=== PATIENT | female | born 1960 | race Caucasian/White ===

== ENCOUNTER → 2017-02-12 | Day surgery (SDC) | payer BC ==
[~2017-02-12] VITALS: Ht 162.6 cm; Wt 61.5 kg
[~2017-02-12] MED LIST: ACETAMINOPHEN 325 MG TAB PO PRN; ALPR-411 PO; ASPI81TA28 PO; ATROPINE SULFATE 0.1 MG/ML 5ML SYR IV PRN; FAMO20TA11 PO; FENTANYL CITRATE INJ 50 MCG/1 ML 2 ML VIAL ONE; MIDAZOLAM HCL 1 MG/ML 2ML VIAL ONE; ONDANSETRON INJ 2 MG/ML 2 ML VIAL IV PRN; SODIUM CHLORIDE 0.9% 1000ML 1,000 ML IV SCH; SODIUM CHLORIDE 0.9% 1000ML 250 ML IV PRN
[2017-02-12 09:44] VITALS: BP 161/75; PULSE 73; TEMP 36.7; O2SAT 100; Ht 162.6 cm; Wt 61.5 kg
--- NOTE | 2017-02-12 11:16 | History & Physical Bridge Note ---
H&P Re-Evaluation Bridge Note: I have examined the patient, reviewed the History & Physical and in the interval since the performance of the History & Physical I have noted the following changes of clinical significance: No changes noted
--- NOTE | 2017-02-12 11:28 | Cardiac Catheterization ---
Procedure Note Procedure Date Feb 12, 2017. Pre-Procedure Diagnosis Positive Stress Test, Cardiomyopathy AUC Score 7 Post-Procedure Diagnosis Normal Coronary Arteries (Anomalous Circumflex Artery) Procedure(s) Performed Coronary Angiography, Left Heart Cath, LV Angiography Yardage Control Clerk Dr. 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, Normal LV function EF approximately 60% Hemodynamics Rest Ao: 152/80 Final Ao: 166/79 LV: 148/13 Recommendations Medical therapy and/or Counseling Specimens None Radiation Exposure (mGy) 713 Contrast (mls) 129 Fluids (cc crystalloids) 70 Procedural Complication(s) None Disposition Special Events Manager Holding/Recovery ACC Data Cardiac Status Clinical evaluation leading to the procedure CAD Presntation: Sx unlikely to be ischemic, Positive Stress Test Anginal Classification: No symptoms Heart Failure: No Cardiogenic Shock w/in 24Hrs: No Cardiac Arrest w/in 24Hrs: No Imaging studies past 6 months: Yes Stress studies past 6 months: Yes Standard Exercise Stress Test: No Stress Echocardiogram: Yes - Positive Stress Testing w/SPECT MPI: No Cardiac CTA: No Coronary Anatomy Dominant: Right Left Main (% Stenosis): Normal LAD (% Stenosis): Normal Circumflex (% Stenosis): Normal (Anomalous from the RCA) RCA (% Stenosis): Normal Ramus (% Stenosis): Normal Left Ventricular Angiography EF (%): 60 Mitral Regurgitation: None Diagnostic Status: Elective Closure Device Percutaneous Entry Location: Femoral Closure Device: Mynx Recommendations: Medical therapy and/or Counseling
--- NOTE | 2017-02-12 11:33 | Discharge Instructions ---
Discharge Instructions Procedure Procedure Date: Feb 12, 2017. Reason for Visit: *Dr Caceres To Do Abd Stress Test. Discharge Discharge Date: Feb 12, 2017. Discharge Diagnosis: Normal Coronaries Last Recorded Wt (Kilograms): 61.5 Anesthesia Post Anesthesia Instructions: If you have had General Anesthesia or IV Sedation: * Do not drive today. * Resume driving when surgeon permits. * Do not make important decisions or sign legal documents today. * Call surgeon for: 1. Temperature elevations greater than 101 degrees F. 2. Uncontrollable pain. 3. Excessive bleeding. 4. Persistent nausea and vomiting. 5. Medication intolerance (nausea, vomiting or rash). * For nausea and vomiting use only clear liquids such as: tea, soda, bouillon until nausea subsides, then gradually increase diet as tolerated. * If you have any concerns or questions, call your surgeon's office. If physician is unavailable and it is an emergency, call 911 or go to the nearest emergency room. Instructions Activity Recommendations: limitations Recommended Home Diet: resume previous diet Provider Instructions ACTIVITY RECOMMENDATIONS: It is common to feel weak and fatigue for a few days. * Do not drive or operate any motorized equipment for the next three days. * Limit stair usage (2 or 3 trips a day only) for the next three days. * Do not lift anything heavier than 10 pounds for the next three days. * Do not engage in vigorous exercise or any sports for the next five days. * You may shower the day after your procedure, but do not immerse the area for three days. Cleanse the site gently with soap and water. SPECIAL CARE INSTRUCTIONS: * You may replace the pressure dressing or band-aid the morning after the procedure. * After your procedure, it is normal to have a small bruise or small lump at the site. Examine your site daily for any change in the bruise or lump, redness, swelling, drainage or numbness. Notify your doctor if any change. BLEEDING: * If there is a small amount of bleeding at the site, lie down and apply firm pressure with a clean cloth for ten minutes. When the bleeding stops, lie quietly keeping the procedure limb straight for six hours. Notify your doctor as soon as possible. * If the bleeding does not stop after ten minutes or if there is a large amount of bleeding or spurting, call 911 immediately. Continue to lie down and hold firm pressure until help arrives. SKIN IRRITATION: * You may experience some redness and/or swelling in the area where radiation was administered. If any skin irritation occurs, please contact your family physician. FOLLOW UP VISIT: Keep any scheduled doctor appointments. Follow Up Follow-up with: Dr. Evans 2-4 weeks, office will call with an appointment Caro Amato Recommendations: Call your doctor if: * Temperature above 101 degrees * Pain not relieved by pain medicine ordered * There is increased drainage or redness from any incision * You have any unanswered questions or concerns. Your Doctors Instructions noted above were prepared by provider Bin Caceres. Patient Signature Section: Patient Instructions Signature Page Kaitlynn Castillo Patient (or Guardian) Signature/Date: I have read and understand the instructions given to me by my caregivers. Caregiver/RN/Doctor Signature/Date: The above-named patient and/or guardian has received patient instructions on this date. + Original Patient Signature Page (only) stays with chart. Please make copy for patient.
--- NOTE | 2017-02-12 11:58 | CARDIAC CATH REPORT ---
PROCEDURE: 1. Left heart catheterization. 2. Coronary angiography. 3. Left ventriculography. HISTORY OF PRESENT ILLNESS: The patient is a 56-year-old female who presented with a newly discovered left bundle branch block. She was reluctant to undergo a pharmacologic nuclear stress test and eventually was agreeable to an exercise stress echocardiogram. Unfortunately, that study was equivocal or positive. It revealed not only wall motion abnormalities which could have been from the left bundle branch block, but also suggested a cardiomyopathy with an estimated left ventricular ejection fraction of around 40-50%. She was referred for cardiac catheterization. PROCEDURE SUMMARY: The patient was seen and evaluated in the holding area of the pathology laboratory technologist. After informed consent was obtained, the patient was taken to the cardiac catheterization lab where she was prepped and draped in the usual manner. Preformed 5-[place] diagnostic catheter was utilized for the coronary angiograms. A 5-[place] pigtail catheter was utilized for the left ventriculogram. Following the procedure, the patient had the arterial site closed with a Mynx device and was returned to the holding area of the pathology laboratory technologist in stable condition. CORONARY ANGIOGRAPHY: Selective injections of the left coronary artery revealed the left main trunk to be normal and widely patent. There is a noticeable absence of the left circumflex artery. There is a large ramus branch from the left main trunk which is widely patent and within normal limits. The LAD extends to the apex of the heart with the LAD system being smooth in appearance, widely patent, and within normal limits. 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 The right coronary artery is smooth in appearance, widely patent, and within normal limits. The left circumflex artery is smooth in appearance, widely patent, and within normal limits. LEFT VENTRICULOGRAM: The left ventricle is of normal size. The estimated left ventricular ejection fraction by left ventriculography is around 60%. The mitral valve is competent. The LVEDP is 13. 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 By left ventriculogram, left ventricular systolic function is preserved. RECOMMENDATIONS: The patient will be monitored and have follow up with her primary customs appraiser, Dr. Evans.
[2017-02-12 15:00] VITALS: BP 132/68; PULSE 63; O2SAT 100
== END | disposition home or self-care (01) ==
LOC: C.CATH 09:04
PROVIDERS: ATTEND Internal Medicine Interventional Cardiology
DX: R94.39 Abnormal result of other cardiovascular function study (principal); I44.7 Left bundle-branch block, unspecified; I42.8 Other cardiomyopathies; I10 Essential (primary) hypertension; F32.9 Major depressive disorder, single episode, unspecified

== ENCOUNTER 2021-04-05 21:20 | Inpatient (IN) ==
[2021-04-05] MEDS ORDERED: LORazepam 1 MG/2 ML VIAL IV STA (22:55)
[2021-04-05] MEDS ORDERED: SODIUM CHLORIDE 0.9% 1000ML 1,000 ML IV SCH (23:00)
[2021-04-06 00:05] LABS: Hematocrit (blood only) 33.1 % (37-47); Hemoglobin 12.1 g/dL (12.0-16.0); Immature Granulocytes # (auto) 0.03 K/uL (0.00-0.02); Immature Granulocytes % (auto) 0.3 %; Lymphocytes # (auto) 1.02 K/uL (1.2-3.4); Lymphocytes % (auto) 8.8 %; Mean Corpuscular Hemoglobin 30.8 pg (25-34); Mean Corpuscular Hgb Conc 36.6 g/dL (32-36); Mean Corpuscular Volume 84.2 fL (80-100); Mean Platelet Volume 9.5 fL (7.4-10.4); Monocytes # (auto) 1.44 K/uL (0.11-0.59); Monocytes % (auto) 12.4 %; Neutrophils # (auto) 9.15 K/uL (1.4-6.5); Neutrophils % (auto) 78.5 %; Platelet Count 222 K/uL (130-400); RDW Coefficient of Variation 12.1 % (11.5-14.5); RDW Standard Deviation 37.6 fL (36.4-46.3); Red Blood Count 3.93 M/uL (4.2-5.4); White Blood Count 11.64 K/uL (4.8-10.8)
[2021-04-06] MEDS ORDERED: METOCLOPRAMIDE HCL INJ 5 MG/ML 2 ML VIAL IV STA (00:25)
[2021-04-06 00:50] LABS: Alanine Aminotransferase 16 U/L (12-78); Albumin Level 3.3 gm/dl (3.4-5.0); Alkaline Phosphatase 85 U/L (45-117); Aspartate Aminotransferase 24 U/L (15-37); BUN Creatinine Ratio 15.9 (10-20); Bilirubin,Total 1.4 mg/dl (0.2-1); Blood Urea Nitrogen 11 mg/dl (7-18); Calcium 8.4 mg/dl (8.5-10.1); Carbon Dioxide 23 mmol/L (21-32); Chloride 84 mmol/L (98-107); Est GFR (African American) 107.6; Est GFR (Non-African American) 92.9; Globulin 3.2 gm/dl (2.5-4.0); Glucose 143 mg/dl (70-99); Magnesium 1.8 mg/dl (1.8-2.4); Potassium 3.7 mmol/L (3.5-5.1); Sodium 118 mmol/L (136-145); Thyroid Stimulating Hormone 0.717 uIu/ml (0.300-4.500); Total Protein 6.5 gm/dl (6.4-8.2); Troponin I 0.074 ng/ml (0-0.045)
[2021-04-06 01:15] LABS: Partial Thromboplastin Time 26.6 Seconds (21.0-31.0)
[2021-04-06] MEDS ORDERED: cefTRIAXone SODIUM 2,000 MG/70 ML BAG IV STA (01:17)
[2021-04-06] MEDS ORDERED: AZITHROMYCIN 250 MG TAB PO ONE (01:17)
[2021-04-06 01:33] LABS: Procalcitonin 0.14 ng/ml (0-0.5)
[2021-04-06 01:39] LABS: Lyme Ab IgG w/WB Rflx Negative (Negative); Lyme Ab IgM w/WB Rflx Negative (Negative)
[2021-04-06 01:47] LABS: Influenza A virus by PCR Negative (Neg); Influenza B virus by PCR Negative (Neg); RSV by PCR Negative (Neg); SARS CoV2 RNA(COVID-19) InHosp NEGATIVE (Negative)
[2021-04-06] MEDS ORDERED: PIPERACILLIN/TAZOBACTAM 4.5 GM/120 ML BAG IV ONE (01:50)
[2021-04-06] MEDS ORDERED: PIPERACILL/TAZOBAC CONSULT ACTIVE PRN (01:50)
--- NOTE | 2021-04-06 01:50 | Emergency Department Note ---
History of Present Illness General Chief complaint: Illness Stated complaint: FEVER, TROUBLE WALKING, HICCUPS Time Seen by Provider: 04/05/21 22:40 History of Present Illness This 60-year-old presents to the ER complaining of feeling weak and hiccups with shakiness for the past 2 days who has been anxious over Covid Location: Generalized Quality: Weak Severity: Moderate Duration: Past few days Timing: Started few days ago Context: was concerned and came in Modifying factors: better with rest; worse with activity Patient states he feels weak and has been having hiccups for quite some time. She states the past few days she is been more shaky and having difficulty ambulating. She occasionally coughs. She has received the Covid vaccine. Patient denies chest pain, abdominal pain, vomiting, diarrhea. She tried taking a Xanax earlier with no relief of symptoms. Home Medications Medication Instructions Recorded Confirmed Type alprazolam 0.25 mg PO DAILY PRN 04/05/21 04/05/21 History Allergies Allergy/AdvReac Type Severity Reaction Status Date / Time hydrocodone Allergy Mild Itching Verified 04/05/21 23:12 Past Med/Surg History Medical History Anxiety Surgical History No pertinent past surgical history Social History Smoking Status: Never smoker Feels Safe at Home: Yes Review of Systems A total of 10 systems reviewed and were otherwise negative Physical Exam Vital Signs Vital Signs - 24 hr 04/05/21 21:25 04/05/21 23:54 04/06/21 00:00 Temperature 36.5 C Temperature Source Temporal Artery Scan Pulse Rate 106 H 89 101 H Pulse Rate from SpO2 Sensor Respiratory Rate 18 25 H 27 H Respiratory Effort / Characteristics Non-Labored Spontaneous Respiratory Depth Normal Respiratory Pattern Regular Blood Pressure 119/67 127/90 129/100 Blood Pressure Mean 84 102 109 Blood Pressure Position Sitting Pulse Oximetry 94 Oxygen Delivery Method Room Air Nasal Cannula Oxygen Flow Rate 2 Sepsis Recent Fever Within 48 Hours No Sepsis New/Unexplained Change in Mental Status No Sepsis Action Taken by Nursing No Action Required 04/06/21 00:31 04/06/21 01:00 04/06/21 02:15 Temperature Temperature Source Pulse Rate 101 H 97 H 110 H Pulse Rate from SpO2 Sensor 102 H 100 H 108 H Respiratory Rate 41 H 33 H 23 Respiratory Effort / Characteristics Respiratory Depth Respiratory Pattern Blood Pressure 151/92 H 142/99 H 181/125 H Blood Pressure Mean 111 113 143 Blood Pressure Position Pulse Oximetry 92 92 88 L Oxygen Delivery Method Oxygen Flow Rate Sepsis Recent Fever Within 48 Hours Sepsis New/Unexplained Change in Mental Status Sepsis Action Taken by Nursing 04/06/21 02:30 Temperature Temperature Source Pulse Rate 102 H Pulse Rate from SpO2 Sensor 102 H Respiratory Rate 35 H Respiratory Effort / Characteristics Respiratory Depth Respiratory Pattern Blood Pressure 140/89 Blood Pressure Mean 106 Blood Pressure Position Pulse Oximetry 91 Oxygen Delivery Method Oxygen Flow Rate Sepsis Recent Fever Within 48 Hours Sepsis New/Unexplained Change in Mental Status Sepsis Action Taken by Nursing VITALS: Vitals are noted on the nurse's note and reviewed by myself. Vital signs reviewed. GENERAL: Anxious appearing female, in no acute distress, nondiaphoretic, well- developed well-nourished. SKIN: The skin was without rashes, erythema, edema, or bruising. There is no tenting of the skin. Capillary reflex less than 2 seconds. HEAD: Normocephalic atraumatic. EARS: External auditory canals clear, tympanic membranes pearly johnson without erythema or effusion bilaterally. EYES: Pupils equal round and reactive to light and accommodation. Conjunctivae without injection, sclerae without icterus. Extraocular movements intact. NOSE: Patent, turbinates without inflammation or discharge. No sinus tenderness. MOUTH: Mucous membranes mildly dry. Pharynx without erythema or exudate. Uvula midline. Airway patent. Tongue does not deviate. NECK: Supple without nuchal rigidity. No lymphadenopathy. No thyromegaly. Ce rvical spine is nontender. No JVD. HEART: Mildly tachycardic rate and rhythm LUNGS: Clear to auscultation bilaterally without wheezes, rales or rhonchi. No retractions or accessory muscle use. ABDOMEN: Positive bowel sounds x 4. Normal tympanic percussion. Soft, nontender, without masses or organomegaly. Woo sign negative. No guarding or rebound tenderness. No CVA tenderness MUSCULOSKELETAL: No muscle atrophy, erythema, or edema noted. NEURO: Patient was alert and oriented to person place and time. Normal sensation to light and sharp touch. No focal neurological deficits. Course Administered Medications Discontinued Medications Sodium Chloride (Nss 1000ml) 1,000 mls @ 999 mls/hr IV .[id number] SHIRA Stop: 04/06/21 00:00 Last Infusion: 04/06/21 02:07 Dose: 0 mls/hr Documented by: [id number] Admin: 04/05/21 23:52 Dose: 999 mls/hr Documented by: [id number] Lorazepam (Ativan) 1 mg in 2 mls @ 2 mls/min IV NOW STA Stop: 04/05/21 22:56 Last Admin: 04/05/21 23:52 Dose: 2 mls/min Documented by: [id number] Piperacillin Sod/Tazobactam Sod (Zosyn) 4.5 gm in 120 mls @ 240 mls/hr IV NOW ONE Stop: 04/06/21 02:19 Last Admin: 04/06/21 02:14 Dose: 240 mls/hr Documented by: [id number] Thiamine HCl 100 mg/ Syringe 10 mls @ 2 mls/min IV NOW STA Stop: 04/06/21 02:45 Last Admin: 04/06/21 03:02 Dose: 2 mls/min Documented by: [id number] Metoclopramide HCl (Metoclopramide Hcl Inj 5 Mg/Ml 2 Ml Vial) 5 mg IV NOW STA Stop: 04/06/21 00:26 Last Admin: 04/06/21 00:30 Dose: 5 mg Documented by: [id number] Miscellaneous Information (Piperacill/Tazobac Consult Active) 1 ea N/A UD PRN PRN Reason: Consult Stop: 05/06/21 01:49 Last Admin: 04/06/21 02:18 Dose: 1 ea Documented by: [id number] Medical Decision Making Medical Records Attestation: I reviewed the patient's medical records. Home Medications Current Medication List: was personally reviewed by me Laboratory Data Attestation: I reviewed the patient's lab results. Result diagrams: 04/05/21 23:50 04/05/21 23:50 Lab Results 04/05/21 04/05/21 04/05/21 Range/Units 23:50 23:50 23:50 WBC 11.64 H (4.8-10.8) K/uL RBC 3.93 L (4.2-5.4) M/uL Hgb 12.1 (12.0-16.0) g/dL Hct 33.1 L (37-47) % MCV 84.2 (80-100) fL MCH 30.8 (25-34) pg MCHC 36.6 H (32-36) g/dL RDW Std Deviation 37.6 (36.4-46.3) fL RDW Coeff of Luz 12.1 (11.5-14.5) % Plt Count 222 (130-400) K/uL MPV 9.5 (7.4-10.4) fL Immature Gran % (Auto) 0.3 % Neut % (Auto) 78.5 % Lymph % (Auto) 8.8 % [place] % (Auto) 12.4 % Eos % (Auto) 0.0 % Baso % (Auto) 0.0 % Neut # (Auto) 9.15 H (1.4-6.5) K/uL Lymph # (Auto) 1.02 L (1.2-3.4) K/uL [place] # (Auto) 1.44 H (0.11-0.59) K/uL Eos # (Auto) 0.00 (0-0.5) K/uL Baso # (Auto) 0.00 (0-0.2) K/uL Immature Gran # (Auto) 0.03 H (0.00-0.02) K/uL APTT (21.0-31.0) Seconds PTT Ratio Sodium 118 L* (136-145) mmol/L Potassium 3.7 (3.5-5.1) mmol/L Chloride 84 L (98-107) mmol/L Carbon Dioxide 23 (21-32) mmol/L Anion Gap 11.0 (3-11) BUN 11 (7-18) mg/dl Creatinine 0.70 (0.6-1.2) mg/dl Est Cr Clr Drug Dosing Not Reportable Est GFR ( Amer) 107.6 Est GFR (Non-Af Amer) 92.9 BUN/Creatinine Ratio 15.9 (10-20) Glucose 143 H (70-99) mg/dl Osmolality 237 L* (280-300) mOsm/kg Lactate (0.4-2.0) mmol/L Calcium 8.4 L (8.5-10.1) mg/dl Magnesium 1.8 (1.8-2.4) mg/dl Total Bilirubin 1.4 H (0.2-1) mg/dl AST 24 (15-37) U/L ALT 16 (12-78) U/L Alkaline Phosphatase 85 (45-117) U/L Ammonia (11-32) umol/L Troponin I 0.074 H* (0-0.045) ng/ml Total Protein 6.5 (6.4-8.2) gm/dl Albumin 3.3 L (3.4-5.0) gm/dl Globulin 3.2 (2.5-4.0) gm/dl Albumin/Globulin Ratio 1.0 (0.9-2) Procalcitonin (0-0.5) ng/ml TSH 0.717 (0.300-4.500) uIu/ml Ethyl Alcohol mg/dL (0-3) mg/dl Lyme Disease IgG Ab (Negative) Lyme Disease IgM Ab (Negative) COVID-19 Eval Order SARS-CoV-2 (PCR) (Negative) Influenza Type A (PCR) (Neg) Influenza Type B (PCR) (Neg) RSV (RT-PCR) (Neg) 04/05/21 04/05/21 04/06/21 Range/Units 23:50 23:50 00:50 WBC (4.8-10.8) K/uL RBC (4.2-5.4) M/uL Hgb (12.0-16.0) g/dL Hct (37-47) % MCV (80-100) fL MCH (25-34) pg MCHC (32-36) g/dL RDW Std Deviation (36.4-46.3) fL RDW Coeff of Luz (11.5-14.5) % Plt Count (130-400) K/uL MPV (7.4-10.4) fL Immature Gran % (Auto) % Neut % (Auto) % Lymph % (Auto) % [place] % (Auto) % Eos % (Auto) % Baso % (Auto) % Neut # (Auto) (1.4-6.5) K/uL Lymph # (Auto) (1.2-3.4) K/uL [place] # (Auto) (0.11-0.59) K/uL Eos # (Auto) (0-0.5) K/uL Baso # (Auto) (0-0.2) K/uL Immature Gran # (Auto) (0.00-0.02) K/uL APTT 26.6 (21.0-31.0) Seconds PTT Ratio 1.0 Sodium (136-145) mmol/L Potassium (3.5-5.1) mmol/L Chloride (98-107) mmol/L Carbon Dioxide (21-32) mmol/L Anion Gap (3-11) BUN (7-18) mg/dl Creatinine (0.6-1.2) mg/dl Est Cr Clr Drug Dosing Est GFR ( Amer) Est GFR (Non-Af Amer) BUN/Creatinine Ratio (10-20) Glucose (70-99) mg/dl Osmolality (280-300) mOsm/kg Lactate (0.4-2.0) mmol/L Calcium (8.5-10.1) mg/dl Magnesium (1.8-2.4) mg/dl Total Bilirubin (0.2-1) mg/dl AST (15-37) U/L ALT (12-78) U/L Alkaline Phosphatase (45-117) U/L Ammonia (11-32) umol/L Troponin I (0-0.045) ng/ml Total Protein (6.4-8.2) gm/dl Albumin (3.4-5.0) gm/dl Globulin (2.5-4.0) gm/dl Albumin/Globulin Ratio (0.9-2) Procalcitonin 0.14 (0-0.5) ng/ml TSH (0.300-4.500) uIu/ml Ethyl Alcohol mg/dL (0-3) mg/dl Lyme Disease IgG Ab Negative (Negative) Lyme Disease IgM Ab Negative (Negative) COVID-19 Eval Order CovFluRsv at [facility] SARS-CoV-2 (PCR) (Negative) Influenza Type A (PCR) (Neg) Influenza Type B (PCR) (Neg) RSV (RT-PCR) (Neg) 04/06/21 04/06/21 04/06/21 Range/Units 00:50 01:29 01:29 WBC (4.8-10.8) K/uL RBC (4.2-5.4) M/uL Hgb (12.0-16.0) g/dL Hct (37-47) % MCV (80-100) fL MCH (25-34) pg MCHC (32-36) g/dL RDW Std Deviation (36.4-46.3) fL RDW Coeff of Luz (11.5-14.5) % Plt Count (130-400) K/uL MPV (7.4-10.4) fL Immature Gran % (Auto) % Neut % (Auto) % Lymph % (Auto) % [place] % (Auto) % Eos % (Auto) % Baso % (Auto) % Neut # (Auto) (1.4-6.5) K/uL Lymph # (Auto) (1.2-3.4) K/uL [place] # (Auto) (0.11-0.59) K/uL Eos # (Auto) (0-0.5) K/uL Baso # (Auto) (0-0.2) K/uL Immature Gran # (Auto) (0.00-0.02) K/uL APTT (21.0-31.0) Seconds PTT Ratio Sodium (136-145) mmol/L Potassium (3.5-5.1) mmol/L Chloride (98-107) mmol/L Carbon Dioxide (21-32) mmol/L Anion Gap (3-11) BUN (7-18) mg/dl Creatinine (0.6-1.2) mg/dl Est Cr Clr Drug Dosing Est GFR ( Amer) Est GFR (Non-Af Amer) BUN/Creatinine Ratio (10-20) Glucose (70-99) mg/dl Osmolality (280-300) mOsm/kg Lactate 1.2 (0.4-2.0) mmol/L Calcium (8.5-10.1) mg/dl Magnesium (1.8-2.4) mg/dl Total Bilirubin (0.2-1) mg/dl AST (15-37) U/L ALT (12-78) U/L Alkaline Phosphatase (45-117) U/L Ammonia (11-32) umol/L Troponin I (0-0.045) ng/ml Total Protein (6.4-8.2) gm/dl Albumin (3.4-5.0) gm/dl Globulin (2.5-4.0) gm/dl Albumin/Globulin Ratio (0.9-2) Procalcitonin (0-0.5) ng/ml TSH (0.300-4.500) uIu/ml Ethyl Alcohol mg/dL < 3.0 (0-3) mg/dl Lyme Disease IgG Ab (Negative) Lyme Disease IgM Ab (Negative) COVID-19 Eval Order SARS-CoV-2 (PCR) NEGATIVE (Negative) Influenza Type A (PCR) Negative (Neg) Influenza Type B (PCR) Negative (Neg) RSV (RT-PCR) Negative (Neg) 04/06/21 04/06/21 Range/Units 01:29 01:29 WBC (4.8-10.8) K/uL RBC (4.2-5.4) M/uL Hgb (12.0-16.0) g/dL Hct (37-47) % MCV (80-100) fL MCH (25-34) pg MCHC (32-36) g/dL RDW Std Deviation (36.4-46.3) fL RDW Coeff of Luz (11.5-14.5) % Plt Count (130-400) K/uL MPV (7.4-10.4) fL Immature Gran % (Auto) % Neut % (Auto) % Lymph % (Auto) % [place] % (Auto) % Eos % (Auto) % Baso % (Auto) % Neut # (Auto) (1.4-6.5) K/uL Lymph # (Auto) (1.2-3.4) K/uL [place] # (Auto) (0.11-0.59) K/uL Eos # (Auto) (0-0.5) K/uL Baso # (Auto) (0-0.2) K/uL Immature Gran # (Auto) (0.00-0.02) K/uL APTT (21.0-31.0) Seconds PTT Ratio Sodium (136-145) mmol/L Potassium (3.5-5.1) mmol/L Chloride (98-107) mmol/L Carbon Dioxide (21-32) mmol/L Anion Gap (3-11) BUN (7-18) mg/dl Creatinine (0.6-1.2) mg/dl Est Cr Clr Drug Dosing Est GFR ( Amer) Est GFR (Non-Af Amer) BUN/Creatinine Ratio (10-20) Glucose (70-99) mg/dl Osmolality (280-300) mOsm/kg Lactate (0.4-2.0) mmol/L Calcium (8.5-10.1) mg/dl Magnesium (1.8-2.4) mg/dl Total Bilirubin (0.2-1) mg/dl AST (15-37) U/L ALT (12-78) U/L Alkaline Phosphatase (45-117) U/L Ammonia < 10.0 L (11-32) umol/L Troponin I 0.098 H* (0-0.045) ng/ml Total Protein (6.4-8.2) gm/dl Albumin (3.4-5.0) gm/dl Globulin (2.5-4.0) gm/dl Albumin/Globulin Ratio (0.9-2) Procalcitonin (0-0.5) ng/ml TSH (0.300-4.500) uIu/ml Ethyl Alcohol mg/dL (0-3) mg/dl Lyme Disease IgG Ab (Negative) Lyme Disease IgM Ab (Negative) COVID-19 Eval Order SARS-CoV-2 (PCR) (Negative) Influenza Type A (PCR) (Neg) Influenza Type B (PCR) (Neg) RSV (RT-PCR) (Neg) Imaging Data Attestation: I personally reviewed and interpreted this imaging study as follows: MDM Narrative Prior records/ancillary studies reviewed and summarized above. Nursing notes reviewed. Additional history obtained from family. The patient's history was concerning for feeling weak shaky and unsteady for the past few days. Differential diagnosis: Etiologies such as metabolic, infection, hypo/hyperglycemia, electrolyte abnormalities, cardiac sources, intracerebral event, toxicologic, neurologic, as well as others were entertained. Physical examination: As above. ER treatment provided: IV Lock An order was placed for continuous cardiac monitoring. The monitor shows a rate of 60-1 20 with a sinus rhythm. IV fluids, Zosyn, Ativan, Reglan On reassessment the patient felt better. Diagnostics interpretation by me: #1 ECG: Ordered for weakness EKG: Normal sinus, left bundle branch block, occasional PVC, poor baseline, rate of 99. Impression left bundle branch block interpreted by myself I think arrhythmia is unlikely. EKG shows no interval abnormalities such as QT prolongation or WPW. There are no findings to suggest Brugada syndrome. Cardiac monitoring in the emergency department reveals no tachycardic or bradycardic dysrhythmia. Hypertrophic cardiomyopathy was considered but there are no clear historical elements pointing toward this. EKG is not suggestive. The QRS voltage is not extremely large and there are no suggestive Q waves. #2 EKG ordered for positive troponin EKG: Normal sinus, left bundle branch block, occasional PVC, poor baseline, rate of 99. Impression left bundle branch block interpreted by myself I think arrhythmia is unlikely. EKG shows no interval abnormalities such as QT prolongation or WPW. There are no findings to suggest Brugada syndrome. Cardiac monitoring in the emergency department reveals no tachycardic or bradycardic dysrhythmia. Hypertrophic cardiomyopathy was considered but there are no clear historical elements pointing toward this. EKG is not suggestive. The QRS voltage is not extremely large and there are no suggestive Q waves. The labs revealed hyponatremia, positive troponin. Osmolarity levels ordered Imaging studies: Chest x-ray concerning for right lower lobe pneumonia per my interpretation Consultation: A consultation was placed with the hospitalist. The case was discussed and diagnostics were reviewed. The patient was evaluated in the ER for further treatment. states that his has been more shaky and tremulous the past few d ays. He states her mental health has not been right. He states during this pandemic she has been quite anxious. Exam and history seem consistent with pneumonia with concerns for aspiration since patient has been drinking alcohol daily, hyponatremia and positive troponin. Upon further questioning, the patient admits to drinking alcohol daily. She states she is 3-4 alcoholic beverages daily. Medicine was consulted. She was given Zosyn. She will be evaluated for admission. Patient and are agreeable. By the evaluation outlined above emergent etiologies such as intracerebral even t, as well as others were deemed relatively unlikely. The pt informed about the findings as listed above. All questions were answered and pleased with the treatment. The chart was completed utilizing [employer] voice recognition software. Grammatical errors, random word insertions, pronoun errors, and incomplete sentences are an occassional consequence of this system due to software limitations, ambient noise, and hardware issues. Any formal questions or concerns about the content, text, or information contained within the body of this dictation should be directly addressed to the physician service center assistant for clarification. Impression & Plan Pneumonia, Acute hyponatremia, Elevated troponin, Weakness Discharge Plan Visit Data Chief Complaint: Illness Stated Complaint: FEVER, TROUBLE WALKING, HICCUPS ED Provider: Raheel [facility] ED Midlevel Provider: Patria Dyson Discharge Problem: Pneumonia, Acute hyponatremia, Elevated troponin, Weakness Patient Disposition: Admitted As Inpatient Condition: Fair Forms Stand Alone Forms: [employer] [place] Prescriptions Prescriptions: No Action alprazolam 0.25 mg tablet 0.25 mg PO DAILY PRN (Reason: Anxiety) RF: 0 Referrals Referrals: Justin Collins MD [Primary Care Provider] - Discharge Problem: Pneumonia Qualifiers: Pneumonia type: due to unspecified organism Laterality: right Lung location: lower lobe of lung Qualified Code(s): J18.9 - Pneumonia, unspecified organism
[2021-04-06] MEDS ORDERED: THIAMINE HCL 100 MG in SYRINGE 9 ML IV STA (02:41)
[2021-04-06] MEDS ORDERED: XOPENEX/ATROVENT 1.25mg/0.5MG NEB COMBO NEB STA (03:14)
[2021-04-06] MEDS ORDERED: DOXYCYCLINE HYCLATE 100 MG in DEXTROSE 5% 100 ML IV STA (03:14)
[2021-04-06] MEDS ORDERED: methylPREDNISolone 20 MG in SYRINGE 0 ML IV STA (03:15)
[2021-04-06] MEDS ORDERED: POTASSIUM CHLORIDE CRTAB 20 MEQ TABCR PO STA (03:16)
[2021-04-06] MEDS ORDERED: LEVALBUTEROL 1.25MG/0.5ML NEB INH STA (03:18)
[2021-04-06] MEDS ORDERED: IPRATROPIUM BROMIDE NEB SOLN 0.02% 2.5 ML VIAL INH STA (03:18)
[2021-04-06] MEDS ORDERED: GABAPENTIN 800 MG TAB PO STA (03:27)
--- NOTE | 2021-04-06 03:37 | History & Physical Report ---
Date of Service April 06, 2021 Assessment & Plan (1) Encephalopathy: Improved mentation after initial intervention at the ER. Multifactorial : Hyponatremia, in the setting of poor p.o. intake and alcohol abuse Acute hypoxemic respiratory failure secondary to CAP, possible sepsis rule out PE given abnormal D-dimer hypertension, elevated secondary to illness, anxiety Patient not on maintenance medications. Troponin elevation secondary to anxiety, elevated BP, tachycardia chronic left bundle branch block anxiety/mood disorder, suboptimal as per patient, patient denies suicidality Hyperglycemia rule out DM Medical telemetry Careful correction of sodium Hyponatremia work-up Nephrology consult Re: Hyponatremia NOREEN S, DT precautions Supplemental O2 Baseline ABG CS, Ceftriaxone, Doxycycline Solu-Medrol, nebs 1 dose now given hypoxemia from bronchopneumonia Follow troponin, TTE if with progression VQ scan, LE Dopplers for PE work-up (CT angio precluded by severe contrast dye allergy as per patient) IV heparin until PE ruled out Psychiatry consult Re: Suboptimal anxiety, depression Check hemoglobin A1c PT OT eval once medically stable DVT prophylaxis. IV Heparin Full code Patient requesting updates for providers. Mr. Emmett Barba, contact #[phone]. Text document was generated using [employer] voice recognition software. It may contain grammatical or spelling errors. Kindly contact undersigned for clarification of any documentation item in que stion. History of Present Illness Chief Complaint: Weakness, slow to respond, increasing anxiety as per Primary Care Provider: Justin Collins MD History obtained from patient, family, and records. Patient is a fair historian. Medical history significant for hypertension, chronic left bundle branch block, anxiety/mood disorder, alcohol abuse. Few days history of not feeling well as per patient. Poor appetite. Dry cough symptoms, a little out of breath. Denies chest pain. No aspiration. Patient hiccuping. Patient denies abdominal pain. No known recent COVID-19 contacts. Increased anxiety as per . Patient denies inordinate intake of home Xanax. Just had 1 tablet at home. Patient noted to be increasingly weak and slow to respond and shaky as per . Last alcoholic beverage intake was about 3 days ago as per . Patient and admit to alcohol beverage consumption more than they should from time to time. Patient brought to the ER for evaluation. Patient received Zosyn for pneumonia. Improved mentation after NSS administration at the ER as per . Medical History as above No prior history of alcohol withdrawal seizures as per patient. 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 Allergies Allergy/AdvReac Type Severity Reaction Status Date / Time Iodinated Contrast Media Allergy Severe Rash Verified 04/06/21 04:00 hydrocodone Allergy Mild Itching Verified 04/05/21 23:12 latex Allergy Rash Verified 04/06/21 09:35 zolpidem AdvReac Unknown Verified 04/06/21 09:35 Home Medications Medication Instructions Recorded Confirmed Type alprazolam 0.25 mg PO DAILY PRN 04/05/21 04/05/21 History Past Med/Surg History Medical History Anxiety Surgical History No pertinent past surgical history Social History Smoking Status: Never smoker Hx Alcohol Use: Yes Alcohol type: wine and hard liquor Hx Substance Use: No Beliefs That Will Affect Care: None Current Living Situation: Spouse Feels Safe at Home: Yes Review of Systems Review of Systems: As per HPI, all 10 systems reviewed, all other ROS negative Physical Exam Physical Exam: GENERAL: Slightly uncomfortable, anxious, coherent, no respiratory distress SKIN: Normal color, warm HEENT: [place] palpebral conjunctivae, no ptosis, dry buccal mucosa NECK : Supple, no tenderness CHEST : Decreased breath sounds, no tenderness HEART : Tachycardic, no obvious murmurs ABDOMEN: No distention, nontender EXTREMITIES : No LE swelling/tenderness, no other conspicuous deformities noted NEUROLOGIC : Coherent, no facial asymmetry, no other gross focality Results & Data Results & Data ([facility]) Vital Signs (Past 12 Hours) Vital Signs Temp Pulse Resp BP Pulse Ox 04/06/21 02:30 102 H 35 H 140/89 91 04/06/21 02:15 110 H 23 181/125 H 88 L 04/06/21 01:00 97 H 33 H 142/99 H 92 04/06/21 00:31 101 H 41 H 151/92 H 92 04/06/21 00:00 101 H 27 H 129/100 04/05/21 23:54 89 25 H 127/90 04/05/21 21:25 36.5 C 106 H 18 119/67 94 Laboratory Results Laboratory Results WBC 11.64 K/uL (4.8-10.8) H 04/05/21 23:50 RBC 3.93 M/uL (4.2-5.4) L 04/05/21 23:50 Hgb 12.1 g/dL (12.0-16.0) 04/05/21 23:50 Hct 33.1 % (37-47) L 04/05/21 23:50 MCV 84.2 fL (80-100) 04/05/21 23:50 MCH 30.8 pg (25-34) 04/05/21 23:50 MCHC 36.6 g/dL (32-36) H 04/05/21 23:50 RDW Std Deviation 37.6 fL (36.4-46.3) 04/05/21 23:50 RDW Coeff of Luz 12.1 % (11.5-14.5) 04/05/21 23:50 Plt Count 222 K/uL (130-400) 04/05/21 23:50 MPV 9.5 fL (7.4-10.4) 04/05/21 23:50 Immature Gran % (Auto) 0.3 % 04/05/21 23:50 Neut % (Auto) 78.5 % 04/05/21 23:50 Lymph % (Auto) 8.8 % 04/05/21 23:50 [place] % (Auto) 12.4 % 04/05/21 23:50 Eos % (Auto) 0.0 % 04/05/21 23:50 Baso % (Auto) 0.0 % 04/05/21 23:50 Neut # (Auto) 9.15 K/uL (1.4-6.5) H 04/05/21 23:50 Lymph # (Auto) 1.02 K/uL (1.2-3.4) L 04/05/21 23:50 [place] # (Auto) 1.44 K/uL (0.11-0.59) H 04/05/21 23:50 Eos # (Auto) 0.00 K/uL (0-0.5) 04/05/21 23:50 Baso # (Auto) 0.00 K/uL (0-0.2) 04/05/21 23:50 Immature Gran # (Auto) 0.03 K/uL (0.00-0.02) H 04/05/21 23:50 APTT 26.6 Seconds (21.0-31.0) 04/05/21 23:50 PTT Ratio 1.0 04/05/21 23:50 Sodium 118 mmol/L (136-145) L* 04/05/21 23:50 Potassium 3.7 mmol/L (3.5-5.1) 04/05/21 23:50 Chloride 84 mmol/L (98-107) L 04/05/21 23:50 Carbon Dioxide 23 mmol/L (21-32) 04/05/21 23:50 Anion Gap 11.0 (3-11) 04/05/21 23:50 BUN 11 mg/dl (7-18) 04/05/21 23:50 Creatinine 0.70 mg/dl (0.6-1.2) 04/05/21 23:50 Est Cr Clr Drug Dosing Not Reportable 04/05/21 23:50 Est GFR ( Amer) 107.6 04/05/21 23:50 Est GFR (Non-Af Amer) 92.9 04/05/21 23:50 BUN/Creatinine Ratio 15.9 (10-20) 04/05/21 23:50 Glucose 143 mg/dl (70-99) H 04/05/21 23:50 Osmolality 237 mOsm/kg (280-300) L* 04/05/21 23:50 Lactate 1.2 mmol/L (0.4-2.0) 04/06/21 01:29 Calcium 8.4 mg/dl (8.5-10.1) L 04/05/21 23:50 Magnesium 1.8 mg/dl (1.8-2.4) 04/05/21 23:50 Total Bilirubin 1.4 mg/dl (0.2-1) H 04/05/21 23:50 AST 24 U/L (15-37) 04/05/21 23:50 ALT 16 U/L (12-78) 04/05/21 23:50 Alkaline Phosphatase 85 U/L (45-117) 04/05/21 23:50 Ammonia < 10.0 umol/L (11-32) L 04/06/21 01:29 Troponin I 0.098 ng/ml (0-0.045) H* 04/06/21 01:29 Total Protein 6.5 gm/dl (6.4-8.2) 04/05/21 23:50 Albumin 3.3 gm/dl (3.4-5.0) L 04/05/21 23:50 Globulin 3.2 gm/dl (2.5-4.0) 04/05/21 23:50 Albumin/Globulin Ratio 1.0 (0.9-2) 04/05/21 23:50 Procalcitonin 0.14 ng/ml (0-0.5) 04/05/21 23:50 TSH 0.717 uIu/ml (0.300-4.500) 04/05/21 23:50 Ethyl Alcohol mg/dL < 3.0 mg/dl (0-3) 04/06/21 01:29 Lyme Disease IgG Ab Negative (Negative) 04/05/21 23:50 Lyme Disease IgM Ab Negative (Negative) 04/05/21 23:50 COVID-19 Eval Order CovFluRsv at [facility] 04/06/21 00:50 SARS-CoV-2 (PCR) NEGATIVE (Negative) 04/06/21 00:50 Influenza Type A (PCR) Negative (Neg) 04/06/21 00:50 Influenza Type B (PCR) Negative (Neg) 04/06/21 00:50 RSV (RT-PCR) Negative (Neg) 04/06/21 00:[address] head initial read: No ICH, mass-effect or edema. No evidence of acute cortical stroke. Chest x-ray as per my interpretation interstitial infiltrates EKG as per my interpretation : Rate 100, NSR, normal axis, LBBB, PVCs
[2021-04-06] MEDS ORDERED: OPTIRAY 350 500ml IV ONE (03:38)
[2021-04-06] MEDS ORDERED: LORazepam 2 MG/4 ML VIAL IV PRN (04:24)
[2021-04-06] MEDS ORDERED: LORazepam 1 MG/2 ML VIAL IV PRN (04:24)
[2021-04-06] MEDS ORDERED: ACETAMINOPHEN 325 MG TAB PO PRN (04:24)
[2021-04-06] MEDS ORDERED: GABAPENTIN 1200MG ALCOHOL WITHDRAWAL LOAD PO STA (04:24)
[2021-04-06] MEDS ORDERED: LORazepam 3 MG/6 ML VIAL IV PRN (04:24)
[2021-04-06] MEDS ORDERED: ATIVAN IV ALCOHOL WITHDRAWL IV PRN (04:24)
[2021-04-06 04:46] LABS: D Dimer 1490 ug/L FEU (0-500)
[2021-04-06] MEDS ORDERED: GABAPENTIN 600 MG TAB PO ONE (05:00)
[2021-04-06] MEDS ORDERED: MAGNESIUM SULFATE / D5W 1 GM/100 ML BAG IV ONE (05:45)
[2021-04-06 05:47] LABS: Appearance Urine Clear (Clear); Bilirubin Urine Negative (Negative); Blood Urine Negative (Negative); Color Urine Yellow; Glucose Urine UA Negative (Negative); Ketones Urine Negative (Negative); Leukocyte Esterase Urine 1+ (Negative); Nitrite Urine Negative (Negative); Protein Urine Negative (Negative); Specific Gravity Urine 1.007 (1.000-1.030); Urobilinogen Urine Negative (Negative); pH Urine 6.5 (4.5-7.5)
[2021-04-06] MEDS ORDERED: Heparin IV Adult Wt-Based Standard *NO* Bolus Protocol ONE (06:04)
[2021-04-06 06:18] LABS: Bacteria Urine Automated Negative (Negative); Cast Urine Automated 0 /lpf (0-5); RBC Urine Automated 0-4 /hpf (0-4)
[2021-04-06] MEDS ORDERED: HEPARIN SODIUM/DEXTROSE 25,000 UNITS/500 ML BAG IV SCH (06:19)
[2021-04-06 06:23] LABS: Base Excess ABG -2.6 mEq/L (-9-1.8); HCO3 ABG 19 mmol/L (19-24); PCO2 ABG 25 mmHg (35-46); PO2 ABG 55 mmHg (80-95)
[2021-04-06 06:28] LABS: Hematocrit (blood only) 30.1 % (37-47); Hemoglobin 10.7 g/dL (12.0-16.0); Immature Granulocytes # (auto) 0.01 K/uL (0.00-0.02); Immature Granulocytes % (auto) 0.1 %; Lymphocytes # (auto) 0.43 K/uL (1.2-3.4); Lymphocytes % (auto) 4.9 %; Mean Corpuscular Hemoglobin 30.7 pg (25-34); Mean Corpuscular Hgb Conc 35.5 g/dL (32-36); Mean Corpuscular Volume 86.5 fL (80-100); Mean Platelet Volume 9.8 fL (7.4-10.4); Monocytes # (auto) 0.92 K/uL (0.11-0.59); Monocytes % (auto) 10.4 %; Neutrophils # (auto) 7.48 K/uL (1.4-6.5); Neutrophils % (auto) 84.6 %; Platelet Count 202 K/uL (130-400); RDW Coefficient of Variation 12.2 % (11.5-14.5); RDW Standard Deviation 38.8 fL (36.4-46.3); Red Blood Count 3.48 M/uL (4.2-5.4); White Blood Count 8.84 K/uL (4.8-10.8)
[2021-04-06 06:30] LABS: Allen Test Pos (Pos)
[2021-04-06 06:31] LABS: Partial Thromboplastin Ratio 1.1; pH ABG 7.51 (7.35-7.45)
[2021-04-06] MEDS ORDERED: LORazepam 0.25 MG/0.5 ML VIAL IV STA (06:35)
[2021-04-06 07:02] LABS: BUN Creatinine Ratio 14.2 (10-20); Calcium 7.9 mg/dl (8.5-10.1); Creatinine Clr Calc Pharmacy 81.5 ml/min; Est GFR (Non-African American) 89.8; Potassium 3.9 mmol/L (3.5-5.1); Troponin I 0.11 ng/ml (0-0.045)
--- NOTE | 2021-04-06 07:22 | CT Scan Report ---
CT OF THE HEAD WITHOUT CONTRAST CLINICAL HISTORY: Altered mental status. COMPARISON STUDY: No previous studies for comparison. CT DOSE: 1074.96 mGy.cm TECHNIQUE: Helical axial images of the head were obtained without IV contrast. Automated exposure con trol was utilized for the study. A dose lowering technique was utilized adhering to the principles o f ALARA. FINDINGS: No acute intracranial hemorrhage, midline shift or mass effect is present. White matter hyp odensity suggests small vessel disease. The ventricular system is unremarkable. The basal cisterns ar e patent. No extra-axial collections are present. There are no findings to suggest acute dural sinus thrombosis or acute territorial infarct. No significant calvarial abnormalities are present. Visualiz ed portions of the sinuses and mastoid air cells are clear. IMPRESSION: No acute intracranial findings. ACT 112: Negative or not required by law. Electronically signed by: Philip Bower M.D. 04/06/2021 7:21 AM
[2021-04-06] MEDS ORDERED: cefTRIAXone SODIUM 2,000 MG in DEXTROSE 5% 50 ML IV SCH (08:00)
--- NOTE | 2021-04-06 08:17 | Hospitalist Progress Note ---
Date of Service April 06, 2021 Assessment & Plan (1) Sepsis: Concern for developing sepsis 2/2 underlying pneumonia also in setting of alcohol withdrawal. Appears improved on broad spectrum Zosyn; possible gram negative pneumonia with high risk of aspiration 2/2 alcoholism. Procalcitonin negative, leukocytosis improved. Also has acute hyponatremia with Na 118, Nephrology is consulted this morning so will allow them to make fluid choices/devise care plan. (2) Gram-negative pneumonia: Cont Zosyn, supportive care with supplemental oxygen as needed. (3) Hypoxia: This is likely related to worsening pneumonia, sepsis in setting of alcohol withdrawal and acute hyponatremia. However, elevated D-dimer gave cause for concern of acute pulmonary embolus that may be contributing. She has a severe allergy to contrast dye and no nuclear scan can be performed at this facility until after the weekend. Will cont empiric heparin drip for now. Bilateral leg us are pending. (4) Acute hyponatremia: Na 118 on admission, likely related to poor PO intake in setting of alcoholism. She is currently NPO in setting of acute delirium with high risk of aspiration. Will defer to Nephrology who is consulted for fluid management. (5) Elevated troponin: poss related to demand ischemia in setting of sepsis. TTE to rule out acute wall motion abnormality. Underlying LBBB. (6) Weakness: Generally related to underlying illness. (7) Alcohol abuse: Reports 3-4 drinks per day. (8) Alcohol withdrawal: Cont alcohol withdrawal protocol with gabapentin and PRN Ativan. (9) DVT prophylaxis: heparin drip Full Code Dispo-transfer to PCU. DO [facility] Hospitalist Admission and Anticipated Discharge Date Admission Date: April 06, 2021 Subjective 60 yo F alcoholic presented with fever difficulty walking and weakness. She was brought in by her . Cough was reported. Work-up reveals a hypotonic hyponatremia, mildly elevated troponin 0 0.074, negative alcohol level, negative SARS-CoV-2 PCR, negative flu PCR, negative ammonia, left bundle branch block on EKG which is chronic per records, chest x-ray concerning for right lower lobe pneumonia. She was placed on Zosyn and admitted to the telemetry floor. O vernight she remained mildly tachycardic in the low 100s with an elevated respiratory rate in the high 20s to 30s, she was afebrile and hypoxic requiring 3 L/min of oxygen supplementation to maintain a saturation of 96%. She received IV Ativan 0.25 mg at 0 645. Following this, she was less responsive and a blood gas revealed respiratory alkalosis likely secondary to underlying pneumonia/developing sepsis. She notably was tachypneic overnight. On bedside evaluation 1-1/2-hour later she became more alert and was oriented to self only. She is unable to answer most questions outside of this but prior records report she drinks 3-4 alcoholic beverages daily. Review of Systems Review of Systems: All systems reviewed & are unremarkable except as noted in Subjective Physical Exam Physical Exam: CONSTITUTIONAL: WNWD, vitals as above, generally well- appearing EYES: normal conjunctivae, no scleral icterus ENT: external ear and nose normal, MMM RESPIRATORY: clear to auscultation bilaterally, no crackles, rales or wheezes, no increased respiratory effort but slightly tachypneic. CARDIOVASCULAR: tachy rate and rhythm, S1 and 2 heard without murmurs, gallops or rubs, no JVD, no peripheral edema GASTROINTESTINAL: soft, nontender, nondistended, no guarding. MUSCULOSKELETAL: strength 5/5 throughout, head is normocephalic and atraumatic, unable to follow instructions 2/2 alcohol withdrawal. Moving all extremities equally. SKIN: warm and dry NEUROLOGIC: No facial palsy, no dysarthria. CN 2-12 grossly intact, normal cognition, no tremor, speaks her name without issues articulating but is having some difficulty comprehending questions/answering PSYCHIATRIC: alert and oriented to person only. Doesn't know where she is and states this. Results & Data Results & Data ([facility]) Vital Signs (Past 12 Hours) Vital Signs Temp Pulse Pulse Resp BP BP Pulse Ox 04/06/21 06:13 105 H 04/06/21 04:59 36.9 C 101 H 19 122/79 96 04/06/21 03:39 100 H 93 04/06/21 02:30 102 H 35 H 140/89 91 04/06/21 02:15 110 H 23 181/125 H 88 L 04/06/21 01:00 97 H 33 H 142/99 H 92 04/06/21 00:31 101 H 41 H 151/92 H 92 04/06/21 00:00 101 H 27 H 129/100 04/05/21 23:54 89 25 H 127/90 04/05/21 21:25 36.5 C 106 H 18 119/67 94 Laboratory Results Short CBC 04/05/21 04/06/21 Range/Units 23:50 05:56 WBC 11.64 H 8.84 (4.8-10.8) K/uL Hgb 12.1 10.7 L (12.0-16.0) g/dL Hct 33.1 L 30.1 L (37-47) % Plt Count 222 202 (130-400) K/uL BMP 04/05/21 04/06/21 23:50 06:04 Sodium 118 L* 119 L* Potassium 3.7 3.9 Chloride 84 L 89 L Carbon Dioxide 23 20 L BUN 11 10 Creatinine 0.70 0.72 Glucose 143 H 159 H Calcium 8.4 L 7.9 L Cardiac Enzymes 04/05/21 04/06/21 04/06/21 Range/Units 23:50 01:29 06:04 Troponin I 0.074 H* 0.098 H* 0.110 H* (0-0.045) ng/ml Liver Function 04/05/21 Range/Units 23:50 Total Bilirubin 1.4 H (0.2-1) mg/dl AST 24 (15-37) U/L ALT 16 (12-78) U/L Alkaline Phosphatase 85 (45-117) U/L Albumin 3.3 L (3.4-5.0) gm/dl Urine 04/06/21 Range/Units 05:32 Urine Color Yellow Urine Appearance Clear (Clear) Urine pH 6.5 (4.5-7.5) Ur Specific [place] 1.007 (1.000-1.030) Urine Protein Negative (Negative) Urine Glucose (UA) Negative (Negative) Medications Administered Current Inpatient Medications Acetaminophen (Acetaminophen 325 Mg Tab) 650 mg PO Q4H PRN PRN Reason: Pain or Fever Stop: 05/06/21 04:23 Alprazolam (Alprazolam 0.25 Mg Tablet) 0.25 mg PO DAILY PRN PRN Reason: Anxiety Stop: 05/06/21 04:23 Doxycycline Hyclate (Doxycycline Hyclate 100 Mg Cap) 100 mg PO BID@1000,2200 SHIRA Stop: 04/13/21 21:59 Folic Acid (Folic Acid 1 Mg Tab) 1 mg PO QAM SHIRA Stop: 05/06/21 08:59 Gabapentin (Gabapentin 600 Mg Tab) 600 mg PO Q6H [facility] Stop: 04/06/21 16:01 Gabapentin (Gabapentin 600 Mg Tab) 600 mg PO Q8H [facility] Stop: 04/07/21 16:01 Gabapentin (Gabapentin 600 Mg Tab) 600 mg PO Q12H [facility] Stop: 04/08/21 18:01 Gabapentin (Gabapentin 600 Mg Tab) 600 mg PO Q24H [facility] Stop: 04/09/21 18:01 Guaifenesin (Guaifenesin 600 Mg Tabcr) 600 mg PO Q12 [facility] Stop: 05/06/21 08:59 Lorazepam (Ativan) 1 mg in 2 mls @ 2 mls/min IV UD PRN; Protocol PRN Reason: EtOH Withdrawl AWSS Score 6,7 Stop: 05/06/21 04:23 Lorazepam (Ativan) 2 mg in 4 mls @ 4 mls/min IV UD PRN; Protocol PRN Reason: EtOH Withdrawl AWSS Score 8,9 Stop: 05/06/21 04:23 Lorazepam (Ativan) 3 mg in 6 mls @ 4 mls/min IV ONCE PRN; Protocol PRN Reason: EtOH Withdrawl AWSS Score >=10 Stop: 05/06/21 04:23 Ceftriaxone Sodium 2,000 mg/ (Dextrose) 70 mls @ 100 mls/hr IV Q24H [facility]; Protocol Stop: 04/13/21 07:59 Last Admin: 04/06/21 08:15 Dose: 100 mls/hr Documented by: Heparin Sodium/Dextrose (Heparin Sodium/Dextrose) 25,000 units in 500 mls @ 24 mls/hr IV .[id number] [facility]; Protocol Stop: 05/06/21 06:18 Last Admin: 04/06/21 07:28 Dose: 1,200 units/hr, 24 mls/hr Documented by: Multivitamins (Multivitamin Tab) 1 tab PO [facility] Stop: 05/06/21 08:59 Thiamine HCl (Th[facility]amine Hcl 100 Mg Tab) [facility] Stop: 05/07/21 08:59
--- NOTE | 2021-04-06 08:21 | XRay Report ---
XR chest 1V portable CLINICAL HISTORY: weak COMPARISON STUDY: No previous studies for comparison. FINDINGS: Lung volumes are normal. There is no pneumothorax. There are small bilateral pleural effusi ons. Interstitial thickening with Nubia B lines is noted. There are bibasilar opacities. There is ca rdiomegaly. IMPRESSION: 1. Moderate interstitial pulmonary edema with small bilateral pleural effusions. Cardiomegaly. 2. Bibasilar opacities which could reflect alveolar pulmonary edema, atelectasis or superimposed cons olidation. Radiographic follow-up to ensure resolution is recommended. ACT 112: Negative or not required by law. Electronically signed by: Philip Bower M.D. 04/06/2021 8:20 AM
[2021-04-06] MEDS ORDERED: ENOXAPARIN INJ 30 MG/0.3 ML SYR SQ SCH (09:00)
[2021-04-06] MEDS ORDERED: guaiFENesin 600 MG TABCR PO SCH (09:00)
[2021-04-06] MEDS ORDERED: MULTIVITAMIN TAB PO SCH (09:00)
[2021-04-06] MEDS ORDERED: ENOXAPARIN 1 MG/KG SQ SCH (09:30)
--- NOTE | 2021-04-06 09:35 | Nephrology Consultation ---
Date of Consultation April 06, 2021 Assessment & Plan (1) Acute hyponatremia: Patient with acute hyponatremia likely due to multifactorial etiology including low solute intake and possible volume overload. Chest x-ray showed interstitial edema with small bilateral effusions with cardiomegaly. Admission sodium was 118 and up to 119 today. Target rate of rise is 6 in 24 hours. Urine osmolality of 123 urine sodium of 15 and serum osmolality of 237. -We will give urea 15 g p.o. twice daily. Patient is n.p.o. currently. -She will need fluid restriction when she starts eating of 1.2 L daily. -We will give albumin 12.5 g 3 times daily for 2 days to provide solute (2) Gram-negative pneumonia: Likely due to aspiration pneumonia in setting of chronic alcoholism. Patient is getting Unasyn per primary team. Recommend putting antibiotics in normal saline instead of D5 if possible (3) Alcohol withdrawal: Patient is tachycardic with tremors. She is on withdrawal management per primary team. We will give some albumin as above. (4) Hypoxia: Likely due to pneumonia and possibly mild fluid overload. Patient is on Heparin empiric for PE. Recommend stopping heparin and giving Lovenox to reduce the hypotonic fluid load History of Present Illness Reason for Consultation: Hyponatremia Requesting Physician: Estela Pascal DO Attending Physician: Estela Pascal DO History of Present Illness This is 60-year-old female with history of alcohol abuse who was admitted on 04/06/2021 with weakness. She was found to have pneumonia on chest x-ray and hyponatremia 118. Sodium this morning is 119. Patient has been n.p.o. She reports feeling anxious over the past few days. She denied any diarrhea or vomiting. Patient reports eating regular meals but cannot explain further. Patient is awake. She is requiring oxygen 2 L by nasal cannula. She is intermittently confused. She is also being treated for alcohol withdrawal. She is also on a heparin drip for empiric treatment for suspected PE.Serum osmolality was 237, urine osmolality of 123 and urine sodium of 15She has normal creatinine of 0.7 and potassium of 3.9. Allergies Allergy/AdvReac Type Severity Reaction Status Date / Time Iodinated Contrast Media Allergy Severe Rash Verified 04/06/21 04:00 hydrocodone Allergy Mild Itching Verified 04/05/21 23:12 latex Allergy Rash Verified 04/06/21 09:35 zolpidem AdvReac Unknown Verified 04/06/21 09:35 Home Medications Medication Instructions Recorded Confirmed Type alprazolam 0.25 mg PO DAILY PRN 04/05/21 04/05/21 History Patient History Medical History Anxiety Surgical History No pertinent past surgical history Social History Smoking Status: Never smoker Hx Alcohol Use: Yes Alcohol type: wine and hard liquor Hx Substance Use: No Beliefs That Will Affect Care: None Current Living Situation: Spouse Feels Safe at Home: Yes Review of Systems Review of Systems: All systems reviewed & are unremarkable except as noted in HPI & below Physical Exam Physical Exam: General exam: Appears comfortable, no acute distress HEENT: Pupils are equal and reactive to light Neck: No JVD, neck is supple trachea is midline Respiratory system: Clear breath sounds bilaterally. Gastrointestinal: Abdomen is soft, non distended, non tender, bowel sounds are present CVS: Regular rate and rhythm. No murmurs, rubs or gallops Musculoskeletal: No joint or muscle tenderness Extremities: Non tender, no edema, peripheral pulses are present Neuro: Orientedx1, Does not know why she is, + tremors, no focal neurological deficits Skin: No rashes Results & Data ([facility]) Vital Signs (Past 12 Hours) Vital Signs Temp Pulse Pulse Resp BP BP Pulse Ox 04/06/21 07:18 36.4 C L 91 H 18 91 04/06/21 06:13 105 H 04/06/21 04:59 36.9 C 101 H 19 122/79 96 04/06/21 03:39 100 H 93 04/06/21 02:30 102 H 35 H 140/89 91 04/06/21 02:15 110 H 23 181/125 H 88 L 04/06/21 01:00 97 H 33 H 142/99 H 92 04/06/21 00:31 101 H 41 H 151/92 H 92 04/06/21 00:00 101 H 27 H 129/100 04/05/21 23:54 89 25 H 127/90 Laboratory Results 04/06/21 06:04 04/05/21 04/05/21 04/06/21 23:50 23:50 05:56 WBC 11.64 H 8.84 RBC 3.93 L 3.48 L MCV 84.2 86.5 MCH 30.8 30.7 MCHC 36.6 H 35.5 RDW Std Deviation 37.6 38.8 RDW Coeff of Luz 12.1 12.2 Plt Count 222 202 MPV 9.5 9.8 Albumin 3.3 L
[2021-04-06] MEDS ORDERED: POTASSIUM CHLORIDE 20 MEQ/15 ML UDC PO SCH (09:45)
--- NOTE | 2021-04-06 10:00 | Ultrasound Report ---
BILATERAL LOWER EXTREMITY VENOUS DOPPLER CLINICAL HISTORY: Elevated d-dimer. COMPARISON STUDY: No previous studies for comparison. TECHNIQUE: Sonography of the deep venous system of the bilateral lower extremities was performed. Co mpression and augmentation were evaluated. FINDINGS: The bilateral common femoral, superficial femoral and popliteal veins were compressible. A ugmentation was normal. Flow was shown within the deep calf vessels. IMPRESSION: No evidence of deep venous thrombus within the bilateral lower extremities. ACT 112: Negative or not required by law. Electronically signed by: Philip Bower M.D. 04/06/2021 9:58 AM
[2021-04-06] MEDS: FOLIC ACID 1 MG TAB PO SCH (10:27)
[2021-04-06] MEDS: GABAPENTIN 600 MG TAB PO SCH ×3 (10:30→23:41)
[2021-04-06] MEDS: ENOXAPARIN 80 MG/0.8 ML SYR SQ SCH ×2 (10:34→21:37)
[2021-04-06] MEDS: AMPICILLIN/SULBACTAM SOD 3,000 MG in 0.9 % SODIUM CHLORIDE 100 ML IV SCH ×3 (10:35→21:30)
[2021-04-06] MEDS ORDERED: SODIUM CHLORIDE 0.9% 1000ML 500 ML IV ONE (11:21)
[2021-04-06] MEDS ORDERED: DEXTROSE 5% 1,000 ML IV SCH (12:45)
[2021-04-06] MEDS ORDERED: ALBUMIN 25% 12.5 GM/50 ML VIAL IV SCH (14:00)
--- NOTE | 2021-04-06 15:31 | Electrocardiogram Report ---
Test Reason : Blood Pressure : / mmHG Vent. Rate : 099 BPM Atrial Rate : 099 BPM P-R Int : 144 ms QRS Dur : 166 ms QT Int : 428 ms P-R-T Axes : 000 048 223 degrees QTc Int : 549 ms Poor data quality, interpretation may be adversely affected Sinus rhythm with Premature supraventricular complexes and with occasional Premature ventricular comp lexes Left bundle branch block Abnormal ECG No previous ECGs available Confirmed by Raheel Wagner ([id number]) on 04/06/2021 3:30:29 PM Referred By: REFERRED SELF Confirmed By:Raheel Wagner
--- NOTE | 2021-04-06 15:31 | Electrocardiogram Report ---
Test Reason : Blood Pressure : / mmHG Vent. Rate : 096 BPM Atrial Rate : 096 BPM P-R Int : 166 ms QRS Dur : 166 ms QT Int : 436 ms P-R-T Axes : 083 -70 113 degrees QTc Int : 550 ms Poor data quality, interpretation may be adversely affected Sinus rhythm with occasional Premature ventricular complexes and Fusion complexes Possible Left atrial enlargement Left axis deviation Left bundle branch block Abnormal ECG When compared with ECG of 06-APR-2021 00:04, (unconfirmed) Fusion complexes are now Present Premature supraventricular complexes are no longer Present QRS axis Shifted left T wave inversion no longer evident in Inferior leads Confirmed by Raheel Wagner ([id number]) on 04/06/2021 3:30:45 PM Referred By: REFERRED SELF Confirmed By:Raheel Wagner
--- NOTE | 2021-04-06 16:27 | Cardiology Consultation ---
Date of Consultation April 06, 2021 Assessment & Plan (1) Nonischemic cardiomyopathy: 60-year-old female presents with encephalopathy symptoms, with noted severe hyponatremia, sodium 118 on presentation, and concerns of possible pneumonia. Chest x-ray reveals trace pleural effusions. These are also noted on echocardiogram. EKG tracings performed overnight revealed sinus rhythm with left bundle branch block, wide QRS duration 160 ms. Compared to 2017, left bundle branch block with QRS duration of 150 ms noted at that time. Echocardiogram performed today and reviewed independently revealed mild left chamber dilatation, abnormal septal motion consistent with left bundle branch block, severe diffuse left ventricular hypokinesis otherwise with severe left ventricular systolic dysfunction, LVEF less than 20%. Moderate severe central mitral regurgitation noted. Mild tricuspid regurgitation, mild pulmonary artery systolic pressure elevation of 44 mmHg (likely due to left heart failure) and grade 3 diastolic dysfunction with Doppler evidence of elevated left sided filling pressure. Based on her angiographically normal coronary arteries in 2017, I would speculate that she has progression of a nonischemic cardiomyopathy. She has not been on medical therapy in the last 4 years, and this may be due to progression of her prior idiopathic cardiomyopathy, although superimposed alcohol cardiomyopathy is also a consideration. Ultimately, medication therapy including beta-deja, ACEI / ARB , therapy will be recommended, however when she came in today she had been transiently hypotensive with systolic blood pressures in the 80s to 90s, this is since improved with most recent measurement of 104/67. Fluids as already recommended by the primary team and nephrology regards to treating her hyponatremia. Patient was counseled on the need to cease alcohol use. If blood pressure allows, will likely start low-dose beta-deja tomorrow. Patient does have an elevated D-dimer, she is unable to have the CT due to her history of contrast allergy, with noted severe reaction in the past. Lower extremity venous duplex was negative. Agree with empiric anticoagulation with Lovenox pending further evaluation. She does have a mild, flat elevation in the troponin I, but I think this is likely related to her cardiomyopathy and acute coronary syndrome. History of Present Illness Attending Physician: Estela Pascal, History of Present Illness Kaitlynn Castillo is a 60-year-old female seen in cardiology consultation per the request of Dr. Pascal for the evaluation of new severe left ventricular systolic function on echocardiogram. The patient has a history of left bundle branch block initially diagnosed in 2017 found as part of a work-up for complaint of chest discomfort. She went on to have an exercise stress echocardiogram which was abnormal, with baseline LVEF of 45-50%, and worsening left ventricular systolic function post exercise. Cardiac catheterization had taken place at [place] on 02/13/[address] Caceres with no significant coronary heart disease. 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 Post procedure, the patient had a follow-up visit with Dr. Evans, at which time the diagnosis of nonischemic cardiomyopathy was discussed and a follow-up echocardiogram had been recommended along with a clinical follow-up at a 6-month interval however the patient did not keep these appointments. Patient admitted to the emergency department overnight having been brought in by her for complaint of increasing lethargy. Patient was arousable for discussion. No recent chest discomfort or shortness of breath although she believes that she had a sensation of lightheadedness "in the summer ". She notes that she has had a lot of anxiety related to the COVID-19 crisis. She works in the [employer] system for the [employer] and has been working from home this year. Patient describes that she walks on a regular basis, often times distances up to 3 miles. She also drinks alcohol, nightly. She states that she drinks white wine, perhaps a few glasses a night but not a whole bottle. Past Medical History: Nonischemic cardiomyopathy, past history of mild LV systolic dysfunction LVEF 45-50%, 2017 Left bundle branch block Sciatica Hypertension Family History: No family history of premature coronary disease or sudden cardiac Social History: , lives with her , Jose Non-smoker Drinks several glasses of white wine per night Allergies Allergy/AdvReac Type Severity Reaction Status Date / Time Iodinated Contrast Media Allergy Severe Rash Verified 04/06/21 04:00 hydrocodone Allergy Mild Itching Verified 04/05/21 23:12 latex Allergy Rash Verified 04/06/21 09:35 zolpidem AdvReac Unknown Verified 04/06/21 09:35 Home Medications Medication Instructions Recorded Confirmed Type alprazolam 0.25 mg PO DAILY PRN 04/05/21 04/05/21 History Patient History Medical History Anxiety Surgical History No pertinent past surgical history Social History Smoking Status: Never smoker Hx Alcohol Use: Yes Alcohol type: wine and hard liquor Hx Substance Use: No Beliefs That Will Affect Care: None Current Living Situation: Spouse Feels Safe at Home: Yes Review of Systems Review of Systems: All systems reviewed & are unremarkable except as noted in HPI & below Physical Exam Physical Exam: Temp Pulse Resp BP Pulse Ox 37.0 C 90 19 104/67 93 04/06/21 15:22 04/06/21 15:22 04/06/21 15:22 04/06/21 15:22 04/06/21 15:22 Constitutional: Lethargic, but communicative. Respiratory: Mildly decreased breath sounds at the bases Cardiovascular: Rate/Rhythm: regular rhythm Heart Sounds: + murmur (1/6 systolic murmur) Gastrointestinal (Abdomen): normal bowel sounds, soft, nontender, no hepat osplenomegaly Neurologic: PERRL, EOMI, accommodation nl, no face palsy, no dysarthria Results & Data ([facility]) Vital Signs (Past 12 Hours) Vital Signs Temp Pulse Pulse Resp BP BP Pulse Ox 04/06/21 15:22 37.0 C 90 19 104/67 93 04/06/21 12:06 37.2 C 94 H 20 118/73 93 04/06/21 11:30 84 16 114/74 97 04/06/21 11:09 77 16 73/49 L 04/06/21 10:51 79 16 83/52 L 94 04/06/21 10:27 83 04/06/21 10:15 78 16 70/50 L 97 04/06/21 10:10 37.2 C 72 16 86/50 L 98 04/06/21 08:00 36.7 C 103 H 100 H 22 92/62 L 98 04/06/21 07:18 36.4 C L 91 H 18 91 04/06/21 06:13 105 H 04/06/21 04:59 36.9 C 101 H 19 122/79 96 Pulse Ox 04/06/21 15:22 04/06/21 12:06 04/06/21 11:30 04/06/21 11:09 04/06/21 10:51 04/06/21 10:27 93 04/06/21 10:15 04/06/21 10:10 04/06/21 08:00 04/06/21 07:18 04/06/21 06:13 04/06/21 04:59 Laboratory Results Cardiac Enzymes 04/05/21 04/06/21 04/06/21 Range/Units 23:50 01:29 06:04 AST 24 (15-37) U/L Troponin I 0.074 H* 0.098 H* 0.110 H* (0-0.045) ng/ml Coagulation 04/05/21 04/06/21 Range/Units 23:50 06:04 APTT 26.6 28.0 (21.0-31.0) Seconds CBC 04/05/21 04/06/21 Range/Units 23:50 05:56 WBC 11.64 H 8.84 (4.8-10.8) K/uL RBC 3.93 L 3.48 L (4.2-5.4) M/uL Hgb 12.1 10.7 L (12.0-16.0) g/dL Hct 33.1 L 30.1 L (37-47) % Plt Count 222 202 (130-400) K/uL Neut # (Auto) 9.15 H 7.48 H (1.4-6.5) K/uL Lymph # (Auto) 1.02 L 0.43 L (1.2-3.4) K/uL [place] # (Auto) 1.44 H 0.92 H (0.11-0.59) K/uL Eos # (Auto) 0.00 0.00 (0-0.5) K/uL Baso # (Auto) 0.00 0.00 (0-0.2) K/uL Comprehensive Metabolic Panel 04/05/21 04/06/21 04/06/21 Range/Units 23:50 06:04 11:51 Sodium 118 L* 119 L* 127 L D (136-145) mmol/L Potassium 3.7 3.9 (3.5-5.1) mmol/L Chloride 84 L 89 L (98-107) mmol/L Carbon Dioxide 23 20 L (21-32) mmol/L BUN 11 10 (7-18) mg/dl Creatinine 0.70 0.72 (0.6-1.2) mg/dl Glucose 143 H 159 H (70-99) mg/dl Calcium 8.4 L 7.9 L (8.5-10.1) mg/dl AST 24 (15-37) U/L ALT 16 (12-78) U/L Alkaline Phosphatase 85 (45-117) U/L Total Protein 6.5 (6.4-8.2) gm/dl Albumin 3.3 L (3.4-5.0) gm/dl Intake and Output 04/06/21 04/06/21 04/06/21 06:59 14:59 22:59 Intake Total 1620 / 1620 1010 / 1297.333 287.333 / 1297.333 Output Total 500 / 500 Balance 1620 / 1620 510 / 797.333 287.333 / 797.333 Intake: IV 1120 / 1120 1010 / 1297.333 287.333 / 1297.333 Albumin 25% 12.5 gm In 50 ml @ 50 / 50 50 mls/hr IV TID [facility] Rx#: [id number] Ampicillin/Sulbactam Sod 3,000 108 / 108 mg In 0.9 % Sodium Chloride 100 ml @ 200 mls/hr IV Q6H [facility] Rx# :[id number] Dextrose 5% 1,000 ml @ 80 mls/ 237.333 / 237.333 hr IV .[id number] [facility] Rx#:[id number] Doxycycline Hyclate 100 mg In 110 / 110 Dextrose 5% 100 ml @ 50 mls/hr IV NOW STA Rx#:[id number] Heparin Sodium/Dextrose 25,000 122 / 122 units In 500 ml @ 1,200 UNITS/ HR 24 mls/hr IV .[id number] [facility] Rx #:[id number] Magnesium Sulfate / D5w 1 gm In 100 / 100 100 ml @ 50 mls/hr IV ONE ONE Rx#:[id number] Piperacillin/Tazobactam 4.5 gm 120 / 120 In 120 ml @ 240 mls/hr IV NOW ONE Rx#:[id number] Sodium Chloride 0.9% 1000ML 500 1000 / 1000 500 / 500 ml @ 999 mls/hr IV .Q31M ONE Rx#:[id number] cefTRIAXone SODIUM 2,000 mg In 70 / 70 Dextrose 5% 50 ml @ 100 mls/hr IV Q24H [facility] Rx#:[id number] Oral 500 / 500 Output: Urine 500 / 500 Other: # Unmeasured Voids 250 Weight 73.8 kg Weight Measurement Method Built in Bedscale
--- NOTE | 2021-04-06 17:07 | Communication Note ---
Date of Service: April 06, 2021 I called and updated her , Jose, by phone.
[2021-04-06] MEDS: ALPRAZolam 0.25 MG TABLET PO PRN (21:39)
[2021-04-06] MEDS ORDERED: DOXYCYCLINE HYCLATE 100 MG CAP PO SCH (22:00)
[2021-04-07] MEDS: AMPICILLIN/SULBACTAM SOD 3,000 MG in 0.9 % SODIUM CHLORIDE 100 ML IV SCH ×2 (03:49→10:45)
[2021-04-07] MEDS ORDERED: DESMOPRESSIN ACETATE 2 MCG in SODIUM CHLORIDE 0.9% 50 ML IV ONE ×2 (08:44→14:30)
[2021-04-07] MEDS ORDERED: THIAMINE HCL 100 MG TAB PO SCH (09:00)
[2021-04-07 09:06] LABS: Hematocrit (blood only) 34.7 % (37-47); Hemoglobin 11.9 g/dL (12.0-16.0); Mean Corpuscular Hemoglobin 30.5 pg (25-34); Mean Corpuscular Hgb Conc 34.3 g/dL (32-36); Mean Platelet Volume 9.8 fL (7.4-10.4); Platelet Count 207 K/uL (130-400); RDW Standard Deviation 41.6 fL (36.4-46.3)
[2021-04-07] MEDS: GABAPENTIN 600 MG TAB PO SCH ×2 (09:26→16:51)
[2021-04-07] MEDS: DEXTROSE 5% 1,000 ML IV SCH ×3 (09:27→17:51)
[2021-04-07 09:28] LABS: BUN Creatinine Ratio 13.4 (10-20); Calcium 8.7 mg/dl (8.5-10.1); Est GFR (African American) 70.8; Est GFR (Non-African American) 61.1; Magnesium 2.5 mg/dl (1.8-2.4); Potassium 3.6 mmol/L (3.5-5.1)
[2021-04-07] MEDS: FOLIC ACID 1 MG TAB PO SCH (09:32)
[2021-04-07] MEDS: ALPRAZolam 0.25 MG TABLET PO PRN ×2 (09:47→23:46)
--- NOTE | 2021-04-07 09:48 | Nephrology Progress Note ---
Date of Service April 07, 2021 Assessment & Plan (1) Acute hyponatremia: Patient with acute hyponatremia likely due to multifactorial etiology including low solute intake. Chest x-ray showed interstitial edema with small bilateral effusions with cardiomegaly. Admission sodium was 118 on 04/05/2021 and up to 136 today. Target target sodium for today is 126-128. Urine osmolality of 123 urine sodium of 15 and serum osmolality of 237. -We will give DDAVP 2 mcg once -No need for fluid restriction. Patient can drink as able -We will give D5 water at 250 mL/h until sodium drops to less than 130. (2) Gram-negative pneumonia: Likely due to aspiration pneumonia in setting of chronic alcoholism. Patient is getting Unasyn per primary team. (3) Alcohol withdrawal: Patient is improving. She is on withdrawal management per primary team. Admission and Anticipated Discharge Date Admission Date: April 06, 2021 Subjective Seen in follow-up for hyponatremia. She feels better this morning. She is thirsty. She got normal saline fluid bolus yesterday for hypotension. Sodium was overcorrected to 136. No nausea or vomiting. No urinary symptoms. Review of Systems Review of Systems: All systems reviewed & are unremarkable except as noted in HPI & below Physical Exam Physical Exam: General exam: Appears comfortable, no acute distress HEENT: Pupils are equal and reactive to light Neck: No JVD, neck is supple trachea is midline Respiratory system: Clear breath sounds bilaterally. Gastrointestinal: Abdomen is soft, non distended, non tender, bowel sounds are present CVS: Regular rate and rhythm. No murmurs, rubs or gallops Musculoskeletal: No joint or muscle tenderness Extremities: Non tender, no edema, peripheral pulses are present Neuro: Oriented, no tremors, no focal neurological deficits Skin: No rashes Results & Data ([facility]) Vital Signs (Past 12 Hours) Vital Signs Temp Pulse Pulse Resp BP Pulse Ox 04/07/21 07:39 37.0 C 83 20 103/66 95 04/07/21 04:11 36.7 C 82 18 103/69 95 04/06/21 23:44 36.8 C 85 18 86/56 L 92 04/06/21 23:00 83 Laboratory Results 04/07/21 08:50 04/07/21 08:50 WBC 6.30 RBC 3.90 L MCV 89.0 MCH 30.5 MCHC 34.3 RDW Std Deviation 41.6 RDW Coeff of Luz 13.0 Plt Count 207 MPV 9.8
[2021-04-07] MEDS ORDERED: FAMOTIDINE 20 MG in SYRINGE 3 ML IV PRN (10:15)
[2021-04-07] MEDS: ENOXAPARIN 80 MG/0.8 ML SYR SQ SCH ×2 (10:45→20:54)
--- NOTE | 2021-04-07 13:40 | Hospitalist Progress Note ---
Date of Service April 07, 2021 Assessment & Plan (1) Sepsis: Concern for developing sepsis 2/2 underlying pneumonia also in setting of alcohol withdrawal. She is currently resuscitated. She remains afebrile and is oxygenating well on room air. She is currently hemodynamically stable with an improved white blood cell count of 6.3 from 11.6 on admission. Will de-escalate therapy to Augmentin. (2) Pneumonia: Plan as above (3) Acute hyponatremia: Na 118 on admission, likely related to poor PO intake in setting of alcoholism. Nephrology is consulted and following. Sodium [place] to 136 this morning, dextrose and DDAVP given. Trend sodium for goal of 130 today. (4) Nonischemic cardiomyopathy: Suspected progression of nonischemic cardiomyopathy. She has not been on medical therapy in the last 4 years so this may be due to a progression of her prior idiopathic cardiomyopathy although superimposed alcoholic cardiomyopathy is also a consideration. Transient hypotension in the last 24 hours and she is still in the PCU currently. She appears clinically improved today. We will look for the earliest opportunity to begin guideline directed therapy including a beta-deja and GEORGE/ARB therapy. Appreciate cardiology recommendations/thoughts. Alcohol cessation strongly recommended. (5) Alcohol abuse: Reports 3-4 drinks per day. Alcohol cessation strongly advised (6) Alcohol withdrawal: Cont alcohol withdrawal protocol with gabapentin and PRN Ativan. (7) Hypoxia: This is likely related to worsening pneumonia, sepsis in setting of alcohol withdrawal and acute hyponatremia. Hypoxia has resolved completely. She remains on full dose Lovenox out of concern for underlying PE in the setting of an elevated D-dimer pulled on admission. She has a contrast dye allergy and a nuclear medicine study cannot be performed until Thursday morning. A venous Doppler was performed revealing no evidence of DVT within the bilateral lower extremities. It is less likely that she has a PE, however, will continue with current empiric anticoagulation she is tolerating this well pending VQ scan in a.m. If low probability, will stop anticoagulation at that time. Elevated D- dimer was likely secondary to sepsis. (8) Acute metabolic encephalopathy: Resolved (9) DVT prophylaxis: Lovenox full dose Full Code Dispo-cont PCU monitoring. Estela Pascal DO [facility] Hospitalist Admission and Anticipated Discharge Date Admission Date: April 06, 2021 Subjective 60 yo F alcoholic presented with fever difficulty walking and weakness. Worlup revealed hyponatremia and she exhibited signs of alcohol withdrawal. She was placed on gabapentin protocol. NICM found with EF 20%, no overt heart failure present. today reports her hiatal hernia is bothering her feels some trouble swallowing she is alert and mentating clearly she appears to have alot of energy although states she hasn't gotten any sleep states the gabapentin is not causing her to be drowsy denies chest pain or SOB Na 136, DDAVP and dextrose administered. Review of Systems Review of Systems: All systems reviewed & are unremarkable except as noted in Subjective Physical Exam Physical Exam: CONSTITUTIONAL: WNWD, vitals as above, generally well- appearing EYES: normal conjunctivae, no scleral icterus ENT: external ear and nose normal, MMM RESPIRATORY: clear to auscultation bilaterally, no crackles, rales or wheezes, no increased respiratory effort but slightly tachypneic. CARDIOVASCULAR: reg rate and rhythm, S1 and 2 heard without murmurs, gallops or rubs, no JVD, no peripheral edema GASTROINTESTINAL: soft, nontender, nondistended, no guarding. MUSCULOSKELETAL: strength 5/5 throughout, head is normocephalic and atraumatic, Moving all extremities equally. No gross focal deficits. SKIN: warm and dry NEUROLOGIC: No facial palsy, no dysarthria. CN 2-12 grossly intact, normal c ognition, no tremor, speech normal, alert and conversant, no gross focal deficits. PSYCHIATRIC: alert and oriented to person only. Results & Data Results & Data ([facility]) Vital Signs (Past 12 Hours) Vital Signs Temp Pulse Pulse Resp BP Pulse Ox Pulse Ox 04/07/21 12:34 97 04/07/21 11:53 36.6 C 67 20 107/72 97 04/07/21 08:00 83 04/07/21 07:39 37.0 C 83 20 103/66 95 04/07/21 04:11 36.7 C 82 18 103/69 95 Laboratory Results Short CBC 04/07/21 Range/Units 08:50 WBC 6.30 (4.8-10.8) K/uL Hgb 11.9 L (12.0-16.0) g/dL Hct 34.7 L (37-47) % Plt Count 207 (130-400) K/uL BMP 04/06/21 04/07/21 17:59 08:50 Sodium 131 L 136 Potassium 3.6 Chloride 104 Carbon Dioxide 26 BUN 13 Creatinine 0.99 Glucose 123 H Calcium 8.7 Medications Administered Current Inpatient Medications Acetaminophen (Acetaminophen 325 Mg Tab) 650 mg PO Q4H PRN PRN Reason: Pain or Fever Stop: 05/06/21 04:23 Alprazolam (Alprazolam 0.25 Mg Tablet) 0.25 mg PO DAILY PRN PRN Reason: Anxiety Stop: 05/06/21 04:23 Last Admin: 04/07/21 09:47 Dose: 0.25 mg Documented by: Enoxaparin Sodium (Enoxaparin 80 Mg/0.8 Ml Syr) 70 mg SQ Q12H [facility] Stop: 05/06/21 09:59 Last Admin: 04/07/21 10:45 Dose: 70 mg Documented by: Folic Acid (Folic Acid 1 Mg Tab) 1 mg PO QAM [facility] Stop: 05/06/21 08:59 Last Admin: 04/07/21 09:32 Dose: Not Given Documented by: Gabapentin (Gabapentin 600 Mg Tab) 600 mg PO Q8H [facility] Stop: 04/07/21 16:01 Last Admin: 04/07/21 09:26 Dose: 600 mg Documented by: Gabapentin (Gabapentin 600 Mg Tab) 600 mg PO Q12H [facility] Stop: 04/08/21 18:01 Gabapentin (Gabapentin 600 Mg Tab) 600 mg PO Q24H [facility] Stop: 04/09/21 18:01 Guaifenesin (Guaifenesin 600 Mg Tabcr) 600 mg PO Q12 [facility] Stop: 05/06/21 08:59 Last Admin: 04/06/21 10:27 Dose: Not Given Documented by: Lorazepam (Ativan) 1 mg in 2 mls @ 2 mls/min IV UD PRN; Protocol PRN Reason: EtOH Withdrawl AWSS Score 6,7 Stop: 05/06/21 04:23 Lorazepam (Ativan) 2 mg in 4 mls @ 4 mls/min IV UD PRN; Protocol PRN Reason: EtOH Withdrawl AWSS Score 8,9 Stop: 05/06/21 04:23 Lorazepam (Ativan) 3 mg in 6 mls @ 4 mls/min IV ONCE PRN; Protocol PRN Reason: EtOH Withdrawl AWSS Score >=10 Stop: 05/06/21 04:23 Ampicillin Sodium/Sulbactam Sodium 3,000 mg/ Sodium Chloride 108 mls @ 200 mls/hr IV Q6H [facility]; Protocol Stop: 04/13/21 09:59 Last Infusion: 04/07/21 11:20 Dose: Infused Documented by: Albumin Human (Albumin 25%) 12.5 gm in 50 mls @ 50 mls/hr IV TID [facility] Last Infusion: 04/06/21 15:52 Dose: Infused Documented by: Dextrose (D5w) 1,000 mls @ 250 mls/hr IV .Q4H [facility] Stop: 05/07/21 08:44 Last Infusion: 04/07/21 13:30 Dose: Infused Documented by: Famotidine 20 mg/ Syringe 5 mls @ 2.5 mls/min IV Q12H PRN PRN Reason: heartburn or dysphagia Stop: 05/07/21 10:14 Miscellaneous (Vega~Order Awaiting Action) 1 ea N/A QS [facility] Stop: 05/06/21 09:59 Last Admin: 04/06/21 15:58 Dose: Not Given Documented by: Multivitamins (Multivitamin Tab) 1 tab PO QAM [facility] Stop: 05/06/21 08:59 Last Admin: 04/06/21 10:27 Dose: Not Given Documented by: (1) Pneumonia Laterality: right Lung location: lower lobe of lung Pneumonia type: due to unspecified organism Qualified Code(s): J18.9 - Pneumonia, unspecified organism
[2021-04-07 13:52] LABS: BUN Creatinine Ratio 16.6 (10-20); Creatinine Clr Calc Pharmacy 59.6 ml/min; Est GFR (African American) 81.6; Est GFR (Non-African American) 70.4; Potassium 3.6 mmol/L (3.5-5.1)
--- NOTE | 2021-04-07 15:56 | Psychiatric Consultation ---
Date of Consultation April 07, 2021 Impression / Recommendations Impression This is a 60-year-old female who presents to the emergency department found to have significant metabolic derangements. Patient was likely experiencing some anxiety as well as tremors due to her metabolic derangements which was further propagated by her baseline anxiety. However at this time patient is returning back to a well functioning baseline without significant distress from her symptoms. She was educated as to the potential use of medications but declined any SSRI treatment at this time. Patient is not a good candidate for further benzo treatment due to the level of her drinking. Patient was offered rehab following her hospitalization but is not interested at this time. Plan No further med changes Patient given resources in the community for both outpatient psychiatric services as well as alcohol abuse Inventory Assets Strengths: Supportive family Needs: Social interaction Risk Factors Assessment Male: No : Yes Do You Have Access To A Gun?: No Protective Factors Assessment Anglican Beliefs: Yes : Yes Stable Relationships: Yes Supportive Family: Yes Psych History Chief Complaint "Psychiatric consultation for anxiety contributing to her clinical picture.". History of Present Illness HPI as per psychiatric liaison " Patient is a 60 year old female from [place] Stats she has been feeling dizzy for the last week. States her made her come into the hospital because she did not feel safe walking due to feeling dizzy and light headed. Reports her appetite has been poor for the last 2 weeks, sleep has been good, but may not be having consistent restorative sleep. Admits to struggling with anxiety since the lock down due to Covid last January. Believes her father was an alcoholic and struggled with depression. Denies any self injurious behaviors or suicidal ideations. Patient is currently taking xanax, says she was prescribed xanax for the last 2 years to help her sleep, does not take it daily. She started taking 1/2 of a 0.25 mg tablet, which was helping her sleep. She later started taking 0.25. During the last year, she started taking 0.5 mg on occassion. She has trialed ativan in the past, but reports she is very sensitive to medications and did not like the way the medication made her feel. "I felt like I was going crazy". She had been on zoloft in the past, but states it took 2 1/2 years to taper her off of the medication and is not interested in trialing another SSRI. She had also been on Wellbutrin in the past. In the last month, she got a medical marijuana card and attempted to try a strain of medical marijuana to help with focus and clarity, "but I just felt stoned". Admits to drinking a glass of wine every night, possibly 2 glasses, but has recented strated taking a shot of whiskey, before her glasses of wine. Denies any substances or tobacco use. Patient grew up in [place], [place] and moved to [place] in 2008 with her . She has been for 34 years and has a 33 year old son who lives in [place]. She graduated college with a degree in Criminal Justice and says during her graduation, she became nauseous and dizzy and remembers feeling the way she did last week. "I now know that was anxiety". Patient has been working at [employer] in the [employer] for over 12 years and currently is working from home most days. Thought since she got her covid vaccine her anxiety would decrease, however reports it has not improved. She has seen a social worker psychiatric/therapist in the past, but not interested in reconnecting with them until she finds out about her medical issues." Upon interview today patient stated she was feeling much more calm. She was less distressed because she was no longer shaking as she had done previously. Patient believes that her stress and anxiety may have contributed to her shaking but feels her medical issues may have also as well. Patient list the Covid pandemic as well as being cooped up in her house for an extended period of time as a source of stress and anxiety for her. She denies any severe distress or depressive symptoms. Patient denies ever feeling low enough to feel suicidal. Patient also denies any abuse or violence in the home. Patient was also spoken to regarding potential medication options in the future for anxiety treatment as well as her substance use. Patient is acknowledging drinking at least 2 glasses of wine as well as 1 glass of whiskey per night. Patient was educated as to normal use for someone her age and sex. Despite being significantly above the recommended amount of alcohol, patient does not feel she has an alcohol problem at this time. She does not feel that rehab will be helpful to her following this admission. She reports looking forward to returning home. Past Psychiatric History Previous Psych History: Current Psychiatric Diagnosis: Anxiety due to medical condition Do You Have Access To A Gun?: No History of Previous Suicide Attempt: No Allergies Allergy/AdvReac Type Severity Reaction Status Date / Time Iodinated Contrast Media Allergy Severe Rash Verified 04/06/21 04:00 hydrocodone Allergy Mild Itching Verified 04/05/21 23:12 latex Allergy Rash Verified 04/06/21 09:35 zolpidem AdvReac Unknown Verified 04/06/21 09:35 Home Medications Medication Instructions Recorded Confirmed Type alprazolam 0.25 mg PO DAILY PRN 04/05/21 04/05/21 History Substance Abuse History Patient acknowledges drinking 1 glass of whiskey and 2 glasses of wine per night. Personal History Living Arrangements: Home Beliefs That Will Affect Care: None Patient History Medical History Anxiety Surgical History No pertinent past surgical history Social History Smoking Status: Never smoker Hx Alcohol Use: Yes Alcohol type: wine and hard liquor Hx Substance Use: No Beliefs That Will Affect Care: None Current Living Situation: Spouse Feels Safe at Home: Yes Assistive Devices: Walker Physical Exam Psychiatric: Orientation: oriented x 3 Apperance: appropriately dressed Eye Contact: + fair eye contact Motor Behavior: no abnormal motor movements Speech: normal rate/rhythm/volume of speech Affect: euthymic affect Mood: no anxious mood Thought Process: goal directed thought process Thought Content: reality based without delusions Suicidal Thoughts: denies suicidal thoughts Homicidal Thoughts: denies homicidal thoughts Hallucinations: no auditory hallucinations Cognition: recent memory grossly intact Estimated Intelligence: average estimated intelligence Insight: + fair insight Judgement: + fair judgement Vital Signs (Past 24 Hours): Last Vital Signs Temp 36.6 C 04/07/21 11:53 Pulse 67 04/07/21 11:53 Resp 20 04/07/21 11:53 BP 107/72 04/07/21 11:53 Pulse Ox 97 04/07/21 12:34 Results & Data ([facility]) Medications Administered Alprazolam (Alprazolam 0.25 Mg Tablet) 0.25 mg PO DAILY PRN PRN Reason: Anxiety Stop: 05/06/21 04:23 Last Admin: 04/07/21 09:47 Dose: 0.25 mg Documented by: [id number] Admin: 04/06/21 21:39 Dose: 0.25 mg Documented by: [id number] Enoxaparin Sodium (Enoxaparin 80 Mg/0.8 Ml Syr) 70 mg SQ Q12H [facility] Stop: 05/06/21 09:59 Last Admin: 04/07/21 10:45 Dose: 70 mg Documented by: [id number] Admin: 04/06/21 21:37 Dose: 70 mg Documented by: [id number] Admin: 04/06/21 10:34 Dose: 70 mg Documented by: [id number] Folic Acid (Folic Acid 1 Mg Tab) 1 mg PO QAM [facility] Stop: 05/06/21 08:59 Last Admin: 04/07/21 09:32 Dose: Not Given Documented by: [id number] Admin: 04/06/21 10:27 Dose: Not Given Documented by: [id number] Gabapentin (Gabapentin 600 Mg Tab) 600 mg PO Q8H [facility] Stop: 04/07/21 16:01 Last Admin: 04/07/21 09:26 Dose: 600 mg Documented by: [id number] Admin: 04/06/21 23:41 Dose: 600 mg Documented by: [id number] Guaifenesin (Guaifenesin 600 Mg Tabcr) 600 mg PO Q12 [facility] Stop: 05/06/21 08:59 Last Admin: 04/06/21 10:27 Dose: Not Given Documented by: [id number] Albumin Human (Albumin 25%) 12.5 gm in 50 mls @ 50 mls/hr IV TID [facility] Last Infusion: 04/06/21 15:52 Dose: 0 mls/hr Documented by: [id number] Admin: 04/06/21 14:50 Dose: 50 mls/hr Documented by: [id number] Dextrose (D5w) 1,000 mls @ 250 mls/hr IV .Q4H [facility] Stop: 05/07/21 08:44 Last Admin: 04/07/21 13:46 Dose: 250 mls/hr Documented by: [id number] Infusion: 04/07/21 13:30 Dose: 0 mls/hr Documented by: [id number] Admin: 04/07/21 09:27 Dose: 250 mls/hr Documented by: [id number] Miscellaneous (Vega~Order Awaiting Action) 1 ea N/A QS [facility] Stop: 05/06/21 09:59 Last Admin: 04/06/21 15:58 Dose: Not Given Documented by: [id number] Admin: 04/06/21 11:04 Dose: Not Given Documented by: [id number] Multivitamins (Multivitamin Tab) 1 tab PO QAM [facility] Stop: 05/06/21 08:59 Last Admin: 04/06/21 10:27 Dose: Not Given Documented by: [id number] Coding Level of Care Code 70215 U Intl Hosp Care Lvl 2
--- NOTE | 2021-04-07 16:17 | Communication Note ---
Date of Service: April 07, 2021 I attempted to see the patient in person today, but she was involved in a very long conversation with the psychiatry team. I therefore followed up with her by telephone, having reviewed her events from last night and thus far today with nursing and having reviewed her vital signs and blood work results. Her blood pressure has trended toward improvement. Telemetry reveals sinus rhythm with left bundle branch block morphology and occasional PVCs, no prolonged arrhythmias. Her mental status continues to trend toward improvement. Impression / Plan: Severe left ventricular systolic dysfunction, suspected nonischemic cardiomyopathy negative coronary angiography performed in 2017, underlying left bundle branch block -Historically, her systolic blood pressures as an outpatient dating back to 2017 and 2019 have been in the 120s to 130s. -Blood pressure today in the low 100s. -I discussed with her the plan to start guideline derived evidence-based medications, would first start metoprolol succinate, 12.5 mg daily. -Next medicine I would recommend his lisinopril, but until her sodium levels have completely stabilized, I think it is better to start with the beta-deja first. She had previously been on lisinopril in 2009 per her outpatient record. Hyponatremia Improved Nephrology input noted and appreciated Aspiration pneumonia Continue antibiotic therapy Elevated D-dimer, mild (flat) troponin elevation Unable to have CT angiogram due to past severe allergic reaction to contrast media Lower extremity venous duplex negative Pulmonary perfusion scan tentatively planned for tomorrow, in the meantime, she remains on Lovenox anticoagulation dose. I had a aiden discussion with the patient with regards to the significance of her echocardiogram findings and the need to adhere to recommended therapies.
--- NOTE | 2021-04-07 16:48 | Communication Note ---
Date of Service: April 07, 2021 I called pt's , Jose, and provided updates.
[2021-04-07] MEDS: METOPROLOL SUCC 25MG EXT REL TAB PO SCH (16:59)
[2021-04-07] MEDS: AMOXICILLIN/CLAVULANATE 875 MG TAB PO SCH (17:00)
[2021-04-07] MEDS ORDERED: POLYETHYLENE (MIRALAX) 17 GM PACK PO PRN (19:04)
[2021-04-07] MEDS ORDERED: GLYCERIN ADULT 12 SUPP/BOX SUPP PR PRN (19:04)
[2021-04-07] MEDS: DOCUSATE SODIUM 100 MG CAP PO SCH (20:53)
[2021-04-08] MEDS: GABAPENTIN 600 MG TAB PO SCH ×2 (05:51→17:31)
[2021-04-08 07:45] LABS: Hematocrit (blood only) 29.3 % (37-47); Mean Corpuscular Hemoglobin 30.7 pg (25-34); Mean Corpuscular Hgb Conc 34.1 g/dL (32-36); Mean Corpuscular Volume 89.9 fL (80-100); Mean Platelet Volume 9.6 fL (7.4-10.4); Platelet Count 200 K/uL (130-400); RDW Coefficient of Variation 12.6 % (11.5-14.5); RDW Standard Deviation 41.1 fL (36.4-46.3); Red Blood Count 3.26 M/uL (4.2-5.4); White Blood Count 4.08 K/uL (4.8-10.8)
[2021-04-08] MEDS: FOLIC ACID 1 MG TAB PO SCH (07:54)
[2021-04-08] MEDS: DOCUSATE SODIUM 100 MG CAP PO SCH ×2 (07:55→20:36)
[2021-04-08] MEDS: AMOXICILLIN/CLAVULANATE 875 MG TAB PO SCH ×2 (07:55→17:33)
[2021-04-08] MEDS: METOPROLOL SUCC 25MG EXT REL TAB PO SCH (08:01)
[2021-04-08 08:23] LABS: BUN Creatinine Ratio 21.4 (10-20); Calcium 8.3 mg/dl (8.5-10.1); Est GFR (African American) 112.6; Est GFR (Non-African American) 97.2; Potassium 3.8 mmol/L (3.5-5.1)
[2021-04-08] MEDS: ENOXAPARIN 80 MG/0.8 ML SYR SQ SCH (09:50)
--- NOTE | 2021-04-08 11:12 | Nephrology Progress Note ---
Date of Service April 08, 2021 Assessment & Plan Admission and Anticipated Discharge Date Admission Date: April 06, 2021 Subjective Assessment & Plan (1) Acute hyponatremia: Patient with acute hyponatremia likely due to multifactorial etiology including low solute intake high fluid intake. Chest x-ray showed interstitial edema with small bilateral effusions with cardiomegaly. Admission sodium was 118 on 04/05/2021 went up to 136 quick and then brought down and now 127 today. Urine osmolality of 123 urine sodium of 15 and serum osmolality of 237. -Stop DDAVP -No need for fluid restriction. Patient can drink as able but not super excessive amount like more than 3 litres -TWice daily BMP. (2) Gram-negative pneumonia: Likely due to aspiration pneumonia in setting of chronic alcoholism. Patient is getting Unasyn per primary team. (3) Alcohol withdrawal: Patient is improving. She is on withdrawal management per primary team. Admission and Anticipated Discharge Date Admission Date: April 06, 2021 Subjective Seen in follow-up for hyponatremia. She feels better this morning. She is thirsty. She got normal saline fluid bolus yesterday for hypotension. Sodium was overcorrected to 136. No nausea or vomiting. No urinary symptoms. Review of Systems Review of Systems: All systems reviewed & are unremarkable except as noted in HPI & below Physical Exam Physical Exam: General exam: Appears comfortable, no acute distress HEENT: Pupils are equal and reactive to light Neck: No JVD, neck is supple trachea is midline Respiratory system: Clear breath sounds bilaterally. Gastrointestinal: Abdomen is soft, non distended, non tender, bowel sounds are present CVS: Regular rate and rhythm. No murmurs, rubs or gallops Musculoskeletal: No joint or muscle tenderness Extremities: Non tender, no edema, peripheral pulses are present Neuro: Oriented, no tremors, no focal neurological deficits Skin: No rashes Results & Data ([facility]) Vital Signs (Past 12 Hours) Vital Signs Temp Pulse Pulse Resp BP BP Pulse Ox 04/08/21 11:09 36.7 C 75 16 122/78 99 04/08/21 08:00 74 04/08/21 07:34 36.7 C 74 17 123/82 96 04/08/21 03:54 36.8 C 70 18 109/73 98 04/07/21 23:55 81 04/07/21 23:50 36.8 C 79 18 129/82 96
--- NOTE | 2021-04-08 11:54 | Nuclear Medicine Report ---
NUCLEAR PULMONARY PERFUSION SCAN CLINICAL HISTORY: Dyspnea. COMPARISON STUDY: Chest x-ray dated 04/06/2021. TECHNIQUE: Nuclear pulmonary perfusion scan is performed following the IV administration of 5.6 mCi o f technetium 99m MAA. Images were acquired in the anterior, posterior, and oblique projections. FINDINGS: A chest x-ray performed 04/06/2021 show cardiomegaly with evidence of congestive failure and pulmonary edema. There are small pleural effusions Pulmonary perfusion is mildly heterogeneous. No perfusion defects are identified to suggest pulmonary embolus. IMPRESSION: There are no perfusion defects identified to suggest pulmonary embolus. ACT 112: Negative or not required by law. Electronically signed by: Royal Gutierrez M.D. 04/08/2021 11:53 AM
--- NOTE | 2021-04-08 17:56 | Hospitalist Progress Note ---
Date of Service April 08, 2021 Assessment & Plan (1) Sepsis: Resuscitated and clinically stable and improved overall. She remains afebrile and is oxygenating well on room air. Resolution of leukocytosis. Cont Augmentin. (2) Pneumonia: Augmentin (3) Acute hyponatremia: Na 118 on admission, likely related to poor PO intake in setting of alcoholism. Nephrology is consulted and following. Na [place] too fast and she was placed on DDAVP and dextrose. She did well clinically throughout the weekend. Current Na is 127. She is eating and drinking without issues. Follow sodium twice daily-no fluid restriction needed at this time. (4) Nonischemic cardiomyopathy: Suspected progression of nonischemic cardiomyopathy. She has not been on medical therapy in the last 4 years so this may be due to a progression of her prior idiopathic cardiomyopathy although superimposed alcoholic cardiomyopathy is also a consideration. Alcohol cessation strongly recommended. She has been started on metoprolol which is being titrated per cardiology. Lisinopril plan to be added soon. Patient will require LifeVest going home. She is considering this as an option- appreciate cardiology following patient (5) Alcohol abuse: Reports 3-4 drinks per day. Alcohol cessation strongly advised (6) Alcohol withdrawal: resolved, Cont alcohol withdrawal protocol with gabapentin and PRN Ativan. (7) Hypoxia: resolved (8) Acute metabolic encephalopathy: Resolved (9) DVT prophylaxis: De-escalate to Lovenox subcu 40 mg for DVT prophylaxis Full Code Dispo-cont PCU monitoring. DO [facility] Hospitalist Admission and Anticipated Discharge Date Admission Date: April 06, 2021 Subjective 60 yo F alcoholic presented with fever difficulty walking and weakness. Workup revealed hyponatremia and she exhibited signs of alcohol withdrawal. She was placed on gabapentin protocol. NICM found with EF 20%. She is now more oriented, and is eating. She is crying and speaking to another provider when I arrived She appears overwhelmed VQ scan this am- negative Denies chest pain or shortness of breath Review of Systems Review of Systems: All systems reviewed & are unremarkable except as noted in Subjective Physical Exam Physical Exam: CONSTITUTIONAL: WNWD, vitals as above, generally well- appearing EYES: normal conjunctivae, no scleral icterus ENT: external ear and nose normal, MMM RESPIRATORY: clear to auscultation bilaterally, no crackles, rales or wheezes, no increased respiratory effort CARDIOVASCULAR: reg rate and rhythm, S1 and 2 heard without murmurs, gallops or rubs, no JVD, no peripheral edema GASTROINTESTINAL: soft, nontender, nondistended, no guarding. MUSCULOSKELETAL: strength 5/5 throughout, head is normocephalic and atraumatic SKIN: warm and dry NEUROLOGIC: CN 2-12 grossly intact, normal cognition, no tremor, speech normal, alert and conversant, no gross focal deficits. PSYCHIATRIC: alert and oriented to person, place and time. Results & Data Results & Data ([facility]) Vital Signs (Past 12 Hours) Vital Signs Temp Pulse Pulse Resp BP BP Pulse Ox 04/08/21 15:53 37.0 C 73 17 119/72 96 04/08/21 15:05 82 04/08/21 11:09 36.7 C 75 16 122/78 99 04/08/21 08:00 74 04/08/21 07:34 36.7 C 74 17 123/82 96 Laboratory Results Short CBC 04/08/21 Range/Units 07:17 WBC 4.08 L (4.8-10.8) K/uL Hgb 10.0 L (12.0-16.0) g/dL Hct 29.3 L (37-47) % Plt Count 200 (130-400) K/uL BMP 04/07/21 04/08/21 20:16 07:17 Sodium 127 L 127 L Potassium 3.8 Chloride 96 L Carbon Dioxide 24 BUN 13 Creatinine 0.61 Glucose 92 Calcium 8.3 L Medications Administered Current Inpatient Medications Acetaminophen (Acetaminophen 325 Mg Tab) 650 mg PO Q4H PRN PRN Reason: Pain or Fever Stop: 05/06/21 04:23 Alprazolam (Alprazolam 0.25 Mg Tablet) 0.25 mg PO DAILY PRN PRN Reason: Anxiety Stop: 05/06/21 04:23 Last Admin: 04/07/21 23:46 Dose: 0.25 mg Documented by: Amoxicillin/Clavulanate Potassium (Amoxicillin/Clavulanate 875 Mg Tab) 1 tab PO BIDM [facility] Stop: 04/14/21 16:59 Last Admin: 04/08/21 17:33 Dose: 1 tab Documented by: Docusate Sodium (Docusate Sodium 100 Mg Cap) 100 mg PO BID [facility] Stop: 05/07/21 20:59 Last Admin: 04/08/21 07:55 Dose: 100 mg Documented by: Enoxaparin Sodium (Enoxaparin Inj 40 Mg/0.4 Ml Syr) 40 mg SQ QAM [facility] Stop: 05/09/21 08:59 Folic Acid (Folic Acid 1 Mg Tab) 1 mg PO QAM [facility] Stop: 05/06/21 08:59 Last Admin: 04/08/21 07:54 Dose: 1 mg Documented by: Gabapentin (Gabapentin 600 Mg Tab) 600 mg PO Q12H [facility] Stop: 04/08/21 18:01 Last Admin: 04/08/21 17:31 Dose: 600 mg Documented by: Gabapentin (Gabapentin 600 Mg Tab) 600 mg PO Q24H [facility] Stop: 04/09/21 18:01 Glycerin (Glycerin Adult 12 Supp/Box Supp) 1 supp [place] DAILY PRN PRN Reason: Constipation Stop: 05/07/21 19:03 Lorazepam (Ativan) 1 mg in 2 mls @ 2 mls/min IV UD PRN; Protocol PRN Reason: EtOH Withdrawl AWSS Score 6,7 Stop: 05/06/21 04:23 Lorazepam (Ativan) 2 mg in 4 mls @ 4 mls/min IV UD PRN; Protocol PRN Reason: EtOH Withdrawl AWSS Score 8,9 Stop: 05/06/21 04:23 Lorazepam (Ativan) 3 mg in 6 mls @ 4 mls/min IV ONCE PRN; Protocol PRN Reason: EtOH Withdrawl AWSS Score >=10 Stop: 05/06/21 04:23 Famotidine 20 mg/ Syringe 5 mls @ 2.5 mls/min IV Q12H PRN PRN Reason: heartburn or dysphagia Stop: 05/07/21 10:14 Last Admin: 04/07/21 16:43 Dose: 2.5 mls/min Documented by: Metoprolol Succinate (Metoprolol Succ 25mg Ext Rel Tab) [facility] [place] Stop: 05/07/21 16:14 Last Admin: 04/08/21 08:01 Dose: 12.5 mg Documented by: Polyethylene Glycol (Polyethylene (Miralax) 17 Gm Pack) 17 gm PO DAILY PRN PRN Reason: Constipation Stop: 05/07/21 19:03 (1) Pneumonia Laterality: right Lung location: lower lobe of lung Pneumonia type: due to unspecified organism Qualified Code(s): J18.9 - Pneumonia, unspecified organism
[2021-04-08] MEDS ORDERED: COUGH DROP (SUGAR FREE) LOZ 24 LOZ/1 BOX BUCCAL PRN (18:00)
[2021-04-08] MEDS ORDERED: CHLORASEPTIC 1.4% SOLN 180 ML BTL MT PRN (18:00)
--- NOTE | 2021-04-08 18:00 | Cardiology Progress Note ---
Date of Service April 08, 2021 Assessment & Plan (1) Nonischemic cardiomyopathy: -Patient tolerated the addition of low-dose metoprolol succinate well thus far. -Holding off on adding lisinopril, or angiotensin receptor deja pending normalization of sodium. -We discussed the need for close cardiology follow-up and need for optimization of her medications over the next 3 months. If left ventricular systolic dysfunction remains present after 3 months of optimize medication therapy, neck step would be consideration of a OFFICE SERVICES ASSISTANT capable pacemaker/defibrillator. In the meantime as the patient is in this window of observation and treatment, 1 consideration is to proceed with a [employer] Wearable Life Vest. I do have concerns however that the patient may not tolerate this well from an anxiety standpoint. -Will continue to educate. -Pulmonary perfusion study normal, reducing her next dose to DVT prophylaxis dose. (2) Acute hyponatremia: -Nephrology input noted and appreciated. Admission and Anticipated Discharge Date Admission Date: April 06, 2021 Subjective Patient denies chest discomfort or shortness of breath. Her mental status and coordination has certainly improved dramatically since presentation to the hospital. Blood pressure is improved. Review of Systems Review of Systems: All systems reviewed & are unremarkable except as noted in HPI & below Physical Exam Physical Exam: Temp Pulse Resp BP Pulse Ox 37.0 C 73 17 119/72 96 04/08/21 15:53 04/08/21 15:53 04/08/21 15:53 04/08/21 15:53 04/08/21 15:53 Constitutional: WD/WN, vitals as above Respiratory: no cough Auscultation: + diminished lung sounds (Mildly decreased breath sounds in the bases bilaterally); no crackles and no rales Gastrointestinal (Abdomen): normal bowel sounds, soft, nontender, no hepatosplenomegaly Neurologic: PERRL, EOMI, accommodation nl, no face palsy, no dysarthria Results & Data ([facility]) Vital Signs (Past 12 Hours) Vital Signs Temp Pulse Pulse Resp BP BP Pulse Ox 04/08/21 15:53 37.0 C 73 17 119/72 96 04/08/21 15:05 82 04/08/21 11:09 36.7 C 75 16 122/78 99 04/08/21 08:00 74 04/08/21 07:34 36.7 C 74 17 123/82 96 Laboratory Results CBC 04/08/21 Range/Units 07:17 WBC 4.08 L (4.8-10.8) K/uL RBC 3.26 L (4.2-5.4) M/uL Hgb 10.0 L (12.0-16.0) g/dL Hct 29.3 L (37-47) % Plt Count 200 (130-400) K/uL Comprehensive Metabolic Panel 04/07/21 04/08/21 Range/Units 20:16 07:17 Sodium 127 L 127 L (136-145) mmol/L Potassium 3.8 (3.5-5.1) mmol/L Chloride 96 L (98-107) mmol/L Carbon Dioxide 24 (21-32) mmol/L BUN 13 (7-18) mg/dl Creatinine 0.61 (0.6-1.2) mg/dl Glucose 92 (70-99) mg/dl Calcium 8.3 L (8.5-10.1) mg/dl Intake and Output 04/08/21 04/08/21 04/08/21 06:59 14:59 22:59 Intake Total 60 / 4344.0 275 / 275 Output Total 400 / 400 Balance 60 / 3743.0 -125 / -125 Intake: Oral 60 / 1135 275 / 275 Output: Urine 400 / 400 Other: # Unmeasured Voids 1 Weight 67.2 kg Weight Measurement Method Standing Scale
[2021-04-08] MEDS ORDERED: MELATONIN 3 MG TAB PO PRN (18:02)
[2021-04-08 18:49] LABS: Calcium 7.9 mg/dl (8.5-10.1); Potassium 3.6 mmol/L (3.5-5.1)
[2021-04-08 19:07] LABS: BUN Creatinine Ratio 13.3 (10-20); Creatinine Clr Calc Pharmacy 55.3 ml/min; Est GFR (African American) 74.4; Est GFR (Non-African American) 64.2
[2021-04-08] MEDS: ALPRAZolam 0.25 MG TABLET PO PRN (20:36)
[2021-04-09 06:49] LABS: BUN Creatinine Ratio 11.4 (10-20); Calcium 8.5 mg/dl (8.5-10.1); Creatinine Clr Calc Pharmacy 68.2 ml/min; Est GFR (African American) 95.9; Est GFR (Non-African American) 82.8; Potassium 4.3 mmol/L (3.5-5.1)
[2021-04-09] MEDS: FOLIC ACID 1 MG TAB PO SCH (08:48)
[2021-04-09] MEDS: DOCUSATE SODIUM 100 MG CAP PO SCH (08:49)
[2021-04-09] MEDS: AMOXICILLIN/CLAVULANATE 875 MG TAB PO SCH (08:49)
[2021-04-09] MEDS ORDERED: METOPROLOL SUCC 25MG EXT REL TAB PO SCH (09:00)
[2021-04-09] MEDS ORDERED: ENOXAPARIN INJ 40 MG/0.4 ML SYR SQ SCH (09:00)
--- NOTE | 2021-04-09 09:58 | Nephrology Progress Note ---
Date of Service April 09, 2021 Assessment & Plan Admission and Anticipated Discharge Date Admission Date: April 06, 2021 Subjective (1) Acute hyponatremia: Patient with acute hyponatremia likely due to multifactorial etiology including low solute intake high fluid intake. Chest x-ray showed interstitial edema with small bilateral effusions with cardiomegaly. Admission sodium was 118 on 04/05/2021 went up to 136 quick and then brought down and now 127 and now 140. Urine osmolality of 123 urine sodium of 15 and serum osmolality of 237. -Stop DDAVP -No need for fluid restriction. Patient can drink as able but not super excessive amount --Suggested to keep it under 2 liters. cards discussed--she can have lasix and lisinopril as felt needed by cards. (2) Gram-negative pneumonia: Likely due to aspiration pneumonia in setting of chronic alcoholism. Patient is getting Unasyn per primary team. (3) Alcohol withdrawal: Patient is improving. She is on withdrawal management per primary team. Admission and Anticipated Discharge Date Admission Date: April 06, 2021 Subjective Seen in follow-up for hyponatremia. She feels better this morning. She is thirsty. She got normal saline fluid bolus yesterday for hypotension. Sodium was overcorrected to 136. No nausea or vomiting. No urinary symptoms. Review of Systems Review of Systems: All systems reviewed & are unremarkable except as noted in HPI & below Physical Exam Physical Exam: General exam: Appears comfortable, no acute distress HEENT: Pupils are equal and reactive to light Neck: No JVD, neck is supple trachea is midline Respiratory system: Clear breath sounds bilaterally. Gastrointestinal: Abdomen is soft, non distended, non tender, bowel sounds are present CVS: Regular rate and rhythm. No murmurs, rubs or gallops Musculoskeletal: No joint or muscle tenderness Extremities: Non tender, no edema, peripheral pulses are present Neuro: Oriented, no tremors, no focal neurological deficits Skin: No rashes Results & Data ([facility]) Vital Signs (Past 12 Hours) Vital Signs Temp Pulse Pulse Resp BP Pulse Ox 04/09/21 08:00 59 L 04/09/21 07:53 36.7 C 72 17 114/71 95 04/09/21 03:25 36.9 C 61 19 107/70 95 04/08/21 23:38 37.0 C 69 17 106/67 95 04/08/21 23:20 65
[2021-04-09] MEDS ORDERED: lisinopril 5 MG TAB PO SCH (12:30)
--- NOTE | 2021-04-09 12:33 | Cardiology Progress Note ---
Date of Service April 09, 2021 Assessment & Plan (1) Nonischemic cardiomyopathy: -Tolerated the addition of Toprol 25 mg daily. -Add lisinopril 5 mg daily. -volume status stable. -no daily diuretic for now. -Sodium improved. Pt aware to avoid excessive free water intake. -She declines Life Vest for now, but says she will think more about it. -Stable for discharge. -will need outpt cardio follow up in about 2 weeks. -plan for titration of medications and repeat echo in 3 months. IF LVEF remains <or = 35% after 3 months of optimal medical therapy, will refer to EP for consideration of MULE TENDER ICD. (2) Acute hyponatremia: -Nephrology input noted and appreciated. Admission and Anticipated Discharge Date Admission Date: April 06, 2021 Subjective Patient seen in cardiology follow up. She is in good spirits and is much more optimistic. Telemetry reveals SR with LBBB in the 60s to 70s. Physical Exam Physical Exam: Temp Pulse Resp BP Pulse Ox 36.7 C 65 17 114/70 96 04/09/21 11:04 04/09/21 11:04 04/09/21 11:04 04/09/21 11:04 04/09/21 11:04 Respiratory: normal respiratory effort, lungs clear to auscultation Cardiovascular: Rate/Rhythm: regular rhythm Heart Sounds: + murmur (1/6 SM) Gastrointestinal (Abdomen): normal bowel sounds, soft, nontender, no hepatosplenomegaly Neurologic: PERRL, EOMI, accommodation nl, no face palsy, no dysarthria Results & Data ([facility]) Vital Signs (Past 12 Hours) Vital Signs Temp Pulse Pulse Resp BP BP Pulse Ox 04/09/21 11:04 36.7 C 65 17 114/70 96 04/09/21 08:00 59 L 04/09/21 07:53 36.7 C 72 17 114/71 95 04/09/21 03:25 36.9 C 61 19 107/70 95
--- NOTE | 2021-04-09 15:05 | Discharge Summary ---
Date of Service April 09, 2021 Admission HPI Per Admitting Provider History obtained from patient, family, and records. Patient is a fair historian. Medical history significant for hypertension, chronic left bundle branch block, anxiety/mood disorder, alcohol abuse. Few days history of not feeling well as per patient. Poor appetite. Dry cough symptoms, a little out of breath. Denies chest pain. No aspiration. Patient hiccuping. Patient denies abdominal pain. No known recent COVID-19 contacts. Increased anxiety as per . Patient denies inordinate intake of home Xanax. Just had 1 tablet at home. Patient noted to be increasingly weak and slow to respond and shaky as per husba nd. Last alcoholic beverage intake was about 3 days ago as per . Patient and admit to alcohol beverage consumption more than they should from time to time. Patient brought to the ER for evaluation. Patient received Zosyn for pneumonia. Improved mentation after NSS administration at the ER as per . Medical History as above No prior history of alcohol withdrawal seizures as per patient. 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, [employer] Admission Exam Per Admitting Provider Chief Complaint: Weakness, slow to respond, increasing anxiety as per Primary Care Provider: Justin Collins MD History obtained from patient, family, and records. Patient is a fair historian. Medical history significant for hypertension, chronic left bundle branch block, anxiety/mood disorder, alcohol abuse. Few days history of not feeling well as per patient. Poor appetite. Dry cough symptoms, a little out of breath. Denies chest pain. No aspiration. Patient hiccuping. Patient denies abdominal pain. No known recent COVID-19 contacts. Increased anxiety as per . Patient denies inordinate intake of home Xanax. Just had 1 tablet at home. Patient noted to be increasingly weak and slow to respond and shaky as per . Last alcoholic beverage intake was about 3 days ago as per . Patient and admit to alcohol beverage consumption more than they should from time to time. Patient brought to the ER for evaluation. Patient received Zosyn for pneumonia. Improved mentation after NSS administration at the ER as per . Principal Diagnosis Sepsis Pneumonia, likely secondary to aspiration Acute hyponatremia, multifactorial Nonischemic cardiomyopathy Alcohol abuse Alcohol withdrawal Hypoxia-resolved Acute metabolic encephalopathy-resolved Discharge Exam GENERAL: Slightly uncomfortable, anxious, coherent, no respiratory distress SKIN: Normal color, warm HEENT: [place] palpebral conjunctivae, no ptosis, dry buccal mucosa NECK : Supple, no tenderness CHEST : Decreased breath sounds, no tenderness HEART : Tachycardic, no obvious murmurs ABDOMEN: No distention, nontender EXTREMITIES : No LE swelling/tenderness, no other conspicuous deformities noted NEUROLOGIC : Coherent, no facial asymmetry, no other gross focality Discharge Data Allergies Allergy/AdvReac Type Severity Reaction Status Date / Time Iodinated Contrast Media Allergy Severe Rash Verified 04/06/21 04:00 hydrocodone Allergy Mild Itching Verified 04/05/21 23:12 latex Allergy Rash Verified 04/06/21 09:35 zolpidem AdvReac Unknown Verified 04/06/21 09:35 Consultations 04/06/21 01:03 ED Decision to Admit Stat 04/06/21 04:24 Consult Nephrology Routine Consult Psychiatry Routine 04/06/21 13:10 Consult Cardiology Routine Ordered Studies Laboratory Results WBC 4.08 K/uL (4.8-10.8) L 04/08/21 07:17 RBC 3.26 M/uL (4.2-5.4) L 04/08/21 07:17 Hgb 10.0 g/dL (12.0-16.0) L 04/08/21 07:17 Hct 29.3 % (37-47) L 04/08/21 07:17 MCV 89.9 fL (80-100) 04/08/21 07:17 MCH 30.7 pg (25-34) 04/08/21 07:17 MCHC 34.1 g/dL (32-36) 04/08/21 07:17 RDW Std Deviation 41.1 fL (36.4-46.3) 04/08/21 07:17 RDW Coeff of Luz 12.6 % (11.5-14.5) 04/08/21 07:17 Plt Count 200 K/uL (130-400) 04/08/21 07:17 MPV 9.6 fL (7.4-10.4) 04/08/21 07:17 Immature Gran % (Auto) 0.1 % 05/08/21 05:56 Neut % (Auto) 84.6 % 04/06/21 05:56 Lymph % (Auto) 4.9 % 04/06/21 05:56 [place] % (Auto) 10.4 % 04/06/21 05:56 Eos % (Auto) 0.0 % 04/06/21 05:56 Baso % (Auto) 0.0 % 04/06/21 05:56 Neut # (Auto) 7.48 K/uL (1.4-6.5) H 04/06/21 05:56 Lymph # (Auto) 0.43 K/uL (1.2-3.4) L 04/06/21 05:56 [place] # (Auto) 0.92 K/uL (0.11-0.59) H 04/06/21 05:56 Eos # (Auto) 0.00 K/uL (0-0.5) 04/06/21 05:56 Baso # (Auto) 0.00 K/uL (0-0.2) 04/06/21 05:56 Immature Gran # (Auto) 0.01 K/uL (0.00-0.02) 04/06/21 05:56 APTT 28.0 Seconds (21.0-31.0) 04/06/21 06:04 PTT Ratio 1.1 04/06/21 06:04 D-Dimer 1490 ug/L FEU (0-500) H* 04/06/21 01:29 ABG pH 7.51 (7.35-7.45) H* 04/06/21 06:04 ABG pCO2 25 mmHg (35-46) L 04/06/21 06:04 ABG pO2 55 mmHg (80-95) L 04/06/21 06:04 ABG HCO3 19 mmol/L (19-24) 04/06/21 06:04 ABG O2 Saturation 91.0 % (90-95) 04/06/21 06:04 ABG Base Excess -2.6 mEq/L (-9-1.8) 04/06/21 06:04 Ernesto Test Pos (Pos) 04/06/21 06:04 Barometric Pressure 728.1 mm/Hg 04/06/21 06:04 Oxygen Given ROOM AIR 04/06/21 06:04 Sodium 140 mmol/L (136-145) D 04/09/21 05:57 Potassium 4.3 mmol/L (3.5-5.1) D 04/09/21 05:57 Chloride 107 mmol/L (98-107) 04/09/21 05:57 Carbon Dioxide 29 mmol/L (21-32) 04/09/21 05:57 Anion Gap 4.0 (3-11) 04/09/21 05:57 BUN 9 mg/dl (7-18) 04/09/21 05:57 Creatinine 0.77 mg/dl (0.6-1.2) 04/09/21 05:57 Est Cr Clr Drug Dosing 68.2 ml/min 04/09/21 05:57 Est GFR ( Amer) 95.9 04/09/21 05:57 Est GFR (Non-Af Amer) 82.8 04/09/21 05:57 BUN/Creatinine Ratio 11.4 (10-20) 04/09/21 05:57 Glucose 97 mg/dl (70-99) 04/09/21 05:57 Osmolality 237 mOsm/kg (280-300) L* 04/05/21 23:50 Lactate 1.2 mmol/L (0.4-2.0) 04/06/21 01:29 Calcium 8.5 mg/dl (8.5-10.1) 04/09/21 05:57 Magnesium 2.5 mg/dl (1.8-2.4) H 04/07/21 08:50 Total Bilirubin 1.4 mg/dl (0.2-1) H 04/05/21 23:50 AST 24 U/L (15-37) 04/05/21 23:50 ALT 16 U/L (12-78) 04/05/21 23:50 Alkaline Phosphatase 85 U/L (45-117) 04/05/21 23:50 Ammonia < 10.0 umol/L (11-32) L 04/06/21 01:29 Troponin I 0.110 ng/ml (0-0.045) H* 04/06/21 06:04 Total Protein 6.5 gm/dl (6.4-8.2) 04/05/21 23:50 Albumin 3.3 gm/dl (3.4-5.0) L 04/05/21 23:50 Globulin 3.2 gm/dl (2.5-4.0) 04/05/21 23:50 Albumin/Globulin Ratio 1.0 (0.9-2) 04/05/21 23:50 Procalcitonin 0.14 ng/ml (0-0.5) 04/05/21 23:50 TSH 0.717 uIu/ml (0.300-4.500) 04/05/21 23:50 Urine Color Yellow 04/06/21 05:32 Urine Appearance Clear (Clear) 04/06/21 05:32 Urine pH 6.5 (4.5-7.5) 04/06/21 05:32 Ur Specific [place] 1.007 (1.000-1.030) 04/06/21 05:32 Urine Protein Negative (Negative) 04/06/21 05:32 Urine Glucose (UA) Negative (Negative) 04/06/21 05:32 Urine Ketones Negative (Negative) 04/06/21 05:32 Urine Blood Negative (Negative) 04/06/21 05:32 Urine Nitrite Negative (Negative) 04/06/21 05:32 Urine Bilirubin Negative (Negative) 04/06/21 05:32 Urine Urobilinogen Negative (Negative) 04/06/21 05:32 Ur Leukocyte Esterase 1+ (Negative) H 04/06/21 05:32 Urine WBC (Auto) 5-10 /hpf (0-5) H 04/06/21 05:32 Urine RBC (Auto) 0-4 /hpf (0-4) 04/06/21 05:32 U Hyaline Cast (Auto) 0 /lpf (0-5) 04/06/21 05:32 U Epithel Cells (Auto) 10-20 /lpf (0-5) H 04/06/21 05:32 Urine Bacteria (Auto) Negative (Negative) 04/06/21 05:32 Urine Osmolality 123 mOsm/kg (500-800) L 04/06/21 05:32 Ur Random Sodium 15 mmol/L 04/06/21 05:32 Ethyl Alcohol mg/dL < 3.0 mg/dl (0-3) 04/06/21 01:29 Lyme Disease IgG Ab Negative (Negative) 04/05/21 23:50 Lyme Disease IgM Ab Negative (Negative) 05/07/21 23:50 COVID-19 Eval Order [facility]FluRsv at [facility] 04/06/21 00:50 SARS-CoV-2 (PCR) NEGATIVE (Negative) 04/06/21 00:50 Influenza Type A (PCR) Negative (Neg) 04/06/21 00:50 Influenza Type B (PCR) Negative (Neg) 04/06/21 00:50 RSV (RT-PCR) Negative (Neg) 04/06/21 00:50 Impressions Chest X-Ray 04/06/21 00:39 XR chest 1V portable CLINICAL HISTORY: weak COMPARISON STUDY: No previous studies for comparison. FINDINGS: Lung volumes are normal. There is no pneumothorax. There are small bilateral pleural effusions. Interstitial thickening with Nubia B lines is noted. There are bibasilar opacities. There is cardiomegaly. IMPRESSION: 1. Moderate interstitial pulmonary edema with small bilateral pleural effusions. Cardiomegaly. 2. Bibasilar opacities which could reflect alveolar pulmonary edema, atelectasis or superimposed consolidation. Radiographic follow-up to ensure resolution is recommended. ACT 112: Negative or not required by law. Electronically signed by: Philip Bower M.D. 04/06/2021 8:[address] 04/06/21 03:16 CT OF THE HEAD WITHOUT CONTRAST CLINICAL HISTORY: Altered mental status. COMPARISON STUDY: No previous studies for comparison. CT DOSE: 1074.96 mGy.cm TECHNIQUE: Helical axial images of the head were obtained without IV contrast. Automated exposure control was utilized for the study. A dose lowering te chnique was utilized adhering to the principles of ALARA. FINDINGS: No acute intracranial hemorrhage, midline shift or mass effect is present. White matter hypodensity suggests small vessel disease. The ventricular system is unremarkable. The basal cisterns are patent. No extra-axial collections are present. There are no findings to suggest acute dural sinus thrombosis or acute territorial infarct. No significant calvarial abnormalities are present. Visualized portions of the sinuses and mastoid air cells are clear. IMPRESSION: No acute intracranial findings. ACT 112: Negative or not required by law. Electronically signed by: Philip Bower M.D. 04/06/2021 7:21 AM Venous Doppler Study 04/06/21 05:32 BILATERAL LOWER EXTREMITY VENOUS DOPPLER CLINICAL HISTORY: Elevated d-dimer. COMPARISON STUDY: No previous studies for comparison. TECHNIQUE: Sonography of the deep venous system of the bilateral lower extremities was performed. Compression and augmentation were evaluated. FINDINGS: The bilateral common femoral, superficial femoral and popliteal veins were compressible. Augmentation was normal. Flow was shown within the deep calf vessels. IMPRESSION: No evidence of deep venous thrombus within the bilateral lower extremities. ACT 112: Negative or not required by law. Electronically signed by: Philip Bower M.D. 04/06/2021 9:58 AM Pulmonary Perfusion Imaging 04/08/21 05:32 NUCLEAR PULMONARY PERFUSION SCAN CLINICAL HISTORY: Dyspnea. COMPARISON STUDY: Chest x-ray dated 04/06/2021. TECHNIQUE: Nuclear pulmonary perfusion scan is performed following the IV administration of 5.6 mCi of technetium 99m MAA. Images were acquired in the anterior, posterior, and oblique projections. FINDINGS: A chest x-ray performed 04/06/2021 show cardiomegaly with evidence of congestive failure and pulmonary edema. There are small pleural effusions Pulmonary perfusion is mildly heterogeneous. No perfusion defects are identified to suggest pulmonary embolus. IMPRESSION: There are no perfusion defects identified to suggest pulmonary embolus. ACT 112: Negative or not required by law. Electronically signed by: Royal Gutierrez M.D. 04/08/2021 11:53 AM Hospital Course (1) Sepsis: (2) Pneumonia: (3) Acute hyponatremia: (4) Nonischemic cardiomyopathy: (5) Alcohol abuse: (6) Alcohol withdrawal: (7) Hypoxia: (8) Acute metabolic encephalopathy: The patient is a 60-year-old female with a history of heavy alcohol use who presented in acute alcohol withdrawal with confusion. She was initially septic and work-up revealed evidence of a pneumonia, thought secondary to possible aspiration given history of heavy alcohol use. Sodium was also 118 on admission and nephrology was consulted for assistance with management. She ultimately left the hospital with a normal sodium of 140, however, she did require some dextrose and 2 doses of DDAVP during this time. She remained clinically well after the first 24 hours, mentating at her baseline and ambulating without much issue. An echocardiogram was performed revealing a poor ejection fraction and cardiology was consulted. She has a history of nonischemic cardiomyopathy with no follow-up approximately 4 years ago and has not been on guideline directed medical therapy in the meantime. She was started on metoprolol succinate and lisinopril was added once the sodium was stabilized. She tolerated these medications without issue and was discharged with close follow-up with primary care recommended for a BMP in 2 weeks. Additionally, follow-up with [facility] is recommended in 3 months. If the left ventricular systolic function remains poor after 3 months of medical optimization therapy the next step would be consideration of a [employer] capable pacemaker/defibrillator. In the meantime the recommendation was made to wear a LifeVest, however, the patient declined this as an option. She was educated and verbalized understanding that in her current situation she may develop sudden cardiac . At time of discharge she was mentating and ambulating at baseline and tolerating p.o. She was oxygenating well on room air, and physical exam was unremarkable. Close follow-up with primary care is recommended. As an aside, on admission her D-dimer was elevated and she did require full dose anticoagulation with Lovenox throughout the weekend as she was unable to receive CT imaging due to an allergy to contrast. A nuclear VQ scan was performed revealing low probability of PE on Thursday morning, and Lovenox was de-escalate it to DVT prophylaxis dosing. Total Time Total Time Spent Total Time Spent (In Minutes): 60 Total Time Includes: Examination of the Patient, Discharge Planning, Medication Reconciliation and Communication With Other Providers Discharge Plan Discharge Items Patient Disposition: Home - Self-Care Reason For Visit: RESP FAILURE, HYPONATREMIA Discharge Diagnosis: Sepsis Pneumonia, likely secondary to aspiration Acute hyponatremia, multifactorial Nonischemic cardiomyopathy Alcohol abuse Alcohol withdrawal Hypoxia-resolved Acute metabolic encephalopathy-resolved Condition on Discharge: Good Activity: Resume your previous activity Non-emergency contact: Primary Care Provider Call non-emergency contact if: you have any medication questions and your symptoms worsen Follow-up/Referrals: Justin Collins MD [Primary Care Provider] - (Date & Time 04/12/2021 3:20 PM Provider Justin Collins MD Department General Internal Medicine [facility] ) Diet: Low Sodium (2gm) Addtl Attending Provider Instructions: Please take all medications as instructed on discharge list below. A basic metabolic panel, nonfasting blood work, is recommended in 2 weeks time. This may be ordered by your primary care physician on follow-up. As you were educated, there is a higher risk of developing of sudden cardiac from an arrhythmia given your low cardiac ejection fraction. If you decide to pursue the wearable LifeVest therapy, please contact Dr. Dylon Larsen at [facility] to get this ordered. Otherwise, please follow-up with him in 3 months time to reevaluate your cardiac function. It is recommended that you follow-up with your primary care doctor within 1 week of discharge to ensure you are still doing well since going home. Complete alcohol cessation is recommended. Ideally, some type of outpatient rehabilitation will be helpful in this effort. Additional consideration for talk therapy or other strategies to control your anxiety will be helpful. It was a pleasure taking care of you! Please call if you have any questions or problems. You can reach a [facility] hospitalist on duty at [facility] 24 hours a day by calling [phone]. Take care of yourself. Estela Pascal DO [facility] Pending Studies at Discharge: No Stand-Alone Forms: My [facility] Medications and DC Order Prescriptions: New lisinopril [Zestril] 5 mg Tablet 5 mg PO QAM Qty: 30 RF: 0 amoxicillin-pot clavulanate [Augmentin] 875-125 mg Tablet 1 tab PO BIDM Qty: 10 RF: 0 metoprolol succinate 25 mg Tablet Extended Release 24 Hr 25 mg PO QAM Qty: 30 RF: 0 docusate sodium 100 mg Capsule 100 mg PO BID Qty: 60 RF: 0 Continued alprazolam 0.25 mg tablet 0.25 mg PO DAILY PRN (Reason: Anxiety) RF: 0 Discharge Orders: Discharge Order (Routine); Ordered 04/09/21 Ordered By: Estela Pascal Admission Data Admit Date/Time: 04/06/21 03:19 Attending Provider: Estela Pascal Admit Provider: Rogerio Childs Primary Care Provider: Justin Collins Other Providers: Shannon Jimenez ; Jorge Rothman ; Lizzie Stokes ; Cristina Hart ; Luz Morejon ; Abigail Ruiz ; Justin San ; Mariam Feng ; Lj Alvarado ; Connor Acuna ; Wayne Orozco ; Jody Schultz ; Avery Toth ; Annalise Vides ; Jaz Knight ; Mary Romero ; Bin Rick I. ; Cassie Rojo ; Josie Johns ; Angeles Mcfarland ; Rogerio Childs ; Cronell Larsen
[2021-04-09] MEDS ORDERED: GABAPENTIN 600 MG TAB PO SCH (18:00)
== END 2021-04-09 16:38 | disposition home or self-care (01) | DRG 871 ==
LOC: ED 21:20 → 2W 04-06 03:19 → 2S 04-06 10:19

== ENCOUNTER 2022-07-29 16:57 | Inpatient (IN) ==
[2022-07-29 17:24] LABS: Basophils # (auto) 0.02 K/uL (0-0.2); Basophils % (auto) 0.4 %; Eosinophils # (auto) 0.12 K/uL (0-0.50); Eosinophils % (auto) 2.7 %; Hematocrit (blood only) 31.5 % (34.1-44.9); Hemoglobin 10.4 g/dl (12.0-16.0); Immature Granulocytes # (auto) 0.01 K/uL (0.00-0.02); Immature Granulocytes % (auto) 0.2 %; Lymphocytes # (auto) 0.42 K/uL (1.2-3.4); Lymphocytes % (auto) 9.4 %; Mean Corpuscular Hemoglobin 29.8 pg (25.0-34.0); Mean Corpuscular Volume 90.3 fL (80.0-100.0); Mean Platelet Volume 9.3 fL (9.4-12.3); Monocytes # (auto) 0.52 K/uL (0.24-0.82); Monocytes % (auto) 11.7 %; Neutrophils # (auto) 3.37 K/uL (1.4-6.5); Neutrophils % (auto) 75.6 %; Platelet Count 210 K/uL (130-400); RDW Coefficient of Variation 21.1 % (11.5-14.5); RDW Standard Deviation 67.3 fL (36.4-46.3); Red Blood Count 3.49 M/uL (3.93-5.22); White Blood Count 4.46 K/ul (4.8-10.8)
[2022-07-29 17:45] LABS: Albumin Globulin Ratio 1.6 (0.9-2); Albumin Level 4.1 gm/dl (3.4-5.0); BUN Creatinine Ratio 14.3 (10-20); Bilirubin,Total 0.5 mg/dl (0.2-1.0); Creatinine Clr Calc Pharmacy 65.4 ml/min; Est GFR (African American) 94.6 ml/min; Est GFR (Non-African American) 81.6 ml/min; Globulin 2.5 gm/dl (2.5-4.0); Potassium 3.7 mmol/L (3.5-5.1); Total Protein 6.6 gm/dl (6.0-8.3)
[2022-07-29 17:46] LABS: Anisocytosis Present; Ovalocytes 1+
[2022-07-29] MEDS ORDERED: SODIUM CHLORIDE 0.9% 1000ML 1,000 ML IV SCH (18:30)
--- NOTE | 2022-07-29 18:43 | Emergency Department Note ---
History of Present Illness General Chief complaint: Constipation Stated complaint: RECTAL CANCER, CONSTIPATED FOR 5 DAYS Time Seen by Provider: 07/29/22 18:12 Source: patient Mode of arrival: ambulatory Limitations: no limitations History of Present Illness Provider complaint: Constipation Onset (ago): day(s) 5 Location: abdomen Maximum Pain Intensity: 10 This is a 62-year-old female presents emergency department due to concern for 5 days of constipation. Patient has history of rectal cancer and did finish oral chemo as well as radiation therapy on July 11. She does typically take MiraLAX daily. She states no recent change in diet or other new medications. She states she is prone to constipation however is never had this happen before. She has had prior . Patient states she does feel distended and has intermittent severe cramping. She states Thursday was the last day she was able to pass any gas. She states she does feel bloated and distended. She states she called her oncologist through [facility] today and was instructed to come to the emergency room due to concern for possible bowel obstruction. She denies na usea, vomiting, and states her appetite has been normal. She denies fevers or chills. Pt seen during a time of high acuity and national emergency pandemic while wearing PPE. Home Medications Medication Instructions Recorded Confirmed Type alprazolam 0.25 mg tablet 0.25 mg PO HS PRN Anxiety 04/05/21 07/29/22 History gabapentin 300 mg capsule 300 mg PO TID 05/08/22 07/29/22 History polyethylene glycol 3350 17 gram 17 g PO DAILY 07/29/22 07/29/22 History oral powder packet (Miralax) Allergies Allergy/AdvReac Type Severity Reaction Status Date / Time Iodinated Contrast Media Allergy Severe Rash Verified 07/24/22 13:40 hydrocodone Allergy Mild Itching Verified 07/24/22 13:40 latex Allergy Rash Verified 07/24/22 13:40 zolpidem AdvReac Unknown Unknown Verified 07/24/22 13:40 Past Med/Surg History Medical History Anxiety Cardiomyopathy follows with dr hermosillo - reports ICD was recommended but pt declined Constipation Depression Encounter for insertion of venous access port External hemorrhoids GERD (gastroesophageal reflux disease) Hiatal hernia History of alcohol abuse "significantly cut back" - currently drinks wine a few days a week. History of migraine History of TMJ disorder LBBB (left bundle branch block) Low left ventricular ejection fraction echo 07/20 ef 25-30% mod MR Narrowing of stools Unintentional weight loss > 20 lb in a year Surgical History History of bladder surgery as a child History of History of cardiac catheterization 2016 [place] - no stents History of esophagogastroduodenoscopy (EGD) History of tonsillectomy Hx of colonoscopy Family History Father Cancer lung cancer Brother Cancer lung cancer Mother Stroke Grandfather (Maternal) Diabetes Family/Other Colorectal cancer Other No family history of adverse response to anesthesia Social History Smoking Status: Never smoker Second Hand Exposure: No (not as an adult); Hx Alcohol Use: Yes Alcohol type: wine Hx Substance Use: No Preferred Language: Irish Communication Ability: Effective Visual Impairment: No Limitations Hearing Ability: Normal Disability Specialist Required: No Beliefs That Will Affect Care: None marital status: Current Living Situation: Spouse current occupational status: employed current occupation: @ [employer] How many Children do You have: 1 Feels Safe at Home: Yes caffeine: Yes during the past year weight has: decreased > 10 lbs Dental Care, Regularly: Yes Assistive Devices: Glasses Review of Systems A total of 10 systems reviewed and were otherwise negative All systems reviewed & are unremarkable except as noted in HPI & below Physical Exam Vital Signs Vital Signs - 24 hr 07/29/22 17:01 07/29/22 18:11 Temperature 36.9 C Temperature Source Temporal Artery Scan Pulse Rate 87 Pulse Rate [Apical] 66 Pulse Rhythm [Apical] Regular Pulse Strength [Apical] Normal Respiratory Rate 16 18 Respiratory Effort / Characteristics Non-Labored Spontaneous Non-Labored Respiratory Depth Normal Normal Respiratory Pattern Regular Regular Blood Pressure 123/74 Blood Pressure [Left Arm] 132/78 Blood Pressure Mean 90 Blood Pressure Mean [Left Arm] 96 Blood Pressure Position [Left Arm] Lying Pulse Oximetry 98 98 Oxygen Delivery Method Room Air Room Air Sepsis Recent Fever Within 48 Hours No Sepsis New/Unexplained Change in Mental Status N/A Sepsis Action Taken by Nursing No Action Required GENERAL: alert, well appearing, well nourished, no distress, non-toxic EYE EXAM: normal conjunctiva, PERRL and EOM's grossly intact OROPHARYNX: no exudate, no erythema, lips, buccal mucosa, and tongue normal and mucous membranes are moist NECK: supple, no nuchal rigidity, no adenopathy, non-tender LUNGS: Clear to auscultation. Normal chest wall mechanics, no w/r/r HEART: no murmurs, S1 normal and S2 normal ABDOMEN: abdomen soft, non-tender, normo-active bowel sounds, no masses, no rebound or guarding. BACK: Back is symmetrical on inspection and there is no deformity, no midline tenderness, no CVA tenderness. SKIN: no rashes and no bruising UPPER EXTREMITIES: upper extremities are grossly normal. FROM, nml pulses b/l. LOWER EXTREMITIES: No pitting edema. FROM, nml pulses b/l. NEURO EXAM: Normal sensorium, cranial nerves II-XII grossly intact, normal speech, no gross weakness of arms, no gross weakness of legs. Gross sensation intact. Course Course 2005: Case discussed with on-call colorectal surgery at [place], Dr. Palacio. He would like to bring the patient down [facility] in transfer however transfer staff alerted us that they were currently on divert and not taking any patients. At this time he recommended keeping the patient n.p.o. continuing IV fluids, given the patient a dose of empiric antibiotics and they were added to the wait list. He also advised potentially calling around other facilities to see if they could take the patient. While she is not perforated at this time, she is still high risk and needs to be aware there are at least general surgeons present. 2021: Discussed with patient at bedside. She does not wish to be transferred to any other facilities. She would prefer to wait here until such time as a bed at [place] is available. Administered Medications Discontinued Medications Enoxaparin Sodium (Enoxaparin Inj 30 Mg/0.3 Ml Syr) 30 mg SQ QAM SHIRA Stop: 08/29/22 08:59 Last Admin: 07/30/22 09:43 Dose: Not Given Documented By: DUKE Sodium Chloride (Nss 1000ml) 1,000 mls @ 100 mls/hr IV .Q10H SHIRA Stop: 08/28/22 18:29 Last Infusion: 07/29/22 21:18 Dose: 0 mls/hr Documented By: JUAN CARLOSR Infusion: 07/29/22 21:06 Dose: 0 mls/hr Documented By: Infusion: 07/29/22 21:06 Dose: 0 mls/hr Documented By: Admin: 07/29/22 18:32 Dose: 125 mls/hr Documented By: Piperacillin Sod/Tazobactam Sod (Zosyn) 4.5 gm in 120 mls @ 240 mls/hr IV NOW ONE Stop: 07/29/22 20:30 Last Infusion: 07/29/22 21:06 Dose: 0 mls/hr Documented By: Admin: 07/29/22 20:29 Dose: 240 mls/hr Documented By: MACKENZIE Lactated Ringer's (Lr) 1,000 mls @ 50 mls/hr IV .Q20H ONE Stop: 07/30/22 16:31 Last Infusion: 07/30/22 06:41 Dose: 50 mls/hr Documented By: Infusion: 07/30/22 05:27 Dose: 50 mls/hr Documented By: Infusion: 07/30/22 05:09 Dose: 0 mls/hr Documented By: Infusion: 07/29/22 21:32 Dose: 50 mls/hr Documented By: Admin: 07/29/22 21:07 Dose: 60 mls/hr Documented By: MACKENZIE Thiamine HCl 100 mg/ Syringe 10 mls @ 2 mls/min IV NOW STA Stop: 07/29/22 21:26 Last Admin: 07/29/22 21:51 Dose: 2 mls/min Documented By: MACKENZIE Lorazepam 0.25 mg/ Syringe 0.25 mls @ 2 mls/min IV Q4H PRN PRN Reason: anxiety Stop: 08/28/22 22:17 Last Admin: 07/30/22 10:25 Dose: 2 mls/min Documented By: DUKE Acetaminophen (Ofirmev) 1,000 mg in 100 mls @ 400 mls/hr IV Q8H PRN PRN Reason: pain/fever Stop: 08/01/22 22:17 Last Infusion: 07/30/22 05:27 Dose: 0 mls/hr Documented By: Admin: 07/30/22 05:08 Dose: 400 mls/hr Documented By: BEA Piperacillin Sod/Tazobactam (Sod 3.375 gm/ Dextrose) 115 mls @ 28.75 mls/hr IV Q8H [facility]; Protocol Stop: 08/09/22 04:59 Last Infusion: 07/30/22 09:43 Dose: 0 mls/hr Documented By: Infusion: 07/30/22 06:41 Dose: 28.8 mls/hr Documented By: Admin: 07/30/22 05:37 Dose: 28.8 mls/hr Documented By: BEA Ketorolac Tromethamine (Ketorolac Tromethamine 15 Mg/Ml Vial) 15 mg IV NOW ONE Stop: 07/29/22 22:13 Last Admin: 07/29/22 22:51 Dose: 15 mg Documented By: MACKENZIE Lorazepam (Lorazepam 2 Mg/1 Ml Vial) 0.25 mg IV NOW STA; Protocol Stop: 07/29/22 22:13 Last Admin: 07/29/22 22:51 Dose: 0.25 mg Documented By: MACKENZIE Medical Decision Making Differential Diagnosis Differential: Functional, Impaction, Obstruction, Volvulus, Ischemic Bowel, Infectious, Neurologic, Metabolic, amongst other pathologies entertained. Medical Records Attestation: I reviewed the patient's medical records. Home Medications Current Medication List: was personally reviewed by me Laboratory Data Attestation: I reviewed the patient's lab results. Result diagrams: 07/29/22 17:05 07/29/22 17:05 Lab Results 07/29/22 07/29/22 07/29/22 Range/Units 17:05 17:05 17:05 WBC 4.46 L (4.8-10.8) K/ul RBC 3.49 L (3.93-5.22) M/uL Hgb 10.4 L (12.0-16.0) g/dl Hct 31.5 L (34.1-44.9) % MCV 90.3 (80.0-100.0) fL MCH 29.8 (25.0-34.0) pg MCHC 33.0 (32.0-36.0) g/dL RDW Std Deviation 67.3 H (36.4-46.3) fL RDW Coeff of Luz 21.1 H (11.5-14.5) % Plt Count 210 (130-400) K/uL MPV 9.3 L (9.4-12.3) fL Immature Gran % (Auto) 0.2 % Neut % (Auto) 75.6 % Lymph % (Auto) 9.4 % Frontier % (Auto) 11.7 % Eos % (Auto) 2.7 % Baso % (Auto) 0.4 % Neut # (Auto) 3.37 (1.4-6.5) K/uL Lymph # (Auto) 0.42 L (1.2-3.4) K/uL Frontier # (Auto) 0.52 (0.24-0.82) K/uL Eos # (Auto) 0.12 (0-0.50) K/uL Baso # (Auto) 0.02 (0-0.2) K/uL Immature Gran # (Auto) 0.01 (0.00-0.02) K/uL Anisocytosis Present Ovalocytes 1+ Sodium 137 (136-145) mmol/L Potassium 3.7 (3.5-5.1) mmol/L Chloride 105 (98-107) mmol/L Carbon Dioxide 24 (21-32) mmol/L Anion Gap 8 (3-11) BUN 11 (6-23) mg/dl Creatinine 0.77 (0.6-1.2) mg/dl Est Cr Clr Drug Dosing 65.4 ml/min Est GFR ( Amer) 94.6 ml/min Est GFR (Non-Af Amer) 81.6 ml/min BUN/Creatinine Ratio 14.3 (10-20) Glucose 109 H (70-99(Fasting)) mg/dl Lactate (0.4-2.0) mmol/L Calcium 9.0 (8.5-10.1) mg/dl Magnesium 2.3 (1.7-2.4) mg/dl Total Bilirubin 0.5 (0.2-1.0) mg/dl AST 16 (13-39) U/L ALT 17 (7-52) U/L Alkaline Phosphatase 81 (34-104) U/L Total Protein 6.6 (6.0-8.3) gm/dl Albumin 4.1 (3.4-5.0) gm/dl Globulin 2.5 (2.5-4.0) gm/dl Albumin/Globulin Ratio 1.6 (0.9-2) Lipase 10 L (11-82) U/L Urine Color Urine Appearance (Clear) Urine pH (4.5-7.5) Ur Specific [place] (1.000-1.030) Urine Protein (Negative) Urine Glucose (UA) (Negative) Urine Ketones (Negative) Urine Blood (Negative) Urine Nitrite (Negative) Urine Bilirubin (Negative) Urine Urobilinogen (Negative) Ur Leukocyte Esterase (Negative) Urine WBC (Auto) (0-5) /hpf Urine RBC (Auto) (0-4) /hpf U Hyaline Cast (Auto) (0-5) /lpf U Epithel Cells (Auto) (0-5) /lpf Urine Bacteria (Auto) (Negative) SARS-CoV-2, RNA, NAAT (NEGATIVE) 07/29/22 07/29/22 07/29/22 Range/Units 19:10 19:23 20:32 WBC (4.8-10.8) K/ul RBC (3.93-5.22) M/uL Hgb (12.0-16.0) g/dl Hct (34.1-44.9) % MCV (80.0-100.0) fL MCH (25.0-34.0) pg MCHC (32.0-36.0) g/dL RDW Std Deviation (36.4-46.3) fL RDW Coeff of Luz (11.5-14.5) % Plt Count (130-400) K/uL MPV (9.4-12.3) fL Immature Gran % (Auto) % Neut % (Auto) % Lymph % (Auto) % Frontier % (Auto) % Eos % (Auto) % Baso % (Auto) % Neut # (Auto) (1.4-6.5) K/uL Lymph # (Auto) (1.2-3.4) K/uL Frontier # (Auto) (0.24-0.82) K/uL Eos # (Auto) (0-0.50) K/uL Baso # (Auto) (0-0.2) K/uL Immature Gran # (Auto) (0.00-0.02) K/uL Anisocytosis Ovalocytes Sodium (136-145) mmol/L Potassium (3.5-5.1) mmol/L Chloride (98-107) mmol/L Carbon Dioxide (21-32) mmol/L Anion Gap (3-11) BUN (6-23) mg/dl Creatinine (0.6-1.2) mg/dl Est Cr Clr Drug Dosing ml/min Est GFR ( Amer) ml/min Est GFR (Non-Af Amer) ml/min BUN/Creatinine Ratio (10-20) Glucose (70-99(Fasting)) mg/dl Lactate 0.7 (0.4-2.0) mmol/L Calcium (8.5-10.1) mg/dl Magnesium (1.7-2.4) mg/dl Total Bilirubin (0.2-1.0) mg/dl AST (13-39) U/L ALT (7-52) U/L Alkaline Phosphatase (34-104) U/L Total Protein (6.0-8.3) gm/dl Albumin (3.4-5.0) gm/dl Globulin (2.5-4.0) gm/dl Albumin/Globulin Ratio (0.9-2) Lipase (11-82) U/L Urine Color Yellow Urine Appearance Clear (Clear) Urine pH 5.5 (4.5-7.5) Ur Specific [place] 1.004 (1.000-1.030) Urine Protein Negative (Negative) Urine Glucose (UA) Negative (Negative) Urine Ketones Negative (Negative) Urine Blood Negative (Negative) Urine Nitrite Negative (Negative) Urine Bilirubin Negative (Negative) Urine Urobilinogen Negative (Negative) Ur Leukocyte Esterase Trace H (Negative) Urine WBC (Auto) 1-5 (0-5) /hpf Urine RBC (Auto) 0-4 (0-4) /hpf U Hyaline Cast (Auto) 0 (0-5) /lpf U Epithel Cells (Auto) 0-5 (0-5) /lpf Urine Bacteria (Auto) Negative (Negative) SARS-CoV-2, RNA, NAAT NEGATIVE (NEGATIVE) Imaging Data Radiologist's Impression: Abdomen/Pelvis CT 07/29/22 18:29 CT SCAN OF THE ABDOMEN AND PELVIS WITHOUT IV CONTRAST CLINICAL HISTORY: Constipation. Generalized abdominal pain. Reported history of rectal carcinoma. COMPARISON STUDY: Abdominal CT dated 04/23/2022. TECHNIQUE: CT scan of the abdomen and pelvis is performed from the lung bases to the proximal femora. Images are reviewed in the axial, sagittal, and coronal planes. IV contrast was not administered for this examination. A dose lowering technique was utilized adhering to the principles of ALARA. CT DOSE: 274.94 mGy.cm FINDINGS: Lung bases: The heart is mildly enlarged and without pericardial effusion. The cardiac blood pool shows diminished attenuation as compared to the myocardium suggesting anemia. The lung bases are clear. Liver: The unenhanced liver is normal in size, contour, and attenuation. There is no intrahepatic biliary ductal dilatation. A subcentimeter cyst is noted in the left lobe. Gallbladder: Unremarkable. Spleen: Normal in size and attenuation. Pancreas: Unremarkable. Adrenal glands: Unremarkable. Kidneys: The unenhanced kidneys are normal in size and without hydronephrosis. There are no renal calculi identified. There is no evidence of contour deforming renal mass lesion. Abdominal vasculature: The abdominal aorta is normal in course and caliber. Bowel: The rectum is focally narrowed an irregular as seen on axial image #317, likely corresponding to the site of the patient's rectal carcinoma. A 9 mm perirectal nodule is seen on image #27. The upstream rectum is thick walled and there is severe upstream constipation. There is mild infiltration and fluid seen around the proximal sigmoid. The appendix is well-visualized and normal. The small bowel loops are normal in caliber. Peritoneum: There is no intraperitoneal free air or abdominal ascites. Lymphadenopathy: None. Pelvic viscera: The bladder is distended but otherwise normal in appearance. The uterus and adnexa are normal as visualized. Skeletal structures: The skeletal structures are heterogeneously osteopenic. There is mild lumbosacral spondylosis. No lytic or blastic lesions are seen. IMPRESSION: 1. The rectum is focally narrowed and irregular, likely corresponding to the patient's known rectal mass. 2. The upstream sigmoid colon appears thick walled and there is severe upstream constipation. Although this could simply represent constipation, colorectal obstruction secondary to the mass lesion or stricture is not excluded. 3. Mild infiltration and fluid is seen around the proximal sigmoid, likely representing stercoral colitis. 4. The small bowel up to normal in caliber. 5. A small perirectal nodule is similar to previous. 6. Additional findings as above. ACT 112: Negative or not required by law. Electronically signed by: Royal Gutierrez M.D. 07/29/2022 7:00 PM ECG Data Attestation: I personally reviewed and interpreted this ECG as follows: Indication: + abdominal pain Rate (beats per minute): 72 Rhythm: + normal sinus ECG Intervals/blocks: + Left bundle branch block and + Prolonged QT ECG Eugene: + Left axis deviation ECG ST segments: + Nonspecific ST abnormalities MDM Narrative An order was placed for continuous cardiac monitoring. The monitor shows a rate of _60__ with _normal sinus_ rhythm. This is a 62-year-old female presents emerged department due to concern for 5 days of constipation. Patient was afebrile and hemodynamically stable. Labs drawn and sent by nursing staff prior to my evaluation as patient presented on day of high volume and acuity. After discussion with the patient at bedside, CT of the abdomen pelvis was performed. CT revealed most likely constipation however evolving obstruction cannot be completely ruled out this patient could not receive any IV or oral contrast. Case was discussed with on-call colorectal surgery at [facility] where the patient typically receives her care. They are willing to accept in transfer however do not have any available bed and are currently on divert. I did discuss all this with patient at bedside. She did not want to be transferred to any other facilities and is comfortable remaining here until such time as a bed becomes available. Case discussed with hospitalist for additional evaluation management. The physician assistant laboratory director with general surgery was notified as the hospitalist did place a consult for them as a precaution. At this time there is no evidence of perforation or evolving bacteremia/sepsis. All results were discussed with patient and her at bedside who verbalized understanding were in agreement with plan. Impression & Plan Constipation, Rectal carcinoma Discharge Plan Visit Data Chief Complaint: Constipation Stated Complaint: RECTAL CANCER, CONSTIPATED FOR 5 DAYS ED Provider: Lauren Mart Discharge Problem: Constipation, Rectal carcinoma Patient Disposition: Admitted As Inpatient Discharge Instructions Interventions: ED Discharge Assessment Last Done: 07/29/22 23:09
--- NOTE | 2022-07-29 19:01 | CT Scan Report ---
CT SCAN OF THE ABDOMEN AND PELVIS WITHOUT IV CONTRAST CLINICAL HISTORY: Constipation. Generalized abdominal pain. Reported history of rectal carcinoma. COMPARISON STUDY: Abdominal CT dated 04/23/2022. TECHNIQUE: CT scan of the abdomen and pelvis is performed from the lung bases to the proximal femora. Images are reviewed in the axial, sagittal, and coronal planes. IV contrast was not administered for this examination. A dose lowering technique was utilized adhering to the principles of ALARA. CT DOSE: 274.94 mGy.cm FINDINGS: Lung bases: The heart is mildly enlarged and without pericardial effusion. The cardiac blood pool mary jane ws diminished attenuation as compared to the myocardium suggesting anemia. The lung bases are clear. Liver: The unenhanced liver is normal in size, contour, and attenuation. There is no intrahepatic shelby iary ductal dilatation. A subcentimeter cyst is noted in the left lobe. Gallbladder: Unremarkable. Spleen: Normal in size and attenuation. Pancreas: Unremarkable. Adrenal glands: Unremarkable. Kidneys: The unenhanced kidneys are normal in size and without hydronephrosis. There are no renal leonidas culi identified. There is no evidence of contour deforming renal mass lesion. Abdominal vasculature: The abdominal aorta is normal in course and caliber. Bowel: The rectum is focally narrowed an irregular as seen on axial image #317, likely corresponding to the site of the patient's rectal carcinoma. A 9 mm perirectal nodule is seen on image #27. The ups tream rectum is thick walled and there is severe upstream constipation. There is mild infiltration an d fluid seen around the proximal sigmoid. The appendix is well-visualized and normal. The small jerry l loops are normal in caliber. Peritoneum: There is no intraperitoneal free air or abdominal ascites. Lymphadenopathy: None. Pelvic viscera: The bladder is distended but otherwise normal in appearance. The uterus and adnexa ar e normal as visualized. Skeletal structures: The skeletal structures are heterogeneously osteopenic. There is mild lumbosacra l spondylosis. No lytic or blastic lesions are seen. IMPRESSION: 1. The rectum is focally narrowed and irregular, likely corresponding to the patient's known rectal m ass. 2. The upstream sigmoid colon appears thick walled and there is severe upstream constipation. Althoug h this could simply represent constipation, colorectal obstruction secondary to the mass lesion or st ricture is not excluded. 3. Mild infiltration and fluid is seen around the proximal sigmoid, likely representing stercoral col itis. 4. The small bowel up to normal in caliber. 5. A small perirectal nodule is similar to previous. 6. Additional findings as above. ACT 112: Negative or not required by law. Electronically signed by: Royal Gutierrez M.D. 07/29/2022 7:00 PM
[2022-07-29 19:42] LABS: Appearance Urine Clear (Clear); Bacteria Urine Automated Negative (Negative); Bilirubin Urine Negative (Negative); Blood Urine Negative (Negative); Cast Urine Automated 0 /lpf (0-5); Color Urine Yellow; Epithelial Cell Urine Auto 0-5 /lpf (0-5); Glucose Urine UA Negative (Negative); Ketones Urine Negative (Negative); Leukocyte Esterase Urine Trace (Negative); Nitrite Urine Negative (Negative); Protein Urine Negative (Negative); RBC Urine Automated 0-4 /hpf (0-4); Specific Gravity Urine 1.004 (1.000-1.030); Urobilinogen Urine Negative (Negative); pH Urine 5.5 (4.5-7.5)
[2022-07-29] MEDS ORDERED: PIPERACILLIN/TAZOBACTAM 4.5 GM/120 ML BAG IV ONE (20:01)
[2022-07-29] MEDS ORDERED: LACTATED RINGER'S 1,000 ML IV ONE (20:32)
[2022-07-29] MEDS ORDERED: THIAMINE HCL 100 MG in SYRINGE 9 ML IV STA (21:22)
--- NOTE | 2022-07-29 21:25 | History & Physical Report ---
Date of Service July 29, 2022 Assessment & Plan (1) Rectal carcinoma: (2) Stercoral colitis: (3) Cardiomyopathy: (4) Anxiety: Plan: This is a 62yo F with a PMH of colon adenocarcinoma s/p completion of chemo and radiation therapy on July 11, nonischemic cardiomyopathy, HFrEF, hypertension, LBBB, adjustment disorder and other medical problems below who presents with constipation over the past 5 days and was found to have stercoral colitis in setting of known rectal carcinoma. Plan per Dr. canada. Please see addendum. History of Present Illness Chief Complaint: constipation Primary Care Provider: Justin Collins MD This is a 62yo F with a PMH of colon adenocarcinoma s/p completion of chemo and radiation therapy on July 11, nonischemic cardiomyopathy, HFrEF, hypertension, LBBB, adjustment disorder and other medical problems below who presents with constipation over the past 5 days. Has been having abdominal bloating with severe intermittent cramping and has not been able to pass gas in 2 days. Does normally take MiraLAX daily. No new medications. Called her oncologist through [facility] today and was instructed to report to local ER for evaluation for possible bowel obstruction. Denies any fever or chills. No headache, chest pain or shortness of breath. No nausea, vomiting. Does have some increased urinary frequency that she states is a effect of her radiation and is not new. Patient with known ongoing severe systolic dysfunction with EF in the range of 25-29%. Follows with Dr. Hermosillo who has recommended biventricular pacemaker AICD but patient declined at this time. Allergies Allergy/AdvReac Type Severity Reaction Status Date / Time Iodinated Contrast Media Allergy Severe Rash Verified 07/24/22 13:40 hydrocodone Allergy Mild Itching Verified 07/24/22 13:40 latex Allergy Rash Verified 07/24/22 13:40 zolpidem AdvReac Unknown Unknown Verified 07/24/22 13:40 Home Medications Medication Instructions Recorded Confirmed Type alprazolam 0.25 mg tablet 0.25 mg PO HS PRN Anxiety 04/05/21 07/29/22 History gabapentin 300 mg capsule 300 mg PO TID 05/08/22 07/29/22 History polyethylene glycol 3350 17 gram 17 g PO DAILY 07/29/22 07/29/22 History oral powder packet (Miralax) Past Med/Surg History Medical History Anxiety Cardiomyopathy follows with dr hermosillo - reports ICD was recommended but pt declined Constipation Depression Encounter for insertion of venous access port External hemorrhoids GERD (gastroesophageal reflux disease) Hiatal hernia History of alcohol abuse "significantly cut back" - currently drinks wine a few days a week. History of migraine History of TMJ disorder LBBB (left bundle branch block) Low left ventricular ejection fraction echo 07/20 ef 25-30% mod MR Narrowing of stools Unintentional weight loss > 20 lb in a year Surgical History History of bladder surgery as a child History of History of cardiac catheterization 2016 [place] - no stents History of esophagogastroduodenoscopy (EGD) History of tonsillectomy Hx of colonoscopy Family History Father Cancer lung cancer Brother Cancer lung cancer Mother Stroke Grandfather (Maternal) Diabetes Family/Other Colorectal cancer Other No family history of adverse response to anesthesia Social History Smoking Status: Never smoker Second Hand Exposure: No (not as an adult); Do You Dip or Chew Tobacco: No; Hx Alcohol Use: Yes Alcohol type: wine Hx Substance Use: No Preferred Language: Greek Communication Ability: Effective Visual Impairment: No Limitations Hearing Ability: Normal Meal Attendant Required: No Beliefs That Will Affect Care: None marital status: Current Living Situation: Spouse current occupational status: employed current occupation: @ [employer] How many Children do You have: 1 Other Information That Helps Us Care for You: No Feels Safe at Home: Yes Safety Concerns: Feels Safe At This Time caffeine: Yes during the past year weight has: decreased > 10 lbs Dental Care, Regularly: Yes Assistive Devices: Glasses Review of Systems Review of Systems: At least ten systems reviewed and negative except as noted in the HPI. Physical Exam Physical Exam: General Appearance: WD/WN, vitals as above, NAD, sitting up in bed, pleasant, appears chronically ill Head: normocephalic, atraumatic Eyes: normal inspection, PERRL, conjunctivae normal, anicteric sclerae ENT: external ear and nose normal, oropharynx normal Neck: normal visual inspection, trachea midline, no thyromegaly Respiratory: normal respiratory effort, lungs clear to auscultation, no wheeze, rales, rhonchi. No accessory muscle use Cardiovascular: regular rate, rhythm, no murmur, normal peripheral pulses, no BLE edema. Vessels: no JVD Chest: normal inspection of chest Abdomen/GI: hypoactive bowel sounds, soft but distended, mild diffuse TTP, no hepatosplenomegaly Extremities/Musculoskeletal: no cyanosis or clubbing, extremities motor strength 5/5 Neurologic: PERRL, EOMI, accommodation nl, no face palsy, no dysarthria, CN's II-XI intact bilaterally and moves all extremities Psychiatric: A+Ox3, anxious Skin: no rashes, normal color, warm/dry Results & Data Results & Data ([facility]) Vital Signs (Past 12 Hours) Vital Signs Temp Pulse Pulse Resp BP BP Pulse Ox 07/29/22 20:36 36.6 C 71 17 138/73 97 07/29/22 18:11 66 18 132/78 98 07/29/22 17:01 36.9 C 87 16 123/74 98 O2 Del Method 07/29/22 20:36 Room Air 07/29/22 18:11 Room Air 07/29/22 17:01 Room Air Laboratory Results Short CBC 07/29/22 Range/Units 17:05 WBC 4.46 L (4.8-10.8) K/ul Hgb 10.4 L (12.0-16.0) g/dl Hct 31.5 L (34.1-44.9) % Plt Count 210 (130-400) K/uL BMP 07/29/22 17:05 Sodium 137 Potassium 3.7 Chloride 105 Carbon Dioxide 24 BUN 11 Creatinine 0.77 Glucose 109 H Calcium 9.0 Liver Function 07/29/22 Range/Units 17:05 Total Bilirubin 0.5 (0.2-1.0) mg/dl AST 16 (13-39) U/L ALT 17 (7-52) U/L Alkaline Phosphatase 81 (34-104) U/L Albumin 4.1 (3.4-5.0) gm/dl Urine 07/29/22 Range/Units 19:23 Urine Color Yellow Urine Appearance Clear (Clear) Urine pH 5.5 (4.5-7.5) Ur Specific [place] 1.004 (1.000-1.030) Urine Protein Negative (Negative) Urine Glucose (UA) Negative (Negative) Diagnostic Findings Abdomen/Pelvis CT 07/29/22 18:29 CT SCAN OF THE ABDOMEN AND PELVIS WITHOUT IV CONTRAST CLINICAL HISTORY: Constipation. Generalized abdominal pain. Reported history of rectal carcinoma. COMPARISON STUDY: Abdominal CT dated 04/23/2022. TECHNIQUE: CT scan of the abdomen and pelvis is performed from the lung bases to the proximal femora. Images are reviewed in the axial, sagittal, and coronal planes. IV contrast was not administered for this examination. A dose lowering technique was utilized adhering to the principles of ALARA. CT DOSE: 274.94 mGy.cm FINDINGS: Lung bases: The heart is mildly enlarged and without pericardial effusion. The cardiac blood pool shows diminished attenuation as compared to the myocardium suggesting anemia. The lung bases are clear. Liver: The unenhanced liver is normal in size, contour, and attenuation. There is no intrahepatic biliary ductal dilatation. A subcentimeter cyst is noted in the left lobe. Gallbladder: Unremarkable. Spleen: Normal in size and attenuation. Pancreas: Unremarkable. Adrenal glands: Unremarkable. Kidneys: The unenhanced kidneys are normal in size and without hydronephrosis. There are no renal calculi identified. There is no evidence of contour deforming renal mass lesion. Abdominal vasculature: The abdominal aorta is normal in course and caliber. Bowel: The rectum is focally narrowed an irregular as seen on axial image #317, likely corresponding to the site of the patient's rectal carcinoma. A 9 mm perirectal nodule is seen on image #27. The upstream rectum is thick walled and there is severe upstream constipation. There is mild infiltration and fluid seen around the proximal sigmoid. The appendix is well-visualized and normal. The small bowel loops are normal in caliber. Peritoneum: There is no intraperitoneal free air or abdominal ascites. Lymphadenopathy: None. Pelvic viscera: The bladder is distended but otherwise normal in appearance. The uterus and adnexa are normal as visualized. Skeletal structures: The skeletal structures are heterogeneously osteopenic. There is mild lumbosacral spondylosis. No lytic or blastic lesions are seen. IMPRESSION: 1. The rectum is focally narrowed and irregular, likely corresponding to the patient's known rectal mass. 2. The upstream sigmoid colon appears thick walled and there is severe upstream constipation. Although this could simply represent constipation, colorectal obstruction secondary to the mass lesion or stricture is not excluded. 3. Mild infiltration and fluid is seen around the proximal sigmoid, likely representing stercoral colitis. 4. The small bowel up to normal in caliber. 5. A small perirectal nodule is similar to previous. 6. Additional findings as above. ACT 112: Negative or not required by law. Electronically signed by: Royal Gutierrez M.D. 07/29/2022 7:00 PM Supervising Physician Co-Signing Physician Notes IM ATTENDING : Patient seen and examined. History obtained from patient, family, and records. Preceding documentation by Ms. Dolly Hodges PA-C reviewed. FINAL ASSESSMENT AND PLAN as follows : Stercoral colitis secondary to colonic obstruction History colorectal cancer status post neoadjuvant chemoradiation Hypertension currently not on maintenance meds Chronic systolic heart failure secondary to nonischemic cardiomyopathy EF 25 to 29% (TTE 2021), patient euvolemic to dry, noncompliant with ICD and medication recommendations as per outpatient cardiology note secondary to anxiety Chronic left bundle branch block Valvular heart disease (moderate MR, mild TR) anxiety/mood disorder, at baseline Hyperglycemia rule out DM Chronic anemia, hemoglobin at baseline Past alcohol abuse F Transfer to [facility] once bed available (Patient accepted for transfer by Dr. Palacio of Colorectal Surgery department. He recommends strict n.p.o. status and IV antibiotics as per conversation with ER provider.) Zosyn Analgesia, anxiolytic as needed Check hemoglobin A1c DVT prophylaxis. Lovenox subcu Full code Patient requesting updates for providers. Mr. Emmett Barba, contact #[phone]. Text document was generated using [employer] voice recognition software. It may contain grammatical or spelling errors. Kindly contact undersigned for clarification of any documentation item in qu estion.
--- NOTE | 2022-07-29 21:41 | Surgery Consultation ---
Date of Consultation July 29, 2022 Assessment & Plan (1) Rectal carcinoma: (2) Stercoral colitis: (3) Constipation: I discussed this case with both the admitting hospitalist and the treating emergency room physician. As the patient has an established colorectal surgeon at [facility], she prefers to be transferred to that facility for further care. The treating emergency room physician has noted she has contacted [facility] but at the present time no beds are available and she is therefore being admitted on the hospital service at [facility]. We therefore recommend proceeding as follows: Continue intravenous fluids Continue antibiotics Recommend making patient n.p.o. for the present time Follow serial labs Transfer to [facility] once bed becomes available We will be available should any surgical emergencies arise while at [facility]. At the present time the patient does not have any evidence of sepsis as she is normotensive without tachycardia or fever. She also does not have any signs of peritonitis or evidence of perforation on her CT scan at this time. History of Present Illness Reason for Consultation: 1. Colorectal cancer 2. sterile coral colitis 3. Colon obstruction History of Present Illness This is a 62-year-old female who presents to [facility] secondary to constipation. This patient has a known history of colorectal cancer. The patient had a colonoscopy performed by Dr. Woods of [facility] gastroenterology on April 11, 2022. This colonoscopy was performed as patient had worsening constipation unresponsive to laxatives. During this colonoscopy the patient was noted to have a fungating mass approximately 10 cm from the anus. Pathology revealed adenocarcinoma. The patient has since been initiated on radiation therapy as well as an oral chemotherapy agent (xeloda). She notes that both of these modalities concluded on 07/11/2022. Patient also follows with Dr. Wen Lakhani, of colorectal surgery at [facility]. Patient reports that she was scheduled to have repeat imaging of her abdomen in the form of a CT scan and MRI on 09/09/2022. She notes based on the results of the scans there is to be further discussion on whether patient would have intravenous chemotherapy initiated or if surgical intervention will be performed. In anticipation of potentially needing intravenous chemotherapy she has met with Dr. Rocha locally in case and a port is needed. The patient presented to [facility] emergency department this evening secondary to worsening constipation. The patient notes for the past 5 days she has not been able to have a bowel movement and has not been able to pass flatus for 2 days. She notes a cramp-like abdominal pain that is nonradiating without modifying factors. She denies any nausea or vomiting. She denies any fevers, shakes, or chills. She does note that her abdomen is more bloated than usual. The patient did present to the emergency department where she had labs and imaging which independent reviewed. A CBC revealed white blood cell count was 4.4. Hemoglobin and hematocrit were 10.4 and 31.5 and platelet count was 210,000. Chemistry profile showed sodium, potassium, BUN, and creatinine were within the normal range. Lactic acid level was not elevated. There is no elevation of LFTs or lipase. Urinalysis was not indicative of infection and a COVID test was negative. A CT scan of the abdomen pelvis showed the patient had some focal narrowing and irregularity of the rectum which corresponds to the patient's known colorectal cancer. Upstream from this area the sigmoid colon was thick-walled with severe constipation and a heavy stool burden. There is infiltration and fluid seen around the proximal sigmoid colon concerning for sterile coral colitis. Since arrival to the emergency department the patient has received intravenous fluids and antibiotics in form of Zosyn. It is nowhere the mention that the patient does have a significant cardiomyopathy with an ejection fraction of approximately 25%. Notes from patient's oncologist were reviewed and patient does follow-up with [facility] cardiology and she has been intolerant to numerous cardiac medications. Seems in the past she was offered an AICD which she declined. 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 At the time of my interview she was resting comfortably in bed and she was in no distress. Allergies Allergy/AdvReac Type Severity Reaction Status Date / Time Iodinated Contrast Media Allergy Severe Rash Verified 07/24/22 13:40 hydrocodone Allergy Mild Itching Verified 07/24/22 13:40 latex Allergy Rash Verified 07/24/22 13:40 zolpidem AdvReac Unknown Unknown Verified 07/24/22 13:40 Home Medications Medication Instructions Recorded Confirmed Type alprazolam 0.25 mg tablet 0.25 mg PO DAILY PRN Anxiety 04/05/21 07/29/22 History gabapentin 300 mg capsule 300 mg PO TID 05/08/22 07/29/22 History psyllium husk 3.4 gram/5.4 gram 1 tbsp PO BID 07/07/22 07/29/22 History oral powder (Metamucil) vitamin B complex 1 tab PO DAILY 07/29/22 07/29/22 History Patient History Medical History Anxiety Cardiomyopathy follows with dr hermosillo - reports ICD was recommended but pt declined Constipation Depression Encounter for insertion of venous access port External hemorrhoids GERD (gastroesophageal reflux disease) Hiatal hernia History of alcohol abuse "significantly cut back" - currently drinks wine a few days a week. History of migraine History of TMJ disorder LBBB (left bundle branch block) Low left ventricular ejection fraction echo 07/20 ef 25-30% mod MR Narrowing of stools Unintentional weight loss > 20 lb in a year Surgical History History of bladder surgery as a child History of History of cardiac catheterization 2016 [place] - no stents History of esophagogastroduodenoscopy (EGD) History of tonsillectomy Hx of colonoscopy Family History Father Cancer lung cancer Brother Cancer lung cancer Mother Stroke Grandfather (Maternal) Diabetes Family/Other Colorectal cancer Other No family history of adverse response to anesthesia Social History Smoking Status: Never smoker Second Hand Exposure: Yes (father was a smoker); Hx Alcohol Use: Yes Alcohol type: wine Hx Substance Use: Yes Non-Prescribed Medications: Marijuana Preferred Language: Dutch Communication Ability: Effective Visual Impairment: No Limitations Hearing Ability: Normal Area Manager Required: No Beliefs That Will Affect Care: None marital status: Current Living Situation: Spouse current occupational status: employed current occupation: @ [employer] How many Children do You have: 1 Feels Safe at Home: Yes caffeine: Yes during the past year weight has: decreased > 10 lbs Dental Care, Regularly: Yes Assistive Devices: Glasses Review of Systems Constitutional: no fever and no chills Eyes: no eye pain Ear, Nose, Mouth, Throat: no ear pain Respiratory: no cough and no dyspnea Cardiovascular: no chest pain Gastrointestinal: as per Subjective / HPI, + abdominal pain, + bloating and + constipation; no nausea and no vomiting Genitourinary: no dysuria Musculoskeletal: no back pain Integumentary: no rash Neurologic: no localized weakness Physical Exam Constitutional: WD/WN, vitals as above Eyes: no conjunctival abnormality ENMT: Ears: no hearing impairment and no external ear abnormality Mouth: no oropharynx abnormality Neck: trachea midline Respiratory: normal respiratory effort; no respiratory distress and no labored breathing Cardiovascular: Rate/Rhythm: regular rate and regular rhythm Vessels: dorsalis pedis pulses present and radial pulses present Gastrointestinal (Abdomen): Bowel sounds are present. Abdomen is soft with minimal distention and some minor bloating. Her abdomen is nonrigid. There is generalized tenderness with palpation throughout her abdomen, however no rebound tenderness or guarding was noted. Musculoskeletal: No calf tenderness. Feet are warm and nonmottled. Skin: no rashes Neurologic: moves all extremities Psychiatric: A+Ox3, euthymic affect Results & Data ([facility]) Vital Signs (Past 12 Hours) Vital Signs Temp Pulse Pulse Resp BP BP Pulse Ox 07/29/22 20:36 36.6 C 71 17 138/73 97 07/29/22 18:11 66 18 132/78 98 07/29/22 17:01 36.9 C 87 16 123/74 98 O2 Del Method 07/29/22 20:36 Room Air 07/29/22 18:11 Room Air 07/29/22 17:01 Room Air PG Care Time/CCT Total # of Minutes Spent Total Time Spent with Patient: Total time spent is greater than 50% in coordination of care (as documented) at patient's floor/unit and/or counseling patient: Coding Level of Care Code 95282 Inpt Consult Level 5 Diagnoses Rectal carcinoma C20 Stercoral colitis K52.89 Constipation K59.00
[2022-07-29] MEDS ORDERED: LORazepam 2 MG/1 ML VIAL IV STA (22:12)
[2022-07-29] MEDS ORDERED: KETOROLAC TROMETHAMINE 15 MG/ML VIAL IV ONE (22:12)
[2022-07-29] MEDS ORDERED: ACETAMINOPHEN 1,000 MG/100 ML VIAL IV PRN (22:18)
[2022-07-29] MEDS ORDERED: PROMETHAZINE HCL 6.25 MG in SODIUM CHLORIDE 0.9% 50 ML IV PRN (22:18)
[2022-07-29] MEDS ORDERED: LORazepam 0.25 MG in SYRINGE 0.125 ML IV PRN (22:18)
[2022-07-30] MEDS ORDERED: PIPERACILLIN/TAZOBACTAM 3.375 GM in DEXTROSE 5% 100 ML IV SCH (05:00)
[2022-07-30 07:46] VITALS: BP 133/74; PULSE 51; TEMP 97.7; O2SAT 99
[2022-07-30] MEDS ORDERED: ENOXAPARIN INJ 30 MG/0.3 ML SYR SQ SCH ×2 (09:00)
--- NOTE | 2022-07-30 09:15 | Surgery Progress Note ---
Date of Service July 30, 2022 Assessment & Plan (1) Stercoral colitis: (2) Rectal carcinoma: Plan: No emergent or urgent surgical indications. Awaiting transfer to her colorectal surgeons at a tertiary center. We will continue to follow while she is here. (3) Constipation: Admission and Anticipated Discharge Date Admission Date: July 29, 2022 Subjective Patient seen. Feeling better than yesterday. No real abdominal pain but she is feeling "gurgling". No nausea Physical Exam Constitutional: WD/WN, vitals as above no acute distress and not ill appearing Eyes: PERRL, conjunctivae normal, anicteric sclerae EOM intact bilaterally ENMT: external ear and nose normal, oropharynx normal Ears: no hearing impairment Neck: trachea midline, no thyromegaly Respiratory: normal respiratory effort; no respiratory distress and does not use accessory muscles Cardiovascular: Rate/Rhythm: regular rate and regular rhythm Gastrointestinal (Abdomen): Soft. Minimal left lower quadrant tenderness. No guarding. Mild distention. Skin: no rashes, warm and dry Psychiatric: Orientation: alert, oriented x 3 and cooperative Results & Data ([facility]) Vital Signs (Past 12 Hours) Vital Signs Temp Pulse Pulse Resp BP Pulse Ox O2 Del Method 07/30/22 07:44 36.5 C 51 L 16 133/74 99 Room Air 07/29/22 23:34 36.3 C L 74 16 146/79 H 95 Room Air 07/29/22 22:00 77 16 127/75 97 Room Air PG Care Time/CCT Total # of Minutes Spent Total Time Spent with Patient: Total time spent is greater than 50% in coordination of care (as documented) at patient's floor/unit and/or counseling patient: Coding Level of Care Code 34066 Inpt Consult Level 4 Diagnoses Stercoral colitis K52.89 Rectal carcinoma C20 Constipation K59.00
--- NOTE | 2022-07-30 13:14 | Discharge Summary ---
Date of Service July 30, 2022 Admission HPI Per Admitting Provider This is a 62yo F with a PMH of colon adenocarcinoma s/p completion of chemo and radiation therapy on July 11, nonischemic cardiomyopathy, HFrEF, hypertension, LBBB, adjustment disorder and other medical problems below who presents with constipation over the past 5 days. Has been having abdominal bloating with severe intermittent cramping and has not been able to pass gas in 2 days. Does normally take MiraLAX daily. No new medications. Called her oncologist through [facility] today and was instructed to report to local ER for evaluation for possible bowel obstruction. Denies any fever or chills. No headache, chest pain or shortness of breath. No nausea, vomiting. Does have some increased urinary frequency that she states is a effect of her radiation and is not new. Patient with known ongoing severe systolic dysfunction with EF in the range of 25-29%. Follows with Dr. Larsen who has recommended biventricular pacemaker AICD but patient declined at this time. Admission Exam Per Admitting Provider General Appearance:WD/WN, vitals as above, NAD, sitting up in bed, pleasant, appears chronically ill Head: normocephalic, atraumatic Eyes:normal inspection, PERRL, conjunctivae normal, anicteric sclerae ENT: external ear and nose normal, oropharynx normal Neck: normal visual inspection, trachea midline, no thyromegaly Respiratory:normal respiratory effort, lungs clear to auscultation, no wheeze, rales, rhonchi. No accessory muscle use Cardiovascular: regular rate, rhythm, no murmur, normal peripheral pulses, no BLE edema. 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 Discharge Exam Patient transferred prior to evaluation today Discharge Data Allergies Allergy/AdvReac Type Severity Reaction Status Date / Time Iodinated Contrast Media Allergy Severe Rash Verified 07/24/22 13:40 hydrocodone Allergy Mild Itching Verified 07/24/22 13:40 latex Allergy Rash Verified 07/24/22 13:40 zolpidem AdvReac Unknown Unknown Verified 07/24/22 13:40 Consultations 07/29/22 20:30 ED Decision to Admit Stat 07/29/22 22:17 Burn CD for patient Stat 07/29/22 23:26 Consult General Surgery Routine Ordered Studies 07/29/22 18:29 CT abd pelvis wo con Stat Lung bases: The heart is mildly enlarged and without pericardial effusion. The cardiac blood pool shows diminished attenuation as compared to the myocardium suggesting anemia. The lung bases are clear. Liver: The unenhanced liver is normal in size, contour, and attenuation. There is no intrahepatic biliary ductal dilatation. A subcentimeter cyst is noted in the left lobe. Gallbladder: Unremarkable. Spleen: Normal in size and attenuation. Pancreas: Unremarkable. Adrenal glands: Unremarkable. Kidneys: The unenhanced kidneys are normal in size and without hydronephrosis. There are no renal calculi identified. There is no evidence of contour deforming renal mass lesion. Abdominal vasculature: The abdominal aorta is normal in course and caliber. Bowel: The rectum is focally narrowed an irregular as seen on axial image #317, likely corresponding to the site of the patient's rectal carcinoma. A 9 mm perirectal nodule is seen on image #27. The upstream rectum is thick walled and there is severe upstream constipation. There is mild infiltration and fluid seen around the proximal sigmoid. The appendix is well-visualized and normal. The small bowel loops are normal in caliber. Peritoneum: There is no intraperitoneal free air or abdominal ascites. Lymphadenopathy: None. Pelvic viscera: The bladder is distended but otherwise normal in appearance. The uterus and adnexa are normal as visualized. Skeletal structures: The skeletal structures are heterogeneously osteopenic. There is mild lumbosacral spondylosis. No lytic or blastic lesions are seen. IMPRESSION: 1. The rectum is focally narrowed and irregular, likely corresponding to the patient's known rectal mass. 2. The upstream sigmoid colon appears thick walled and there is severe upstream constipation. Although this could simply represent constipation, colorectal obstruction secondary to the mass lesion or stricture is not excluded. 3. Mild infiltration and fluid is seen around the proximal sigmoid, likely representing stercoral colitis. 4. The small bowel up to normal in caliber. 5. A small perirectal nodule is similar to previous. 6. Additional findings as above. Hospital Course (1) Rectal carcinoma: (2) Stercoral colitis: (3) Cardiomyopathy: (4) Anxiety: 62yo F with a PMH of colon adenocarcinoma s/p completion of chemo and radiation therapy on July 11, nonischemic cardiomyopathy, HFrEF, hypertension, LBBB, adjustment disorder and other medical problems below who presents with constipation over the past 5 days and was found to have stercoral colitis in setting of known rectal carcinoma. CT abdomen and pelvis noted severe colonic constipation, colorectal obstruction likely due to patient's known rectal mass, stercoral colitis Patient was kept NPO, started on IV and was evaluated by surgery. However, patient [place] transfer [place] [facility] [place]. Patient transferred [place] [facility] [place] continued evaluation and management Total Time Total Time Spent Total Time Spent (In Minutes): 15 Total Time Includes: Discharge Planning and Other Discharge Plan Discharge Items Patient Disposition: Transfer Acute Care Hospital Reason For Visit: BOWEL OBS Discharge Diagnosis: Strecoral colitis Rectal carcinoma Activity: Resume your previous activity Non-emergency contact: Primary Care Provider, Surgeon and Oncologist Call non-emergency contact if: you have any medication questions Follow-up/Referrals: Justin Collins MD [Primary Care Provider] - Diet: Regular Addtl Attending Provider Instructions: Mrs Castillo You presented to the hospital with complaints of constipation for some days. Evaluation noted severe constipation due to colorectal obstruction from known rectal tumor. You are being transferred [place] [facility] per your request as you established care there. Please follow your Doctors' recommendations. Pending Studies at Discharge: No Stand-Alone Forms: My [facility] Skilled Items Patient informed of condition?: Yes DNR: No Discharge Level of Care: Other Communicable Disease: No Discharge Prognosis: Stable Lines: Peripheral IV Urinary Catheter: No Medications and DC Order Prescriptions: Continued gabapentin 300 mg capsule 300 mg PO TID alprazolam 0.25 mg tablet 0.25 mg PO HS PRN (Reason: Anxiety) polyethylene glycol 3350 [Miralax] 17 gram Powder In Packet 17 g PO DAILY Discharge Orders: Discharge Order (Routine); Ordered 07/29/22 Ordered By: Rogerio Childs Admission Data Admit Date/Time: 07/29/22 22:15 Attending Provider: Tiffani Gomez I. Admit Provider: Rogerio Childs Primary Care Provider: Justin Collins Other Providers: Rogerio Childs ; Melecio Rocha ; Boyd Lopez ; Levi Gentile ; Peter Wesley Jr ; Rip Gamboa ; Avery Argueta ; Radha Zacarias ; Gabino Enamorado ; Thuan Villarreal Other Interventions: Discharge Summary Assessment (RN) Last Done: 07/30/22 10:32
[2022-07-30] MEDS ORDERED: LACTATED RINGER'S 1,000 ML IV SCH (17:00)
[2022-07-30] MEDS ORDERED: LACTATED RINGER'S 1,000 ML IV ONE (17:30)
--- NOTE | 2022-07-30 22:13 | Electrocardiogram Report ---
Test Reason : Blood Pressure : / mmHG Vent. Rate : 072 BPM Atrial Rate : 072 BPM P-R Int : 172 ms QRS Dur : 170 ms QT Int : 452 ms P-R-T Axes : 072 -59 125 degrees QTc Int : 494 ms Sinus rhythm with frequent , and consecutive Premature ventricular complexes Left axis deviation Left bundle branch block Abnormal ECG When compared with ECG of 06-APR-2021 01:31, No significant change Confirmed by Sathish Traore ([id number]) on 07/30/2022 10:13:17 PM Referred By: REFERRED SELF Confirmed By:Sathish Traore
== END 2022-07-30 10:52 | disposition short-term general hospital (02) | DRG 375 ==
LOC: ED 16:57 → 3E 22:15

== ENCOUNTER 2023-10-18 14:46 | Inpatient (IN) ==
--- OUTSIDE RECORDS SUMMARY | 2023-10-18 14:52 | External Medical Summary | Continuity of Care Document ---
Author Name Unknown Organization [address] [id number] Care Team Providers Care Wire Stockkeeper Name Role Phone Justin Collins Primary Care Physician [phone] [id number] Date([facility]): 10/06/23 - 10/06/[address] [address] [phone] Encounter Diagnosis Body mass index [BMI] 19.9 or less, adult(Discharge Diagnosis) - 10/06/23 Discharge Disposition: Home or Self Care Attending Physician: MD Lakhani Audrey Referring Physician: MD Collins Timothy F Allergies, Adverse Reactions, Alerts Substance Reaction Severity Status Ambien emotional Active Vicodin itchy scalp Active Latex 1 Unknown Active oral contrast dye 2 rash/itching Active 1Outside Source Comment: Pt sts gets rash at contact 2also IV dye Assessment and Plan Extracted from: Title:Clinical Document Author:MD Lakhani Aud rey Date:10/06/23 COLORECTAL OUTPATIENT NOTE Name: ALEJANDRINA BEACH Patient Number: [id number] : 1960 Date of Service: 10/06/2023 Chief Complaint: Postop issues HPI: 63 year old female with previous locally advanced rectal cancer who underwent total neoadjuvant therapy, which was briefly interrupted due to large bowel obstruction requiring a diverting loop colostomy, who then subsequently underwent a robotic assisted low anterior resection with diverting loop transverse colostomy in January 2023, followed by reversal of the colostomy on 09/03/23. We performed a flexible sigmoidoscopy at the time which did not show any evidence of luminal narrowing or recurrent disease at that time, and surveillance scans performed prior to reversal did not show evidence of local or distant recurrence. Immediately following surgery, she had resumption of bowel function on postop day 1, with initially a small amount of blood per rectum but this subsequently resolved. She then had ongoing bowel function for some time but then started having issues with constipation. This was treated with MiraLAX which then gave her diarrhea and episodes of incontinence. For the past 2 weeks, we have been managing her with intermittent Imodium and MiraLAX depending upon her symptoms, but she reports that the constipation is now predominant and is in fact getting worse. She also notes some new blood per rectum over the past day or two. For the past week or two, she has noted increasing pain and spasm- like feelings within her pelvic floor muscles, which is mildly alleviated by flexeril, and we had discussed over the phone last week that this may represent her pelvic floor being weakened from her prior diversion and now needing to restrengthen in the setting of having bowel movements. However, she is now having issues with urinary symptoms, which she initially had in the hospital but then improved after discharge. Her visiting nurse notes that it appears she has bladder distention today, and she notes that she has had a lot of dribbling of urine when she stands up, which is new for her. Current Home Meds: (Last Updated 10/06 12:39) ALPRAZolam (ALPRAZolam 0.25 mg oral tablet) TAKE 1-2 TABLETS BY MOUTH AT NIGHT FOR ANXIETY cyclobenzaprine (Flexeril 5 mg oral tablet) 5 mg PO tid PRN: as needed for spasm diphenhydrAMINE (diphenhydrAMINE 50 mg oral tablet) Take 1 tab PO 1 hour prior to radiology study. gabapentin (gabapentin 300 mg oral capsule) 300 mg PO tid metroNIDAZOLE (Flagyl 500 mg oral tablet) one tab at 5PM, 6PM, 11PM evening before surgery neomycin (neomycin 500 mg oral tablet) 1 tab evening before surgery at 5PM, 6PM. 11 PM oxyBUTYnin (oxyBUTYnin 5 mg oral tablet) 5 mg PO tid PRN: as needed for urinary discomfort oxyCODONE (oxyCODONE 5 mg oral tablet) 5 mg PO q4h PRN: as needed for pain Allergies and Sensitivities: Latex(Unknown) Ambien(emotional) oral contrast dye(rash/itching) Vicodin(itchy scalp) Past Medical History: Problems: Pre-op exam Rectal adenocarcinoma Chronic HFrEF (heart failure with reduced ejection fraction) BBB (bundle branch block) History of ETOH abuse Cardiomyopathy Left knee pain OBJECTIVE Vitals: Last Updated 10/06/23 12:41 Date Temp BP Location Pulse RR SpO2 Pain 10/06/23 128/70 Right Arm 96 16 10/06/23 8 09/15/23 96/54 Left Arm 76 12 Vital Signs are the last 3 documented. No Orthostatic Data Available Height and Weight: Last Updated 10/06/23 12:41 Date BMI Wt(kg) Wt(lb) Method Ht(cm) (ft-in) Method 10/06/23 19.92 54.7 120 Standing Scale 165.7 5-5 Patient stated 09/15/23 19.19 52.7 116 Standing Scale 165.7 5-5 Patient stated 09/03/23 19.05 Heights and Weights are the last 3 documented. Physical Exam General: Well-appearing, no acute distress HEENT: Anicteric sclera, MMM Resp: Nonlabored respirations CV: Nontachycardic Abdomen: Soft, stoma site healing well without erythema or drainage. Substantial bulge in her suprapubic area, concerning for bladder distention, which is not Extremities: Warm and well perfused Neuro: No gross deficits. Appropriately answers questions. Anorectal exam: Patient examined in presence of director of maternity services Angle [employer] [address]. No external masses or skin changes were noted. No evidence of fissure or fistula. Digital rectal exam was performed that noted new nodular areas within the posterior rectum just distal to the anastomosis. The anastomosis felt inflamed and edematous, and bloody stool-colored mucous was evacuated upon dilating this with the index digit. 30 Day Labs: No 30 Day Lab Data. ASSESSMENT: 63 year old female with concern for pelvic recurrence causing constipation and potential urinary outlet obstruction. We have asked to go to the Emergency Dept at [facility] immediately for imaging and bladder decompression. We will follow up on the results of this and contact her with further plans, or if they are requesting transfer based on their findings then we will arrange for transfer. I did communicate these findings to her via phone as well. They are in agreement with the plan. Medications ALPRAZolam 0.25 mg oral tablet TAKE 1-2 TABLETS BY MOUTH AT NIGHT FOR ANXIETY Start Date: 02/16/23 Status: Ordered diphenhydrAMINE 50 mg oral tablet Start: 04/06/23 14:18:00 EDT, See Instructions, Disp# 1 tab, Refills: 0, Take 1 tab PO 1 hour priorto radiology study., Pharmacy: [id number] Start Date: 04/06/23 Status: Ordered Flagyl 500 mg oral tablet Start: 08/19/23 8:41:00 EDT, See Instructions, Disp# 3 tab, one tab at 5PM, 6PM, 11PM evening before surgery, Pharmacy: [id number] Start Date: 08/19/23 Status: Ordered Flexeril 5 mg oral tablet Start: 09/29/23 10:31:00 EDT, 1 tab, PO, tid, Disp# 30 tab, PRN: as needed for spasm, Pharmacy: [id number] Start Date: 09/29/23 Status: Ordered gabapentin 300 mg oral capsule Start: 02/16/23 17:05:00 EDT, 1 cap, PO, tid Start Date: 02/16/23 Status: Ordered neomycin 500 mg oral tablet Start: 08/19/23 8:41:00 EDT, See Instructions, Disp# 3 tab, 1 tab evening before surgery at 5PM, 6PM. 11 PM, Pharmacy: [id number] Start Date: 08/19/23 Status: Ordered oxyBUTYnin 5 mg oral tablet Start: 10/02/23 14:33:00 EDT, 1 tab, PO, tid, Disp# 60 tab, PRN: as needed for urinary discomfort, Pharmacy: [facility] Start Date: 10/02/23 Status: Ordered oxyCODONE 5 mg oral tablet Start: 09/06/23 14:25:00 EDT, 1 tab, PO, q4h, Disp# 10 tab, Refills: 0, PRN: as needed for pain, Pharmacy: [id number] Start Date: 09/06/23 Status: Ordered Mental Status 10/06/23 Barriers to Learning one year None evide nt Mandatory Health Literacy Documentation Yes Health Literacy Communication Barriers N ever Primary Language Maori Problem List Condition Confirmation Course Effective Dates Status H ealth Status Informant Rectal adenocarcinoma Confirmed Active Left knee pain Confirmed Active BBB (bundle branch block) Confirmed Active Cardiomyopathy Confirmed Active Chronic HFrEF (heart failure with reduced ejection fraction) Confirmed Active History of ETOH abuse Confirmed Active Pre-op exam Confirmed Active Diagnosis Diagnosis Type Effective Dates Health Status Cl inical Service Informant Body mass index [BMI] 19.9 or less, adult Discharge Diagnosis 10/06/23 Non-Specified Procedures Procedure Date Related Diagnosis Body Site Status Colonoscopy 1 02/10/23 Completed Colostomy of sigmoid 2 07/30/22 Co mpleted section 1987 Complete d Bladder 3 1961 Completed Port Completed REMOVE TONSILS AND ADENOIDS Completed Trigger finger bilateral Completed 1The sigmoid colon, descending colon, splenic flexure, transverse colon, hepatic flexure, ascendin colon and cecum are normal. No specimens collected. Repeat in 1 year 2Done secondary to obstructing rectal CA 3unknown details Vital Signs Most recent to oldest [Reference Range]: 1 Height 165.7 cm (10/06/23 12:41 PM) Patient Weight 54.7 kg (10/06/23 12:41 PM) Body Mass Index 19.92 kg/m2 (10/06/23 12:41 PM) Heart Rate 96 bpm (10/06/23 12:41 PM) Respiratory Rate 16 br/min (10/06/23 12:41 PM) Blood Pressure 128/70mmHg (10/06/23 12:41 PM) Cuff Pulse Pressure 58 mmHg (10/06/23 12:41 PM) BP Location # 1 Right Arm (10/06/23 12:41 PM) Social History Social History Type Response Smoking Status Never smoked cigaret shoaib Sex Female Colorectal Outpt Note * MD Lesvia, Criss: PERFORM, MODIFY, MODIFY, MODIFY Event Display: Colorectal Outpt Note Authored Date: [id number] COLORECTAL OUTPATIENT NOTE Name: ALEJANDRINA BEACH Patient Number: [id number] : 1960 Date of Service: 10/06/2023 Chief Complaint: Postop issues HPI: 63 year old female with previous locally advanced rectal cancer who underwent total neoadjuvant therapy, which was briefly interrupted due to large bowel obstruction requiring a diverting loop colostomy, who then subsequently underwent a robotic assisted low anterior resection with diverting loop transverse colostomy in January 2023, followed by reversal of the colostomy on 09/03/23. We performed a flexible sigmoidoscopy at the time which did not show any evidence of luminal narrowing or recurrent disease at that time, and surveillance scans performed prior to reversal did not show evidenceof local or distant recurrence. Immediately following surgery, she had resumption of bowel functionon postop day 1, with initially a small amount of blood per rectum but this subsequently resolved. She then had ongoing bowel function for some time but then started having issues with constipation. This was treated with MiraLAX which then gave her diarrhea and episodes of incontinence. For the past 2 weeks, we have been managing her with intermittent Imodium and MiraLAX depending upon her symptoms, but she reports that the constipation is now predominant and is in fact getting worse. She also notes some new blood per rectum over the past day or two. For the past week or two, she has noted increasing pain and spasm-like feelings within her pelvic floor muscles, which is mildly alleviated byflexeril, and we had discussed over the phone last week that this may represent her pelvic floor being weakened from her prior diversion and now needing to restrengthen in the setting of having bowelmovements. However, she is now having issues with urinary symptoms, which she initially had in the hospital but then improved after discharge. Her visiting nurse notes that it appears she has bladder distention today, and she notes that she has had a lot of dribbling of urine when she stands up, which is new for her. Current Home Meds: (Last Updated 10/06 12:39) ALPRAZolam (ALPRAZolam 0.25 mg oral tablet) TAKE 1-2 TABLETS BY MOUTH AT NIGHT FOR ANXIETY cyclobenzaprine (Flexeril 5 mg oral tablet) 5 mg PO tid PRN: as needed for spasm diphenhydrAMINE (diphenhydrAMINE 50 mg oral tablet) Take 1 tab PO 1 hour prior to radiology study. gabapentin (gabapentin 300 mg oral capsule) 300 mg PO tid metroNIDAZOLE (Flagyl 500 mg oral tablet) one tab at 5PM, 6PM, 11PM evening before surgery neomycin (neomycin 500 mg oral tablet) 1 tab evening before surgery at 5PM, 6PM. 11 PM oxyBUTYnin (oxyBUTYnin 5 mg oral tablet) 5 mg PO tid PRN: as needed for urinary discomfort oxyCODONE (oxyCODONE 5 mg oral tablet) 5 mg PO q4h PRN: as needed for pain Allergies and Sensitivities: Latex(Unknown) Ambien(emotional) oral contrast dye(rash/itching) Vicodin(itchy scalp) Past Medical History: Problems: Pre-op exam Rectal adenocarcinoma Chronic HFrEF (heart failure with reduced ejection fraction) BBB (bundle branch block) History of ETOH abuse Cardiomyopathy Left knee pain OBJECTIVE Vitals: Last Updated 10/06/23 12:41 Date Temp BP Location Pulse RR SpO2 Pain 10/06/23 128/70 Right Arm 96 16 10/06/23 8 09/15/23 96/54 Left Arm 76 12 Vital Signs are the last 3 documented. No Orthostatic Data Available Height and Weight: Last Updated 10/06/23 12:41 Date BMI Wt(kg) Wt(lb) Method Ht(cm) (ft-in) Method 10/06/23 19.92 54.7 120 Standing Scale 165.7 5-5 Patient stated 09/15/23 19.19 52.7 116 Standing Scale 165.7 5-5 Patient stated 09/03/23 19.05 Heights and Weights are the last 3 documented. Physical Exam General: Well-appearing, no acute distress HEENT: Anicteric sclera, MMM Resp: Nonlabored respirations CV: Nontachycardic Abdomen: Soft, stoma site healing well without erythema or drainage. Substantial bulge in her suprapubic area, concerning for bladder distention, which is not Extremities: Warm and well perfused Neuro: No gross deficits. Appropriately answers questions. Anorectal exam: Patient examined in presence of director of maternity services Angle [employer] [address]. No external masses or skin changes were noted. No evidence of fissure or fistula. Digital rectal exam was performed that noted new nodular areas within the posterior rectum just distal to the anastomosis. The anastomosis felt inflamed and edematous, and bloody stool-colored mucouswas evacuated upon dilating this with the index digit. 30 Day Labs: No 30 Day Lab Data. ASSESSMENT: 63 year old female with concern for pelvic recurrence causing constipation and potential urinary outlet obstruction. We have asked to go to the Emergency Dept at [facility] immediately for imaging and bladder decompression. We will follow up on the results of this and contact her with fu rther plans, or if they are requesting transfer based on their findings then we will arrange for transfer. I did communicate these findings to her via phone as well. They are in agreement with the plan. Electronic Signature on File CC: Katherine Stafford MD [facility] [address] [facility] [id number] * Electronically Reviewed/Signed by: Criss Lakhani MD Author Signature Dt/Tm:10/07/2023 10:26 AM Division of Colorectal Surgery [place] Patient Care team information Care Team Personnel Name: Javid Stokes Amy E Position: Pharmacist Member Role: Pharmacy - Lifetime Address: Address: [place] [address] [place] Name: MD Dennis, Justin Dietz Position: Referring DIRECT Member Role: Primary Care Provider Address: Address: [address] [place] [id number] [place] Name: Javid Romano Christine A Position: Pharmacist Member Role: Pharmacy - Lifetime Name: Javid Ghosh Jason A Position: Pharmacist BCMA Member Role: Pharmacy - Lifetime Address: Address: [address] [address] [place] Name: Javid Noonan Paula Position: Pharmacist Member Role: Pharmacy - Lifetime Address: Address: [address] [address] [place] Care Team Related Persons Name: CATRINA GRIJALVA Address: home [address] [place] [phone]
--- OUTSIDE RECORDS SUMMARY | 2023-10-18 14:52 | External Medical Summary | Continuity of Care Document ---
Author Name Unknown Organization [facility] Address [address] [place] [id number] Care Team Providers Care Toll Testboard Worker Name Role Phone Justin Collins Primary Care Physician [phone] [facility] [id number] Date(s): 10/07/23 - 10/07/[address] [phone] Discharge Disposition: Home or Self Care Attending Physician: MD Lakhani Audrey Referring Physician: MD Lakhani Audrey Allergies, Adverse Reactions, Alerts Substance Reaction Severity Status Ambien emotional Active Vicodin itchy scalp Active Latex 1 Unknown Active oral contrast dye 2 rash/itching Active 1Outside Source Comment: Pt sts gets rash at contact 2also IV dye Medications ALPRAZolam 0.25 mg oral tablet TAKE 1-2 TABLETS BY MOUTH AT NIGHT FOR ANXIETY Start Date: 02/16/23 Status: Ordered diphenhydrAMINE 50 mg oral tablet Start: 04/06/23 14:18:00 EDT, See Instructions, Disp# 1 tab, Refills: 0, Take 1 tab PO 1 hour priorto radiology study., Pharmacy: [id number] Start Date: 04/06/23 Status: Ordered Flagyl 500 mg oral tablet Start: 08/19/23 8:41:00 EDT, See Instructions, Disp# 3 tab, one tab at 5PM, 6PM, 11PM evening before surgery, Pharmacy: [facility][id number] Start Date: 08/19/23 Status: Ordered Flexeril 5 mg oral tablet Start: 09/29/23 10:31:00 EDT, 1 tab, PO, tid, Disp# 30 tab, PRN: as needed for spasm, Pharmacy: [facility][id number] Start Date: 09/29/23 Status: Ordered gabapentin 300 mg oral capsule Start: 02/16/23 17:05:00 EDT, 1 cap, PO, tid Start Date: 02/16/23 Status: Ordered neomycin 500 mg oral tablet Start: 08/19/23 8:41:00 EDT, See Instructions, Disp# 3 tab, 1 tab evening before surgery at 5PM, 6PM. 11 PM, [facility]: [id number] Start Date: 08/19/23 Status: Ordered oxyBUTYnin 5 mg oral tablet Start: 10/02/23 14:33:00 EDT, 1 tab, PO, tid, Disp# 60 tab, PRN: as needed for urinary discomfort, [id number] Start Date: 10/02/23 Status: Ordered oxyCODONE 5 mg oral tablet Start: 09/06/23 14:25:00 EDT, 1 tab, PO, q4h, Disp# 10 tab, Refills: 0, PRN: as needed for pain, Pharmacy: [id number] Start Date: 09/06/23 Status: Ordered Xanax 0.5 mg oral tablet Start: 10/09/23 12:17:00 EST, 1 Refill(s), Take 0.5-1 tablet by mouth at night as needed for anxiety Start Date: 10/09/23 Status: Ordered Problem List Condition Confirmation Course Effective Dates Status H ealth Status Informant Rectal adenocarcinoma Confirmed Active Left knee pain Confirmed Active BBB (bundle branch block) Confirmed Active Cardiomyopathy Confirmed Active Chronic HFrEF (heart failure with reduced ejection fraction) Confirmed Active History of ETOH abuse Confirmed Active Pre-op exam Confirmed Active Procedures Procedure Date Related Diagnosis Body Site [...] secondary to obstructing rectal CA 3unknown details Results Radiology Reports * Exam Date Time Procedure Performing Provider Status 10/07/23 11:[address] Abdomen and Pelvis Consult Nick Joshi; Final Notes: (OO CT Abdomen and Pelvis Consult) Reason For Exam: rectal cancer - post op pain and constipation OO CT Abdomen and Pelvis Consult EXAMINATION: OO CT Abdomen and Pelvis Consult CLINICAL HISTORY: C20: Malignant neoplasm of rectum; G89.18: Other acute postprocedural pain; rectal cancer - post op pain and constipation COMPARISON: MRI abdomen 01/05/2023 CT abdomen 01/05/2020 TECHNIQUE: Outside consult-CT abdomen and pelvis with intravenous contrast CONTRAST: Outside study DOSE: Total Reported Dose Length Product (DLP) = 467.24 mGy-cm (per included outside study sheet) FINDINGS: Lower chest: Incompletely visualized MediPort catheter. Lower lungs clear. ABDOMEN Liver, Gallbladder \T\ bile ducts: Stable scattered hypodensities characterize. Gallbladder normal.No biliary duct dilation Pancreas: Normal Spleen: Normal Adrenals: Normal Kidneys, collecting system and ureters: Symmetric renal enhancement. Mild hydroureteronephrosis bilaterally without identifiable obstruction. No nephrolithiasis or ureterolithiasis Retroperitoneum, lymph nodes, and vessels: No retroperitoneal lymphadenopathy. Mild atherosclerosis.. Bowel \T\ Mesentery: Postsurgical changes. 5.1 x 3.9 cm hypoattenuating rectal mass with surrounding fat stranding. Seen on sagittal imaging is a small linear tract extending toward this process on image 49/100. No pneumoperitoneum. No bowel obstruction. Moderate colonic stool burden. No mesentericlymphadenopathy. PELVIS Bladder: Mildly distended. Mcwilliams balloon in place. Antedependent locule of air in bladder, likely due to recent catheterization. Reproductive organs: Unremarkable. Extraperitoneal, lymph nodes, vessels: No lymphadenopathy. Vessels patent. Osseous and body wall: Left lower quadrant soft tissue changes from prior colostomy. Multiple degenerative changes throughout the visualized thoracolumbar spine. IMPRESSION: 1. Heterogeneous predominantly low-density process with peripheral thickening just cephalad to the pelvic anastomotic site, for which diagnostic considerations include phlegmon, postoperative inflammatory process (fat necrosis) or recurrent neoplasm, noting that there is a possible fistulous communication from the bowel at the level of the anastomosis as outlined above. 2. Although there are no findings of overt bowel obstruction, the colon is diffusely filled with feces with a relative zone of transition immediately cephalad to the anastomotic site in the pelvis, worrisome for stricturing process. Diagnostic considerations include malignant stricture although chronic ischemic or inflammatory stricture may also be considered. 3. Mild bilateral hydroureteronephrosis of uncertain etiology. NOTE: Findings discussed by Dr. Machado via telephone with the ordering provider at 16:04 hours on10/09/2023. By report, the patient is being scheduled for pelvic MR. Dr. Bin Manriquez is the dictating resident. Finalized reports status indicates that the attending has reviewed the images and report, and agrees with the interpretation. Preliminary report status should be regarded as NOT interpreted by the attending radiologist. [place] Act 112: This study does not meet the requirements of [place] Act 112. Workstation ID: [id number] Final Dictated by:DO Manriquez Michael F Dictated DT/TM:10/09/2023 4:06 Resident:DO Manriquez Michael F Signed by:MD Machado James H Signed (Electronic Signature):10/09/2023 4:05 p Social History Social History Type Response Smoking Status Never smoked cigaret shoaib Sex Female Patient Care team information Care Team Personnel Name: Javid Stokes Amy E Position: Pharmacist Member Role: Pharmacy - Lifetime Address: Address: [place] [address] [place] Name: MD Collins Timothy F Position: Referring DIRECT Member Role: Primary Care Provider Address: Address: [address] [place] [address] [place] Name: Javid Romano Christine A Position: Pharmacist Member Role: Pharmacy - Lifetime Name: Javid Ghosh Jason A Position: Pharmacist BCMA Member Role: Pharmacy - Lifetime Address: Address: [address] [address] [place] Name: Javid Noonan Paula Position: Pharmacist Member Role: Pharmacy - Lifetime Address: Address: [address] [address] [place] Care Team Related Persons Name: CATRINA GRIJALVA Address: [address] [phone]
[2023-10-18 15:41] LABS: Basophils # (auto) 0.01 K/uL (0.00-0.20); Basophils % (auto) 0.1 %; Eosinophils # (auto) 0.09 K/uL (0.00-0.50); Eosinophils % (auto) 0.9 %; Hematocrit (blood only) 29.8 % (37.0-47.0); Immature Granulocytes # (auto) 0.06 K/uL (0.01-0.20); Immature Granulocytes % (auto) 0.6 %; Lymphocytes # (auto) 0.37 K/uL (1.20-3.40); Lymphocytes % (auto) 3.7 %; Mean Corpuscular Hemoglobin 30.2 pg (25.0-34.0); Mean Corpuscular Hgb Conc 33.6 g/dL (32.0-36.0); Mean Platelet Volume 8.9 fL (9.4-12.4); Monocytes # (auto) 0.96 K/uL (0.11-0.59); Monocytes % (auto) 9.5 %; Neutrophils % (auto) 85.2 %; Platelet Count 277 K/uL (130-400); RDW Standard Deviation 39.7 fL (36.4-46.3); Red Blood Count 3.31 M/uL (4.20-5.40); White Blood Count 10.09 K/ul (4.8-10.8)
--- NOTE | 2023-10-18 15:42 | XRay Report ---
XR chest 1V not portable CLINICAL HISTORY: Sepsis. COMPARISON STUDY: Chest CT May 21, 2023. FINDINGS: Left subclavian Cfvsii-s-Vzsl is in place. Lung volumes are normal. Lungs are clear. There is no pneumothorax or pleural effusion. Cardiac size is normal. Mediastinal contours are normal. Ther e is no evidence for pulmonary edema. IMPRESSION: No acute cardiopulmonary findings. ACT 112: Negative or not required by law. Electronically signed by: Philip Bower M.D. 10/18/2023 3:40 PM
[2023-10-18 15:56] LABS: Alanine Aminotransferase 13 U/L (7-52); Albumin Globulin Ratio 1.1 (0.9-2); Albumin Level 3.4 gm/dl (3.4-5.0); Alkaline Phosphatase 94 U/L (34-104); Anion Gap 10 (3-11); Aspartate Aminotransferase 11 U/L (13-39); BUN Creatinine Ratio 22.2 (10-20); Bilirubin,Total 0.5 mg/dl (0.2-1.0); Blood Urea Nitrogen 12 mg/dl (6-23); Carbon Dioxide 25 mmol/L (21-32); Chloride 97 mmol/L (98-107); Est GFR (African American) 114.8 ml/min; Glucose 126 mg/dl (70-99(Fasting)); Magnesium 1.9 mg/dl (1.7-2.4); Potassium 3.9 mmol/L (3.5-5.1); Sodium 132 mmol/L (136-145); Total Protein 6.4 gm/dl (6.0-8.3)
[2023-10-18 16:01] LABS: Troponin I High Sensitivity 9.3 pg/ml (0-14)
[2023-10-18] MEDS ORDERED: SODIUM CHLORIDE 0.9% 1,000 ML IV ONE ×2 (16:02→16:07)
[2023-10-18 16:09] LABS: Partial Thromboplastin Ratio 1.1; Partial Thromboplastin Time 31.5 Seconds (21.0-31.0); Prothrombin Time 11.4 Seconds (9.0-12.0)
[2023-10-18] MEDS ORDERED: LIDOCAINE 2% JELLY 5 ML TUBE EXT ONE (16:15)
--- NOTE | 2023-10-18 16:18 | Emergency Department Note ---
Impression & Plan Acute urinary retention, Acute postoperative abdominal pain ED Provider Note NAME: ALEJANDRINA BEACH AGE: 63 SEX: F : 1960 ARRIVES VIA: Walk-In INFORMANT: Patient, ED PROVIDER(S): Raheel Winchester DO CHIEF COMPLAINT: Abdominal pain HPI: The patient is a 63-year-old female who presented to the emergency department for an evaluation of abdominal pain. The patient has a history of colon cancer. She also has a history of an ostomy. She recently had her ostomy reversed and then a new ostomy placed at [facility]. She states that this was complicated by urinary retention. She had a Mcwilliams catheter in. She has failed voiding trials. She presents today because of suprapubic pain and decreased output from the Mcwilliams catheter. She denies having any fever or vomiting. She does complain of crampy lower abdominal tenderness. She also has a known rectal mass as well. ROS: See above HPI for pertinent positives & negatives. A total of 10 systems reviewed and were otherwise negative. PAST MEDICAL HISTORY: See Below PAST SURGICAL HISTORY: See Below FAMILY HISTORY: See Below SOCIAL HISTORY: See Below HOME MEDICATIONS: See Below ALLERGIES: See Below VITALS: See Below PHYSICAL EXAMINATION: GENERAL: Patient is awake and alert. She appears uncomfortable. EYES: The conjunctivae are clear. The pupils are round and reactive. EARS, NOSE, MOUTH AND THROAT: The nose is without any evidence of any deformity. NECK: The neck is nontender and supple. RESPIRATORY: Normal respiratory effort is noted there is no evidence of wheezing rhonchi or rales CARDIOVASCULAR: Regular rate and rhythm noted there no murmurs rubs or gallops normal S1 normal S2. GASTROINTESTINAL: The abdomen is soft and mildly distended. Ostomy is noted in the left side. There is output noted. There is suprapubic tenderness palpation. There is no guarding rigidity. MUSCULOSKELETAL/EXTREMITIES: There is no evidence of gross deformity full range of motion is noted in the hips and shoulders. SKIN: There is no obvious evidence of any rash. There are no petechiae, pallor or cyanosis noted. NEUROLOGIC: Patient is awake alert and oriented x3 MEDICAL DECISION MAKING: The patient is a 63-year-old female who has a history of colon resection. She was recently diagnosed with a rectal mass. She had surgery at [facility]. She presented to the emergency department today because her Mcwilliams catheter was not having urine output. The Mcwilliams catheter was changed but still had very reluctant urine output. I would wonder if this is secondary to the rectal mass. I discussed patient's laboratory and radiographic studies with her. She was still having significant symptoms and was reluctant to be discharged home. For this reason I discussed her condition with the on-call [facility] group. They have agreed to evaluate the patient in the emergency department for further management and disposition. The patient was treated with IV fluids. She was also treated pain medication. Triage Nursing notes reviewed. Prior medical records reviewed Vital Signs: reviewed and remarkable for initial hypotension. Differential diagnosis: Etiologies such as appendicitis, diverticulitis, obstruction, inflammatory bowel disease, renal colic, PUD, biliary pathology, pancreatitis, mesenteric ischemia, aortic pathology, infections, genitourinary, UTI, perforated viscus, as well as others were entertained. ER treatment provided: See below Diagnostics interpreted by me: ECG: EKG was obtained in the emergency department. My interpretation is sinus tachycardia 112 bpm. There is no ectopy. Left bundle branch block pattern was noted. This was compared to a tracing from September 10, 2022. No changes were noted. Cardiac Monitoring: An order was placed for continuous cardiac monitoring. The monitor shows a rate of 95 bpm with sinus rhythm. Laboratory studies: As stated above and show below. Imaging studies: See below. Radiographic imaging was reviewed by myself Consultation(s): I discussed this case with Laura who is on-call for the [facility] group Past Med/Surg History Medical History (Updated 10/18/23 @ 20:34 by Raheel Winchester DO) Rectal tumor Colostomy in place Rectal carcinoma (04/11/22) RADIATION AND CHEMO, had a sigmoidectomy 07/30/2022 with colostomy r/t bowel obstruction>FINISHED CHEMO 12/17/22 Cardiomyopathy RECENT ECHO DONE AT [facility] History of TMJ disorder Depression History of migraine LBBB (left bundle branch block) Low left ventricular ejection fraction RECENT ECHO AT [facility] (CURRENTLY FOLLOWS WITH DR. HOFF) Hiatal hernia GERD (gastroesophageal reflux disease) History of alcohol abuse "significantly cut back" - currently drinks wine a few days a week. Nonischemic cardiomyopathy Anxiety Surgical History History of cardiac cath 2017>NO STENTS Port-A-Cath in place (08/25/22) Insertion Access Port into left Cephalic vein with Fluoroscopy(Left) - Melecio Rocha MD, FACS S/P trigger finger release bilateral S/P laparoscopic-assisted sigmoidectomy (07/30/22) Diagnostic laparoscopy, laparoscopic diverting loop sigmoid colostomy 07/30/[address] [place] [address] Criss Lakhani Hx of colonoscopy History of X 1 History of tonsillectomy History of bladder surgery as a child History of esophagogastroduodenoscopy (EGD) Family History Father Cancer lung cancer Brother Cancer lung cancer Mother Stroke Grandfather (Maternal) Diabetes Family/Other Colorectal cancer Other No family history of adverse response to anesthesia Social History Smoking Status: Unknown if ever smoked Tobacco Type: Cigarettes Second Hand Exposure: Yes ( A CHILD); Do You Dip or Chew Tobacco: No; Hx Alcohol Use: Yes Alcohol type: wine Preferred Language: Macanese Communication Ability: Effective Visual Impairment: No Limitations Hearing Ability: Normal Station Air Traffic Control Specialist Required: No Beliefs That Will Affect Care: None marital status: Current Living Situation: Spouse current occupational status: employed current occupation: @ [employer] How many Children do You have: 1 Feels Safe at Home: Yes Diet: regular caffeine: Yes during the past year weight has: decreased > 10 lbs Dental Care, Regularly: Yes Assistive Devices: Glasses Allergies Allergies Allergy/AdvReac Type Severity Reaction Status Date / Time Iodinated Contrast Media Allergy Intermediate SKIN Verified 10/18/23 16:41 REACTION WITH PEALING latex Allergy Mild Rash Verified 10/18/23 16:41 zolpidem AdvReac Severe "FELT Verified 10/18/23 16:41 CRAZY" hydrocodone AdvReac Mild Itching Verified 10/18/23 16:41 HEAD Home Meds Home Medications Medication Instructions Recorded Confirmed alprazolam 0.5 mg tablet 0.25 - 0.5 mg PO HS PRN Sleep 10/06/23 10/18/23 cyclobenzaprine 5 mg tablet 5 mg PO TID PRN Muscle Spasm 10/06/23 10/18/23 acetaminophen 500 mg tablet 1,000 mg PO BID PRN Pain 10/18/23 10/18/23 apixaban 2.5 mg tablet (Eliquis) 2.5 mg PO BID 10/18/23 10/18/23 gabapentin 300 mg capsule 300 mg PO TID 10/18/23 10/18/23 Previous Rx's Medication Instructions Recorded oxycodone 5 mg tablet 5 mg PO TID PRN pain #14 tabs 10/06/23 Results & Data (ED) Vital Signs Vital Signs - 24 hr 10/18/23 14:59 10/18/23 16:00 10/18/23 16:00 Temperature 37.7 C H Temperature Source Oral Pulse Rate 114 H 96 H Pulse Rate [Right Finger] Pulse Rhythm Regular Regular Pulse Rhythm [Right Finger] Pulse Strength Normal Pulse Strength [Right Finger] Respiratory Rate 20 19 Respiratory Effort / Characteristics Non-Labored Spontaneous Respiratory Depth Normal Respiratory Pattern Regular Blood Pressure 88/56 L Blood Pressure [Right Arm] Blood Pressure Mean 66 Blood Pressure Mean [Right Arm] Blood Pressure Position Sitting Blood Pressure Position [Right Arm] Pulse Oximetry 95 98 98 Oxygen Delivery Method Room Air Room Air Room Air Sepsis Recent Fever Within 48 Hours No Sepsis New/Unexplained Change in Mental Status No Sepsis Action Taken by Nursing Physician Notified 10/18/23 17:00 10/18/23 18:48 Temperature Temperature Source Pulse Rate Pulse Rate [Right Finger] 97 H 95 H Pulse Rhythm Pulse Rhythm [Right Finger] Regular Regular Pulse Strength Pulse Strength [Right Finger] Normal Normal Respiratory Rate 18 16 Respiratory Effort / Characteristics Non-Labored Spontaneous Non-Labored Spontaneous Respiratory Depth Normal Normal Respiratory Pattern Regular Regular Blood Pressure Blood Pressure [Right Arm] 142/72 H 133/69 Blood Pressure Mean Blood Pressure Mean [Right Arm] 95 90 Blood Pressure Position Blood Pressure Position [Right Arm] Lying Lying Pulse Oximetry 98 98 Oxygen Delivery Method Room Air Room Air Sepsis Recent Fever Within 48 Hours Sepsis New/Unexplained Change in Mental Status Sepsis Action Taken by Skilled Nursing Medications Current Medication List: was personally reviewed by me Laboratory Data Attestation: I reviewed the patient's lab results. 10/18/23 15:23 10/18/23 15:23 Lab Results 10/18/23 10/18/23 Range/Units 15:23 Unknown WBC 10.09 (4.8-10.8) K/ul RBC 3.31 L (4.20-5.40) M/uL Hgb 10.0 L (12.0-16.0) g/dl Hct 29.8 L (37.0-47.0) % MCV 90.0 (80.0-100.0) fL MCH 30.2 (25.0-34.0) pg MCHC 33.6 (32.0-36.0) g/dL RDW Std Deviation 39.7 (36.4-46.3) fL RDW Coeff of Luz 12.0 (11.5-14.5) % Plt Count 277 (130-400) K/uL MPV 8.9 L (9.4-12.4) fL Immature Gran % (Auto) 0.6 % Neut % (Auto) 85.2 % Lymph % (Auto) 3.7 % [place] % (Auto) 9.5 % Eos % (Auto) 0.9 % Baso % (Auto) 0.1 % Neut # (Auto) 8.60 H (1.40-6.50) K/uL Lymph # (Auto) 0.37 L (1.20-3.40) K/uL [place] # (Auto) 0.96 H (0.11-0.59) K/uL Eos # (Auto) 0.09 (0.00-0.50) K/uL Baso # (Auto) 0.01 (0.00-0.20) K/uL Immature Gran # (Auto) 0.06 (0.01-0.20) K/uL PT 11.4 (9.0-12.0) Seconds INR 1.0 (0.9-1.1) APTT 31.5 H (21.0-31.0) Seconds PTT Ratio 1.1 Sodium 132 L (136-145) mmol/L Potassium 3.9 (3.5-5.1) mmol/L Chloride 97 L (98-107) mmol/L Carbon Dioxide 25 (21-32) mmol/L Anion Gap 10 (3-11) BUN 12 (6-23) mg/dl Creatinine 0.54 L (0.6-1.2) mg/dl Est Cr Clr Drug Dosing Not Reportable Est GFR ( Amer) 114.8 ml/min Est GFR (Non-Af Amer) 99.0 ml/min BUN/Creatinine Ratio 22.2 H (10-20) Glucose 126 H (70-99(Fasting)) mg/dl Lactate 1.0 (0.4-2.0) mmol/L Calcium 9.0 (8.6-10.3) mg/dl Magnesium 1.9 (1.7-2.4) mg/dl Total Bilirubin 0.5 (0.2-1.0) mg/dl AST 11 L (13-39) U/L ALT 13 (7-52) U/L Alkaline Phosphatase 94 (34-104) U/L Troponin I High Sens 9.3 (0-14) pg/ml Total Protein 6.4 (6.0-8.3) gm/dl Albumin 3.4 (3.4-5.0) gm/dl Globulin 3.0 (2.5-4.0) gm/dl Albumin/Globulin Ratio 1.1 (0.9-2) Procalcitonin < 0.05 (0-0.5) ng/ml Urine Color Yellow Urine Appearance Clear (Clear) Urine pH 6.5 (4.5-7.5) Ur Specific [place] 1.003 (1.000-1.030) Urine Protein Negative (Negative) Urine Glucose (UA) Negative (Negative) Urine Ketones 1+ H (Negative) Urine Blood Negative (Negative) Urine Nitrite Negative (Negative) Urine Bilirubin Negative (Negative) Urine Urobilinogen Negative (Negative) Ur Leukocyte Esterase Trace H (Negative) Urine WBC (Auto) 1-5 (0-5) /hpf Urine RBC (Auto) 0-4 (0-4) /hpf U Hyaline Cast (Auto) 0 (0-5) /lpf U Epithel Cells (Auto) 0-5 (0-5) /lpf Urine Bacteria (Auto) Negative (Negative) Administered Medications Discontinued Medications Sodium Chloride (Nss) 1,000 mls @ 999 mls/hr IV .Q1H1M ONE Stop: 10/18/23 17:02 Last Infusion: 10/18/23 18:56 Dose: Infused Documented By: MILL TENDER WARM UP Admin: 10/18/23 17:12 Dose: 999 mls/hr Documented By: MILL TENDER WARM UP Sodium Chloride (Nss) 1,000 mls @ 999 mls/hr IV .Q1H1M ONE Stop: 10/18/23 17:07 Last Admin: 11/19/23 18:05 Dose: Not Given Documented By: MILL TENDER WARM UP Lidocaine HCl (Lidocaine 2% Jelly 5 Ml Tube) 5 ml EXT NOW ONE Stop: 10/18/23 16:16 Last Admin: 10/18/23 17:10 Dose: 5 ml Documented By: MILL TENDER WARM UP Morphine Sulfate (Morphine Sulfate 4 Mg/Ml 1 Ml Carp\\Vial) 4 mg IV NOW STA Stop: 10/18/23 17:02 Last Admin: 10/18/23 17:11 Dose: 4 mg Documented By: MILL TENDER WARM UP Ondansetron HCl (Ondansetron Inj 2 Mg/Ml 2 Ml Vial) 4 mg IV NOW STA Stop: 10/18/23 17:02 Last Admin: 10/18/23 17:10 Dose: 4 mg Documented By: MILL TENDER WARM UP Imaging Data Attestation: I personally reviewed and interpreted this imaging study as follows: My Impression: 1 view chest x-ray was obtained in the emergency department. My interpretation is no free air or signs of infiltrate, final report below. Radiologist's Impression: Chest X-Ray 10/18/23 15:05 XR chest 1V not portable CLINICAL HISTORY: Sepsis. COMPARISON STUDY: Chest CT May 21, 2023. FINDINGS: Left subclavian Pihvod-w-Dlno is in place. Lung volumes are normal. Lungs are clear. There is no pneumothorax or pleural effusion. Cardiac size is normal. Mediastinal contours are normal. There is no evidence for pulmonary edema. IMPRESSION: No acute cardiopulmonary findings. ACT 112: Negative or not required by law. Electronically signed by: Philip Bower M.D. 10/18/2023 3:40 PM Discharge Plan Visit Data Chief Complaint: Illness Stated Complaint: URINARY CATHETER BLOCKAGE -REFERRED BY DR PAREDES ED Provider: Raheel Winchester Discharge Problem: Acute urinary retention, Acute postoperative abdominal pain Patient Disposition: Being Evaluated by Hospitalist Forms Stand Alone Forms: My [facility] [employer] Level User [place] Prescriptions Prescriptions: No Action Eliquis 2.5 mg tablet 2.5 mg PO BID gabapentin 300 mg capsule 300 mg PO TID acetaminophen [Tylenol Ex Str Rapid Release] 500 mg Tablet 1,000 mg PO BID PRN (Reason: Pain) alprazolam 0.5 mg tablet 0.25 - 0.5 mg PO HS PRN (Reason: Sleep) cyclobenzaprine 5 mg tablet 5 mg PO TID PRN (Reason: Muscle Spasm) oxycodone 5 mg tablet 5 mg PO TID PRN (Reason: pain) Qty: 14 0RF Referrals Referrals: Justin Collins MD [Primary Care Provider] -
[2023-10-18] MEDS ORDERED: ONDANSETRON INJ 2 MG/ML 2 ML VIAL IV STA (17:01)
[2023-10-18] MEDS ORDERED: MoRPHine SULFATE 4 MG/ML 1 ML CARP\\VIAL IV STA (17:01)
[2023-10-18 17:53] LABS: Appearance Urine Clear (Clear); Bilirubin Urine Negative (Negative); Blood Urine Negative (Negative); Color Urine Yellow; Glucose Urine UA Negative (Negative); Ketones Urine 1+ (Negative); Leukocyte Esterase Urine Trace (Negative); Nitrite Urine Negative (Negative); Protein Urine Negative (Negative); Specific Gravity Urine 1.003 (1.000-1.030); Urobilinogen Urine Negative (Negative); pH Urine 6.5 (4.5-7.5)
[2023-10-18 18:08] LABS: Bacteria Urine Automated Negative (Negative); Cast Urine Automated 0 /lpf (0-5); Epithelial Cell Urine Auto 0-5 /lpf (0-5); RBC Urine Automated 0-4 /hpf (0-4)
--- NOTE | 2023-10-18 18:53 | History & Physical Report ---
Date of Service October 18, 2023 Assessment & Plan (1) Rectal carcinoma: Plan: This is a 63-year-old female with locally advanced rectal cancer diagnosed July 2022, status post sigmoidectomy 07/30/2022, total neoadjuvant therapy (XRT and chemo, finished chemo December 17, 2022), which was briefly interrupted due to large bowel obstruction requiring a diverting loop colostomy, who then subsequently underwent a robotic assisted low anterior resection with diverting loop transverse colostomy in January 2023, followed by reversal of the colostomy on 09/03/2023, who then recently underwent a laparoscopic diverting loop transverse colostomy again on 10/12/2023 due to worsening pelvic pain and bright red blood per rectum. Pt was discharged from [facility] yesterday on 10/17. Presents with overall generalized pain, worsening in the right upper leg, urinary retention s/p arevalo catheter exchange - Hemoglobin at time of discharge from colorectal surgery service was 10.8, today is 10.0 - pt denies any BRBPR currently. No obvious blood in ostomy output per nursing, she is on eliquis for VTE prophylasix - Lower abdominal pain, pelvic pain and rectal pain have been chronic - Follow with Dr. Polk at Cancer center, and with Dr. Lakhani with colorectal surgery - Noted temp of 37.7 and borderline hypotension on admission - s/p 1 L NSS with improvement in BP, careful resuscitation with decreased EF of 25-29% from most recent echo - NSS at 80 ml/hr x 1 bag, allow sips and chips orally but otherwise NPO until CT abd results - Obtain Abd CT with contrast due to most recent colostomy surgery on 10/12, r/o infection/abscess worsening pain and causing low grade fever -- pt has contrast allergy so will start her on pre-treatment with prednisone, benadryl and famotidine - Start empirically on Zosyn IV to cover GI microbes - Pt notes she has pain improvement with oxycodone but it is transient, will allow IV medication for breakthrough pain. 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 Will continue with BID dosing - PT/OT consults (2) Acute urinary retention: Plan: - UA obtained, culture pending - Blood cultures x2 - Pt is adamant that she would like to see urology while in the hospital - has an outpatient consult for Nov 26 - Arevalo catheter was replaced here in the ER today, bladder scanned for 20 ml per nursing (3) Nonischemic cardiomyopathy: Plan: -Nonischemic cardiomyopathy with an EF of 25 to 29% from echocardiogram from 07/23/2023 reviewed on outpatient epic results -Declined BiVICD previously, at her most recent stay at [facility] approximately 1 week ago was offered second opinion by [facility] EP regarding this however patient declined at that time -Appears dry currently so will continue with gentle maintenance fluids as above (4) Systolic CHF, chronic: Plan: -Nonischemic cardiomyopathy with an EF of 25 to 29% from echocardiogram from 07/23/2023 reviewed on outpatient epic results -Declined BiVICD previously, at her most recent stay at [facility] approximately 1 week ago was offered second opinion by [facility] EP regarding this however patient declined at that time -LBBB is chronic, EKG reviewed -Noted history of symptomatic hypotension on outpatient records -BP is 88/56 on admission, pulse 114 DVT ppx: teds, scds, eliquis 2.5 mg po daily Lines: 2 PIV CODE: FULL Dispo: From home, likely to remain in the hospital x 1-2 days History of Present Illness Chief Complaint: Urinary retention Primary Care Provider: Justin Collins MD This is a 63-year-old female with PMHx of locally advanced rectal cancer diagnosed July 2022, status post total neoadjuvant therapy which was briefly interrupted due to large bowel obstruction requiring a diverting loop colostomy, who then subsequently underwent a robotic assisted low anterior re section with diverting loop transverse colostomy in January 2023, followed by reversal of the colostomy on 09/03/2023, who then recently underwent a laparoscopic diverting loop transverse colostomy again on 10/12/2023 due to worsening pelvic pain and bright red blood per rectum. Other past medical history includes nonischemic cardiomyopathy, most recent echo from 07/23/2023 shows left bundle branch block, LVEF of 25 to 29%, moderate mitral regurg, mild tricuspid regurg, depression, GERD, anxiety. Patient had follow up appointment with Dr. Lakhani at [facility] on 10/06, where for the past 2 weeks had been managed with intermittent Imodium and MiraLAX depending on her symptoms and had predominant constipation issues. There was new blood per rectum with increasing pain and spasm-like feeling within her pelvic floor muscles which was mildly alleviated by Flexeril. She also had acute urinary retention and was having severe bladder distention and suprapubic pain. She was evaluated here in the ER on 10/06 for urinary pretension however at that point time the patient refused Arevalo catheter placement, and 10/07 prepresented for similar symptoms including unable to urinate x12 hours as well as blood in bowel movements and small pellets of stool, increased rectal pain and was unable to sit in a chair. A Arevalo catheter was placed during that time and had immediate return of over 1200 mL out. Around that time she had stopped using Flexeril even though it helped with back and pelvic pain because she read that it could contribute to urinary symptoms, she also stopped taking oxybutynin that was prescribed outpatient for same reason. At that time she was agreeable to proceed with colostomy on 10/12/[address] Lakhani with colorectal surgery. The patient was discharged from [facility] yesterday 10/17. Today the patient presents to the ER with multiple complaints of pain including the abdomen, pelvic region. She also has right upper leg pain which has been present for about 3-4 days even before discharge from [facility]. Pt did not eat or drink today due to pain. feels she is retaining urine again today. Pt states today she hasn't eaten or drank anything because of pain. Her ostomy outs are thick, no blood, no pain with outs. She uses oxycodone for pain relief, which is brief and only works for about 1 hour. Allergies Allergy/AdvReac Type Severity Reaction Status Date / Time Iodinated Contrast Media Allergy Intermediate SKIN Verified 10/18/23 16:41 REACTION WITH PEALING latex Allergy Mild Rash Verified 10/18/23 16:41 zolpidem AdvReac Severe "FELT Verified 10/18/23 16:41 CRAZY" hydrocodone AdvReac Mild Itching Verified 10/18/23 16:41 HEAD Home Medications Medication Instructions Recorded Confirmed Type alprazolam 0.5 mg tablet 0.25 - 0.5 mg PO HS PRN Sleep 10/06/23 10/18/23 History cyclobenzaprine 5 mg tablet 5 mg PO TID PRN Muscle Spasm 10/06/23 10/18/23 History oxycodone 5 mg tablet 5 mg PO TID PRN pain #14 tabs 10/06/23 10/18/23 Rx acetaminophen 500 mg tablet 1,000 mg PO BID PRN Pain 10/18/23 10/18/23 History apixaban 2.5 mg tablet (Eliquis) 2.5 mg PO BID 10/18/23 10/18/23 History gabapentin 300 mg capsule 300 mg PO TID 10/18/23 10/18/23 History Past Med/Surg History Medical History Rectal tumor Colostomy in place Rectal carcinoma (04/11/22) RADIATION AND CHEMO, had a sigmoidectomy 07/30/2022 with colostomy r/t bowel obstruction>FINISHED CHEMO 12/17/22 Cardiomyopathy RECENT ECHO DONE AT [facility] History of TMJ disorder Depression History of migraine LBBB (left bundle branch block) Low left ventricular ejection fraction RECENT ECHO AT [facility] (CURRENTLY FOLLOWS WITH DR. HOFF) Hiatal hernia GERD (gastroesophageal reflux disease) History of alcohol abuse "significantly cut back" - currently drinks wine a few days a week. Nonischemic cardiomyopathy Anxiety Surgical History History of cardiac cath 2016>NO STENTS Port-A-Cath in place (08/25/22) Insertion Access Port into left Cephalic vein with Fluoroscopy(Left) - Melecio Rocha MD, FACS S/P trigger finger release bilateral S/P laparoscopic-assisted sigmoidectomy (07/30/22) Diagnostic laparoscopy, laparoscopic diverting loop sigmoid colostomy 07/30/[address] [facility] [address] Criss Lakhani Hx of colonoscopy History of X 1 History of tonsillectomy History of bladder surgery as a child History of esophagogastroduodenoscopy (EGD) Family History Father Cancer lung cancer Brother Cancer lung cancer Mother Stroke Grandfather (Maternal) Diabetes Family/Other Colorectal cancer Other No family history of adverse response to anesthesia Social History Smoking Status: Unknown if ever smoked Tobacco Type: Cigarettes Second Hand Exposure: Yes ( A CHILD); Do You Dip or Chew Tobacco: No; Hx Alcohol Use: Yes Alcohol type: wine Preferred Language: British Communication Ability: Effective Visual Impairment: No Limitations Hearing Ability: Normal Shovel Handle Assembler Required: No Beliefs That Will Affect Care: None marital status: Current Living Situation: Spouse current occupational status: employed current occupation: @ [employer] How many Children do You have: 1 Feels Safe at Home: Yes Diet: regular caffeine: Yes during the past year weight has: decreased > 10 lbs Dental Care, Regularly: Yes Assistive Devices: Glasses Review of Systems Review of Systems: Constitutional: No fever, sweats or chills Eyes: No diplopia, no worsening or blurred vision ENT: normal hearing, no trouble swallowing Respiratory: No cough, sputum, dyspnea at rest or on exertion Cardiovascular: No chest pain, tightness or palpitations Abdomen: As per HPI, chronic abdominal pain, pelvic pain, no nausea or vomiting, brown thick ostomy outs Musculoskeletal: Right upper medial leg pain, no calf pain, swelling Neurologic: No weakness, numbness/tingling, or balance problems Psychiatric: No anxiety or depression Skin: No rash or itch Physical Exam Physical Exam: General: awake, alert, no apparent distress, + anxious, thin, white female Head: Normocephalic, atraumatic ENT: PERRL, EOMI, no pharyngeal exudate, mucous membranes moist Chest: Clear to auscultation, on room air, no adventitious breath sounds Cardiac: Sinus tachycardiac with HR in 90s, no murmur, no JVD, normal peripheral pulses, good capillary refill Abdominal: NABS x 4 quadrants, soft, nondistended, +minimally tender to palpation, + ostomy in LLQ with dark brown outs, no obvious blood, no rebound or guarding Extremities: Normal inspection, no peripheral edema or erythema, calfs nontender to palpation Psych: Anxious and almost tearful at times affect Neuro: AAO x 3, strength intact bilaterally and rated 5/5, no motor deficits, speech is clear, no peripheral sensory deficits Results & Data Results & Data Vital Signs (Past 12 Hours) Vital Signs Temp Pulse Resp BP Pulse Ox O2 Del Method 10/18/23 14:59 37.7 C H 114 H 20 88/56 L 95 Room Air Laboratory Results 10/18/23 15:23 Aerobic Blood Culture - Pending Blood Anaerobic Blood Culture - Pending 10/18/23 15:52 Aerobic Blood Culture - Pending Blood Anaerobic Blood Culture - Pending 10/18/23 10/18/23 Unknown 15:23 WBC 10.09 RBC 3.31 L Hgb 10.0 L Hct 29.8 L MCV 90.0 MCH 30.2 MCHC 33.6 RDW Std Deviation 39.7 RDW Coeff of Luz 12.0 Plt Count 277 MPV 8.9 L Immature Gran % (Auto) 0.6 Neut % (Auto) 85.2 Lymph % (Auto) 3.7 Slope % (Auto) 9.5 Eos % (Auto) 0.9 Baso % (Auto) 0.1 Neut # (Auto) 8.60 H Lymph # (Auto) 0.37 L Slope # (Auto) 0.96 H Eos # (Auto) 0.09 Baso # (Auto) 0.01 Immature Gran # (Auto) 0.06 PT 11.4 INR 1.0 APTT 31.5 H PTT Ratio 1.1 Sodium 132 L Potassium 3.9 Chloride 97 L Carbon Dioxide 25 Anion Gap 10 BUN 12 Creatinine 0.54 L Est Cr Clr Drug Dosing Not Reportable Est GFR ( Amer) 114.8 Est GFR (Non-Af Amer) 99.0 BUN/Creatinine Ratio 22.2 H Glucose 126 H Lactate 1.0 Calcium 9.0 Magnesium 1.9 Total Bilirubin 0.5 AST 11 L ALT 13 Alkaline Phosphatase 94 Troponin I High Sens 9.3 Total Protein 6.4 Albumin 3.4 Globulin 3.0 Albumin/Globulin Ratio 1.1 Procalcitonin < 0.05 Urine Color Yellow Urine Appearance Clear Urine pH 6.5 Ur Specific Bradford 1.003 Urine Protein Negative Urine Glucose (UA) Negative Urine Ketones 1+ H Urine Blood Negative Urine Nitrite Negative Urine Bilirubin Negative Urine Urobilinogen Negative Ur Leukocyte Esterase Trace H Urine WBC (Auto) 1-5 Urine RBC (Auto) 0-4 U Hyaline Cast (Auto) 0 U Epithel Cells (Auto) 0-5 Urine Bacteria (Auto) Negative Diagnostic Findings Chest X-Ray 10/18/23 15:05 XR chest 1V not portable CLINICAL HISTORY: Sepsis. COMPARISON STUDY: Chest CT May 21, 2023. FINDINGS: Left subclavian [id number] is in place. Lung volumes are normal. Lungs are clear. There is no pneumothorax or pleural effusion. Cardiac size is normal. Mediastinal contours are normal. There is no evidence for pulmonary edema. IMPRESSION: No acute cardiopulmonary findings. ACT 112: Negative or not required by law. Electronically signed by: Philip Bower M.D. 10/18/2023 3:40 PM Code Status & VTE Plan Code Status DNR/DNI - discussed with the patient at bedside Supervising Physician Co-Signing Physician Notes I have seen and examined the patient and have discussed the case with the provider above. I agree with the assessment and plan as stated with the following exceptions. She reports feeling bladder pain got worse today despite indwelling arevalo catheter. She was operated on 10/12 and reports failing a TOV for post op acute urinary retention. She also reports a constant ache/pain in the upper right leg has been there since the reversal and lower back pain, which had subsided and is now back again in the last few weeks. Still feels that lower back pain now. Described as painful enough to keep her awake at night--she requires narcotic pain medications. This pain seems to coincide with the pain on the right leg. She became more concerned around [place] time [place] [facility] [place] about the bladder pain. Right now her pubic bone hurts. The arevalo exchange today in the ER helped her get "a little relief" but she is concerned that there wasn't enough urine coming out when they replaced the catheter. She understands she is dehydrated and has not eaten or drank anything today. She also feels dark brown dry BM, that occurs anytime she moves. Residual stool coming out. She is concerned that this is happening more often than it should, and admits she wasn't able to speak directly with her colorectal surgeon about this . She has a painful pressure when sitting up on her rectum. They are still testing her to see if her cancer has returned, currently awaiting pathology reports [place] [facility] [place]. If positive, there is consideration of additional chemotherapy treatment with Dr. Polk. ROS also reveals an intermittent pain in her right rib. Feels she "strained it" during a severe panic attack at the hospital. Exam reveals a thin, WN female who is anxious but in NAD. She does have pain with movement around the bed, however. Abdomen is soft and generally tender to palpation over the stoma site and the suprapubic area. Laparoscopic incision sites are healing well and are closed. Nondistended. Labs/medications/imaging reviewed. 1. Postoperative pelvic pain-CT scan abd/pel after premedication as noted above. Cont oxycodone and gabapentin per home regimen. KUB ordered with final reading pending. Consult general surgery. IT is reassuring that her abdomen is not distended and her lactate is normal. 2. Acute urinary retention with increased bladder pain-replacement arevalo placed in the ER tonight. Cont to monitor strict I/Os. Consult urology. 3. Rectal carcinoma-per Dr. Polk, her oncologist. 4. Anxiety, cont Xanax per home regimen. 5. NICM-historically she has not tolerated GDMT. She has a h/o EF 25% and has declined BiV-ICD in the past. DNR status. DO Gwyn
[2023-10-18] MEDS ORDERED: ALPRAZolam 0.5 MG TABLET PO STA (19:33)
[2023-10-18] MEDS ORDERED: PIPERACILLIN/TAZOBACTAM 4.5 GM in DEXTROSE 5% MINI-B 100 ML IV ONE (19:52)
[2023-10-18] MEDS ORDERED: PIPERACILLIN/TAZOBACTAM 4.5 GM/100 ML BAG IV STA (20:03)
[2023-10-18] MEDS ORDERED: oxyCODONE HCL IR 5 MG TAB (IMMEDIATE RELEASE) PO PRN (20:10)
[2023-10-18] MEDS ORDERED: ACETAMINOPHEN 500 MG TAB PO PRN (20:10)
[2023-10-18] MEDS ORDERED: oxyCODONE HCL IR 5 MG TAB (IMMEDIATE RELEASE) PO STA (21:03)
[2023-10-18] MEDS: SODIUM CHLORIDE 0.9% 1,000 ML IV SCH (21:28)
[2023-10-18] MEDS: HYDROmorphone INJ 0.5 MG/0.5 ML SYR IV PRN (21:40)
[2023-10-18] MEDS ORDERED: predniSONE 50 MG TAB PO ONE (22:00)
[2023-10-18] MEDS: GABAPENTIN 300 MG CAP PO SCH (22:32)
[2023-10-18] MEDS: APIXABAN 2.5 MG TAB PO SCH (22:32)
--- NOTE | 2023-10-19 00:51 | Surgery Consultation ---
Date of Consultation October 19, 2023 Assessment & Plan (1) Acute postoperative abdominal pain: Plan Assessment: Patient is a 63 years old female presented to ED with 4 to 5-week history lower pelvic area pain. Patient had the robotic assisted anterior resection 8 months ago. Patient had recently laparoscopy transverse colostomy last week at [facility]. There was a discharged home yesterday from [facility]. Plan: Based on review of patient history physical exam, the labs, no emergency surgical indication. Conservative treatment. control pain. Consult pain management. Consult urology for urinary retention. Patient will get a CT scan in the morning. We will follow. Patient agree with the plan. I Answered all questions. History of Present Illness Reason for Consultation: pelvic pain Requesting Physician: Estela Pascal DO Attending Physician: Estela Pascal DO History of Present Illness CC: pelvic pain HPI: Patient is a 63 years old female past medical history significant cardiomyopathy, CHF, rectal cancer, patient presenting with local advanced rectal cancer diagnosed July 2022. Patient had sigmoidectomy and neoadjuvant therapy, then patient had robotic assisted anterior resection with diverting loop transverse colostomy in January 2023. Patient had reversal colostomy on September 03, 2023. Patient had a laparoscopy diverting loop transverse colostomy again on October 12, 2023 at [facility]. Patient was discharged to home from [facility] on October 17, 2023. Patient presented to ED visit last 4 to 5 weeks low pelvic area pain with rectal pain. Patient denies any significant rectal bleeding. Better with a urine retention and constipation. Patient denies any fever. No nausea no vomiting. The colostomy is working well. Allergies Allergy/AdvReac Type Severity Reaction Status Date / Time Iodinated Contrast Media Allergy Intermediate SKIN Verified 10/18/23 16:41 REACTION WITH PEALING latex Allergy Mild Rash Verified 10/18/23 16:41 zolpidem AdvReac Severe "FELT Verified 10/18/23 16:41 CRAZY" hydrocodone AdvReac Mild Itching Verified 10/18/23 16:41 HEAD Home Medications Medication Instructions Recorded Confirmed Type alprazolam 0.5 mg tablet 0.25 - 0.5 mg PO HS PRN Sleep 10/06/23 10/18/23 History cyclobenzaprine 5 mg tablet 5 mg PO TID PRN Muscle Spasm 10/06/23 10/18/23 History oxycodone 5 mg tablet 5 mg PO TID PRN pain #14 tabs 10/06/23 10/18/23 Rx acetaminophen 500 mg tablet 1,000 mg PO BID PRN Pain 10/18/23 10/18/23 History apixaban 2.5 mg tablet (Eliquis) 2.5 mg PO BID 10/18/23 10/18/23 History gabapentin 300 mg capsule 300 mg PO TID 10/18/23 10/18/23 History Patient History Medical History Rectal tumor Colostomy in place Rectal carcinoma (04/11/22) RADIATION AND CHEMO, had a sigmoidectomy 07/30/2022 with colostomy r/t bowel obstruction>FINISHED CHEMO 12/17/22 Cardiomyopathy RECENT ECHO DONE AT [facility] History of TMJ disorder Depression History of migraine LBBB (left bundle branch block) Low left ventricular ejection fraction RECENT ECHO AT [facility] (CURRENTLY FOLLOWS WITH DR. HOFF) Hiatal hernia GERD (gastroesophageal reflux disease) History of alcohol abuse "significantly cut back" - currently drinks wine a few days a week. Nonischemic cardiomyopathy Anxiety Surgical History History of cardiac cath 2016>NO STENTS Port-A-Cath in place (08/25/22) Insertion Access Port into left Cephalic vein with Fluoroscopy(Left) - Melecio Rocha MD, FACS S/P trigger finger release bilateral S/P laparoscopic-assisted sigmoidectomy (07/30/22) Diagnostic laparoscopy, laparoscopic diverting loop sigmoid colostomy 07/30/22 [address] [place] [address]. Criss Lakhani Hx of colonoscopy History of X 1 History of tonsillectomy History of bladder surgery as a child History of esophagogastroduodenoscopy (EGD) Family History Father Cancer lung cancer Brother Cancer lung cancer Mother Stroke Grandfather (Maternal) Diabetes Family/Other Colorectal cancer Other No family history of adverse response to anesthesia Social History Smoking Status: Unknown if ever smoked Tobacco Type: Cigarettes Second Hand Exposure: Yes ( A CHILD); Do You Dip or Chew Tobacco: No; Hx Alcohol Use: Yes Alcohol type: wine Preferred Language: [place]serratian Communication Ability: Effective Visual Impairment: No Limitations Hearing Ability: Normal [employer]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: No Beliefs That Will Affect Care: None marital status: Current Living Situation: Spouse current occupational status: employed current occupation: @ [employer] How many Children do You have: 1 Feels Safe at Home: Yes Diet: regular caffeine: Yes during the past year weight has: decreased > 10 lbs Dental Care, Regularly: Yes Assistive Devices: Glasses Review of Systems Constitutional: as per Subjective / HPI Eyes: as per Subjective / HPI Respiratory: as per Subjective / HPI Cardiovascular: Additional Comments: Cardiomyopathy, CHF Gastrointestinal: Rectal cancer, constipation Genitourinary: Urinary retention Neurologic: as per Subjective / HPI Psychiatric: as per Subjective / HPI Endocrine: as per Subjective / HPI Hematologic / Lymphatic: as per Subjective / HPI Physical Exam Constitutional: WD/WN, vitals as above Eyes: PERRL, conjunctivae normal, anicteric sclerae Neck: trachea midline, no thyromegaly Respiratory: normal respiratory effort, lungs clear to auscultation Cardiovascular: RRR, no murmur, no edema Gastrointestinal (Abdomen): soft, colostomy working well, no significant tenderness or distend at abdomen, no rebound pain, BS +. Musculoskeletal: no cyanosis or clubbing, extremities motor strength 5/5 Neurologic: patellar DTR's 2+ bilat, sensation intact Psychiatric: A+Ox3, euthymic affect Results & Data Vital Signs (Past 12 Hours) Vital Signs Temp Pulse Pulse Resp BP BP Pulse Ox 10/18/23 23:10 86 21 98 10/18/23 23:00 86 27 H 97 10/18/23 22:50 86 11 L 99 10/18/23 22:30 89 16 10/18/23 22:20 84 23 95 10/18/23 22:10 82 13 96 10/18/23 22:00 84 22 95 10/18/23 21:51 16 10/18/23 18:48 95 H 16 133/69 98 10/18/23 17:00 97 H 18 142/72 H 98 10/18/23 16:00 96 H 19 98 10/18/23 16:00 98 10/18/23 14:59 37.7 C H 114 H 20 88/56 L 95 O2 Del Method 10/18/23 23:10 10/18/23 23:00 10/18/23 22:50 10/18/23 22:30 10/18/23 22:20 10/18/23 22:10 10/18/23 22:00 10/18/23 21:51 10/18/23 18:48 Room Air 10/18/23 17:00 Room Air 10/18/23 16:00 Room Air 10/18/23 16:00 Room Air 10/18/23 14:59 Room Air Laboratory Results Lab Results 10/18/23 10/18/23 Range/Units 15:23 Unknown WBC 10.09 (4.8-10.8) K/ul RBC 3.31 L (4.20-5.40) M/uL Hgb 10.0 L (12.0-16.0) g/dl Hct 29.8 L (37.0-47.0) % MCV 90.0 (80.0-100.0) fL MCH 30.2 (25.0-34.0) pg MCHC 33.6 (32.0-36.0) g/dL RDW Std Deviation 39.7 (36.4-46.3) fL RDW Coeff of Luz 12.0 (11.5-14.5) % Plt Count 277 (130-400) K/uL MPV 8.9 L (9.4-12.4) fL Immature Gran % (Auto) 0.6 % Neut % (Auto) 85.2 % Lymph % (Auto) 3.7 % [place] % (Auto) 9.5 % Eos % (Auto) 0.9 % Baso % (Auto) 0.1 % Neut # (Auto) 8.60 H (1.40-6.50) K/uL Lymph # (Auto) 0.37 L (1.20-3.40) K/uL [place] # (Auto) 0.96 H (0.11-0.59) K/uL Eos # (Auto) 0.09 (0.00-0.50) K/uL Baso # (Auto) 0.01 (0.00-0.20) K/uL Immature Gran # (Auto) 0.06 (0.01-0.20) K/uL PT 11.4 (9.0-12.0) Seconds INR 1.0 (0.9-1.1) APTT 31.5 H (21.0-31.0) Seconds PTT Ratio 1.1 Sodium 132 L (136-145) mmol/L Potassium 3.9 (3.5-5.1) mmol/L Chloride 97 L (98-107) mmol/L Carbon Dioxide 25 (21-32) mmol/L Anion Gap 10 (3-11) BUN 12 (6-23) mg/dl Creatinine 0.54 L (0.6-1.2) mg/dl Est Cr Clr Drug Dosing Not Reportable Est GFR ( Amer) 114.8 ml/min Est GFR (Non-Af Amer) 99.0 ml/min BUN/Creatinine Ratio 22.2 H (10-20) Glucose 126 H (70-99(Fasting)) mg/dl Lactate 1.0 (0.4-2.0) mmol/L Calcium 9.0 (8.6-10.3) mg/dl Magnesium 1.9 (1.7-2.4) mg/dl Total Bilirubin 0.5 (0.2-1.0) mg/dl AST 11 L (13-39) U/L ALT 13 (7-52) U/L Alkaline Phosphatase 94 (34-104) U/L Troponin I High Sens 9.3 (0-14) pg/ml Total Protein 6.4 (6.0-8.3) gm/dl Albumin 3.4 (3.4-5.0) gm/dl Globulin 3.0 (2.5-4.0) gm/dl Albumin/Globulin Ratio 1.1 (0.9-2) Procalcitonin < 0.05 (0-0.5) ng/ml Urine Color Yellow Urine Appearance Clear (Clear) Urine pH 6.5 (4.5-7.5) Ur Specific [place] 1.003 (1.000-1.030) Urine Protein Negative (Negative) Urine Glucose (UA) Negative (Negative) Urine Ketones 1+ H (Negative) Urine Blood Negative (Negative) Urine Nitrite Negative (Negative) Urine Bilirubin Negative (Negative) Urine Urobilinogen Negative (Negative) Ur Leukocyte Esterase Trace H (Negative) Urine WBC (Auto) 1-5 (0-5) /hpf Urine RBC (Auto) 0-4 (0-4) /hpf U Hyaline Cast (Auto) 0 (0-5) /lpf U Epithel Cells (Auto) 0-5 (0-5) /lpf Urine Bacteria (Auto) Negative (Negative)
[2023-10-19] MEDS ORDERED: predniSONE 50 MG TAB ONE (01:30)
[2023-10-19] MEDS: PIPERACILLIN/TAZOBACTAM 4.5 GM in DEXTROSE 5% MINI-B 100 ML IV SCH ×3 (01:34→19:34)
[2023-10-19] MEDS: HYDROmorphone INJ 0.5 MG/0.5 ML SYR IV PRN ×3 (01:36→20:02)
[2023-10-19] MEDS: CYCLOBENZAPRINE HCL 5 MG TAB PO PRN (01:44)
[2023-10-19] MEDS ORDERED: diphenhydrAMINE Capsule 25 MG CAP PO ONE (04:00)
[2023-10-19] MEDS ORDERED: FAMOTIDINE 20 MG TAB PO ONE (04:00)
[2023-10-19] MEDS: predniSONE 50 MG TAB PO SCH ×2 (04:02→12:57)
[2023-10-19] MEDS ORDERED: OPTIRAY 320 500ml IV ONE (08:08)
[2023-10-19 08:11] LABS: Hemoglobin 8.8 g/dl (12.0-16.0); Mean Corpuscular Hemoglobin 30.1 pg (25.0-34.0); Mean Corpuscular Hgb Conc 33.8 g/dL (32.0-36.0); Mean Platelet Volume 8.9 fL (9.4-12.4); Platelet Count 278 K/uL (130-400); RDW Coefficient of Variation 12.3 % (11.5-14.5); Red Blood Count 2.92 M/uL (4.20-5.40); White Blood Count 7.24 K/ul (4.8-10.8)
--- NOTE | 2023-10-19 08:34 | XRay Report ---
KUB CLINICAL HISTORY: Infection. Colostomy. FINDINGS: An AP, portable, supine abdominal radiograph is correlated with abdominal CT dated 3. Suture material projects over the left midabdomen and the pelvis. There are also surgical clips in the pelvis. There is gaseous distention of the small bowel loops which measure up to 2.7 cm. No evid ence of intraperitoneal free air is seen on this supine image. There are no abnormal abdominal calcif ications. Phleboliths are observed in the pelvis. The skeletal structures are osteopenic and appear i ntact. There is mild lumbosacral spondylosis. IMPRESSION: There is gaseous distention of the small bowel loops, suspicious for developing small bow el obstruction. Clinical correlation will be required. Electronically signed by: Royal Gutierrez M.D. 10/19/2023 8:33 AM
[2023-10-19 08:39] LABS: BUN Creatinine Ratio 18.4 (10-20); Bilirubin,Total 0.5 mg/dl (0.2-1.0); Calcium 8.7 mg/dl (8.6-10.3); Creatinine Clr Calc Pharmacy 90.7 ml/min; Est GFR (African American) 118.5 ml/min; Est GFR (Non-African American) 102.2 ml/min; Magnesium 2.1 mg/dl (1.7-2.4); Phosphorus 3.3 mg/dl (2.5-4.9); Potassium 4.1 mmol/L (3.5-5.1)
[2023-10-19 08:40] LABS: Albumin Globulin Ratio 1.2 (0.9-2); Globulin 2.6 gm/dl (2.5-4.0); Total Protein 5.6 gm/dl (6.0-8.3)
[2023-10-19] MEDS: APIXABAN 2.5 MG TAB PO SCH ×2 (08:44→19:34)
[2023-10-19] MEDS: GABAPENTIN 300 MG CAP PO SCH ×2 (08:44→19:35)
--- NOTE | 2023-10-19 09:07 | CT Scan Report ---
ABDOMEN AND PELVIS CT WITH IV CONTRAST CT DOSE: 301.8 mGy.cm HISTORY: Generalized abdominal pain, recent colostomy creation, r/o infection TECHNIQUE: Multiaxial CT images of the abdomen and pelvis were performed following the use of intrave nous contrast. A dose lowering technique was utilized adhering to the principles of ALARA. COMPARISON STUDY: Abdomen and pelvis CT 10/06/2023. FINDINGS: The lung bases are clear. No pneumoperitoneum. No pneumatosis. No acute fractures identifie d. No suspicious lytic or blastic osseous lesions. Mild body wall edema is noted. There are few scatt ered hypodense lesions again noted within the liver which remain unchanged. These are technically too small to characterize. Linear hypodense focus within the anterior segment right hepatic lobe is also unchanged. This is best seen on images 86 through 105. The liver, adrenal glands, pancreas, and kidn eys are unremarkable. There is mild fullness within the bilateral renal collecting systems without fr ank hydronephrosis. This has improved. The main portal vein is patent. Normal caliber abdominal aorta . The bladder is completely decompressed by a Mcwilliams catheter which appears in good position. There is gas within the bladder lumen likely due to the catheterization. Trace pelvic free fluid is noted. Th ere is suture material within the rectum. There is a large heterogeneous/necrotic mass again noted wi thin the rectum which has slightly increased in size. This measures approximately 6.7 x 6.1 cm. This abuts and displaces the uterus anteriorly. An underlying contained perforation/developing abscess wit hin this rectal mass is considered less likely but not entirely excluded. There is a left-sided doubl e barrel transverse colostomy. Normal appendix. There are few mildly dilated gas and fluid-filled loo ps of small bowel within the abdomen. Necrotic lymphadenopathy within the lower central mesentery has progressed. A dominant necrotic lymph node on image 185 measures 3 cm. Mild thickening versus underd istention within the residual sigmoid colon with adjacent fat stranding. A superimposed colitis is no t excluded. Posttreatment changes could also have a similar appearance. There are mildly dilated gas and fluid-filled loops of small bowel seen throughout the abdomen. The distal ileal loops are slightl y decompressed. A clear transition point is not identified at this time. Therefore, this could repres ent an ileus or developing partial small bowel obstruction. IMPRESSION: 1. There is a large heterogeneous/necrotic mass again noted within the rectum which has slightly incr eased in size. This measures approximately 6.7 x 6.1 cm. An underlying contained perforation/developi ng abscess within this rectal mass is considered less likely but not entirely excluded. 2. Interval progression of the necrotic metastatic lymphadenopathy within the central mesentery. 3. There are mildly dilated gas and fluid-filled loops of small bowel seen throughout the abdomen. Th e distal ileal loops are slightly decompressed. A clear transition point is not identified at this ti me. Therefore, this could represent an ileus or developing partial small bowel obstruction. 4. Mild fullness within the bilateral renal collecting system without aiden hydronephrosis. This has improved. 5. Mild thickening versus underdistention within the residual sigmoid colon with adjacent fat strandi ng. A superimposed colitis is not excluded. Posttreatment changes could also have a similar appearanc e. 6. Stable subcentimeter hypodense lesions within the liver. These are too small to characterize. Atte ntion at follow-up recommended. 7. Additional findings as described above. ACT 112: Negative or not required by law. Electronically signed by: Luis Briseno M.D. 10/19/2023 9:05 AM
[2023-10-19] MEDS: SODIUM CHLORIDE 0.9% 1,000 ML IV SCH ×2 (10:45→19:32)
--- NOTE | 2023-10-19 11:06 | Hospitalist Progress Note ---
Date of Service October 19, 2023 Assessment & Plan (1) Acute postoperative abdominal pain: Plan: 1) Rectal carcinoma: per H and P:This is a 63-year-old female with locally advanced rectal cancer diagnosed July 2022, status post sigmoidectomy 07/30/2022, total neoadjuvant therapy (XRT and chemo, finished chemo December 17, 2022), which was briefly interrupted due to large bowel obstruction requiring a diverting loop colostomy, who then subsequently underwent a robotic assisted low anterior resection with diverting loop transverse colostomy in January 2023, followed by reversal of the colostomy on 09/03/2023, who then recently underwent a lapar oscopic diverting loop transverse colostomy again on 10/12/2023 due to worsening pelvic pain and bright red blood per rectum. Pt was discharged from [facility] yesterday on 10/17. Presents with overall generalized pain, worsening in the right upper leg, urinary retention s/p arevalo catheter exchange hb 10.8 at discharge from [facility]. Hb 10.0 yesterday and 8.8 today. No obvious signs of bleeding. Will monitor. Lower abdominal pain, pelvic pain and rectal pain have been chronic Follows with Dr. Polk at Cancer center, and with Dr. Lakhani with colorectal surgery SBP soft improved with fluids. , careful resuscitation with decreased EF of 25- 29% from most recent echo Ct abd/pelvis with contrast after prep with prednisone showing increased rectal mass to 6.6cm from 5.7cm on Oct 06. An underlying contained perforation/developing abscess within this rectal mass is considered less likely but not entirely excluded. Possible developing partial SBO.Superimposed colitis not excluded. Surgery wanted to transfer to [place]. Patient was upset and not keen on transfer. Discussed with colorectal surgery Dr. Lakhani at [facility]. Patient is tolerating diet ok. As she not acting as obstruction said she may not offer much different at [place] at this time and was ok to keep patient here and treat with antibiotics especially since patient doesn't wanted transfer. If she develops any nausea/vomiting or for any other questions can call back [place]. Patients son and in room and agreeable for the plan. (2) Acute urinary retention: - UA obtained, culture pending s/p arevalo. Urology consulted. 3 Systolic CHF, chronic: Nonischemic cardiomyopathy with an EF of 25 to 29% from echocardiogram from 07/23/2023 reviewed on outpatient epic results Seems Declined BiVICD previously, at her most recent stay at [place] approximately 1 week ago was offered second opinion by Stephanie BAILEY regarding this however patient declined at that time LBBB is chronic, EKG reviewed Seems had history of symptomatic hypotension on outpatient records Close monitor. DVT ppx: teds, scds, eliquis 2.5 mg po bid. CODE: FULL Admission and Anticipated Discharge Date Admission Date: October 18, 2023 Subjective resting comfortably says last night took some time to get comfortable from pain tolerating diet ok afebrile no nausea no chest pain or sob there was a plan to transfer to [facility] but patient was upset with transfer and was not keen on transfer Review of Systems Review of Systems: All systems reviewed & are unremarkable except as noted in HPI & below Physical Exam Physical Exam: General- Not in distress. Head- atraumatic ENT- oropharynx clear Neck- supple, no JVD. Lungs- clear to auscultation no wheezing or crackles. Heart- regular rhythm; no murmur, no gallop. Abdomen- sluggish bowel sounds, soft, tenderness in lower abdomen. s/p ostomy. No distension. Extremities- no pretibial edema, no erythema seen Neuro- alert, oriented no facial palsy; no dysarthria; moves extremities. Skin- warm & dry Results & Data Results & Data Vital Signs (Past 12 Hours) Vital Signs Temp Pulse Pulse Resp BP Pulse Ox O2 Del Method 10/19/23 08:19 80 14 132/67 99 Room Air 10/19/23 07:51 59 L 10/19/23 04:10 71 10/19/23 04:03 37.0 C 78 16 125/62 97 Room Air 10/19/23 01:50 37.2 C 78 20 134/67 99 Room Air 10/18/23 23:10 86 21 98 Diagnostic Findings Laboratory Results WBC 7.24 K/ul (4.8-10.8) 10/19/23 07:19 RBC 2.92 M/uL (4.20-5.40) L 10/19/23 07:19 Hgb 8.8 g/dl (12.0-16.0) L 10/19/23 07:19 Hct 26.0 % (37.0-47.0) L 10/19/23 07: MCV 89.0 fL (80.0-100.0) 10/19/23 07: MCH 30.1 pg (25.0-34.0) 10/19/23 07: MCHC 33.8 g/dL (32.0-36.0) 10/19/23 07: RDW Std Deviation 40.0 fL (36.4-46.3) 10/19/23 07: RDW Coeff of Luz 12.3 % (11.5-14.5) 10/19/23 07: Plt Count 278 K/uL (130-400) 10/19/23 07: MPV 8.9 fL (9.4-12.4) L 10/19/23 07: Immature Gran % (Auto) 0.6 % 10/18/23 15:23 Neut % (Auto) 85.2 % 10/18/23 15:23 Lymph % (Auto) 3.7 % 10/18/23 15:23 [place] % (Auto) 9.5 % 10/18/23 15:23 Eos % (Auto) 0.9 % 10/18/23 15: Baso % (Auto) 0.1 % 10/18/23: Neut # (Auto) 8.60 K/uL (1.40-6.50) H 10/18/23 15:23 Lymph # (Auto) 0.37 K/uL (1.20-3.40) L 10/18/23 15:23 [place] # (Auto) 0.96 K/uL (0.11-0.59) H 10/18/23 15:23 Eos # (Auto) 0.09 K/uL (0.00-0.50) 10/18/23: Baso # (Auto) 0.01 K/uL (0.00-0.20) 10/18/23: Immature Gran # (Auto) 0.06 K/uL (0.01-0.20) 10/18/23 15:23 PT 11.4 Seconds (9.0-12.0) 10/18/23 15:23 INR 1.0 (0.9-1.1) 10/18/23 15: APTT 31.5 Seconds (21.0-31.0) H 10/18/23 15: PTT Ratio 1.1 10/18/23 15: Sodium 136 mmol/L (136-145) 10/19/23 07:19 Potassium 4.1 mmol/L (3.5-5.1) 10/19/23 07:19 Chloride 103 mmol/L (98-107) 10/19/23 07:19 Carbon Dioxide 28 mmol/L (21-32) 10/19/23 07:19 Anion Gap 5 (3-11) 10/19/23 07:19 BUN 9 mg/dl (6-23) 10/19/23 07:19 Creatinine 0.49 mg/dl (0.6-1.2) L 10/19/23 07:19 Est Cr Clr Drug Dosing 90.7 ml/min 10/19/23 07:19 Est GFR ( Amer) 118.5 ml/min 10/19/23 07:19 Est GFR (Non-Af Amer) 102.2 ml/min 10/19/23 07:19 BUN/Creatinine Ratio 18.4 (10-20) 10/19/23 07:19 Glucose 128 mg/dl (70-99(Fasting)) H 10/19/23 07:19 Lactate 1.0 mmol/L (0.4-2.0) 10/18/23 15: Calcium 8.7 mg/dl (8.6-10.3) 10/19/23 07:19 Phosphorus 3.3 mg/dl (2.5-4.9) 10/19/23 07:19 Magnesium 2.1 mg/dl (1.7-2.4) 10/19/23 07:19 Total Bilirubin 0.5 mg/dl (0.2-1.0) 10/19/23 07:19 AST 10 U/L (13-39) L 10/19/23 07:19 ALT 11 U/L (7-52) 10/19/23 07:19 Alkaline Phosphatase 75 U/L (34-104) 10/19/23 07:19 Troponin I High Sens 9.3 pg/ml (0-14) 10/18/23 15:23 Total Protein 5.6 gm/dl (6.0-8.3) L 10/19/23 07:19 Albumin 3.0 gm/dl (3.4-5.0) L 10/19/23 07:19 Globulin 2.6 gm/dl (2.5-4.0) 10/19/23 07:19 Albumin/Globulin Ratio 1.2 (0.9-2) 10/19/23 07:19 Procalcitonin < 0.05 ng/ml (0-0.5) 10/18/23 15:23 Urine Color Yellow 10/18/23 Unknown Urine Appearance Clear (Clear) 10/18/23 Unknown Urine pH 6.5 (4.5-7.5) 10/18/23 Unknown Ur Specific [place] 1.003 (1.000-1.030) 10/18/23 Unknown Urine Protein Negative (Negative) 10/18/23 Unknown Urine Glucose (UA) Negative (Negative) 10/18/23 Unknown Urine Ketones 1+ (Negative) H 10/18/23 Unknown Urine Blood Negative (Negative) 10/18/23 Unknown Urine Nitrite Negative (Negative) 10/18/23 Unknown Urine Bilirubin Negative (Negative) 10/18/23 Unknown Urine Urobilinogen Negative (Negative) 10/18/23 Unknown Ur Leukocyte Esterase Trace (Negative) H 10/18/23 Unknown Urine WBC (Auto) 1-5 /hpf (0-5) 10/18/23 Unknown Urine RBC (Auto) 0-4 /hpf (0-4) 10/18/23 Unknown U Hyaline Cast (Auto) 0 /lpf (0-5) 10/18/23 Unknown U Epithel Cells (Auto) 0-5 /lpf (0-5) 10/18/23 Unknown Urine Bacteria (Auto) Negative (Negative) 10/18/23 Unknown Impressions Chest X-Ray 10/18/23 15:05 XR chest 1V not portable CLINICAL HISTORY: Sepsis. COMPARISON STUDY: Chest CT May 21, 2023. FINDINGS: Left subclavian [id number] is in place. Lung volumes are normal. Lungs are clear. There is no pneumothorax or pleural effusion. Cardiac size is normal. Mediastinal contours are normal. There is no evidence for pulmonary edema. IMPRESSION: No acute cardiopulmonary findings. ACT 112: Negative or not required by law. Electronically signed by: Philip Bower M.D. 10/18/2023 3:40 PM Abdomen/Pelvis CT 10/18/23 19:[address] WITH IV CONTRAST CT DOSE: 301.8 mGy.cm HISTORY: Generalized abdominal pain, recent colostomy creation, r/o infection TECHNIQUE: Multiaxial CT images of the abdomen and pelvis were performed following the use of intravenous contrast. A dose lowering technique was utilized adhering to the principles of ALARA. COMPARISON STUDY: Abdomen and pelvis CT 10/06/2023. FINDINGS: The lung bases are clear. No pneumoperitoneum. No pneumatosis. No acute fractures identified. No suspicious lytic or blastic osseous lesions. Mild body wall edema is noted. There are few scattered hypodense lesions again noted within the liver which remain unchanged. These are technically too small to characterize. Linear hypodense focus within the anterior segment right hepatic lobe is also unchanged. This is best seen on images 86 through 105. The liver, adrenal glands, pancreas, and kidneys are unremarkable. There is mild fullness within the bilateral renal collecting systems without aiden hydronephrosis. This has improved. The main portal vein is patent. Normal caliber abdominal aorta. The bladder is completely decompressed by a Arevalo catheter which appears in good position. There is gas within the bladder lumen likely due to the catheterization. Trace pelvic free fluid is noted. There is suture material within the rectum. There is a large heterogeneous/necrotic mass again noted within the rectum which has slightly increased in size. This measures approximately 6.7 x 6.1 cm. This abuts and displaces the uterus anteriorly. An underlying contained perforation/developing abscess within this rectal mass is considered less likely but not entirely excluded. 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 Normal appendix. There are few mildly dilated gas and fluid-filled loops of small bowel within the abdomen. Necrotic lymphadenopathy within the lower central mesentery has progressed. A dominant necrotic lymph node on image 185 measures 3 cm. Mild thickening versus underdistention within the residual sigmoid colon with adjacent fat stranding. A superimposed colitis is not excluded. Posttreatment changes could also have a similar appearance. There are mildly dilated gas and fluid-filled loops of small bowel seen throughout the abdomen. The distal ileal loops are slightly decompressed. A clear transition point is not identified at this time. Therefore, this could represent an ileus or developing partial small bowel obstruction. IMPRESSION: 1. There is a large heterogeneous/necrotic mass again noted within the rectum which has slightly increased in size. This measures approximately 6.7 x 6.1 cm. An underlying contained perforation/developing abscess within this rectal mass is considered less likely but not entirely excluded. 2. Interval progression of the necrotic metastatic lymphadenopathy within the central mesentery. 3. There are mildly dilated gas and fluid-filled loops of small bowel seen throughout the abdomen. The distal ileal loops are slightly decompressed. A clear transition point is not identified at this time. Therefore, this could represent an ileus or developing partial small bowel obstruction. 4. Mild fullness within the bilateral renal collecting system without aiden hydronephrosis. This has improved. 5. Mild thickening versus underdistention within the residual sigmoid colon with adjacent fat stranding. A superimposed colitis is not excluded. Posttreatment changes could also have a similar appearance. 6. Stable subcentimeter hypodense lesions within the liver. These are too small to characterize. Attention at follow-up recommended. 7. Additional findings as described above. ACT 112: Negative or not required by law. Electronically signed by: Luis Briseno M.D. 10/19/2023 9:05 AM KUB X-Ray 10/18/23 19:52 KUB CLINICAL HISTORY: Infection. Colostomy. FINDINGS: An AP, portable, supine abdominal radiograph is correlated with abdominal CT dated 10/06/2023. Suture material projects over the left midabdomen and the pelvis. There are also surgical clips in the pelvis. There is gaseous distention of the small bowel loops which measure up to 2.7 cm. No evidence of intraperitoneal free air is seen on this supine image. There are no abnormal abdominal calcifications. Phleboliths are observed in the pelvis. The skeletal structures are osteopenic and appear intact. There is mild lumbosacral spondylosis. IMPRESSION: There is gaseous distention of the small bowel loops, suspicious for developing small bowel obstruction. Clinical correlation will be required. Electronically signed by: Royal Gutierrez M.D. 10/19/2023 8:33 AM
[2023-10-19] MEDS ORDERED: SODIUM CHLORIDE 0.9% 500 ML IV SCH (11:30)
[2023-10-19 11:55] LABS: A calco-baum cmplx NotReported Not Detected (NotDetected); Bact fragilis Not Reported Not Detected (NotDetected); Blood Culture Id Panel See PCR Comment (NotDetected); C auris Not Reported Not Detected (NotDetected); Calbicans Not Reported Not Detected (NotDetected); Candida glabrata Not Reported Not Detected (NotDetected); Candida krusei Not Reported Not Detected (NotDetected); Cneoformans/gatti Not Reported Not Detected (NotDetected); Cparapsilosis Not Reported Not Detected (NotDetected); E cloacae compx Not Reported Not Detected (NotDetected); Efaecalis Not Reported Not Detected (NotDetected); Efaecium Not Reported Not Detected (NotDetected); Enterobacterales Not Reported Not Detected (NotDetected); Escherichia coli Not Reported Not Detected (NotDetected); H influenzae Not Reported Not Detected (NotDetected); K aerogenes Not Reported Not Detected (NotDetected); Koxytoca Not Reported Not Detected (NotDetected); Kpneumoniae grp Not Reported Not Detected (NotDetected); Lmonocyt Not Reported Not Detected (NotDetected); N meningitidis Not Reported Not Detected (NotDetected); P aeruginosa Not Reported Not Detected (NotDetected); Proteus spp Not Reported Not Detected (NotDetected); Salmonella spp Not Reported Not Detected (NotDetected); Smarcescens Not Reported Not Detected (NotDetected); Staph lugdunensis Not Reported Not Detected (NotDetected); Staph spp. Not Reported DETECTED (NotDetected); Staphaureus Not Reported Not Detected (NotDetected); Staphepi Not Reported DETECTED (NotDetected); Stenmaltophilia Not Reported Not Detected (NotDetected); Strep agal(GrpB) Not Reported Not Detected (NotDetected); Strep pneum Not Reported Not Detected (NotDetected); Strep pyog (GrpA) Not Reported Not Detected (NotDetected); Strep spp Not Reported Not Detected (NotDetected); mecAC Resistant Gene Not Detected (NotDetected)
[2023-10-19 11:59] LABS: Staphylococcus epidermidis DETECTED (NotDetected); Staphylococcus spp. DETECTED (NotDetected)
[2023-10-19] MEDS: ALPRAZolam 0.5 MG TABLET PO PRN ×2 (12:57→22:22)
--- NOTE | 2023-10-19 14:20 | Urology Consultation ---
Date of Consultation October 19, 2023 Assessment & Plan (1) Acute urinary retention: 63yo F with hx of locally advanced rectal cancer admitted for abdominal pain and urinary retention. Urology consulted for indwelling Mcwilliams catheter, urinary retention Labs reviewedcreatinine 0.49, no leukocytosis UA showed 1+ ketones, trace leukocyte esterase, otherwise negative No urine culture pending, previous UC 10/07 showed three types of organisms present, all high counts probable skin della Blood cultures showing gram positive cocci clusterscontinue broad-spectrum antibiotics, follow culture CT reviewedmild fullness within the bilateral renal collecting system, improved from prior study; known rectal mass and possible ileus vs small partial SBO Mcwilliams patent and draining appropriately with clear yellow urine Patient tolerating Mcwilliams catheter Urinary retention likely multifactorial including recent surgery, constipation, rectal mass Recommend maintain Mcwilliams catheter for management of acute urinary retention Recommend bowel regimen to normalize bowels Defer management of ileus/partial SBO to general surgery Follows with colorectal surgery at [facility] Continue supportive care, antibiotics, and medical management per hospital medicine Keep outpatient follow-up with our service as scheduled on 10/27 will follow peripherally, contact our service with any additional questions or concerns History of Present Illness Reason for Consultation: Indwelling Mcwilliams catheter, retention Attending Physician: Niranjan Hauser MD History of Present Illness This is a 63-year-old female with hx of locally advanced rectal cancer status post sigmoidectomy, neoadjuvant therapy with XRT and chemo, colostomy, reversal of colostomy and subsequently underwent a laparoscopic diverting loop transverse colostomy on 10/12/2023 who presented to the emergency department on 10/18/2023 with complaint of abdominal pain and decreased urinary output. Urology consulted for indwelling Mcwilliams catheter, retention. She was recently discharged from [facility] on 10/17/2023 with Mcwilliams catheter due to failed voiding trial prior to discharge. She was initially seen at [facility] ED on 10/06/2023 for acute urinary retention. Bladder scan showed 1500 mL. Mcwilliams catheter was placed. CT 10/06 was notable for bilateral renal pelvis fullness. Patient requested Mcwilliams catheter removal prior to discharge from ED. She returned to [facility] ED on 10/07/23 with inability to void and suprapubic discomfort. She was discharged from ED with Mcwilliams catheter. Chart review: Today's labscreatinine 0.49, WBC 7.24, hemoglobin 8.8 Urinalysis showed 1+ ketones, trace leukocyte esterase, otherwise negative Blood cultures showing gram positive cocci clusters Currently on [facility] CTAP 10/18/2023 showed mild fullness within the bilateral renal collecting system, improved from prior study on 10/06 Patient seen and examined in the emergency department. Family at bedside. Mcwilliams catheter exchanged in the ED. Patient feeling better since exchange. No abdominal or suprapubic pain at present. Mcwilliams patent and draining clear yellow urine. No dysuria or hematuria. Denies nausea, vomiting, fever or chills. Reports colostomy has been producing regular output, but notes it is thick. She had some issues with colostomy leaking onto her skin when she was at [facility]. Allergies Allergy/AdvReac Type Severity Reaction Status Date / Time Iodinated Contrast Media Allergy Intermediate SKIN Verified 10/18/23 16:41 REACTION WITH PEALING latex Allergy Mild Rash Verified 10/18/23 16:41 zolpidem AdvReac Severe "FELT Verified 10/18/23 16:41 CRAZY" hydrocodone AdvReac Mild Itching Verified 10/18/23 16:41 HEAD Home Medications Medication Instructions Recorded Confirmed Type alprazolam 0.5 mg tablet 0.25 - 0.5 mg PO HS PRN Sleep 10/06/23 10/18/23 History cyclobenzaprine 5 mg tablet 5 mg PO TID PRN Muscle Spasm 10/06/23 10/18/23 History oxycodone 5 mg tablet 5 mg PO TID PRN pain #14 tabs 10/06/23 10/18/23 Rx acetaminophen 500 mg tablet 1,000 mg PO BID PRN Pain 10/18/23 10/18/23 History apixaban 2.5 mg tablet (Eliquis) 2.5 mg PO BID 10/18/23 10/18/23 History gabapentin 300 mg capsule 300 mg PO TID 10/18/23 10/18/23 History Patient History Medical History Rectal tumor Colostomy in place Rectal carcinoma (04/11/22) RADIATION AND CHEMO, had a sigmoidectomy 07/30/2022 with colostomy r/t bowel obstruction>FINISHED CHEMO 12/17/22 Cardiomyopathy RECENT ECHO DONE AT [facility] History of TMJ disorder Depression History of migraine LBBB (left bundle branch block) Low left ventricular ejection fraction RECENT ECHO AT [facility] (CURRENTLY FOLLOWS WITH DR. HOFF) Hiatal hernia GERD (gastroesophageal reflux disease) History of alcohol abuse "significantly cut back" - currently drinks wine a few days a week. Nonischemic cardiomyopathy Anxiety Surgical History History of cardiac cath 2017>NO STENTS Port-A-Cath in place (08/25/22) Insertion Access Port into left Cephalic vein with Fluoroscopy(Left) - Melecio Rocha MD, FACS S/P trigger finger release bilateral S/P laparoscopic-assisted sigmoidectomy (07/30/22) Diagnostic laparoscopy, laparoscopic diverting loop sigmoid colostomy 07/30/[address] [facility] [address] Criss Lakhani Hx of colonoscopy History of X 1 History of tonsillectomy History of bladder surgery as a child History of esophagogastroduodenoscopy (EGD) Family History Father Cancer lung cancer Brother Cancer lung cancer Mother Stroke Grandfather (Maternal) Diabetes Family/Other Colorectal cancer Other No family history of adverse response to anesthesia Social History Smoking Status: Never smoker Tobacco Type: Cigarettes Second Hand Exposure: Yes ( A CHILD); Do You Dip or Chew Tobacco: No; Hx Alcohol Use: No Hx Substance Use: No Preferred Language: [place]an Communication Ability: Effective Visual Impairment: No Limitations Hearing Ability: Normal Production Leader Required: No Beliefs That Will Affect Care: None marital status: Current Living Situation: Spouse current occupational status: employed current occupation: @ [employer] How many Children do You have: 1 Other Information That Helps Us Care for You: No Feels Safe at Home: Yes Safety Concerns: Feels Safe At This Time Diet: regular caffeine: Yes during the past year weight has: decreased > 10 lbs Dental Care, Regularly: Yes Assistive Devices: Walker Review of Systems Review of Systems: All systems reviewed & are unremarkable except as noted in HPI & below Physical Exam Constitutional: + thin; no acute distress Eyes: no scleral abnormality Neck: normal visual inspection Respiratory: normal respiratory effort; no respiratory distress and no labored breathing Gastrointestinal (Abdomen): Inspection/Auscultation: abdomen normal to inspection; abdomen not distended Percussion/Palpation: abdomen soft; abdomen nontender Musculoskeletal: Head/Neck/Chest: normocephalic Neurologic: moves all extremities and awake Psychiatric: Orientation: alert and oriented x 3 Genitourinary: Mcwilliams patent and draining clear yellow urine Results & Data Vital Signs (Past 12 Hours) Vital Signs Temp Pulse Pulse Pulse Resp BP Pulse Ox 10/19/23 13:05 79 97 H 18 103/56 L 97 10/19/23 11:13 87 16 88/54 L 95 10/19/23 08:19 80 14 132/67 99 10/19/23 07:51 59 L 10/19/23 04:10 71 10/19/23 04:03 37.0 C 78 16 125/62 97 O2 Del Method 10/19/23 13:05 Room Air 10/19/23 11:13 Room Air 10/19/23 08:19 Room Air 10/19/23 07:51 10/19/23 04:10 10/19/23 04:03 Room Air Diagnostic Findings ABDOMEN AND PELVIS CT WITH IV CONTRAST CT DOSE: 301.8 mGy.cm HISTORY: Generalized abdominal pain, recent colostomy creation, r/o infection TECHNIQUE: Multiaxial CT images of the abdomen and pelvis were performed following the use of intravenous contrast. A dose lowering technique was utilized adhering to the principles of ALARA. COMPARISON STUDY: Abdomen and pelvis CT 10/06/2023. FINDINGS: The lung bases are clear. No pneumoperitoneum. No pneumatosis. No acute fractures identified. No suspicious lytic or blastic osseous lesions. Mild body wall edema is noted. There are few scattered hypodense lesions again noted within the liver which remain unchanged. These are technically too small to hortencia acterize. Linear hypodense focus within the anterior segment right hepatic lobe is also unchanged. This is best seen on images 86 through 105. The liver, adrenal glands, pancreas, and kidneys are unremarkable. There is mild fullness within the bilateral renal collecting systems without aiden hydronephrosis. This has improved. The main portal vein is patent. Normal caliber abdominal aorta. The bladder is completely decompressed by a Mcwilliams catheter which appears in good position. There is gas within the bladder lumen likely due to the catheterization. Trace pelvic free fluid is noted. There is suture material within the rectum. There is a large heterogeneous/necrotic mass again noted within the rectum which has slightly increased in size. This measures approximately 6.7 x 6.1 cm. This abuts and displaces the uterus anteriorly. An underlying contained perforation/developing abscess within this rectal mass is considered less likely but not entirely excluded. 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 Normal appendix. There are few mildly dilated gas and fluid-filled loops of small bowel within the abdomen. Necrotic lymphadenopathy within the lower central mesentery has progressed. A dominant necrotic lymph node on image 185 measures 3 cm. Mild thickening versus underdistention within the residual sigmoid colon with adjacent fat stranding. A superimposed colitis is not excluded. Posttreatment changes could also have a similar appearance. There are mildly dilated gas and fluid-filled loops of small bowel seen throughout the abdomen. The distal ileal loops are slightly decompressed. A clear transition point is not identified at this time. Therefore, this could represent an ileus or developing partial small bowel obstruction. IMPRESSION: 1. There is a large heterogeneous/necrotic mass again noted within the rectum which has slightly increased in size. This measures approximately 6.7 x 6.1 cm. An underlying contained perforation/developing abscess within this rectal mass is considered less likely but not entirely excluded. 2. Interval progression of the necrotic metastatic lymphadenopathy within the central mesentery. 3. There are mildly dilated gas and fluid-filled loops of small bowel seen throughout the abdomen. The distal ileal loops are slightly decompressed. A clear transition point is not identified at this time. Therefore, this could represent an ileus or developing partial small bowel obstruction. 4. Mild fullness within the bilateral renal collecting system without aiden hydronephrosis. This has improved. 5. Mild thickening versus underdistention within the residual sigmoid colon with adjacent fat stranding. A superimposed colitis is not excluded. Posttreatment changes could also have a similar appearance. 6. Stable subcentimeter hypodense lesions within the liver. These are too small to characterize. Attention at follow-up recommended. 7. Additional findings as described above. PG Care Time/CCT Total # of Minutes Spent Total Time Spent with Patient: Total time spent is greater than 50% in coordination of care (as documented) at patient's floor/unit and/or counseling patient: Coding Level of Care Code 39605 IN/OBS CONSULT LVL 4,60M Diagnoses Acute urinary retention R33.8
--- NOTE | 2023-10-19 14:51 | Surgery Progress Note ---
Date of Service October 19, 2023 Assessment & Plan (1) Acute postoperative abdominal pain: Plan Assessment: Patient is a 63 years old female presented to ED with 4 to 5-week history lower pelvic area pain. Patient had the robotic assisted anterior resection 8 months ago. Patient had recently laparoscopy transverse colostomy last week at [facility]. There was a discharged home yesterday from [facility]. Plan: Based on review of patient history physical exam, the labs, no emergency surgical indication. Conservative treatment. control pain. Consult pain management. Consult urology for urinary retention. Patient will get a CT scan in the morning. We will follow. Patient agree with the plan. I Answered all questions. 10/18/2023 2:52 PM pt is doing better, less abdominal pain, tolerated diet, [place] colorectal surgeon recommend pt stay this hospital for conservative treatment. pt and her do not want any more surgery, will F/U, court collections officer surgeon will cover her tomorrow, Thanks. Admission and Anticipated Discharge Date Admission Date: October 18, 2023 Subjective pt feels better, today, now she site her bed for have lunch, pt denies nausea, no vomiting, no fever. I reviewed Hospitalist DR. Hauser note, Physical Exam Constitutional: WD/WN, vitals as above Eyes: PERRL, conjunctivae normal, anicteric sclerae Neck: trachea midline, no thyromegaly Respiratory: normal respiratory effort, lungs clear to auscultation Cardiovascular: RRR, no murmur, no edema Gastrointestinal (Abdomen): soft, no tenderness or distend at abdomen. Musculoskeletal: no cyanosis or clubbing, extremities motor strength 5/5 Neurologic: patellar DTR's 2+ bilat, sensation intact Psychiatric: A+Ox3, euthymic affect Results & Data Vital Signs (Past 12 Hours) Vital Signs Temp Pulse Pulse Pulse Resp BP Pulse Ox 10/19/23 13:05 79 97 H 18 103/56 L 97 10/19/23 11:13 87 16 88/54 L 95 10/19/23 08:19 80 14 132/67 99 10/19/23 07:51 59 L 10/19/23 04:10 71 10/19/23 04:03 37.0 C 78 16 125/62 97 O2 Del Method 10/19/23 13:05 Room Air 10/19/23 11:13 Room Air 10/19/23 08:19 Room Air 10/19/23 07:51 10/19/23 04:10 10/19/23 04:03 Room Air Laboratory Results Lab Results 10/18/23 10/18/23 10/19/23 Range/Units 15:23 Unknown 07:19 WBC 10.09 7.24 (4.8-10.8) K/ul RBC 3.31 L 2.92 L (4.20-5.40) M/uL Hgb 10.0 L 8.8 L (12.0-16.0) g/dl Hct 29.8 L 26.0 L (37.0-47.0) % MCV 90.0 89.0 (80.0-100.0) fL MCH 30.2 30.1 (25.0-34.0) pg MCHC 33.6 33.8 (32.0-36.0) g/dL RDW Std Deviation 39.7 40.0 (36.4-46.3) fL RDW Coeff of Luz 12.0 12.3 (11.5-14.5) % Plt Count 277 278 (130-400) K/uL MPV 8.9 L 8.9 L (9.4-12.4) fL Immature Gran % (Auto) 0.6 % Neut % (Auto) 85.2 % Lymph % (Auto) 3.7 % [place] % (Auto) 9.5 % Eos % (Auto) 0.9 % Baso % (Auto) 0.1 % Neut # (Auto) 8.60 H (1.40-6.50) K/uL Lymph # (Auto) 0.37 L (1.20-3.40) K/uL [place] # (Auto) 0.96 H (0.11-0.59) K/uL Eos # (Auto) 0.09 (0.00-0.50) K/uL Baso # (Auto) 0.01 (0.00-0.20) K/uL Immature Gran # (Auto) 0.06 (0.01-0.20) K/uL PT 11.4 (9.0-12.0) Seconds INR 1.0 (0.9-1.1) APTT 31.5 H (21.0-31.0) Seconds PTT Ratio 1.1 Sodium 132 L 136 (136-145) mmol/L Potassium 3.9 4.1 (3.5-5.1) mmol/L Chloride 97 L 103 (98-107) mmol/L Carbon Dioxide 25 28 (21-32) mmol/L Anion Gap 10 5 (3-11) BUN 12 9 (6-23) mg/dl Creatinine 0.54 L 0.49 L (0.6-1.2) mg/dl Est Cr Clr Drug Dosing Not Reportable 90.7 Est GFR ( Amer) 114.8 118.5 ml/min Est GFR (Non-Af Amer) 99.0 102.2 ml/min BUN/Creatinine Ratio 22.2 H 18.4 (10-20) Glucose 126 H 128 H (70-99(Fasting)) mg/dl Lactate 1.0 (0.4-2.0) mmol/L Calcium 9.0 8.7 (8.6-10.3) mg/dl Phosphorus 3.3 (2.5-4.9) mg/dl Magnesium 1.9 2.1 (1.7-2.4) mg/dl Total Bilirubin 0.5 0.5 (0.2-1.0) mg/dl AST 11 L 10 L (13-39) U/L ALT 13 11 (7-52) U/L Alkaline Phosphatase 94 75 (34-104) U/L Troponin I High Sens 9.3 (0-14) pg/ml Total Protein 6.4 5.6 L (6.0-8.3) gm/dl Albumin 3.4 3.0 L (3.4-5.0) gm/dl Globulin 3.0 2.6 (2.5-4.0) gm/dl Albumin/Globulin Ratio 1.1 1.2 (0.9-2) Procalcitonin < 0.05 (0-0.5) ng/ml Urine Color Yellow Urine Appearance Clear (Clear) Urine pH 6.5 (4.5-7.5) Ur Specific [place] 1.003 (1.000-1.030) Urine Protein Negative (Negative) Urine Glucose (UA) Negative (Negative) Urine Ketones 1+ H (Negative) Urine Blood Negative (Negative) Urine Nitrite Negative (Negative) Urine Bilirubin Negative (Negative) Urine Urobilinogen Negative (Negative) Ur Leukocyte Esterase Trace H (Negative) Urine WBC (Auto) 1-5 (0-5) /hpf Urine RBC (Auto) 0-4 (0-4) /hpf U Hyaline Cast (Auto) 0 (0-5) /lpf U Epithel Cells (Auto) 0-5 (0-5) /lpf Urine Bacteria (Auto) Negative (Negative) Staphylococcus sp PCR DETECTED A (NotDetected) mecA/C-Methicil Resis Gene Not Detected (NotDetected) Staph epidermidis (PCR) DETECTED A (NotDetected) Bld Cult ID Panel PCR See PCR Comment (NotDetected) Diagnostic Findings ABDOMEN AND PELVIS CT WITH IV CONTRAST CT DOSE: 301.8 mGy.cm HISTORY: Generalized abdominal pain, recent colostomy creation, r/o infection TECHNIQUE: Multiaxial CT images of the abdomen and pelvis were performed following the use of intravenous contrast. A dose lowering technique was utilized adhering to the principles of ALARA. COMPARISON STUDY: Abdomen and pelvis CT 10/06/2023. FINDINGS: The lung bases are clear. No pneumoperitoneum. No pneumatosis. No acute fractures identified. No suspicious lytic or blastic osseous lesions. Mild body wall edema is noted. There are few scattered hypodense lesions again noted within the liver which remain unchanged. These are technically too small to characterize. Linear hypodense focus within the anterior segment right hepatic lobe is also unchanged. This is best seen on images 86 through 105. The liver, adrenal glands, pancreas, and kidneys are unremarkable. There is mild fullness within the bilateral renal collecting systems without aiden hydronephrosis. This has improved. The main portal vein is patent. Normal caliber abdominal aorta. The bladder is completely decompressed by a Mcwilliams catheter which appears in good position. There is gas within the bladder lumen likely due to the catheterization. Trace pelvic free fluid is noted. There is suture material within the rectum. There is a large heterogeneous/necrotic mass again noted within the rectum which has slightly increased in size. This measures approximately 6.7 x 6.1 cm. This abuts and displaces the uterus anteriorly. An underlying contained perforation/developing abscess within this rectal mass is considered less likely but not entirely excluded. 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 Normal appendix. There are few mildly dilated gas and fluid-filled loops of small bowel within the abdomen. Necrotic lymphadenopathy within the lower central mesentery has progressed. A dominant necrotic lymph node on image 185 measures 3 cm. Mild thickening versus underdistention within the residual sigmoid colon with adjacent fat stranding. A superimposed colitis is not excluded. Posttreatment changes could also have a similar appearance. There are mildly dilated gas and fluid-filled loops of small bowel seen throughout the abdomen. The distal ileal loops are slightly decompressed. A clear transition point is not identified at this time. Ther efore, this could represent an ileus or developing partial small bowel obstruction. IMPRESSION: 1. There is a large heterogeneous/necrotic mass again noted within the rectum which has slightly increased in size. This measures approximately 6.7 x 6.1 cm. An underlying contained perforation/developing abscess within this rectal mass is considered less likely but not entirely excluded. 2. Interval progression of the necrotic metastatic lymphadenopathy within the central mesentery. 3. There are mildly dilated gas and fluid-filled loops of small bowel seen throughout the abdomen. The distal ileal loops are slightly decompressed. A clear transition point is not identified at this time. Therefore, this could represent an ileus or developing partial small bowel obstruction. 4. Mild fullness within the bilateral renal collecting system without aiden hydronephrosis. This has improved. 5. Mild thickening versus underdistention within the residual sigmoid colon with adjacent fat stranding. A superimposed colitis is not excluded. Posttreatment changes could also have a similar appearance. 6. Stable subcentimeter hypodense lesions within the liver. These are too small to characterize. Attention at follow-up recommended. 7. Additional findings as described above. ACT 112: Negative or not required by law.
[2023-10-20] MEDS: CYCLOBENZAPRINE HCL 5 MG TAB PO PRN ×2 (00:37→20:25)
[2023-10-20] MEDS: HYDROmorphone INJ 0.5 MG/0.5 ML SYR IV PRN ×5 (00:37→22:18)
[2023-10-20] MEDS: PIPERACILLIN/TAZOBACTAM 4.5 GM in DEXTROSE 5% MINI-B 100 ML IV SCH ×3 (02:19→17:36)
[2023-10-20] MEDS: ACETAMINOPHEN 325 MG TAB PO PRN (06:28)
[2023-10-20 06:42] LABS: Hematocrit (blood only) 24.7 % (37.0-47.0); Hemoglobin 8.2 g/dl (12.0-16.0); Immature Granulocytes # (auto) 0.04 K/uL (0.01-0.20); Immature Granulocytes % (auto) 0.5 %; Lymphocytes # (auto) 0.31 K/uL (1.20-3.40); Lymphocytes % (auto) 4.1 %; Mean Corpuscular Hgb Conc 33.2 g/dL (32.0-36.0); Mean Corpuscular Volume 90.5 fL (80.0-100.0); Mean Platelet Volume 9.2 fL (9.4-12.4); Monocytes % (auto) 10.5 %; Neutrophils # (auto) 6.49 K/uL (1.40-6.50); Neutrophils % (auto) 84.9 %; Platelet Count 291 K/uL (130-400); RDW Coefficient of Variation 12.3 % (11.5-14.5); RDW Standard Deviation 40.3 fL (36.4-46.3); Red Blood Count 2.73 M/uL (4.20-5.40); White Blood Count 7.64 K/ul (4.8-10.8)
[2023-10-20 07:30] LABS: Calcium 8.5 mg/dl (8.6-10.3); Magnesium 2.1 mg/dl (1.7-2.4); Potassium 3.5 mmol/L (3.5-5.1)
[2023-10-20 07:36] LABS: BUN Creatinine Ratio 23.7 (10-20); Creatinine Clr Calc Pharmacy 75.3 ml/min; Est GFR (African American) 111.5 ml/min; Est GFR (Non-African American) 96.2 ml/min
[2023-10-20] MEDS ORDERED: LORazepam 0.5 MG TAB PO STA (07:51)
[2023-10-20] MEDS: SODIUM CHLORIDE 0.9% 1,000 ML IV SCH (08:19)
[2023-10-20] MEDS: GABAPENTIN 300 MG CAP PO SCH ×2 (08:20→20:02)
[2023-10-20] MEDS: APIXABAN 2.5 MG TAB PO SCH ×2 (08:20→20:02)
--- NOTE | 2023-10-20 11:33 | Surgery Progress Note ---
Date of Service October 20, 2023 Assessment & Plan (1) Acute postoperative abdominal pain: (2) Acute urinary retention: (3) Rectal mass: Plan avss no leukocytosis ostomy functioning, tolerating diet Plan: Continue medical management case management and PT/OT for discharge planning consider consulting Dr. Polk for further management options given recent ct scan findings Patient questioning about palliative measures but not sure if she is ready to make those decisions yet continue Mcwilliams catheter per urology okay from surgical standpoint for discharge if pain controlled, tolerating diet, and pt/ot has seen patient Discussed with Dr. Hughes who agrees with above. Admission and Anticipated Discharge Date Admission Date: October 18, 2023 Subjective ostomy functioning tolerated regular diet this am no n,v rectal discomfort last night Physical Exam Constitutional: WD/WN, vitals as above + thin, cooperative and comfortable; no acute distress and not ill appearing Respiratory: normal respiratory effort; no respiratory distress Gastrointestinal (Abdomen): Inspection/Auscultation: abdomen normal to inspection and + hypoactive bowel sounds; abdomen not distended and + abnormal bowel sounds Percussion/Palpation: abdomen soft; abdomen nontender, no guarding and abdomen not rigid LUQ ostomy with soft brown stool, ostomy pink with no necrosis Skin: no rashes, warm and dry Psychiatric: Orientation: alert and oriented x 3 Results & Data Vital Signs (Past 12 Hours) Vital Signs Temp Pulse Pulse Resp BP Pulse Ox O2 Del Method 10/20/23 07:42 36.4 C L 71 18 136/76 98 Room Air 10/20/23 07:27 72 10/20/23 03:50 36.6 C 74 18 123/70 97 Room Air 10/20/23 00:00 88 Laboratory Results 10/20/23 10/18/23 Range/Units 05:31 15:23 WBC 7.64 (4.8-10.8) K/ul RBC 2.73 L (4.20-5.40) M/uL Hgb 8.2 L (12.0-16.0) g/dl Hct 24.7 L (37.0-47.0) % MCV 90.5 (80.0-100.0) fL MCH 30.0 (25.0-34.0) pg MCHC 33.2 (32.0-36.0) g/dL RDW Std Deviation 40.3 (36.4-46.3) fL RDW Coeff of Luz 12.3 (11.5-14.5) % Plt Count 291 (130-400) K/uL MPV 9.2 L (9.4-12.4) fL Immature Gran % (Auto) 0.5 % Neut % (Auto) 84.9 % Lymph % (Auto) 4.1 % [place] % (Auto) 10.5 % Eos % (Auto) 0.0 % Baso % (Auto) 0.0 % Neut # (Auto) 6.49 (1.40-6.50) K/uL Lymph # (Auto) 0.31 L (1.20-3.40) K/uL [place] # (Auto) 0.80 H (0.11-0.59) K/uL Eos # (Auto) 0.00 (0.00-0.50) K/uL Baso # (Auto) 0.00 (0.00-0.20) K/uL Immature Gran # (Auto) 0.04 (0.01-0.20) K/uL Sodium 140 (136-145) mmol/L Potassium 3.5 (3.5-5.1) mmol/L Chloride 109 H (98-107) mmol/L Carbon Dioxide 27 (21-32) mmol/L Anion Gap 4 (3-11) BUN 14 (6-23) mg/dl Creatinine 0.59 L (0.6-1.2) mg/dl Est Cr Clr Drug Dosing 75.3 ml/min Est GFR ( Amer) 111.5 ml/min Est GFR (Non-Af Amer) 96.2 ml/min BUN/Creatinine Ratio 23.7 H (10-20) Glucose 129 H (70-99(Fasting)) mg/dl Calcium 8.5 L (8.6-10.3) mg/dl Magnesium 2.1 (1.7-2.4) mg/dl Staphylococcus sp PCR DETECTED A (NotDetected) mecA/C-Methicil Resis Gene Not Detected (NotDetected) Staph epidermidis (PCR) DETECTED A (NotDetected) Bld Cult ID Panel PCR See PCR Comment (NotDetected)
[2023-10-20] MEDS: LORazepam 0.5 MG TAB PO PRN (16:50)
--- NOTE | 2023-10-20 19:19 | Hospitalist Progress Note ---
Date of Service October 20, 2023 Assessment & Plan (1) Acute postoperative abdominal pain: Plan: 1) Acute postoperative abdominal pain: Plan: 1) Rectal carcinoma: per H and P:This is a 63-year-old female with locally advanced rectal cancer diagnosed July 2022, status post sigmoidectomy 07/30/2022, total neoadjuvant therapy (XRT and chemo, finished chemo December 17, 2022), which was briefly interrupted due to large bowel obstruction requiring a diverting loop colostomy, who then subsequently underwent a robotic assisted low anterior resection with diverting loop transverse colostomy in January 2023, followed by reversal of the colostomy on 09/03/2023, who then recently underwent a laparoscopic diverting loop transverse colostomy again on 10/12/2023 due to worsening pelvic pain and bright red blood per rectum. Pt was discharged from [facility] yesterday on 10/17. Presents with overall generalized pain, worsening in the right upper leg, urinary retention s/p arevalo catheter exchange Lower abdominal pain, pelvic pain and rectal pain have been chronic Follows with Dr. Polk at Cancer [facility], and with Dr. Lakhani with colorectal surgery Ct abd/pelvis with contrast after prep with prednisone showing increased rectal mass to 6.6cm from 5.7cm on Oct 06. An underlying contained perforation/developing abscess within this rectal mass is considered less likely but not entirely excluded. Possible developing partial SBO.Superimposed colitis not excluded. Surgery wanted to transfer to [place]. Patient was upset and not keen on transfer. Discussed with colorectal surgery Dr. Lakhani at [facility] on 10/19. Patient is tolerating diet ok. As she not acting as obstruction said she may not offer much different at [facility] at this time and was ok to keep patient here and treat with antibiotics especially since patient doesn't wanted transfer. If she develops any nausea/vomiting or for any other questions can call back [place]. Patients son and in room and agreeable for the plan. 10/20 tolerating diet ok and moving bowels Having significant pain will consult pain management Consulted heme/onco for further recommendations.Await inputs Possible colitis/abscess? one of the blood cultures positive for coag negative stap on zosyn will follow final cx. Hypotension gave gentle fluids because of systolic chf improved with fluids. currently stopped fluids. Acute urinary retention: - UA obtained, culture pending s/p arevalo. Urology consulted and appreciate inputs to continue arevalo and to keep urology appointment on 10/27 . Chronic Systolic CHF: Nonischemic cardiomyopathy with an EF of 25 to 29% from echocardiogram from 07/23/2023 reviewed on outpatient epic results Seems Declined BiVICD previously, at her most recent stay at [facility] approximately 1 week ago was offered second opinion by [facility] EP regarding this however patient declined at that time LBBB is chronic, EKG reviewed Seems had history of symptomatic hypotension on outpatient records Close monitor. will d/c fluids DVT ppx: teds, scds, eliquis 2.5 mg po bid. Admission and Anticipated Discharge Date Admission Date: October 18, 2023 Subjective was anxious earlier on and off having severe abdominal pain eating ok moved bowels no fevers no nausea Review of Systems Review of Systems: All systems reviewed & are unremarkable except as noted in HPI & below Physical Exam Physical Exam: General- Not in distress. Head- atraumatic ENT- oropharynx clear Neck- supple, no JVD. Lungs- clear to auscultation no wheezing or crackles. Heart- regular rhythm; no murmur, no gallop. Abdomen- sluggish bowel sounds, soft, tenderness in lower abdomen. s/p ostomy. N o distension. Extremities- no pretibial edema, no erythema seen Neuro- alert, oriented no facial palsy; no dysarthria; moves extremities. Skin- warm & dry Results & Data Results & Data Vital Signs (Past 12 Hours) Vital Signs Temp Pulse Pulse Resp BP Pulse Ox O2 Del Method 10/20/23 15:43 36.6 C 71 18 146/80 H 99 Room Air 10/20/23 11:58 36.7 C 70 18 144/73 H 99 Room Air 10/20/23 07:42 36.4 C L 71 18 136/76 98 Room Air 10/20/23 07:27 72 Diagnostic Findings Laboratory Results WBC 7.64 K/ul (4.8-10.8) 10/20/23 05:31 RBC 2.73 M/uL (4.20-5.40) L 10/20/23 05:31 Hgb 8.2 g/dl (12.0-16.0) L 10/20/23 05:31 Hct 24.7 % (37.0-47.0) L 10/20/23 05:31 MCV 90.5 fL (80.0-100.0) 10/20/23 05:31 MCH 30.0 pg (25.0-34.0) 10/20/23 05:31 MCHC 33.2 g/dL (32.0-36.0) 10/20/23 05:31 RDW Std Deviation 40.3 fL (36.4-46.3) 10/20/23 05:31 RDW Coeff of Luz 12.3 % (11.5-14.5) 10/20/23 05:31 Plt Count 291 K/uL (130-400) 10/20/23 05:31 MPV 9.2 fL (9.4-12.4) L 10/20/23 05:31 Immature Gran % (Auto) 0.5 % 10/20/23 05:31 Neut % (Auto) 84.9 % 10/20/23 05:31 Lymph % (Auto) 4.1 % 10/20/23 05:31 Garden % (Auto) 10.5 % 10/20/23 05:31 Eos % (Auto) 0.0 % 10/20/23 05:31 Baso % (Auto) 0.0 % 10/20/23 05:31 Neut # (Auto) 6.49 K/uL (1.40-6.50) 10/20/23 05:31 Lymph # (Auto) 0.31 K/uL (1.20-3.40) L 10/20/23 05:31 Garden # (Auto) 0.80 K/uL (0.11-0.59) H 10/20/23 05:31 Eos # (Auto) 0.00 K/uL (0.00-0.50) 10/20/23 05:31 Baso # (Auto) 0.00 K/uL (0.00-0.20) 10/20/23 05:31 Immature Gran # (Auto) 0.04 K/uL (0.01-0.20) 10/20/23 05:31 PT 11.4 Seconds (9.0-12.0) 10/18/23 15:23 INR 1.0 (0.9-1.1) 10/18/23 15:23 APTT 31.5 Seconds (21.0-31.0) H 10/18/23 15:23 PTT Ratio 1.1 10/18/23 15:23 Sodium 140 mmol/L (136-145) 10/20/23 05:31 Potassium 3.5 mmol/L (3.5-5.1) 10/20/23 05:31 Chloride 109 mmol/L (98-107) H 10/20/23 05:31 Carbon Dioxide 27 mmol/L (21-32) 10/20/23 05:31 Anion Gap 4 (3-11) 10/20/23 05:31 BUN 14 mg/dl (6-23) 10/20/23 05:31 Creatinine 0.59 mg/dl (0.6-1.2) L 10/20/23 05:31 Est Cr Clr Drug Dosing 75.3 ml/min 10/20/23 05:31 Est GFR ( Amer) 111.5 ml/min 10/20/23 05:31 Est GFR (Non-Af Amer) 96.2 ml/min 10/20/23 05:31 BUN/Creatinine Ratio 23.7 (10-20) H 10/20/23 05:31 Glucose 129 mg/dl (70-99(Fasting)) H 10/20/23 05:31 Lactate 1.0 mmol/L (0.4-2.0) 10/18/23 15:23 Calcium 8.5 mg/dl (8.6-10.3) L 10/20/23 05:31 Phosphorus 3.3 mg/dl (2.5-4.9) 10/19/23 07:19 Magnesium 2.1 mg/dl (1.7-2.4) 10/20/23 05:31 Total Bilirubin 0.5 mg/dl (0.2-1.0) 10/19/23 07:19 AST 10 U/L (13-39) L 10/19/23 07:19 ALT 11 U/L (7-52) 10/19/23 07:19 Alkaline Phosphatase 75 U/L (34-104) 10/19/23 07:19 Troponin I High Sens 9.3 pg/ml (0-14) 10/18/23 15:23 Total Protein 5.6 gm/dl (6.0-8.3) L 10/19/23 07: Albumin 3.0 gm/dl (3.4-5.0) L 10/19/23 07:19 Globulin 2.6 gm/dl (2.5-4.0) 10/19/23 07: Albumin/Globulin Ratio 1.2 (0.9-2) 10/19/23 07: Procalcitonin < 0.05 ng/ml (0-0.5) 10/18/23 15: Urine Color Yellow 10/18/23 Unknown Urine Appearance Clear (Clear) 10/18/23 Unknown Urine pH 6.5 (4.5-7.5) 10/18/23 Unknown Ur Specific [place] 1.003 (1.000-1.030) 10/18/23 Unknown Urine Protein Negative (Negative) 10/18/23 Unknown Urine Glucose (UA) Negative (Negative) 10/18/23 Unknown Urine Ketones 1+ (Negative) H 10/18/23 Unknown Urine Blood Negative (Negative) 10/18/23 Unknown Urine Nitrite Negative (Negative) 10/18/23 Unknown Urine Bilirubin Negative (Negative) 10/18/23 Unknown Urine Urobilinogen Negative (Negative) 10/18/23 Unknown Ur Leukocyte Esterase Trace (Negative) H 10/18/23 Unknown Urine WBC (Auto) 1-5 /hpf (0-5) 10/18/23 Unknown Urine RBC (Auto) 0-4 /hpf (0-4) 10/18/23 Unknown U Hyaline Cast (Auto) 0 /lpf (0-5) 10/18/23 Unknown U Epithel Cells (Auto) 0-5 /lpf (0-5) 10/18/23 Unknown Urine Bacteria (Auto) Negative (Negative) 10/18/23 Unknown Staphylococcus sp PCR DETECTED (NotDetected) A 10/18/23: mecA/C-Methicil Resis Gene Not Detected (NotDetected) 10/18/23 15: Staph epidermidis (PCR) DETECTED (NotDetected) A 10/18/23 15: Bld Cult ID Panel PCR See PCR Comment (NotDetected) 10/18/23 15:23 Impressions Chest X-Ray 10/18/23 15:05 XR chest 1V not portable CLINICAL HISTORY: Sepsis. COMPARISON STUDY: Chest CT May 21, 2023. FINDINGS: Left subclavian [id number] is in place. Lung volumes are normal. Lungs are clear. There is no pneumothorax or pleural effusion. Cardiac size is normal. Mediastinal contours are normal. There is no evidence for pulmonary edema. IMPRESSION: No acute cardiopulmonary findings. ACT 112: Negative or not required by law. Electronically signed by: Philip Bower M.D. 10/18/2023 3:40 PM Abdomen/Pelvis CT 10/18/23 19:[address] WITH IV CONTRAST CT DOSE: 301.8 mGy.cm HISTORY: Generalized abdominal pain, recent colostomy creation, r/o infection TECHNIQUE: Multiaxial CT images of the abdomen and pelvis were performed following the use of intravenous contrast. A dose lowering technique was utilized adhering to the principles of ALARA. COMPARISON STUDY: Abdomen and pelvis CT 10/06/2023. FINDINGS: The lung bases are clear. No pneumoperitoneum. No pneumatosis. No acute fractures identified. No suspicious lytic or blastic osseous lesions. Mild body wall edema is noted. There are few scattered hypodense lesions again noted within the liver which remain unchanged. These are technically too small to characterize. Linear hypodense focus within the anterior segment right hepatic lobe is also unchanged. This is best seen on images 86 through 105. The liver, adrenal glands, pancreas, and kidneys are unremarkable. There is mild fullness within the bilateral renal collecting systems without aiden hydronephrosis. This has improved. The main portal vein is patent. Normal caliber abdominal aorta. The bladder is completely decompressed by a Arevalo catheter which appears in good position. There is gas within the bladder lumen likely due to the catheterization. Trace pelvic free fluid is noted. There is suture material within the rectum. There is a large heterogeneous/necrotic mass again noted within the rectum which has slightly increased in size. This measures approximately 6.7 x 6.1 cm. This abuts and displaces the uterus anteriorly. An underlying contained perforation/developing abscess within this rectal mass is considered less likely but not entirely excluded. 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 Normal appendix. There are few mildly dilated gas and fluid-filled loops of small bowel within the abdomen. Necrotic lymphadenopathy within the lower central mesentery has progressed. A dominant necrotic lymph node on image 185 measures 3 cm. Mild thickening versus underdistention within the residual sigmoid colon with adjacent fat stranding. A superimposed colitis is not excluded. Posttreatment changes could also have a similar appearance. There are mildly dilated gas and fluid-filled loops of small bowel seen throughout the abdomen. The distal ileal loops are slightly decompressed. A clear transition point is not identified at this time. Therefore, this could represent an ileus or developing partial small bowel obstruction. IMPRESSION: 1. There is a large heterogeneous/necrotic mass again noted within the rectum which has slightly increased in size. This measures approximately 6.7 x 6.1 cm. An underlying contained perforation/developing abscess within this rectal mass is considered less likely but not entirely excluded. 2. Interval progression of the necrotic metastatic lymphadenopathy within the central mesentery. 3. There are mildly dilated gas and fluid-filled loops of small bowel seen throughout the abdomen. The distal ileal loops are slightly decompressed. A clear transition point is not identified at this time. Therefore, this could represent an ileus or developing partial small bowel obstruction. 4. Mild fullness within the bilateral renal collecting system without aiden hydronephrosis. This has improved. 5. Mild thickening versus underdistention within the residual sigmoid colon with adjacent fat stranding. A superimposed colitis is not excluded. Posttreatment changes could also have a similar appearance. 6. Stable subcentimeter hypodense lesions within the liver. These are too small to characterize. Attention at follow-up recommended. 7. Additional findings as described above. ACT 112: Negative or not required by law. Electronically signed by: Luis Briseno M.D. 10/19/2023 9:05 AM KUB X-Ray 10/18/23 19:52 KUB CLINICAL HISTORY: Infection. Colostomy. FINDINGS: An AP, portable, supine abdominal radiograph is correlated with abdominal CT dated 10/06/2023. Suture material projects over the left midabdomen and the pelvis. There are also surgical clips in the pelvis. There is gaseous distention of the small bowel loops which measure up to 2.7 cm. No evidence of intraperitoneal free air is seen on this supine image. There are no abnormal abdominal calcifications. Phleboliths are observed in the pelvis. The skeletal structures are osteopenic and appear intact. There is mild lumbosacral spondylosis. IMPRESSION: There is gaseous distention of the small bowel loops, suspicious for developing small bowel obstruction. Clinical correlation will be required. Electronically signed by: Royal Gutierrez M.D. 10/19/2023 8:33 AM
[2023-10-20] MEDS: oxyCODONE HCL IR 5 MG TAB (IMMEDIATE RELEASE) PO PRN (20:01)
[2023-10-20] MEDS: ALPRAZolam 0.5 MG TABLET PO PRN (22:18)
--- NOTE | 2023-10-20 22:21 | Consultation ---
Date of Consultation October 20, 2023 Assessment & Plan (1) Acute urinary retention: Almost certainly represents a disruption of urological function related to the pelvic mass. Mcwilliams catheter will have to stay in indefinitely as we decide whether or not we plan to go beyond pure palliative care (2) Rectal carcinoma: The overall context unfortunately certainly raises a significant concern over rapidly relapsing rectal cancer. It is somewhat unusual to see cancers other than hematologic malignancies or small cell neuroendocrine cancers grow this quickly and differential should certainly include major infection or inflammatory mass though she lacks high fevers or significant leukocytosis and the necrotic adenopathy is certainly much more concerning for malignancy. It is not clear that there are even aggressive "heroic" options would offer much hope with regards to any major response. Given that adenopathy, if this is malignancy she would require a pelvic exenteration and extensive nathaniel resection or any attempt at definitive intervention and would still probably have a very high risk for occult disease elsewhere. It has been more than 6 months since her most recent chemotherapy and certainly there might be some potential to respond to resumption of cytotoxic's though with her history of cardiomyopathy and severe reaction, we would have to be extremely cautious with those and again could not offer a curative option without concomitant highly aggressive surgery. She was microsatellite stable at first presentation and thus is not likely dramatically benefit from immune checkpoint inhibitor therapy though we could reassess [id number] or, if there is pathologic material available, Caris like testing to be sure that there are not additional noncytotoxic options to consider. Patient spontaneously indicates that she is not sure she wants to go forward with any aggressive options and may opt for more pure palliative care approach. This expression comes from a very sober, calm, and concretely aware perspective rather than reflecting any suggestion of being excessively depressed or overwhelmed by the situation. She is very concerned to try to achieve good symptom management and does seem to be very concretely aware of the challenging prognosis she faces if this is malignancy. Even if just with an FNA, it would certainly be helpful to affirm that we are dealing with malignancy. I have reached out to the [place] team to see if there is any pending pathology that might help to further shed light and may also speak with our IR team as to whether either of the rectal mass itself or one of the necrotic lymph nodes might be reachable with an FNA. We note that she has CEAs that have been less than 1 within the last month though unfortunately her CEA was never particularly indicative of cancer activity at initial diagnosis (3) Cardiomyopathy: Cardiomyopathy further complicates her ability to tolerate any major surgical or even chemotherapeutic intervention (4) Anemia: Hemoglobin levels were above 11 prior to her August/early September decline and certainly there could be some elements of blood loss/iron deficiency anemia. Also note that historically she has had trouble keeping B12 in normal range even with aggressive supplementation. We are rechecking her nutritional studies Plan Rapid growth is somewhat atypical but unfortunately the situation especially with necrotic lymphadenopathy certainly strongly begs the question of a rapidly relapsing cancer. That set against her cardiomyopathy suggests that we might have a significantly difficult time trying to achieve any sort of response and this could come at significant risk given her poor performance status overall Retrospectively aware of the significant problems she had with chemotherapy during initial treatment, she has expressed some potential preference to go with a pure palliative care approach. Getting palliative care involved in conversations now can be useful whether or not we ultimately decide to incorporate any cautious attempts at systemic treatment. We will continue to discuss those, we will see if we can possibly at least with an FNA of confirm the presence of malignancy to ensure that we are offering her the appropriate prognostic context of her decision making. Quick anemia work-up will be worthwhile to make sure we are optimizing her fun ctional status and quality of life History of Present Illness Attending Physician: Niranjan Hauser MD History of Present Illness Rectal cancer the presented as worsening constipation starting November 2021 04/11/2022 colonoscopy showed a obstructing lesion at 10 cm to the anus, unable to advance past this lesion. Biopsies consistent with a moderately differentiated adenocarcinoma MSI stable. 04/23/2022 CT scan of the abdomen and pelvis without contrast showed segmental rectal wall thickening and pericolic fat stranding with areas of nodularity. shotty mesorectal lymph nodes. too small to characterize hypodensities in the hepatic dome. scattered bilateral pulmonary nodules max 3-4 mm 04/24/2022 MRI of the pelvis without contrast T4b N+ abnormality in the rectum with no sphincter involvement or extra mesorectal lymph nodes. 05/05/2022 MRI of the liver unremarkable Clinically diagnosed as stage IIIBdisease with determination to approach her with DOLORES (total neoadjuvant therapy) Treated 06/04/2022 - 07/11/2022 chemoradiation course with capecitabine 07/30/2022 S/P urgent diverting sigmoid loop colostomy 08/27/2022 start interim FOLFOX tolerating first cycle well but with the second cycle starting severe reaction attributed to the 5-FU pump Switched over to Capeox with ongoing reactions required further dose reduction Other than subcentimeter pulmonary nodules which appeared stable over time there was no evidence of distal disease 02/16/2023robotic assisted low anterior resection, takedown of sigmoid colostomy, primary anastomosis, diverting loop transverse colostomy, uterine fundal biopsy, flexible sigmoidoscopy (Dr. Lakhani [facility]) Operative findings included tumor located at the level of the anterior peritoneal reflection. Left pelvic sidewall involvement noted at time of surgery PATHOLOGY synoptic report: G3, poorly differentiated adenocarcinoma 1.7 cm in side which directly invaded/adhered to adjacent structures (pelvic wall) Small vessel lymphovascular invasion and perineural invasion were noted There was some modest equivocation regarding margin status with 7 potential involvement of the radial margin, see microscopic description. This was found to be potentially in conjunction with the involvement of the pelvic sidewall with "additional 2 margins were submitted separately in part 6 and 7"and these are both listed as negative as above. 11 tumor buds per "hotspot" field Tumor regression noted but more than single cells or rare small groups of cancer cells (partial response, score 2) 3 of 11 lymph nodes involved with one tumor deposit noted ypT4b ypN1b She had done well without any interim suggestion of additional disease and ultimately had takedown of her colostomy 09/03/2023 after a very thorough additional restaging. Within 2 to 3 weeks she started having vague abdominal discomfort feeling like constipation and some urinary hesitancy. These progressed more precipitously severe abdominal pain and complete urinary retention prompting 10/09/[address] [facility] where she was found to have a large pelvic mass. Transverse diverting colostomy was placed. Patient seemed to recover with the ostomy and was discharged but is now readmitted with severe pelvic pain and relapsed urinary retention requiring Mcwilliams catheter replacement While there is a high suspicion of recurrent malignancy, pathology specimens from her most recent abdominal procedure have shown no definitive evidence of malignancy. We note patient has a significant comorbidity of chronic with EF 25%. She has some significant social challenges with her having a recent stroke and trying to deal with his medical issues at the same time as her own Allergies Allergy/AdvReac Type Severity Reaction Status Date / Time Iodinated Contrast Media Allergy Intermediate SKIN Verified 10/18/23 16:41 REACTION WITH PEALING latex Allergy Mild Rash Verified 10/18/23 16:41 zolpidem AdvReac Severe "FELT Verified 10/18/23 16:41 CRAZY" hydrocodone AdvReac Mild Itching Verified 10/18/23 16:41 HEAD Home Medications Medication Instructions Recorded Confirmed Type alprazolam 0.5 mg tablet 0.25 - 0.5 mg PO HS PRN Sleep 10/06/23 10/18/23 History cyclobenzaprine 5 mg tablet 5 mg PO TID PRN Muscle Spasm 10/06/23 10/18/23 History oxycodone 5 mg tablet 5 mg PO TID PRN pain #14 tabs 10/06/23 10/18/23 Rx acetaminophen 500 mg tablet 1,000 mg PO BID PRN Pain 10/18/23 10/18/23 History apixaban 2.5 mg tablet (Eliquis) 2.5 mg PO BID 10/18/23 10/18/23 History gabapentin 300 mg capsule 300 mg PO TID 10/18/23 10/18/23 History Patient History Medical History Rectal tumor Colostomy in place Rectal carcinoma (04/11/22) RADIATION AND CHEMO, had a sigmoidectomy 07/30/2022 with colostomy r/t bowel obstruction>FINISHED CHEMO 12/17/22 Cardiomyopathy RECENT ECHO DONE AT [facility] History of TMJ disorder Depression History of migraine LBBB (left bundle branch block) Low left ventricular ejection fraction RECENT ECHO AT [facility] (CURRENTLY FOLLOWS WITH DR. HOFF) Hiatal hernia GERD (gastroesophageal reflux disease) History of alcohol abuse "significantly cut back" - currently drinks wine a few days a week. Nonischemic cardiomyopathy Anxiety Surgical History History of cardiac cath 2016>NO STENTS Port-A-Cath in place (08/25/22) Insertion Access Port into left Cephalic vein with Fluoroscopy(Left) - Melecio Rocha MD, FACS S/P trigger finger release bilateral S/P laparoscopic-assisted sigmoidectomy (07/30/22) Diagnostic laparoscopy, laparoscopic diverting loop sigmoid colostomy 07/30/[address] [place] [address] Criss Lakhani Hx of colonoscopy History of X 1 History of tonsillectomy History of bladder surgery as a child History of esophagogastroduodenoscopy (EGD) Family History Father Cancer lung cancer Brother Cancer lung cancer Mother Stroke Grandfather (Maternal) Diabetes Family/Other Colorectal cancer Other No family history of adverse response to anesthesia Social History Smoking Status: Never smoker Tobacco Type: Cigarettes Second Hand Exposure: Yes ( A CHILD); Do You Dip or Chew Tobacco: No; Hx Alcohol Use: No Hx Substance Use: No Preferred Language: Portuguese Communication Ability: Effective Visual Impairment: No Limitations Hearing Ability: Normal Heating Systems Installer Required: No Beliefs That Will Affect Care: None marital status: Current Living Situation: Spouse current occupational status: employed current occupation: @ [employer] How many Children do You have: 1 Feels Safe at Home: Yes Diet: regular caffeine: Yes during the past year weight has: decreased > 10 lbs Dental Care, Regularly: Yes Assistive Devices: Walker Physical Exam Physical Exam: Patient is alert and seems calm currently. ECOG is 2/3, pain is currently 4/10. She has no jaundice. There is no pathologic adenopathy in cervical supraclavicular or axillary regions. Lungs seem clear and cardiac rhythm seems regular Abdomen is currently soft, colostomy site seems stable, there is no easily d efinable mass or ascites although there is some mild diffuse tenderness she does not have rigidity or rebound. Lower extremities do not show significant or asymmetric edema there is no compression tenderness or cords. Neurologically she is calm, appropriate, seems fully intact cognitively with appropriate capacity for medical decision making Results & Data Vital Signs (Past 12 Hours) Vital Signs Temp Pulse Pulse Resp BP Pulse Ox O2 Del Method 10/20/23 20:00 36.7 C 78 20 139/75 97 Room Air 10/20/23 15:43 36.6 C 71 18 146/80 H 99 Room Air 10/20/23 11:58 36.7 C 70 18 144/73 H 99 Room Air Laboratory Results Laboratory Results - last 24 hr 10/20/23 05:31 WBC 7.64 RBC 2.73 L Hgb 8.2 L Hct 24.7 L MCV 90.5 MCH 30.0 MCHC 33.2 RDW Std Deviation 40.3 RDW Coeff of Luz 12.3 Plt Count 291 MPV 9.2 L Immature Gran % (Auto) 0.5 Neut % (Auto) 84.9 Lymph % (Auto) 4.1 Carroll % (Auto) 10.5 Eos % (Auto) 0.0 Baso % (Auto) 0.0 Neut # (Auto) 6.49 Lymph # (Auto) 0.31 L Carroll # (Auto) 0.80 H Eos # (Auto) 0.00 Baso # (Auto) 0.00 Immature Gran # (Auto) 0.04 Sodium 140 Potassium 3.5 Chloride 109 H Carbon Dioxide 27 Anion Gap 4 BUN 14 Creatinine 0.59 L Est Cr Clr Drug Dosing 75.3 Est GFR ( Amer) 111.5 Est GFR (Non-Af Amer) 96.2 BUN/Creatinine Ratio 23.7 H Glucose 129 H Calcium 8.5 L Magnesium 2.1 Diagnostic Findings Chest X-Ray 10/18/23 15:05 XR chest 1V not portable CLINICAL HISTORY: Sepsis. COMPARISON STUDY: Chest CT May 21, 2023. FINDINGS: Left subclavian Enenfs-d-Rpst is in place. Lung volumes are normal. Lungs are clear. There is no pneumothorax or pleural effusion. Cardiac size is normal. Mediastinal contours are normal. There is no evidence for pulmonary edema. IMPRESSION: No acute cardiopulmonary findings. ACT 112: Negative or not required by law. Electronically signed by: Philip Bower M.D. 10/18/2023 3:40 PM Abdomen/Pelvis CT 10/18/23 19:[address] WITH IV CONTRAST CT DOSE: 301.8 mGy.cm HISTORY: Generalized abdominal pain, recent colostomy creation, r/o infection TECHNIQUE: Multiaxial CT images of the abdomen and pelvis were performed following the use of intravenous contrast. A dose lowering technique was utilized adhering to the principles of ALARA. COMPARISON STUDY: Abdomen and pelvis CT 10/06/2023. FINDINGS: The lung bases are clear. No pneumoperitoneum. No pneumatosis. No acute fractures identified. No suspicious lytic or blastic osseous lesions. Mild body wall edema is noted. There are few scattered hypodense lesions again noted within the liver which remain unchanged. These are technically too small to characterize. Linear hypodense focus within the anterior segment right hepatic lobe is also unchanged. This is best seen on images 86 through 105. The liver, adrenal glands, pancreas, and kidneys are unremarkable. There is mild fullness within the bilateral renal collecting systems without aiden hydronephrosis. This has improved. The main portal vein is patent. Normal caliber abdominal aorta. The bladder is completely decompressed by a Mcwilliams catheter which appears in good position. There is gas within the bladder lumen likely due to the catheterization. Trace pelvic free fluid is noted. There is suture material within the rectum. There is a large heterogeneous/necrotic mass again noted within the rectum which has slightly increased in size. This measures approxima tely 6.7 x 6.1 cm. This abuts and displaces the uterus anteriorly. An underlying contained perforation/developing abscess within this rectal mass is considered less likely but not entirely excluded. 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 Normal appendix. There are few mildly dilated gas and fluid-filled loops of small bowel within the abdomen. Necrotic lymphadenopathy within the lower central mesentery has progressed. A dominant necrotic lymph node on image 185 measures 3 cm. Mild thickening versus underdistention within the residual sigmoid colon with adjacent fat stranding. A superimposed colitis is not excluded. Posttreatment changes could also have a similar appearance. There are mildly dilated gas and fluid-filled loops of small bowel seen throughout the abdomen. The distal ileal loops are slightly decompressed. A clear transition point is not identified at this time. Therefore, this could represent an ileus or developing partial small bowel obstruction. IMPRESSION: 1. There is a large heterogeneous/necrotic mass again noted within the rectum which has slightly increased in size. This measures approximately 6.7 x 6.1 cm. An underlying contained perforation/developing abscess within this rectal mass is considered less likely but not entirely excluded. 2. Interval progression of the necrotic metastatic lymphadenopathy within the central mesentery. 3. There are mildly dilated gas and fluid-filled loops of small bowel seen throughout the abdomen. The distal ileal loops are slightly decompressed. A clear transition point is not identified at this time. Therefore, this could represent an ileus or developing partial small bowel obstruction. 4. Mild fullness within the bilateral renal collecting system without aiden hydronephrosis. This has improved. 5. Mild thickening versus underdistention within the residual sigmoid colon with adjacent fat stranding. A superimposed colitis is not excluded. Posttreatment changes could also have a similar appearance. 6. Stable subcentimeter hypodense lesions within the liver. These are too small to characterize. Attention at follow-up recommended. 7. Additional findings as described above. ACT 112: Negative or not required by law. Electronically signed by: Luis Briseno M.D. 10/19/2023 9:05 AM KUB X-Ray 10/18/23 19:52 KUB CLINICAL HISTORY: Infection. Colostomy. FINDINGS: An AP, portable, supine abdominal radiograph is correlated with abdominal CT dated 10/06/2023. Suture material projects over the left midabdomen and the pelvis. There are also surgical clips in the pelvis. There is gaseous distention of the small bowel loops which measure up to 2.7 cm. No evidence of intraperitoneal free air is seen on this supine image. There are no abnormal ab dominal calcifications. Phleboliths are observed in the pelvis. The skeletal structures are osteopenic and appear intact. There is mild lumbosacral spondylosis. IMPRESSION: There is gaseous distention of the small bowel loops, suspicious for developing small bowel obstruction. Clinical correlation will be required. Electronically signed by: Royal Gutierrez M.D. 10/19/2023 8:33 AM PG Care Time/CCT Total # of Minutes Spent Total Time Spent with Patient: Total time spent is greater than 50% in coordination of care (as documented) at patient's floor/unit and/or counseling patient: Coding Level of Care Code 81361 IN/OBS CONSULT LVL 4,60M History Expanded Problem Focused Medical Decision Making High Complexity Diagnoses Acute urinary retention R33.8 Rectal carcinoma C20 Cardiomyopathy I42.9 Anemia D64.9
[2023-10-21] MEDS: oxyCODONE HCL IR 5 MG TAB (IMMEDIATE RELEASE) PO PRN ×4 (00:22→19:32)
[2023-10-21] MEDS: ACETAMINOPHEN 325 MG TAB PO PRN (00:27)
[2023-10-21] MEDS: HYDROmorphone INJ 0.5 MG/0.5 ML SYR IV PRN ×4 (05:52→19:32)
[2023-10-21] MEDS: LORazepam 0.5 MG TAB PO PRN ×2 (05:52→13:13)
[2023-10-21] MEDS: GABAPENTIN 300 MG CAP PO SCH ×2 (07:55→20:55)
[2023-10-21] MEDS: APIXABAN 2.5 MG TAB PO SCH ×2 (07:55→20:56)
[2023-10-21 08:08] LABS: Reticulocyte % 1.5 % (0.5-2.0); Reticulocytes # 0.04 10^6/uL (0.02-0.10)
[2023-10-21 08:26] LABS: Folate (Folic Acid),Ser orPlas 9.08 ng/ml (>5.38)
--- NOTE | 2023-10-21 09:28 | Palliative Care Consultation ---
Date of Consultation October 21, 2023 Assessment & Plan (1) Cancer related pain: (2) Acute pelvic pain: (3) Weakness generalized: (4) Anxiety about health: (5) Palliative care by specialist: Met with pt/family. Provided overview of Palliative Medicine, a subspecialty that provides specialized medical care for people living with a serious illness by offering a focus on quality of life. Palliative Medicine is often conflated with hospice: I advised patient/family that Palliative and hospice can be partn ers but we are not the same. It is important to understand the difference so that we may be informed, and not afraid. Palliative Medicine works to improve QOL through reduction of symptom burden/more control over their illness, for both the patient and family. Palliative medicine clinicians are board certified, specially-trained and another member of the patient's medical care team. We often provide an extra layer of support because our care is based on the needs of the patient, not the prognosis; as such, it's appropriate at any age/advancing stage of a serious illness and can be provided along with curative treatment. Palliative Medicine clinicians are also trained in advanced communication methodologies, to facilitate complex discussions about advanced illness planning, which are needed to help assure that the treatment choices match the patient's goals, aka delivering Goal Concordant care. Finally, we discussed that hospice is a visiting nurse service that focuses on care delive red at the very end of life for patients with terminal illness, with life expectancy less than 6 month. (6) Advanced care planning/counseling discussion: Met with Kaitlynn face to face at bedside x 70min for ACP discussion, which was lengthy and detailed. We reviewed her discussion with Dr Polk, and how further chemo etc unlikely to help/likely too toxic but she wants to see what [facility] says before any decisions, adding her is in his 80s and poor health/recent stroke etc. She says they cannot go back and forth to [place] anymore. She does not want major surgery. They have one son who lives in [place] with his . has 2 adult sons from prior marriage who are estranged. She and do not have other caregiving help. She is worried what will happen to if she dies. They have been in discussion with son about moving to [place] so he would be closer to help and support. She feels this has now been moved up on timeline but is overwhelmed about how she can make it happen with all she has on her plate. She does not want to burden son. 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 She remarks with sadness that she will now need to revisit the work situation and examine what options she has ie nursing home vs leave of absence etc. She is less sure about being ready for hospice but she is leaning towards a "do less and have more QOL" approach with improved symptom mgt and no cancer Rx. We discussed that if that is the case, I will follow in my OP clinic. She is going to speak with her son and tomorrow /tonight and let me know Thursday if they want another meeting either Thursday or Thursday. She is unsure about a family meeting at this time. (7) Rectal carcinoma: (8) HFrEF (heart failure with reduced ejection fraction): (9) Nonischemic cardiomyopathy: -Nonischemic cardiomyopathy with an EF of 25-29% on recent echo- unchanged from prior serial echos. -Intolerant to GDMT in the past. Has been intolerant to goal directed medications. -NYHA class 1-2 -Declined BIV-ICD previously 1. Offered 2nd opinion at [facility] regarding Bi V ICD however patient again declined. Plan * ACP and GOC discussion above * She is awaiting final results and reccs from [facility] * She does not want to make any decision now but would like anxiety better managed so I have added scheduled low dose Ativan 0.25mg PO BID and will re assess thursday * She does not feel ready to accept hospice. Signif psychosocial issues. * Teams updated Thank you for allowing us to participate in the ongoing care of this patient. Please don't hesitate to call or page with any additional concerns. Dr. Drea Thompson DNP Director, Palliative Care History of Present Illness Reason for Consultation: est with [facility] Attending Physician: Niranjan Hauser MD History of Present Illness Kaitlynn is a 63yo female admitted via ED on 10/18/23 for c/o overall generalized pain, worsening in the right upper leg, urinary retention s/p Mcwilliams catheter exchange She recently underwent ostomy reversal with placement of new ostomy at [facility] which was then complicated by urinary retention leading to Mcwilliams placement. +Cardiomyopathy with Ef 25% d/t chemotoxicity from her moderately differentiated adenocarcinoma rectal cancer Current Cardiac problems * Nonischemic cardiomyopathy, Severe left ventricular systolic dysfunction, LVEF less than 20% on 04/06/2021 echo. 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 Biopsies consistent with a moderately differentiated adenocarcinoma MSI stable. 04/23/2022 CT scan of the abdomen and pelvis without contrast showed segmental rectal wall thickening and pericolic fat stranding with areas of nodularity. shotty mesorectal lymph nodes. too small to characterize hypodensities in the hepatic dome. scattered bilateral pulmonary nodules max 3-4 mm 04/24/2022 MRI of the pelvis without contrast T4b N+ abnormality in the rectum with no sphincter involvement or extra mesorectal lymph nodes. 05/05/2022 MRI of the liver unremarkable Clinically diagnosed as stage IIIBdisease with determination to approach her with DOLORES (total neoadjuvant therapy) Treated 06/04/2022 - 07/11/2022 chemoradiation course with capecitabine 07/30/2022 S/P urgent diverting sigmoid loop colostomy 08/27/2022 start interim FOLFOX tolerating first cycle well but with the second cycle starting severe reaction attributed to the 5-FU pump Switched over to Capeox with ongoing reactions required further dose reduction Other than subcentimeter pulmonary nodules which appeared stable over time there was no evidence of distal disease 02/16/2023robotic assisted low anterior resection, takedown of sigmoid colostomy, primary anastomosis, diverting loop transverse colostomy, uterine fundal biopsy, flexible sigmoidoscopy (Dr. Lakhani [facility]) Operative findings included tumor located at the level of the anterior peritoneal reflection. Left pelvic sidewall involvement noted at time of surgery PATHOLOGY synoptic report: G3, poorly differentiated adenocarcinoma 1.7 cm in side which directly invaded/adhered to adjacent structures (pelvic wall) Small vessel lymphovascular invasion and perineural invasion were noted There was some modest equivocation regarding margin status with 7 potential involvement of the radial margin, see microscopic description. This was found to be potentially in conjunction with the involvement of the pelvic sidewall with "additional 2 margins were submitted separately in part 6 and 7"and these are both listed as negative as above. 11 tumor buds per "hotspot" field Tumor regression noted but more than single cells or rare small groups of cancer cells (partial response, score 2) 3 of 11 lymph nodes involved with one tumor deposit noted ypT4b ypN1b She had done well without any interim suggestion of additional disease and ultimately had takedown of her colostomy 09/03/2023 after a very thorough additional restaging. Within 2 to 3 weeks she started having vague abdominal discomfort feeling like constipation and some urinary hesitancy. These progressed more precipitously severe abdominal pain and complete urinary retention prompting 10/09/2023 readmission at [facility] where she was found to have a large pelvic mass. Transverse diverting colostomy was placed. Patient seemed to recover with the ostomy and was discharged but is now readmitted with severe pelvic pain and relapsed urinary retention requiring Mcwilliams catheter replacement While there is a high suspicion of recurrent malignancy, pathology specimens from her most recent abdominal procedure have shown no definitive evidence of malignancy. We note patient has a significant comorbidity of chronic with EF 25%. She has some significant social challenges with her having a recent stroke and trying to deal with his medical issues at the same time as her own Allergies Allergy/AdvReac Type Severity Reaction Status Date / Time Iodinated Contrast Media Allergy Intermediate SKIN Verified 10/18/23 16:41 REACTION WITH PEALING latex Allergy Mild Rash Verified 10/18/23 16:41 zolpidem AdvReac Severe "FELT Verified 10/18/23 16:41 CRAZY" hydrocodone AdvReac Mild Itching Verified 10/18/23 16:41 HEAD Home Medications Medication Instructions Recorded Confirmed Type alprazolam 0.5 mg tablet 0.25 - 0.5 mg PO HS PRN Sleep 10/06/23 10/18/23 History cyclobenzaprine 5 mg tablet 5 mg PO TID PRN Muscle Spasm 10/06/23 10/18/23 History oxycodone 5 mg tablet 5 mg PO TID PRN pain #14 tabs 10/06/23 10/18/23 Rx acetaminophen 500 mg tablet 1,000 mg PO BID PRN Pain 10/18/23 10/18/23 History apixaban 2.5 mg tablet (Eliquis) 2.5 mg PO BID 10/18/23 10/18/23 History gabapentin 300 mg capsule 300 mg PO TID 10/18/23 10/18/23 History Patient History Medical History (Updated 10/21/23 @ 09:41 by Goldie Peña, DO) Colon cancer screening Cancer related pain Nonischemic cardiomyopathy -Nonischemic cardiomyopathy with an EF of 25-29% on recent echo- unchanged from prior serial echos. -Intolerant to GDMT in the past. Has been intolerant to goal directed medications. -NYHA class 1-2 -Declined BIV-ICD previously 1. Offered 2nd opinion at [facility] regarding Bi V ICD however patient again declined. Rectal tumor Colostomy in place Rectal carcinoma (04/11/22) RADIATION AND CHEMO, had a sigmoidectomy 07/30/2022 with colostomy r/t bowel obstruction>FINISHED CHEMO 12/17/22 Cardiomyopathy RECENT ECHO DONE AT [facility] History of TMJ disorder Depression History of migraine LBBB (left bundle branch block) Low left ventricular ejection fraction RECENT ECHO AT [facility] (CURRENTLY FOLLOWS WITH DR. HOFF) Hiatal hernia GERD (gastroesophageal reflux disease) History of alcohol abuse "significantly cut back" - currently drinks wine a few days a week. Anxiety Surgical History History of cardiac cath 2016>NO STENTS Port-A-Cath in place (08/25/22) Insertion Access Port into left Cephalic vein with Fluoroscopy(Left) - Melecio Rocha MD, FACS S/P trigger finger release bilateral S/P laparoscopic-assisted sigmoidectomy (07/30/22) Diagnostic laparoscopy, laparoscopic diverting loop sigmoid colostomy 07/30/[address] [place] [address] Criss Lakhani Hx of colonoscopy History of X 1 History of tonsillectomy History of bladder surgery as a child History of esophagogastroduodenoscopy (EGD) Family History Father Cancer lung cancer Brother Cancer lung cancer Mother Stroke Grandfather (Maternal) Diabetes Family/Other Colorectal cancer Other No family history of adverse response to anesthesia Social History Smoking Status: Never smoker Tobacco Type: Cigarettes Second Hand Exposure: Yes ( A CHILD); Do You Dip or Chew Tobacco: No; Hx Alcohol Use: No Hx Substance Use: No Preferred Language: Welsh Communication Ability: Effective Visual Impairment: No Limitations Hearing Ability: Normal Orthopedic Physical Therapist Required: No Beliefs That Will Affect Care: None marital status: Current Living Situation: Spouse current occupational status: employed current occupation: @ [employer] How many Children do You have: 1 Feels Safe at Home: Yes Diet: regular caffeine: Yes during the past year weight has: decreased > 10 lbs Dental Care, Regularly: Yes Assistive Devices: Walker Review of Systems Review of Systems: All systems reviewed & are unremarkable except as noted in Subjective Physical Exam Physical Exam: tired appearing, thin, frail Constitutional: WD/WN, vitals as above Eyes: PERRL, conjunctivae normal, anicteric sclerae ENMT: external ear and nose normal, oropharynx normal Neck: trachea midline, no thyromegaly Respiratory: normal respiratory effort, lungs clear to auscultation Auscultation: lungs clear to auscultation bilaterally and + diminished lung sounds Cardiovascular: Rate/Rhythm: regular rate and regular rhythm Palpation: normal PMI Gastrointestinal (Abdomen): +ostomy, +TTP, BS diminished Musculoskeletal: gen weakness Skin: pale, cool Neurologic: PERRL, EOMI, accommodation nl, no face palsy, no dysarthria AAOx3 Psychiatric: subdued Results & Data Vital Signs (Past 12 Hours) Vital Signs Temp Pulse Pulse Pulse Resp BP BP 10/21/23 08:00 36.5 C 90 128/68 10/21/23 07:00 80 10/21/23 04:42 36.4 C L 86 20 127/73 10/21/23 00:04 36.9 C 82 20 138/77 10/21/23 00:00 89 Pulse Ox O2 Del Method 10/21/23 08:00 97 Room Air 10/21/23 07:00 10/21/23 04:42 97 Room Air 10/21/23 00:04 97 Room Air 10/21/23 00:00 Laboratory Results data reviewed/see HPI Diagnostic Findings data reviewed/see HPI Echo 01/14/2023 The examination is adequate to evaluate the referral indication. The left ventricular cavity is severely dilated (LVED volume >80 ml/m^2). The septal motion is abnormal consistent with left bundle branch block. The remaining left ventricular wall segments are severely hypokinetic. The qualitative LV ejection fraction is 25-29% (severely reduced). Moderate mitral regurgitation is present. Compared to the prior study dated 07/03/22, there has been no significant interval change. Echo 07/23/2023 The examination is adequate to evaluate the referral indication. The left ventricular cavity size is severely enlarged. The septal motion is abnormal consistent with left bundle branch block. The remaining left ventricular wall segments are severely hypokinetic. The qualitative LV ejection fraction is 25-29% (severely reduced). Moderate mitral regurgitation is present. Mild tricuspid regurgitation is present. Compared to the prior study dated 07/15/21, ongoing severe left ventricular systolic dysfuction is present. There has been an interval increase in the left ventricular end diastolic diameter. Echo 07/15/2021 The examination is adequate to evaluate the referral indication. The left ventricular cavity size is mildly enlarged. The LV wall thickness is normal. The septal motion is abnormal consistent with left bundle branch block. The remaining left ventricular wall segments are severely hypokinetic. The qualitative LV ejection fraction is 25-29% (severely reduced). The left ventricular diastolic function is mildly abnormal (grade I). Moderate mitral regurgitation 3+ is present. Mild tricuspid regurgitation is present. Echo 07/15/2021 The examination is adequate to evaluate the referral indication. The left ventricular cavity size is mildly enlarged. The LV wall thickness is normal. The septal motion is abnormal consistent with left bundle branch block. The remaining left ventricular wall segments are severely hypokinetic. The qualitative LV ejection fraction is 25-29% (severely reduced). The left ventricular diastolic function is mildly abnormal (grade I). Moderate mitral regurgitation 3+ is present. Mild tricuspid regurgitation is present. PG Care Time/CCT Total # of Minutes Spent Total Time Spent: 120 Total Time Spent with Patient: Total time spent is greater than 50% in coordination of care (as documented) at patient's floor/unit and/or counseling patient: Advanced Care Planning 17216 Advanced Care Planning 30 Min 59319 Advanced Care Planning Additional 30 [place] [address] IN/OBS CONSULT LVL 5,80M Patient Type New Medical Decision Making High Complexity Diagnoses Cancer related pain G89.3 Acute pelvic pain R10.2 Weakness generalized R53.1 Anxiety about health R45.89 Palliative care by specialist Z51.5 Advanced care planning/counseling discussion Z71.89 Rectal carcinoma C20 HFrEF (heart failure with reduced ejection fraction) I50.20 Nonischemic cardiomyopathy I42.8 Additional Codes Advanced Care Planning - 83675 Advanced Care Planning 30 Min: 33046 Advanced Care Planning 30 Min ([id number]) Advanced Care Planning - 00010 Advanced Care Planning Additional 30 Min: 53117 Advanced Care Planning Additional 30 Min ([id number])
--- NOTE | 2023-10-21 09:39 | Pain Management Consultation ---
Date of Consultation October 21, 2023 Assessment & Plan (1) Rectal carcinoma: Present on Admission?: Yes (2) Cancer related pain: Present on Admission?: Yes (3) Anxiety about health: Present on Admission?: Yes (4) Acute pelvic pain: Plan 1. Discussed the need for basal pain relief for her cancer related pain as well as intermittent breakthrough pain coverage. Recommend utilization of fentanyl 12 mcg every 72 hours with continued oxycodone 5 mg p.o. every 4 as needed and IV hydromorphone 0.5 mg IV every 3 as needed. Recommend utilization of oral meds prior to IV medications. Suspect fentanyl patch will require up titration but will start with a conservative dose. While I am happy to initialize this regimen, should palliative care wish to assume control of opiates or if the patient opts for a palliative/and or hospice, I would be happy to defer titration to palliative care. 2. Recommend initiation of Cymbalta 30 mg p.o. every morning to augment descending pain regulatory pathways. 3. With initiation of Cymbalta will discontinue Flexeril and opt for Robaxin for spasm control. 4. Recommend continuation of bowel regimen but with the addition of Relistor should conservative measures fail to provide bowel movement. 5. At this time, do not see a role for interventional pain management but, can consider superior hypogastric plexus block versus ganglion impar block in the future should this be warranted. 6. Continue gabapentin at current dosing. 7. Thank you for this consultation, please call with any questions, will follow with the patient during hospitalization. History of Present Illness Attending Physician: Niranjan Hauser MD History of Present Illness 63-year-old female with advanced rectal cancer initially diagnosed July 2022 now status post sigmoidectomy, XRT, chemo, diverting loop colostomy, robotic assisted low anterior resection with colostomy. She presented on 10/18/2023 after having been discharged from the [facility] on 10/17/2023 from her laparoscopic diverting loop transverse colostomy. She is reporting issues with constant pain ranging between 7-10 out of 10 deep cramping aching over her bilateral lower quadrants and some radiation to her right medial anterior thigh. Mcwilliams was placed for acute urinary retention with some benefit. She had a discussion yesterday with Dr. Klein her oncologist about future steps and palliative care was consulted today. She reports difficulty with sleep secondary to pain and peaks and valleys with her pain control that she finds frustrating. She notes overall generalized weakness. She denies mental sedation with her current opiate regimen of oxycodone 5 mg p.o. every 4 as needed (15 mg in the last 24 hours) and IV hydromorphone (2.5 mg in the last 24 hours). She reports her fatigue is partially due to lack of sleep and stress over her current medical condition. She reports that after talking with palliative care she has decisions to make but has not yet had enough time to speak with her or son to determine the direction of her care. Pain Assessment Full Body Front + Back: 2 1. 2. Allergies Allergy/AdvReac Type Severity Reaction Status Date / Time Iodinated Contrast Media Allergy Intermediate SKIN Verified 10/18/23 16:41 REACTION WITH PEALING latex Allergy Mild Rash Verified 10/18/23 16:41 zolpidem AdvReac Severe "FELT Verified 10/18/23 16:41 CRAZY" hydrocodone AdvReac Mild Itching Verified 10/18/23 16:41 HEAD Home Medications Medication Instructions Recorded Confirmed Type alprazolam 0.5 mg tablet 0.25 - 0.5 mg PO HS PRN Sleep 10/06/23 10/18/23 History cyclobenzaprine 5 mg tablet 5 mg PO TID PRN Muscle Spasm 10/06/23 10/18/23 History oxycodone 5 mg tablet 5 mg PO TID PRN pain #14 tabs 10/06/23 10/18/23 Rx acetaminophen 500 mg tablet 1,000 mg PO BID PRN Pain 10/18/23 10/18/23 History apixaban 2.5 mg tablet (Eliquis) 2.5 mg PO BID 10/18/23 10/18/23 History gabapentin 300 mg capsule 300 mg PO TID 10/18/23 10/18/23 History Patient History Medical History (Updated 10/21/23 @ 09:41 by Goldie Peña DO) Colon cancer screening Cancer related pain Nonischemic cardiomyopathy -Nonischemic cardiomyopathy with an EF of 25-29% on recent echo- unchanged from prior serial echos. -Intolerant to GDMT in the past. Has been intolerant to goal directed medications. -NYHA class 1-2 -Declined BIV-ICD previously 1. Offered 2nd opinion at [facility] regarding Bi V ICD however patient again declined. Rectal tumor Colostomy in place Rectal carcinoma (04/11/22) RADIATION AND CHEMO, had a sigmoidectomy 07/30/2022 with colostomy r/t bowel obstruction>FINISHED CHEMO 12/17/22 Cardiomyopathy RECENT ECHO DONE AT [facility] History of TMJ disorder Depression History of migraine LBBB (left bundle branch block) Low left ventricular ejection fraction RECENT ECHO AT [facility] (CURRENTLY FOLLOWS WITH DR. HOFF) Hiatal hernia GERD (gastroesophageal reflux disease) History of alcohol abuse "significantly cut back" - currently drinks wine a few days a week. Anxiety Surgical History History of cardiac cath 2016>NO STENTS Port-A-Cath in place (08/25/22) Insertion Access Port into left Cephalic vein with Fluoroscopy(Left) - Melecio Rocha MD, FACS S/P trigger finger release bilateral S/P laparoscopic-assisted sigmoidectomy (07/30/22) Diagnostic laparoscopy, laparoscopic diverting loop sigmoid colostomy 07/30/[address] [facility] [address] Criss Lakhani Hx of colonoscopy History of X 1 History of tonsillectomy History of bladder surgery as a child History of esophagogastroduodenoscopy (EGD) Family History Father Cancer lung cancer Brother Cancer lung cancer Mother Stroke Grandfather (Maternal) Diabetes Family/Other Colorectal cancer Other No family history of adverse response to anesthesia Social History Smoking Status: Never smoker Tobacco Type: Cigarettes Second Hand Exposure: Yes ( A CHILD); Do You Dip or Chew Tobacco: No; Hx Alcohol Use: No Hx Substance Use: No Preferred Language: Montenegrin Communication Ability: Effective Visual Impairment: No Limitations Hearing Ability: Normal Cover Seamer Required: No Beliefs That Will Affect Care: None marital status: Current Living Situation: Spouse current occupational status: employed current occupation: @ [employer] How many Children do You have: 1 Feels Safe at Home: Yes Diet: regular caffeine: Yes during the past year weight has: decreased > 10 lbs Dental Care, Regularly: Yes Assistive Devices: Walker Physical Exam 2 Constitutional: WD/WN, vitals as above Eyes: PERRL, conjunctivae normal, anicteric sclerae ENMT: external ear and nose normal, oropharynx normal Neck: normal visual inspection Respiratory: normal respiratory effort; no respiratory distress Cardiovascular: Rate/Rhythm: regular rate and regular rhythm Gastrointestinal (Abdomen): Percussion/Palpation: + abdomen tender and abdomen soft; no guarding and abdomen not rigid surgical incision sites well healing w/o erythema/drainage. +ostomy LLQ, thick stool. TTP global infraumbilical. Non tender BL genitofemoral nerves. Mcwilliams insitu. Musculoskeletal: no cyanosis or clubbing, extremities motor strength 5/5 (grossly 5/5) Skin: no rashes, warm and dry Neurologic: CN's II-XI intact bilaterally Psychiatric: A+Ox3, euthymic affect (tearful at times) Results (Pain Clinic) Diagnostic Review CT: enhanced and reports reviewed CT Findings: 10/18/[address] WITH IV CONTRAST CT DOSE: 301.8 mGy.cm HISTORY: Generalized abdominal pain, recent colostomy creation, r/o infection TECHNIQUE: Multiaxial CT images of the abdomen and pelvis were performed following the use of intravenous contrast. A dose lowering technique was utilized adhering to the principles of ALARA. COMPARISON STUDY: Abdomen and pelvis CT 10/06/2023. FINDINGS: The lung bases are clear. No pneumoperitoneum. No pneumatosis. No acute fractures identified. No suspicious lytic or blastic osseous lesions. Mild body wall edema is noted. There are few scattered hypodense lesions again noted within the liver which remain unchanged. These are technically too small to characterize. Linear hypodense focus within the anterior segment right hepatic lobe is also unchanged. This is best seen on images 86 through 105. The liver, adrenal glands, pancreas, and kidneys are unremarkable. There is mild fullness within the bilateral renal collecting systems without aiden hydronephrosis. This has improved. The main portal vein is patent. Normal caliber abdominal aorta. The bladder is completely decompressed by a Mcwilliams catheter which appears in good position. There is gas within the bladder lumen likely due to the catheterization. Trace pelvic free fluid is noted. There is suture material within the rectum. There is a large heterogeneous/necrotic mass again noted within the rectum which has slightly increased in size. This measures approximately 6.7 x 6.1 cm. This abuts and displaces the uterus anteriorly. An underlying contained perforation/developing abscess within this rectal mass is considered less likely but not entirely excluded. 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 Normal appendix. There are few mildly dilated gas and fluid-filled loops of small bowel within the abdomen. Necrotic lymphadenopathy within the lower central mesentery has progressed. A dominant necrotic lymph node on image 185 measures 3 cm. Mild thickening versus underdistention within the residual sigmoid colon with adjacent fat stranding. A superimposed colitis is not excluded. Posttreatment changes could also have a similar appearance. There are mildly dilated gas and fluid-filled loops of small bowel seen throughout the abdomen. The distal ileal loops are slightly decompressed. A clear transition point is not identified at this time. Therefore, this could represent an ileus or developing partial small bowel obstruction. IMPRESSION: 1. There is a large heterogeneous/necrotic mass again noted within the rectum which has slightly increased in size. This measures approximately 6.7 x 6.1 cm. An underlying contained perforation/developing abscess within this rectal mass is considered less likely but not entirely excluded. 2. Interval progression of the necrotic metastatic lymphadenopathy within the central mesentery. 3. There are mildly dilated gas and fluid-filled loops of small bowel seen throughout the abdomen. The distal ileal loops are slightly decompressed. A clear transition point is not identified at this time. Therefore, this could represent an ileus or developing partial small bowel obstruction. 4. Mild fullness within the bilateral renal collecting system without aiden hydronephrosis. This has improved. 5. Mild thickening versus underdistention within the residual sigmoid colon with adjacent fat stranding. A superimposed colitis is not excluded. Posttreatment changes could also have a similar appearance. 6. Stable subcentimeter hypodense lesions within the liver. These are too small to characterize. Attention at follow-up recommended. 7. Additional findings as described above. Previous Records Review Previous Records: personally reviewed by me Opioid Risk Assessment Opioid Risk Assessment: risk assessment performed
[2023-10-21] MEDS: HEPARIN 100 UNIT/ML 5ML FLUSH FLUSH PRN (11:07)
[2023-10-21] MEDS ORDERED: fentaNYL 12 MCG/HR TDSY TD SCH (12:00)
[2023-10-21] MEDS ORDERED: METHYLNALTREXONE BROMIDE 12 MG/0.6 ML VIAL SQ PRN (12:14)
[2023-10-21] MEDS: DULoxetine HCL 30 MG CAP PO SCH (12:30)
--- NOTE | 2023-10-21 13:15 | Hospitalist Progress Note ---
Date of Service October 21, 2023 Assessment & Plan (1) Rectal carcinoma: Plan: Please see my comprehensive discussion in the original consultation from October 20. I reviewed the films with our interventional radiology team and they do not feel that there is a reasonably targetable area that is going to yield us good tissue for diagnosis. I have a message into the [place] team and waiting to hear back whether they have any additional thoughts for diagnostic biopsy. I spoke at length again with Kaitlynn today and also with her significant other Jose Barba. She is significantly leaning towards a very simplistic approach omitting any chemotherapy going forward. Unfortunately it is not clear that she is likely to well respond to chemotherapy approaches such as ICI as per previous consult. I do not think that there is any effective surgical intervention for her and the pelvis is already been radiated with out tremendous benefit from repeating that. I did discuss in the previous note that there may be some alternatives to the differential, the combination of her history of rectal cancer, of pelvic mass, and aggressive looking adenopathy on certainly seem to point more towards relapse of the disease. Her cardiomyopathy specifically and more generally her poor performance status make it significantly concerning as to whether she would even tolerate any aggressive further oncologic specific interventions and with this very aggressive relapse with an less than a year of initial presentation, the likelihood of a deep or durable response seems quite low. Indeed, overly aggressive attempts to treat with further chemotherapy could backfire and shorten her life through the complications and certainly would detract from quality of life going forward. I have outlined that the best approach is probably to deal with the immediate priorities: Optimizing pain management and any ability we might have to restore more spontaneous bladder function (though I have expressed concern that that bladder goal may not be easily achieved given the distortion in the pelvis caused by the mass). I will provisionally plan to reconvene with the patient Thursday if she is still in the hospital and I told Jose to join us at that time at approximately 7 PM for more intense discussion of how we go forward with oncology issues which particular centers on whether we even attempt to get diagnostic material or if she is admits that she wants to go palliative care route simply make clinical judgments based on the likelihood that we are dealing with malignancy. 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 Nutritional studies are adequate (while there may be some element of acute phase reactant, a ferritin near 200 mg/mL levels nevertheless indicates that she probably has reasonable iron stores), imagine we are dealing primarily with a combination of inflammatory suppression/anemia of chronic disease like picture but also perhaps with an element of stem cell dysfunction after previous chemoradiation. Her hemoglobin had been in double digits 1 month ago, there was probably some element of blood loss surrounding her repeat abdominal surgery and she may just be struggling to recover from that. Bone marrow biopsy would more definitively assess iron stores specifically and more broadly hematopoietic capacity but is not likely to immediately change her management. If we are heading towards a very conservative overall approach, it may be more prudent to simply treat at a basic level. I will check erythropoietin levels and if these are quite low we could consider ESAs We will quickly screen a.m. cortisol and thyroid functions as well Plan Would focus on optimizing her pain management and anything we can do to help restore normal urine function. Kaitlynn and her significant other Jose Barba are both very aware of the challenging prognosis she has. She is significantly gravitated towards a pure palliative care approach and friend is supportive of that if that is indeed her wish. If she is still in the hospital through the weekend I will be returning to [facility] on Thursday and we will plan to meet with them Thursday evening at 7 PM in her room. If she is well enough to discharge in the interim, I will arrange for an office evening visit. Ongoing pain management and palliative care intervention will be ruvalcaba. While she may not have stigmata of a major infection, it seems reasonable to continue her antibiotics while she is still in the hospital Should not require transfusion unless hemoglobin is fall below the 7 to 7.5 g/dL range but if erythropoietin levels are low we could discuss whether KIMBERLY's might be helpful to improve her levels of energy. Quick check of thyroid and adrenal function is also pending Admission and Anticipated Discharge Date Admission Date: October 18, 2023 Subjective Very fatigued, still with moderate pain but is encouraged by her discussion with pain clinic and palliative care teams earlier today that we are making some progress. Still requires Mcwilliams catheter Physical Exam Physical Exam: Vital signs are stable. She seems to drift off to sleep from time to time during our conversation but is easily aroused AND appropriate in conversation No new pathologic peripheral adenopathy, lung and cardiac exam seems stable. Respiratory rate is listed is 20 on most recent vital signs but when I examined her it seemed to be closer to 15. The abdomen continues to be soft with only minimal tenderness without aiden rigidity or rebound Results & Data Results & Data Vital Signs (Past 12 Hours) Vital Signs Temp Pulse Pulse Pulse Resp BP BP 10/21/23 12:29 36.9 C 87 135/80 10/21/23 08:00 36.5 C 90 128/68 10/21/23 07:00 80 10/21/23 04:42 36.4 C L 86 20 127/73 Pulse Ox O2 Del Method 10/21/23 12:29 97 Room Air 10/21/23 08:00 97 Room Air 10/21/23 07:00 10/21/23 04:42 97 Room Air PG Care Time/CCT Total # of Minutes Spent Total Time Spent with Patient: Total time spent is greater than 50% in coordination of care (as documented) at patient's floor/unit and/or counseling patient: Coding Level of Care Code 03788 SUB INP/OBS CARE 25MIN Diagnoses Rectal carcinoma C20 Anemia D64.9
--- NOTE | 2023-10-21 13:37 | Surgery Progress Note ---
Date of Service October 21, 2023 Assessment & Plan (1) Acute postoperative abdominal pain: Plan: Assessment: Patient is a 63 years old female presented to ED with 4 to 5-week history lower pelvic area pain. Patient had the robotic assisted anterior resection 8 months ago. Patient had recently laparoscopy transverse colostomy last week at [facility]. There was a discharged home yesterday from [facility]. Plan: Based on review of patient history physical exam, the labs, no emergency surgical indication. Conservative treatment. control pain. Consult pain management. Consult urology for urinary retention. Patient will get a CT scan in the morning. We will follow. Patient agree with the plan. I Answered all questions. 10/18/2023 2:52 PM pt is stable, less abdominal pain, tolerated diet, pain manage consulted, conservative treatment. [place] colorectal surgeon recommend pt stay this hospital for conservative treatment. pt and her do not want any more surgery, will F/U, conche loader and unloader surgeon will cover her tomorrow, Thanks. (2) Acute urinary retention: Plan avss no leukocytosis ostomy functioning, tolerating diet Plan: Continue medical management case management and PT/OT for discharge planning consider consulting Dr. Polk for further management options given recent ct scan findings Patient questioning about palliative measures but not sure if she is ready to make those decisions yet continue Mcwilliams catheter per urology okay from surgical standpoint for discharge if pain controlled, tolerating diet, and pt/ot has seen patient Discussed with Dr. Hughes who agrees with above. Admission and Anticipated Discharge Date Admission Date: October 18, 2023 Subjective F/U pelvic pain, pt is stable. no fever, no bloody stool, tolerated diet, Physical Exam Constitutional: WD/WN, vitals as above Eyes: PERRL, conjunctivae normal, anicteric sclerae Neck: trachea midline, no thyromegaly Respiratory: normal respiratory effort, lungs clear to auscultation Cardiovascular: RRR, no murmur, no edema Gastrointestinal (Abdomen): soft, mild tenderness at low abdomen, no rebound pain, no distend, Musculoskeletal: no cyanosis or clubbing, extremities motor strength 5/5 Neurologic: patellar DTR's 2+ bilat, sensation intact Psychiatric: A+Ox3, euthymic affect Results & Data Vital Signs (Past 12 Hours) Vital Signs Temp Pulse Pulse Pulse Resp BP BP 10/21/23 12:29 36.9 C 87 135/80 10/21/23 08:00 36.5 C 90 128/68 10/21/23 07:00 80 10/21/23 04:42 36.4 C L 86 20 127/73 Pulse Ox O2 Del Method 10/21/23 12:29 97 Room Air 10/21/23 08:00 97 Room Air 10/21/23 07:00 10/21/23 04:42 97 Room Air
[2023-10-21] MEDS: PIPERACILLIN/TAZOBACTAM 4.5 GM in DEXTROSE 5% MINI-B 100 ML IV SCH ×2 (14:49→20:57)
[2023-10-21] MEDS: CHECK fentaNYL PATCH PLACEMENT SCH (15:33)
--- NOTE | 2023-10-21 16:54 | Hospitalist Progress Note ---
Date of Service October 21, 2023 Assessment & Plan (1) Acute postoperative abdominal pain: Plan: Ms. Kyara Castillo is a 63 year old woman with history of locally advanced rectal cancer diagnosed July 2022, status post sigmoidectomy 07/30/2022, total neoadjuvant therapy (XRT and chemo, finished chemo December 17, 2022), which was briefly interrupted due to large bowel obstruction requiring a diverting loop colostomy, who then subsequently underwent a robotic assisted low anterior resection with diverting loop transverse colostomy in January 2023, followed by reversal of the colostomy on 09/03/2023, who then recently underwent a laparoscopic diverting loop transverse colostomy again on 10/12/2023 due to worsening pelvic pain and bright red blood per rectum [recently discharged from [facility] yesterday on 10/17] who is admitted due to increased pain and urinary retention. Patient's course complicated by progressive pain and concern for possible infection per CT imaging findings. #Acute postoperative abdominal pain #Acute on chronic cancer pain #Large rectal mass concerning for rectal carcinoma given history Follows with Dr. Polk at [facility], and with Dr. Lakhani with colorectal surgery Ct abd/pelvis with contrast after prep with prednisone showing increased rectal mass to 6.6cm from 5.7cm on Oct 06. An underlying contained perforation/developing abscess within this rectal mass is considered less likely but not entirely excluded. Possible developing partial SBO.Superimposed colitis Discussion with Dr. Lakhani at [facility] on 10/19 per prior hospitalist: continue abx, no change in management prompting transfer Pain management on consult: -Recommended utilization of fentanyl 12 mcg every 72 hours with continued oxycodone 5 mg p.o. every 4 as needed and IV hydromorphone 0.5 mg IV every 3 as needed. Recommend utilization of oral meds prior to IV medications. Suspect fentanyl patch will require up titration but will start with a conservative dose. - Recommend initiation of Cymbalta 30 mg p.o. qam, discontinue Flexeril and opt for Robaxin for spasm control. - Schedule miralax and colace, low threshold for addition of Relistor should conservative measures fail to provide bowel movement. - Continue gabapentin at current dosing. Heme/Onc on consult: -Optimize pain management -Possible meeting next week if still admitted -Follow up on TSH/cortisol labs Palliative on consult: -Not accepting hospice/comfort measures at this time, though seemingly more pursuing QoL measures -Ativan BD #Severe protein calorie malnutrition -BMI 18, iso malignancy and poor po intake -Encourage PO as able, nutrition supplements #Possible colitis/abscess? one of the blood cultures positive for coag negative stap, low suspicion for pathogenic as patient has been on zosyn and not directed coverage for CONS bacteremia Continue zosyn Repeat Blood culture #Hypotension *resolved gave gentle fluids because of systolic chf improved with fluids. currently stopped fluids. #Acute urinary retention: - UA obtained, culture NGT s/p arevalo. Urology consulted and appreciate inputs to continue arevalo and to keep urology appointment on 10/27 . #Chronic HFrEF Nonischemic cardiomyopathy with an EF of 25 to 29% from echocardiogram from 07/23/2023 reviewed on outpatient epic results Seems Declined BiVICD previously, at her most recent stay at [facility] approximately 1 week ago was offered second opinion by [facility] EP regarding this however patient declined at that time LBBB is chronic, EKG reviewed Seems had history of symptomatic hypotension on outpatient records Close monitor. will d/c fluids DVT ppx: teds, scds, eliquis 2.5 mg po bid. Admission and Anticipated Discharge Date Admission Date: October 18, 2023 Subjective Patient seen at bedside with . Reports progressive pain, mostly right buttock and anterior right thigh into groin; pain now starting to disrupt sleep given inability to get comfortable Reports general upset over situation, unsure whether to go purely palliative at this point, but notes her main priority at this time is pain control She also notes concern about obstruction occuring, though she notes she doesn't have any pain consistent with prior obstruction and her ostomy output has been regular Review of Systems Review of Systems: All systems reviewed & are unremarkable except as noted in Subjective Physical Exam Constitutional: frail on exam, anxious Respiratory: normal respiratory effort, lungs clear to auscultation Cardiovascular: tachycardic, no murmur appreciated Skin: no rashes, warm and dry Results & Data Results & Data Vital Signs (Past 12 Hours) Vital Signs Temp Pulse Pulse Pulse Resp BP BP 10/21/23 16:13 36.4 C L 95 H 128/71 10/21/23 12:29 36.9 C 87 135/80 10/21/23 08:00 36.5 C 90 128/68 10/21/23 07:00 80 10/21/23 04:42 36.4 C L 86 20 127/73 Pulse Ox O2 Del Method 10/21/23 16:13 96 Room Air 10/21/23 12:29 97 Room Air 10/21/23 08:00 97 Room Air 10/21/23 07:00 10/21/23 04:42 97 Room Air Medications Administered Home Medications Medication Instructions Recorded Confirmed Last Taken alprazolam 0.5 mg tablet 0.25 - 0.5 mg PO HS PRN Sleep 10/06/23 10/18/23 Unknown cyclobenzaprine 5 mg tablet 5 mg PO TID PRN Muscle Spasm 10/06/23 10/18/23 Unknown oxycodone 5 mg tablet 5 mg PO TID PRN pain #14 tabs 10/06/23 10/18/23 Unknown acetaminophen 500 mg tablet 1,000 mg PO BID PRN Pain 10/18/23 10/18/23 Unknown apixaban 2.5 mg tablet (Eliquis) 2.5 mg PO BID 10/18/23 10/18/23 Unknown gabapentin 300 mg capsule 300 mg PO TID 10/18/23 10/18/23 Unknown Active Medications Generic Name Dose Route Start Last Admin Trade Name Freq PRN Reason Stop Dose Admin Acetaminophen 650 mg 10/18/23 19:57 10/21/23 00:27 Acetaminophen 325 Mg Tab PO 11/17/23 19:56 650 mg Q4H PRN Administration Moderate Pain (Scale 4, 5, 6) Alprazolam 0.5 mg 10/18/23 20:10 10/20/23 22:18 Alprazolam 0.5 Mg Tablet PO 11/17/23 20:09 0.5 mg HS PRN Administration Sleep Apixaban 2.5 mg 10/18/23 21:00 10/21/23 07:55 Apixaban 2.5 Mg Tab PO 11/17/23 20:59 2.5 mg BID SHIRA Administration Duloxetine HCl 30 mg 10/21/23 12:15 10/21/23 12:30 Duloxetine Hcl 30 Mg Cap PO 11/20/23 12:14 30 mg QAM SHIRA Administration Fentanyl 12 mcg 10/21/23 12:00 10/21/23 12:19 Fentanyl 12 Mcg/Hr Tdsy TD 11/04/23 11:59 12 mcg Q72H SHIRA Administration Gabapentin 300 mg 10/18/23 21:00 10/21/23 07:55 Gabapentin 300 Mg Cap PO 11/17/23 20:59 300 mg BID SHIRA Administration Heparin Sodium (Porcine) 5 ml 10/20/23 00:16 10/21/23 11:07 Heparin 100 Unit/Ml 5ml Flush FLUSH 11/19/23 00:15 5 ml PRN PRN Administration Flush Hydromorphone HCl 0.5 mg 10/21/23 12:01 10/21/23 14:42 Hydromorphone Inj 0.5 Mg/0.5 Ml Syr IV 11/01/23 20:15 0.5 mg Q3H PRN Administration Pain Piperacillin Sod/Tazobactam 100 mls @ 25 mls/hr 10/21/23 13:00 10/21/23 14:49 Sod 4.5 gm/ Dextrose IV 10/29/23 08:59 25 mls/hr Q8H SHIRA Administration Protocol Lorazepam 0.5 mg 10/20/23 16:37 10/21/23 13:13 Lorazepam 0.5 Mg Tab PO 11/19/23 16:36 0.5 mg BID PRN Administration Anxiety Miscellaneous 1 each 10/21/23 11:59 10/21/23 12:19 Fentanyl Patch Remove & Waste N/A 11/20/23 11:58 1 each Q72H SHIRA Administration Miscellaneous 1 each 10/21/23 16:00 10/21/23 15:33 Check Fentanyl Patch Placement N/A 11/20/23 15:59 1 each QS SHIRA Administration Oxycodone HCl 5 mg 10/20/23 07:51 10/21/23 15:32 Oxycodone Hcl Ir 5 Mg Tab (Immediate Release) PO 11/01/23 20:09 5 mg Q4H PRN Administration pain
[2023-10-21] MEDS: POLYETHYLENE (MIRALAX) 17 GM PACK PO SCH (17:25)
[2023-10-21] MEDS: ALPRAZolam 0.5 MG TABLET PO PRN (19:32)
[2023-10-21] MEDS: LORazepam 0.5 MG TAB PO SCH (20:56)
[2023-10-21] MEDS: METHOCARBAMOL 500 MG TABLET PO PRN (20:56)
[2023-10-21] MEDS: DOCUSATE SODIUM 100 MG CAP PO SCH (21:00)
--- NOTE | 2023-10-21 22:54 | Electrocardiogram Report ---
Test Reason : Blood Pressure : / mmHG Vent. Rate : 112 BPM Atrial Rate : 112 BPM P-R Int : 152 ms QRS Dur : 128 ms QT Int : 378 ms P-R-T Axes : 088 -09 070 degrees QTc Int : 515 ms Poor data quality, interpretation may be adversely affected Sinus tachycardia Possible Left atrial enlargement Left bundle branch block Abnormal ECG When compared with ECG of 10-SEP-2022 17:26, No significant change Confirmed by Sathish Traore ([id number]) on 10/21/2023 10:54:26 PM Referred By: REFERRED SELF Confirmed By:Sathish Traore
[2023-10-22] MEDS: CHECK fentaNYL PATCH PLACEMENT SCH ×3 (01:33→18:49)
[2023-10-22] MEDS: HYDROmorphone INJ 0.5 MG/0.5 ML SYR IV PRN ×5 (03:04→22:53)
[2023-10-22] MEDS: PIPERACILLIN/TAZOBACTAM 4.5 GM in DEXTROSE 5% MINI-B 100 ML IV SCH ×3 (05:16→21:16)
[2023-10-22] MEDS: oxyCODONE HCL IR 5 MG TAB (IMMEDIATE RELEASE) PO PRN ×3 (08:13→21:13)
--- NOTE | 2023-10-22 08:13 | Hospitalist Progress Note ---
Date of Service October 22, 2023 Assessment & Plan (1) Acute postoperative abdominal pain: Plan: Ms. Kyara Castillo is a 63 year old woman with history of locally advanced rectal cancer diagnosed July 2022, status post sigmoidectomy 07/30/2022, total neoadjuvant therapy (XRT and chemo, finished chemo December 17, 2022), which was briefly interrupted due to large bowel obstruction requiring a diverting loop colostomy, who then subsequently underwent a robotic assisted low anterior resection with diverting loop transverse colostomy in January 2023, followed by reversal of the colostomy on 09/03/2023, who then recently underwent a laparoscopic diverting loop transverse colostomy again on 10/12/2023 due to worsening pelvic pain and bright red blood per rectum [recently discharged from [facility] yesterday on 10/17] who is admitted due to increased pain and urinary retention. Patient's course complicated by progressive pain and concern for possible infection per CT imaging findings. #Acute postoperative abdominal pain #Acute on chronic cancer pain #Large rectal mass concerning for rectal carcinoma given history Follows with Dr. Polk at [facility], and with Dr. Lakhani with colorectal surgery Ct abd/pelvis with contrast after prep with prednisone showing increased rectal mass to 6.6cm from 5.7cm on Oct 06. An underlying contained perforation/developing abscess within this rectal mass is considered less likely but not entirely excluded. Possible developing partial SBO.Superimposed colitis Discussion with Dr. Lakhani at [facility] on 10/19 per prior hospitalist: continue abx, no change in management prompting transfer Pain management on consult: -Recommended utilization of fentanyl 12 mcg every 72 hours with continued oxycodone 5 mg p.o. every 4 as needed Recommend utilization of oral meds prior to IV medications. - Increased IV hydromorphone 0.5 mg IV every 3 as needed to 1mg - Recommend initiation of Cymbalta 30 mg p.o. qam, discontinue Flexeril and opt for Robaxin for spasm control. - Schedule miralax and colace, low threshold for addition of Relistor should conservative measures fail to provide bowel movement. - Continue gabapentin at current dosing. Heme/Onc on consult: -Optimize pain management -Possible meeting next week if still admitted -TSH and cortisol wnl Palliative on consult: -Not accepting hospice/comfort measures at this time, though seemingly more pursuing QoL measures -Ativan BD #Severe protein calorie malnutrition -BMI 18, iso malignancy and poor po intake -Encourage PO as able, nutrition supplements #Possible colitis/abscess? one of the blood cultures positive for coag negative stap, low suspicion for pathogenic as patient has been on zosyn and not directed coverage for CONS bacteremia Continue zosyn Repeat Blood culture #Hypotension *resolved gave gentle fluids because of systolic chf improved with fluids. currently stopped fluids. #Acute urinary retention: - UA obtained, culture NGT s/p arevalo. Urology consulted and appreciate inputs to continue arevalo and to keep urology appointment on 10/27 . #Chronic HFrEF Nonischemic cardiomyopathy with an EF of 25 to 29% from echocardiogram from 07/23/2023 reviewed on outpatient epic results Seems Declined BiVICD previously, at her most recent stay at [facility] approximately 1 week ago was offered second opinion by [facility] EP regarding this however patient declined at that time LBBB is chronic, Seems had history of symptomatic hypotension on outpatient records Close monitor. will d/c fluids DVT ppx: teds, scds, eliquis 2.5 mg po bid. Admission and Anticipated Discharge Date Admission Date: October 18, 2023 Subjective Reports pain not well controlled Endorses stool is more formed than she is comfortable with from ostomy output, worried about impending constipation Review of Systems Review of Systems: All systems reviewed & are unremarkable except as noted in Subjective Physical Exam Constitutional: appears a bit tearful on exam Respiratory: normal respiratory effort, lungs clear to auscultation Gastrointestinal (Abdomen): tender bilateral lower quadrants, soft however; formed stool from ostomy Skin: no rashes, warm and dry Results & Data Results & Data Vital Signs (Past 12 Hours) Vital Signs Temp Pulse Pulse Pulse Resp BP Pulse Ox 10/22/23 07:50 36.6 C 83 16 112/66 96 10/22/23 03:35 36.8 C 77 16 136/74 94 10/21/23 23:31 36.9 C 89 18 142/72 H 98 10/21/23 22:54 77 O2 Del Method 10/22/23 07:50 Room Air 10/22/23 03:35 Room Air 10/21/23 23:31 Room Air 10/21/23 22:54 Laboratory Results Short CBC 10/22/23 Range/Units 07:42 WBC 8.64 (4.8-10.8) K/ul Hgb 9.3 L (12.0-16.0) g/dl Hct 27.1 L (37.0-47.0) % Plt Count 309 (130-400) K/uL BMP 10/22/23 07:42 Sodium 134 L Potassium 3.4 L Chloride 100 Carbon Dioxide 28 BUN 10 Creatinine 0.47 L Glucose 113 H Calcium 8.5 L Medications Administered Home Medications Medication Instructions Recorded Confirmed Last Taken alprazolam 0.5 mg tablet 0.25 - 0.5 mg PO HS PRN Sleep 10/06/23 10/18/23 Unknown cyclobenzaprine 5 mg tablet 5 mg PO TID PRN Muscle Spasm 10/06/23 10/18/23 Unknown oxycodone 5 mg tablet 5 mg PO TID PRN pain #14 tabs 10/06/23 10/18/23 Unknown acetaminophen 500 mg tablet 1,000 mg PO BID PRN Pain 10/18/23 10/18/23 Unknown apixaban 2.5 mg tablet (Eliquis) 2.5 mg PO BID 10/18/23 10/18/23 Unknown gabapentin 300 mg capsule 300 mg PO TID 10/18/23 10/18/23 Unknown Active Medications Generic Name Dose Route Start Last Admin Trade Name Yumiko PRN Reason Stop Dose Admin Acetaminophen 650 mg 10/18/23 19:57 10/21/23 00:27 Acetaminophen 325 Mg Tab PO 11/17/23 19:56 650 mg Q4H PRN Administration Moderate Pain (Scale 4, 5, 6) Alprazolam 0.5 mg 10/18/23 20:10 10/21/23 19:32 Alprazolam 0.5 Mg Tablet PO 11/17/23 20:09 0.5 mg HS PRN Administration Sleep Apixaban 2.5 mg 10/18/23 21:00 10/22/23 08:14 Apixaban 2.5 Mg Tab PO 11/17/23 20:59 2.5 mg BID SHIRA Administration Docusate Sodium 100 mg 10/21/23 21:00 10/22/23 08:40 Docusate Sodium 100 Mg Cap PO 11/20/23 20:59 Not Given BID SHIRA Duloxetine HCl 30 mg 10/21/23 12:15 10/22/23 08:15 Duloxetine Hcl 30 Mg Cap PO 11/20/23 12:14 30 mg QAM SHIRA Administration Fentanyl 12 mcg 10/21/23 12:00 10/21/23 12:19 Fentanyl 12 Mcg/Hr Tdsy TD 11/04/23 11:59 12 mcg Q72H SHIRA Administration Gabapentin 300 mg 10/18/23 21:00 10/22/23 08:14 Gabapentin 300 Mg Cap PO 11/17/23 20:59 300 mg BID SHIRA Administration Heparin Sodium (Porcine) 5 ml 10/20/23 00:16 10/21/23 11:07 Heparin 100 Unit/Ml 5ml Flush FLUSH 11/19/23 00:15 5 ml PRN PRN Administration Flush Hydromorphone HCl 1 mg 10/22/23 14:15 10/22/23 14:41 Hydromorphone Inj 0.5 Mg/0.5 Ml Syr IV 11/01/23 20:15 1 mg Q3H PRN Administration Pain Piperacillin Sod/Tazobactam 100 mls @ 25 mls/hr 10/21/23 13:00 10/22/23 12:49 Sod 4.5 gm/ Dextrose IV 10/29/23 08:59 25 mls/hr Q8H SHIRA Administration Protocol Lorazepam 0.5 mg 10/20/23 16:37 10/21/23 13:13 Lorazepam 0.5 Mg Tab PO 11/19/23 16:36 0.5 mg BID PRN Administration Anxiety Lorazepam 0.25 mg 10/21/23 21:00 10/22/23 08:20 Lorazepam 0.5 Mg Tab PO 11/20/23 20:59 0.25 mg BID SHIRA Administration Methocarbamol 500 mg 10/21/23 12:01 10/21/23 20:56 Methocarbamol 500 Mg Tablet PO 11/20/23 12:00 500 mg TID PRN Administration spasm Miscellaneous 1 each 10/21/23 11:59 10/21/23 12:19 Fentanyl Patch Remove & Waste N/A 11/20/23 11:58 1 each Q72H SHIRA Administration Miscellaneous 1 each 10/21/23 16:00 10/22/23 08:15 Check Fentanyl Patch Placement N/A 11/20/23 15:59 1 each QS SHIRA Administration Oxycodone HCl 5 mg 10/20/23 07:51 10/22/23 12:49 Oxycodone Hcl Ir 5 Mg Tab (Immediate Release) PO 11/01/23 20:09 5 mg Q4H PRN Administration pain Polyethylene Glycol 17 gm 10/22/23 14:30 10/22/23 14:43 Polyethylene (Miralax) 17 Gm Pack PO 11/21/23 14:29 17 gm TID SHIRA Administration
[2023-10-22] MEDS: APIXABAN 2.5 MG TAB PO SCH ×2 (08:14→21:15)
[2023-10-22] MEDS: GABAPENTIN 300 MG CAP PO SCH ×2 (08:14→21:15)
[2023-10-22] MEDS: DULoxetine HCL 30 MG CAP PO SCH (08:15)
[2023-10-22 08:18] LABS: Hematocrit (blood only) 27.1 % (37.0-47.0); Hemoglobin 9.3 g/dl (12.0-16.0); Mean Corpuscular Hemoglobin 29.9 pg (25.0-34.0); Mean Corpuscular Hgb Conc 34.3 g/dL (32.0-36.0); Mean Corpuscular Volume 87.1 fL (80.0-100.0); Mean Platelet Volume 8.7 fL (9.4-12.4); Platelet Count 309 K/uL (130-400); RDW Standard Deviation 38.6 fL (36.4-46.3); Red Blood Count 3.11 M/uL (4.20-5.40); White Blood Count 8.64 K/ul (4.8-10.8)
[2023-10-22] MEDS: LORazepam 0.5 MG TAB PO SCH ×2 (08:20→21:15)
[2023-10-22 08:36] LABS: BUN Creatinine Ratio 21.3 (10-20); Calcium 8.5 mg/dl (8.6-10.3); Creatinine Clr Calc Pharmacy 99.8 ml/min; Est GFR (African American) 120.1 ml/min; Est GFR (Non-African American) 103.7 ml/min; Phosphorus 3.9 mg/dl (2.5-4.9); Potassium 3.4 mmol/L (3.5-5.1)
[2023-10-22] MEDS: DOCUSATE SODIUM 100 MG CAP PO SCH ×2 (08:40→21:15)
[2023-10-22] MEDS: POLYETHYLENE (MIRALAX) 17 GM PACK PO SCH ×3 (08:40→21:13)
[2023-10-22 08:52] LABS: Thyroid Stimulating Hormone 1.128 uIu/ml (0.300-4.500)
[2023-10-22 08:54] LABS: T4 Free Thyroxine 1.4 ng/dl (0.61-1.60)
[2023-10-22] MEDS ORDERED: POTASSIUM CHLORIDE PWD 20 MEQ PACK PO STA (10:16)
[2023-10-22] MEDS: SENNA 8.6 MG TAB PO SCH (15:45)
[2023-10-22] MEDS: LORazepam 0.5 MG TAB PO PRN (21:13)
[2023-10-23] MEDS: CHECK fentaNYL PATCH PLACEMENT SCH ×4 (00:52→23:10)
[2023-10-23] MEDS: HYDROmorphone INJ 0.5 MG/0.5 ML SYR IV PRN ×7 (02:13→21:56)
[2023-10-23] MEDS: PIPERACILLIN/TAZOBACTAM 4.5 GM in DEXTROSE 5% MINI-B 100 ML IV SCH ×3 (05:15→21:46)
[2023-10-23 06:04] LABS: Hematocrit (blood only) 25.4 % (37.0-47.0); Hemoglobin 8.8 g/dl (12.0-16.0); Mean Corpuscular Hemoglobin 31.1 pg (25.0-34.0); Mean Corpuscular Hgb Conc 34.6 g/dL (32.0-36.0); Mean Corpuscular Volume 89.8 fL (80.0-100.0); Mean Platelet Volume 8.6 fL (9.4-12.4); Platelet Count 311 K/uL (130-400); RDW Coefficient of Variation 11.9 % (11.5-14.5); RDW Standard Deviation 38.7 fL (36.4-46.3); Red Blood Count 2.83 M/uL (4.20-5.40)
[2023-10-23 06:18] LABS: BUN Creatinine Ratio 26.7 (10-20); Calcium 8.3 mg/dl (8.6-10.3); Creatinine Clr Calc Pharmacy 102.1 ml/min; Est GFR (African American) 121.9 ml/min; Est GFR (Non-African American) 105.1 ml/min; Phosphorus 3.7 mg/dl (2.5-4.9); Potassium 3.8 mmol/L (3.5-5.1)
[2023-10-23] MEDS: LORazepam 0.5 MG TAB PO PRN (07:20)
[2023-10-23] MEDS: oxyCODONE HCL IR 5 MG TAB (IMMEDIATE RELEASE) PO PRN (07:21)
[2023-10-23] MEDS: LORazepam 0.5 MG TAB PO SCH (08:35)
[2023-10-23] MEDS: POLYETHYLENE (MIRALAX) 17 GM PACK PO SCH ×3 (08:36→21:48)
[2023-10-23] MEDS: GABAPENTIN 300 MG CAP PO SCH ×2 (08:36→21:46)
[2023-10-23] MEDS: DULoxetine HCL 30 MG CAP PO SCH (08:36)
[2023-10-23] MEDS: DOCUSATE SODIUM 100 MG CAP PO SCH ×2 (08:36→21:46)
[2023-10-23] MEDS: APIXABAN 2.5 MG TAB PO SCH ×2 (08:36→21:45)
[2023-10-23] MEDS: SENNA 8.6 MG TAB PO SCH (08:36)
[2023-10-23] MEDS ORDERED: LORazepam 0.5 MG in SYRINGE 0.25 ML IV STA (10:03)
--- NOTE | 2023-10-23 16:10 | Surgery Progress Note ---
Date of Service October 23, 2023 Assessment & Plan (1) Acute postoperative abdominal pain: Plan: Assessment: Patient is a 63 years old female presented to ED with 4 to 5-week history lower pelvic area pain. Patient had the robotic assisted anterior resection 8 months ago. Patient had recently laparoscopy transverse colostomy last week at [facility]. There was a discharged home yesterday from [facility]. Plan: Based on review of patient history physical exam, the labs, no emergency surgical indication. Conservative treatment. control pain. Consult pain management. Consult urology for urinary retention. Patient will get a CT scan in the morning. We will follow. Patient agree with the plan. I Answered all questions. 10/18/2023 2:52 PM pt is stable, less abdominal pain, tolerated diet, pain manage consulted, conservative treatment. [place] colorectal surgeon recommend pt stay this hospital for conservative treatment. pt and her do not want any more surgery, will F/U, pressurised container filler surgeon will cover her tomorrow, Thanks. 10/23/2023 4:[address] Colón F/U pelvic pain, continue conservative treatment, manage pain. pressurised container filler surgeon will cover this weekend, Thanks. (2) Acute urinary retention: Plan avss no leukocytosis ostomy functioning, tolerating diet Plan: Continue medical management case management and PT/OT for discharge planning consider consulting Dr. Polk for further management options given recent ct scan findings Patient questioning about palliative measures but not sure if she is ready to make those decisions yet continue Mcwilliams catheter per urology okay from surgical standpoint for discharge if pain controlled, tolerating diet, and pt/ot has seen patient Discussed with Dr. Hughes who agrees with above. Admission and Anticipated Discharge Date Admission Date: October 18, 2023 Subjective pt is stable, pain manage Doctor manage her pelvic pain. no fever. Physical Exam Constitutional: WD/WN, vitals as above Eyes: PERRL, conjunctivae normal, anicteric sclerae Neck: trachea midline, no thyromegaly Respiratory: normal respiratory effort, lungs clear to auscultation Cardiovascular: RRR, no murmur, no edema Gastrointestinal (Abdomen): colostomy working, no distend, mild tenderness at low pelvic area. no rebound pain, BS +. Musculoskeletal: no cyanosis or clubbing, extremities motor strength 5/5 Neurologic: patellar DTR's 2+ bilat, sensation intact Psychiatric: A+Ox3, euthymic affect Results & Data Vital Signs (Past 12 Hours) Vital Signs Temp Pulse Pulse Resp BP Pulse Ox O2 Del Method 10/23/23 15:16 36.9 C 81 16 103/64 96 Room Air 10/23/23 11:27 36.6 C 82 16 106/66 94 Room Air 10/23/23 07:49 37.1 C 75 16 101/61 96 Room Air 10/23/23 07:40 75 Laboratory Results Abnormal lab results 10/23/23 Range/Units 05:43 RBC 2.83 L (4.20-5.40) M/uL Hgb 8.8 L (12.0-16.0) g/dl Hct 25.4 L (37.0-47.0) % MPV 8.6 L (9.4-12.4) fL Sodium 131 L (136-145) mmol/L Chloride 97 L (98-107) mmol/L Creatinine 0.45 L (0.6-1.2) mg/dl BUN/Creatinine Ratio 26.7 H (10-20) Glucose 112 H (70-99(Fasting)) mg/dl Calcium 8.3 L (8.6-10.3) mg/dl
--- NOTE | 2023-10-23 16:19 | Hospitalist Progress Note ---
Date of Service October 23, 2023 Assessment & Plan (1) Acute postoperative abdominal pain: Plan: Ms. Kyara Castillo is a 63 year old woman with history of locally advanced rectal cancer diagnosed July 2022, status post sigmoidectomy 07/30/2022, total neoadjuvant therapy (XRT and chemo, finished chemo December 17, 2022), which was briefly interrupted due to large bowel obstruction requiring a diverting loop colostomy, who then subsequently underwent a robotic assisted low anterior resection with diverting loop transverse colostomy in January 2023, followed by reversal of the colostomy on 09/03/2023, who then recently underwent a laparoscopic diverting loop transverse colostomy again on 10/12/2023 due to worsening pelvic pain and bright red blood per rectum [recently discharged from [facility] yesterday on 10/17] who is admitted due to increased pain and urinary retention. Patient's course complicated by progressive pain and concern for possible infection per CT imaging findings. It is felt that mass is suggestive of malignant process and surgical intervention/further management seems less likely feasible given functional status/frail state. Patient and seem to understand, but seem reluctant to state they prefer to opt for palliation completely. Patient's opioid requirement near 90mme with minimal improvement. It was discussed that should would need to be on oral regimen to get home, something that works for patient--however, there seemed to be additional concern about opioids and constipation--it was reassured that she will be transitioned to a medication that can help with opioid constipation. "Home" was mentioned as the goal--final discussion to help with decision making was around repeat imaging, this would help determine utility of antibiotics, degree of progression (though scan was nearly 1 week ago)--but may help and patient feel comfortable with next steps since "nothing is comfirmed with biopsy." #Acute postoperative abdominal pain #Acute on chronic cancer pain #Large rectal mass concerning for rectal carcinoma given history Follows with Dr. Polk at Cancer center, and with Dr. Lakhani with colorectal surgery Ct abd/pelvis with contrast after prep with prednisone showing increased rectal mass to 6.6cm from 5.7cm on Oct 06. An underlying contained perforation/developing abscess within this rectal mass is considered less likely but not entirely excluded. Possible developing partial SBO.Superimposed colitis Discussion with Dr. Lakhani at [facility] on 10/19 per prior hospitalist: continue abx, no change in management prompting transfer Pain management on consult: -Increased fentanyl 25mcg every 72 hours with continued oxycodone 5 mg p.o. every 4 as needed Recommend utilization of oral meds prior to IV medications. - Continue hydromorphone 1mg q3h, - Continue of Cymbalta 30 mg p.o. qam, and Robaxin for spasm control. - Schedule miralax and colace, schedule Relistor should conservative measures fail to provide bowel movement. - Continue gabapentin at current dosing. - Heme/Onc on consult: -Optimize pain management -Possible meeting next week if still admitted -TSH and cortisol wnl Palliative on consult: -Not accepting hospice/comfort measures at this time, though seemingly more pursuing QoL measures -Ativan BID #Severe protein calorie malnutrition -BMI 18, iso malignancy and poor po intake -Encourage PO as able, nutrition supplements #Possible colitis/abscess? one of the blood cultures positive for coag negative stap, low suspicion for pathogenic as patient has been on zosyn and not directed coverage for CONS bacteremia Continue zosyn Repeat Blood culture #Hypotension *resolved gave gentle fluids because of systolic chf improved with fluids. currently stopped fluids. #Acute urinary retention: - UA obtained, culture NGT s/p arevalo. Urology consulted and appreciate inputs to continue arevalo and to keep urology appointment on 10/27 . #Chronic HFrEF Nonischemic cardiomyopathy with an EF of 25 to 29% from echocardiogram from 07/23/2023 reviewed on outpatient epic results Seems Declined BiVICD previously, at her most recent stay at [place] approximately 1 week ago was offered second opinion by [place] EP regarding this however patient declined at that time LBBB is chronic, Seems had history of symptomatic hypotension on outpatient records Close monitor. will d/c fluids DVT ppx: teds, scds, eliquis 2.5 mg po bid. Admission and Anticipated Discharge Date Admission Date: October 18, 2023 Subjective Patient reports feeling worse day by day Unable to express what works/doesn't; feels frustrated and deferring conversation at bedside, questions asked Discussed role of repeat imaging--at patient request, wishing to see if things are "worsening" to aid in decision making process (palliative v further discussions with Dr. Polk) Review of Systems Review of Systems: All systems reviewed & are unremarkable except as noted in Subjective Physical Exam Constitutional: frail, anxious Respiratory: normal respiratory effort, lungs clear to auscultation Cardiovascular: RRR, no murmur, no edema Gastrointestinal (Abdomen): stool still thick in consistency , abdomen soft, but tender Results & Data Results & Data Vital Signs (Past 12 Hours) Vital Signs Temp Pulse Pulse Resp BP Pulse Ox O2 Del Method 10/23/23 15:16 36.9 C 81 16 103/64 96 Room Air 10/23/23 11:27 36.6 C 82 16 106/66 94 Room Air 10/23/23 07:49 37.1 C 75 16 101/61 96 Room Air 10/23/23 07:40 75 Laboratory Results Short CBC 10/23/23 Range/Units 05:43 WBC 9.80 (4.8-10.8) K/ul Hgb 8.8 L (12.0-16.0) g/dl Hct 25.4 L (37.0-47.0) % Plt Count 311 (130-400) K/uL BMP 10/23/23 05:43 Sodium 131 L Potassium 3.8 Chloride 97 L Carbon Dioxide 29 BUN 12 Creatinine 0.45 L Glucose 112 H Calcium 8.3 L Medications Administered Home Medications Medication Instructions Recorded Confirmed Last Taken alprazolam 0.5 mg tablet 0.25 - 0.5 mg PO HS PRN Sleep 10/06/23 10/18/23 Unknown cyclobenzaprine 5 mg tablet 5 mg PO TID PRN Muscle Spasm 10/06/23 10/18/23 Unknown oxycodone 5 mg tablet 5 mg PO TID PRN pain #14 tabs 10/06/23 10/18/23 Unknown acetaminophen 500 mg tablet 1,000 mg PO BID PRN Pain 10/18/23 10/18/23 Unknown apixaban 2.5 mg tablet (Eliquis) 2.5 mg PO BID 10/18/23 10/18/23 Unknown gabapentin 300 mg capsule 300 mg PO TID 10/18/23 10/18/23 Unknown Active Medications Generic Name Dose Route Start Last Admin Trade Name Freq PRN Reason Stop Dose Admin Acetaminophen 650 mg 10/18/23 19:57 10/21/23 00:27 Acetaminophen 325 Mg Tab PO 11/17/23 19:56 650 mg Q4H PRN Administration Moderate Pain (Scale 4, 5, 6) Alprazolam 0.5 mg 10/18/23 20:10 10/21/23 19:32 Alprazolam 0.5 Mg Tablet PO 11/17/23 20:09 0.5 mg HS PRN Administration Sleep Apixaban 2.5 mg 10/18/23 21:00 10/23/23 08:36 Apixaban 2.5 Mg Tab PO 11/17/23 20:59 2.5 mg BID SHIRA Administration Docusate Sodium 100 mg 10/21/23 21:00 10/23/23 08:36 Docusate Sodium 100 Mg Cap PO 11/20/23 20:59 100 mg BID SHIRA Administration Duloxetine HCl 30 mg 10/21/23 12:15 10/23/23 08:36 Duloxetine Hcl 30 Mg Cap PO 11/20/23 12:14 30 mg QAM SHIRA Administration Gabapentin 300 mg 10/18/23 21:00 10/23/23 08:36 Gabapentin 300 Mg Cap PO 11/17/23 20:59 300 mg BID SHIRA Administration Heparin Sodium (Porcine) 5 ml 10/20/23 00:16 10/21/23 11:07 Heparin 100 Unit/Ml 5ml Flush FLUSH 11/19/23 00:15 5 ml PRN PRN Administration Flush Hydromorphone HCl 1 mg 10/22/23 14:15 10/23/23 15:23 Hydromorphone Inj 0.5 Mg/0.5 Ml Syr IV 11/01/23 20:15 1 mg Q3H PRN Administration Pain Piperacillin Sod/Tazobactam 100 mls @ 25 mls/hr 10/21/23 13:00 10/23/23 12:37 Sod 4.5 gm/ Dextrose IV 10/29/23 08:59 25 mls/hr Q8H SHIRA Administration Protocol Methocarbamol 500 mg 10/21/23 12:01 10/21/23 20:56 Methocarbamol 500 Mg Tablet PO 11/20/23 12:00 500 mg TID PRN Administration spasm Miscellaneous 1 each 10/21/23 16:00 10/23/23 15:23 Check Fentanyl Patch Placement N/A 11/20/23 15:59 1 each QS SHIRA Administration Oxycodone HCl 5 mg 10/20/23 07:51 10/23/23 07:21 Oxycodone Hcl Ir 5 Mg Tab (Immediate Release) PO 11/01/23 20:09 5 mg Q4H PRN Administration pain Polyethylene Glycol 17 gm 10/22/23 14:30 10/23/23 12:37 Polyethylene (Miralax) 17 Gm Pack PO 11/21/23 14:29 17 gm TID SHIRA Administration Sennosides 17.2 mg 10/22/23 14:30 10/23/23 08:36 Senna 8.6 Mg Tab PO 11/21/23 14:29 17.2 mg QAM SHIRA Administration
[2023-10-23] MEDS: predniSONE 50 MG TAB PO SCH ×2 (17:29→21:45)
[2023-10-23] MEDS: fentaNYL 25 MCG/HR TDSY TD SCH (17:29)
[2023-10-23] MEDS: METHYLNALTREXONE BROMIDE 12 MG/0.6 ML VIAL SQ SCH (17:37)
[2023-10-24] MEDS: HYDROmorphone INJ 0.5 MG/0.5 ML SYR IV PRN ×2 (02:09→05:31)
[2023-10-24] MEDS ORDERED: diphenhydrAMINE Capsule 25 MG CAP PO ONE (04:06)
[2023-10-24] MEDS: PIPERACILLIN/TAZOBACTAM 4.5 GM in DEXTROSE 5% MINI-B 100 ML IV SCH ×2 (05:31→13:29)
[2023-10-24] MEDS: predniSONE 50 MG TAB PO SCH (05:31)
[2023-10-24] MEDS ORDERED: HYDROmorphone INJ 0.5 MG/0.5 ML SYR IV PRN (07:43)
[2023-10-24 08:23] LABS: Hemoglobin 9.3 g/dl (12.0-16.0); Mean Corpuscular Hemoglobin 29.5 pg (25.0-34.0); Mean Corpuscular Hgb Conc 33.2 g/dL (32.0-36.0); Mean Corpuscular Volume 88.9 fL (80.0-100.0); Mean Platelet Volume 8.8 fL (9.4-12.4); Platelet Count 406 K/uL (130-400); RDW Standard Deviation 38.5 fL (36.4-46.3); Red Blood Count 3.15 M/uL (4.20-5.40); White Blood Count 11.38 K/ul (4.8-10.8)
[2023-10-24] MEDS: POLYETHYLENE (MIRALAX) 17 GM PACK PO SCH ×3 (08:23→20:27)
[2023-10-24] MEDS: SENNA 8.6 MG TAB PO SCH (08:24)
[2023-10-24] MEDS: APIXABAN 2.5 MG TAB PO SCH ×2 (08:24→21:08)
[2023-10-24] MEDS: GABAPENTIN 300 MG CAP PO SCH ×2 (08:24→20:26)
[2023-10-24] MEDS: DOCUSATE SODIUM 100 MG CAP PO SCH ×2 (08:24→20:25)
[2023-10-24] MEDS: DULoxetine HCL 30 MG CAP PO SCH (08:25)
[2023-10-24] MEDS: CHECK fentaNYL PATCH PLACEMENT SCH ×3 (08:28→22:41)
[2023-10-24 08:42] LABS: Albumin Globulin Ratio 1.3 (0.9-2); Albumin Level 3.3 gm/dl (3.4-5.0); BUN Creatinine Ratio 30.2 (10-20); Bilirubin,Total 0.4 mg/dl (0.2-1.0); Calcium 8.9 mg/dl (8.6-10.3); Creatinine Clr Calc Pharmacy 106.5 ml/min; Est GFR (African American) 123.7 ml/min; Est GFR (Non-African American) 106.7 ml/min; Globulin 2.6 gm/dl (2.5-4.0); Magnesium 2.2 mg/dl (1.7-2.4); Potassium 3.9 mmol/L (3.5-5.1); Total Protein 5.9 gm/dl (6.0-8.3)
[2023-10-24] MEDS: LORazepam 1 MG TAB PO PRN ×2 (11:21→20:27)
[2023-10-24] MEDS ORDERED: diphenhydrAMINE 50 MG/ML VIAL IV STA (13:44)
[2023-10-24] MEDS ORDERED: OPTIRAY 320 500ml IV ONE (14:46)
--- NOTE | 2023-10-24 15:11 | CT Scan Report ---
ABDOMEN AND PELVIS CT WITH IV CONTRAST CT DOSE: 328.62 mGy.cm HISTORY: Reevaluate rectal?abscess perforation noted on 10/18 TECHNIQUE: Multiaxial CT images of the abdomen and pelvis were performed following the use of intrave nous contrast. A dose lowering technique was utilized adhering to the principles of ALARA. COMPARISON STUDY: Abdomen and pelvis CT 10/19/2023. FINDINGS: There is a trace left pleural effusion which is new compared the prior study. A catheter ti p is seen within the distal SVC. No pneumoperitoneum. No pneumatosis. No acute fractures identified. No suspicious lytic or blastic osseous lesions. Mild body wall edema is noted. There are few scattere d hypodense lesions again noted within the liver which remain unchanged. These are technically too sm all to characterize. Linear hypodense focus within the anterior segment right hepatic lobe is also un changed. The spleen, adrenal glands, pancreas, and kidneys are unremarkable. Mild bilateral hydroneph rosis has slightly progressed. The main portal vein is patent. Normal caliber abdominal aorta. The bl adder is completely decompressed by a Mcwilliams catheter which appears in good position. There is gas wit hin the bladder lumen likely due to the catheterization. Trace pelvic free fluid is noted. There is s uture material within the rectum. There is a large heterogeneous/ulcerative mass again noted within t he rectum. This measures approximately 6.7 x 6.1 cm. This abuts and displaces the uterus anteriorly. An underlying contained perforation/developing abscess within this rectal mass would be difficult to exclude. However, this is similar to the prior study. 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 Normal appendix. Necrotic lymphadenopathy within the lower central mesentery is again note d measuring up to 3 cm. Mild thickening versus underdistention within the residual sigmoid colon with adjacent fat stranding. A superimposed colitis is not excluded. Posttreatment changes could also hav e a similar appearance. There are mildly dilated gas and fluid-filled loops of small bowel seen throu ghout the abdomen. The distal ileal loops are slightly decompressed. A clear transition point is not identified at this time. However, this is concerning for a small bowel obstruction. This has slightly progressed compared to the prior study. IMPRESSION: 1. There is a large heterogeneous/ulcerative mass again noted within the rectum which measures approx imately 6.7 x 6.1 cm. An underlying contained perforation/developing abscess within this rectal mass be difficult to exclude. However, this is nonspecific change compared to the prior study. 2. Redemonstration of the necrotic metastatic lymphadenopathy within the central mesentery. 3. There are mildly dilated gas and fluid-filled loops of small bowel seen throughout the abdomen. Th e distal ileal loops are slightly decompressed. A clear transition point is not identified at this ti me. This is concerning for a small bowel obstruction. This has slightly progressed compared to the pr ior study. 4. Slight progression of the bilateral hydronephrosis, right greater than left. 5. Mild thickening versus underdistention within the residual sigmoid colon with adjacent fat strandi ng. A superimposed colitis is not excluded. Posttreatment changes could also have a similar appearanc e. 6. Stable subcentimeter hypodense lesions within the liver. These are too small to characterize. Atte ntion at follow-up recommended. 7. Additional findings as described above. ACT 112: Negative or not required by law. Electronically signed by: Luis Briseno M.D. 10/24/2023 3:09 PM
[2023-10-24] MEDS: HYDROmorphone HCL 2 MG TAB PO PRN ×2 (15:52→20:26)
--- NOTE | 2023-10-24 16:16 | Hospitalist Progress Note ---
Date of Service October 24, 2023 Assessment & Plan (1) Acute postoperative abdominal pain: Plan: Ms. Kyara Castillo is a 63 year old woman with history of locally advanced rectal cancer diagnosed July 2022, status post sigmoidectomy 07/30/2022, total neoadjuvant therapy (XRT and chemo, finished chemo December 17, 2022), which was briefly interrupted due to large bowel obstruction requiring a diverting loop colostomy, who then subsequently underwent a robotic assisted low anterior resection with diverting loop transverse colostomy in January 2023, followed by reversal of the colostomy on 09/03/2023, who then recently underwent a laparoscopic diverting loop transverse colostomy again on 10/12/2023 due to worsening pelvic pain and bright red blood per rectum [recently discharged from [facility] yesterday on 10/17] who is admitted due to increased pain and urinary retention. Patient's course complicated by progressive pain and concern for possible infection per CT imaging findings. It is felt that mass is suggestive of malignant process and surgical intervention/further management seems less likely feasible given functional status/frail state. Patient and seem to understand, but seem reluctant to state they prefer to opt for palliation completely. Patient's opioid requirement near 90mme with minimal improvement. It was discussed that should would need to be on oral regimen to get home, something that works for patient--however, there seemed to be additional concern about opioids and constipation--it was reassured that she will be transitioned to a medication that can help with opioid constipation. "Home" was mentioned as the goal--final discussion to help with decision making was around repeat imaging, this would help determine utility of antibiotics, degree of progression (though scan was nearly 1 week ago)--but may help and patient feel comfortable with next steps since "nothing is confirmed with biopsy. Repeat scan relatively unchanged. Discussed unchanged nature of scan and decided to discontinue antibiotics and assess. Discussed that the unchanged mass, the compressive like features (displaced uterus, bilateral hydronephrosis, surround collitis/fatstranding), necrotic lymph nodes, as well as past history makes this very concerning. She wishes to attempt void trial tomorrow given she is still making good amounts of urine. She feels happy at the moment with oral Dilaudid change today. #Acute postoperative abdominal pain #Acute on chronic cancer pain #Large rectal mass concerning for rectal carcinoma given history Follows with Dr. Polk at Cancer center, and with Dr. Lakhani with colorectal surgery Ct abd/pelvis with contrast after prep with prednisone showing increased rectal mass to 6.6cm from 5.7cm on Oct 06. An underlying contained perforation/developing abscess within this rectal mass is considered less likely but not entirely excluded. Possible developing partial SBO.Superimposed colitis Discussion with Dr. Lakhani at [facility] on 10/19 per prior hospitalist: continue abx, no change in management prompting transfer Pain management on consult: -Increased fentanyl 25mcg every 72 hours with continued oxycodone 5 mg p.o. every 4 as needed Recommend utilization of oral meds prior to IV medications. -Encourage po dialudid 2.5 mg q3h and IV 0.5 q 5h...increase PO dose as able to remove need for IV - Continue of Cymbalta 30 mg p.o. qam, and Robaxin for spasm control. - Schedule miralax and colace, schedule Relistor should conservative measures fail to provide bowel movement. - Continue gabapentin at current dosing. - Heme/Onc on consult: -Optimize pain management -Possible meeting next week if still admitted -TSH and cortisol wnl Palliative on consult: -Not accepting hospice/comfort measures at this time, though seemingly more pursuing QoL measures -Ativan BID #Severe protein calorie malnutrition -BMI 18, iso malignancy and poor po intake -Encourage PO as able, nutrition supplements #Possible colitis/abscess? one of the blood cultures positive for coag negative stap, low suspicion for pathogenic as patient has been on zosyn and not directed coverage for CONS bacteremia Blood cultures negative, No change in mass/fluid collection size despite nearly 1 week abx. -Discontinue abx and reassess daily #Hypotension *resolved gave gentle fluids because of systolic chf improved with fluids. currently stopped fluids. #Acute urinary retention: - UA obtained, culture NGT s/p arevalo. Urology consulted and appreciate inputs to continue arevalo and to keep urology appointment on 10/27- Requesting void trial tomorrow. #Chronic HFrEF Nonischemic cardiomyopathy with an EF of 25 to 29% from echocardiogram from 07/23/2023 reviewed on outpatient epic results Seems Declined BiVICD previously, at her most recent stay at [facility] approximately 1 week ago was offered second opinion by [facility] EP regarding this however patient declined at that time LBBB is chronic, Seems had history of symptomatic hypotension on outpatient records Close monitor. will d/c fluids DVT ppx: teds, scds, eliquis 2.5 mg po bid. Admission and Anticipated Discharge Date Admission Date: October 18, 2023 Subjective Notes that she feels mildly improved today--much more conversational and interactive, some confusion at bedside, questions asked Discussed unchanged nature of scan--agreed to trial off of abx Reports stool is much more manageable in nature Review of Systems Review of Systems: All systems reviewed & are unremarkable except as noted in Subjective Physical Exam Respiratory: normal respiratory effort, lungs clear to auscultation Cardiovascular: RRR, no murmur, no edema Skin: no rashes, warm and dry Results & Data Results & Data Vital Signs (Past 12 Hours) Vital Signs Temp Pulse Pulse Resp BP Pulse Ox O2 Del Method 10/24/23 15:36 36.7 C 88 16 134/75 96 Room Air 10/24/23 15:03 100 H 10/24/23 08:00 Room Air 10/24/23 07:43 36.4 C L 99 H 16 138/72 97 Room Air 10/24/23 07:00 78 Laboratory Results Short CBC 10/24/23 Range/Units 07:37 WBC 11.38 H (4.8-10.8) K/ul Hgb 9.3 L (12.0-16.0) g/dl Hct 28.0 L (37.0-47.0) % Plt Count 406 H (130-400) K/uL BMP 10/24/23 07:37 Sodium 131 L Potassium 3.9 Chloride 95 L Carbon Dioxide 29 BUN 13 Creatinine 0.43 L Glucose 194 H Calcium 8.9 Liver Function 10/24/23 Range/Units 07:37 Total Bilirubin 0.4 (0.2-1.0) mg/dl AST 8 L (13-39) U/L ALT 14 (7-52) U/L Alkaline Phosphatase 67 (34-104) U/L Albumin 3.3 L (3.4-5.0) gm/dl Medications Administered Home Medications Medication Instructions Recorded Confirmed Last Taken alprazolam 0.5 mg tablet 0.25 - 0.5 mg PO HS PRN Sleep 10/06/23 10/18/23 Unknown cyclobenzaprine 5 mg tablet 5 mg PO TID PRN Muscle Spasm 10/06/23 10/18/23 Unknown oxycodone 5 mg tablet 5 mg PO TID PRN pain #14 tabs 10/06/23 10/18/23 Unknown acetaminophen 500 mg tablet 1,000 mg PO BID PRN Pain 10/18/23 10/18/23 Unknown apixaban 2.5 mg tablet (Eliquis) 2.5 mg PO BID 10/18/23 10/18/23 Unknown gabapentin 300 mg capsule 300 mg PO TID 10/18/23 10/18/23 Unknown Active Medications Generic Name Dose Route Start Last Admin Trade Name Freq PRN Reason Stop Dose Admin Acetaminophen 650 mg 10/18/23 19:57 10/21/23 00:27 Acetaminophen 325 Mg Tab PO 11/17/23 19:56 650 mg Q4H PRN Administration Moderate Pain (Scale 4, 5, 6) Alprazolam 0.5 mg 10/18/23 20:10 10/21/23 19:32 Alprazolam 0.5 Mg Tablet PO 11/17/23 20:09 0.5 mg HS PRN Administration Sleep Apixaban 2.5 mg 10/18/23 21:00 10/24/23 08:24 Apixaban 2.5 Mg Tab PO 11/17/23 20:59 2.5 mg BID SHIRA Administration Docusate Sodium 100 mg 10/21/23 21:00 10/24/23 08:24 Docusate Sodium 100 Mg Cap PO 11/20/23 20:59 100 mg BID SHIRA Administration Duloxetine HCl 30 mg 10/21/23 12:15 10/24/23 08:25 Duloxetine Hcl 30 Mg Cap PO 11/20/23 12:14 30 mg QAM SHIRA Administration Fentanyl 25 mcg 10/23/23 17:00 10/23/23 17:29 Fentanyl 25 Mcg/Hr Tdsy TD 11/06/23 16:59 25 mcg Q72H SHIRA Administration Gabapentin 300 mg 10/18/23 21:00 10/24/23 08:24 Gabapentin 300 Mg Cap PO 11/17/23 20:59 300 mg BID SHIRA Administration Heparin Sodium (Porcine) 5 ml 10/20/23 00:16 10/21/23 11:07 Heparin 100 Unit/Ml 5ml Flush FLUSH 11/19/23 00:15 5 ml PRN PRN Administration Flush Hydromorphone HCl 2.5 mg 10/24/23 07:41 10/24/23 15:52 Hydromorphone Hcl 2 Mg Tab PO 11/07/23 07:40 2.5 mg Q3H PRN Administration Pain Piperacillin Sod/Tazobactam 100 mls @ 25 mls/hr 10/21/23 13:00 10/24/23 13:29 Sod 4.5 gm/ Dextrose IV 10/29/23 08:59 25 mls/hr Q8H SHIRA Administration Protocol Lorazepam 1 mg 10/23/23 16:03 10/24/23 11:21 Lorazepam 1 Mg Tab PO 11/19/23 16:36 1 mg BID PRN Administration Anxiety Methocarbamol 500 mg 10/21/23 12:01 10/21/23 20:56 Methocarbamol 500 Mg Tablet PO 11/20/23 12:00 500 mg TID PRN Administration spasm Methylnaltrexone [place] 8 mg 10/23/23 17:00 10/23/23 17:37 Methylnaltrexone [place] 12 Mg/0.6 Ml Vial SQ 11/22/23 16:59 8 mg Q2D SHIRA Administration Miscellaneous 1 each 10/21/23 16:00 10/24/23 15:54 Check Fentanyl Patch Placement N/A 11/20/23 15:59 1 each QS SHIRA Administration Miscellaneous 1 each 10/23/23 17:00 10/23/23 17:30 Fentanyl Patch Remove & Waste N/A 11/22/23 16:59 1 each Q72H SHIRA Administration Polyethylene Glycol 17 gm 10/22/23 14:30 10/24/23 13:30 Polyethylene (Miralax) 17 Gm Pack PO 11/21/23 14:29 Not Given TID SHIRA Sennosides 17.2 mg 10/22/23 14:30 10/24/23 08:24 Senna 8.6 Mg Tab PO 11/21/23 14:29 17.2 mg QAM SHIRA Administration
[2023-10-25] MEDS: HYDROmorphone HCL 2 MG TAB PO PRN ×5 (00:17→20:34)
[2023-10-25] MEDS: ONDANSETRON INJ 2 MG/ML 2 ML VIAL IV PRN (02:21)
[2023-10-25] MEDS: METHOCARBAMOL 500 MG TABLET PO PRN (02:23)
[2023-10-25 06:58] LABS: Hematocrit (blood only) 25.6 % (37.0-47.0); Hemoglobin 8.7 g/dl (12.0-16.0); Mean Corpuscular Hemoglobin 30.2 pg (25.0-34.0); Mean Corpuscular Volume 88.9 fL (80.0-100.0); Mean Platelet Volume 8.6 fL (9.4-12.4); Platelet Count 396 K/uL (130-400); RDW Coefficient of Variation 11.9 % (11.5-14.5); RDW Standard Deviation 38.1 fL (36.4-46.3); Red Blood Count 2.88 M/uL (4.20-5.40); White Blood Count 11.75 K/ul (4.8-10.8)
[2023-10-25 07:16] LABS: BUN Creatinine Ratio 31.8 (10-20); Calcium 8.9 mg/dl (8.6-10.3); Creatinine Clr Calc Pharmacy 102.6 ml/min; Est GFR (African American) 122.8 ml/min; Est GFR (Non-African American) 105.9 ml/min; Magnesium 2.1 mg/dl (1.7-2.4); Phosphorus 2.5 mg/dl (2.5-4.9); Potassium 3.4 mmol/L (3.5-5.1)
[2023-10-25] MEDS ORDERED: POTASSIUM CHLORIDE CRTAB 20 MEQ TABCR PO STA (07:39)
[2023-10-25] MEDS: SENNA 8.6 MG TAB PO SCH (07:50)
[2023-10-25] MEDS: DULoxetine HCL 30 MG CAP PO SCH (07:51)
[2023-10-25] MEDS: GABAPENTIN 300 MG CAP PO SCH ×2 (07:52→20:36)
[2023-10-25] MEDS: CHECK fentaNYL PATCH PLACEMENT SCH ×3 (07:52→23:46)
[2023-10-25] MEDS: DOCUSATE SODIUM 100 MG CAP PO SCH ×2 (07:52→20:35)
[2023-10-25] MEDS: POLYETHYLENE (MIRALAX) 17 GM PACK PO SCH ×3 (07:53→20:36)
[2023-10-25] MEDS: LORazepam 0.5 MG TAB PO PRN ×2 (08:05→20:42)
[2023-10-25] MEDS: HEPARIN 100 UNIT/ML 5ML FLUSH FLUSH PRN (08:37)
--- NOTE | 2023-10-25 08:53 | Hospitalist Progress Note ---
Date of Service October 25, 2023 Assessment & Plan (1) Rectal carcinoma: Plan: Appreciate the very thorough hospital team review and care Most likely dealing with recurrent rectal ca with areas of necrosis and cannot exclude a supervening infection/abscess. Surgery, radiation and traditional chemo options much more likely to harm than help - best path for both quality of life and ironically quantity of life probably with palliaitive care only. Patient and her intellectucally seem to well understand situation and prognosis but understandably still coming to personnel counselor with that emotionally. I will return Thursday and have indicated I will meet with them face to face that evening. In the interim hope that team can optimize pain and bowel regimen, determine functional plan for urologic issues, and perhaps with PT/OT determine her ability to function at home. I have explicitly noted thatb hospice becomes an importantr discussion in time and while that unfortunately exacerbates their emotional trauma, it may be an important vehicle for getting her back home as she wishes Plan Appreciate tremendous ongoing hospitalist efforts I will plan to meet with Kaitlynn and her Thursday evening. Admission and Anticipated Discharge Date Admission Date: October 18, 2023 Subjective I am off site until Thursday, this represents electronic review only Results & Data Results & Data Vital Signs (Past 12 Hours) Vital Signs Temp Pulse Pulse Resp BP BP Pulse Ox 10/25/23 07:46 91 H 10/25/23 07:13 36.7 C 86 20 125/64 96 10/25/23 02:45 36.7 C 103 H 16 132/82 97 10/24/23 23:14 36.7 C 84 18 145/69 H 97 10/24/23 23:06 81 O2 Del Method 10/25/23 07:46 10/25/23 07:13 Room Air 10/25/23 02:45 Room Air 10/24/23 23:14 Room Air 10/24/23 23:06 PG Care Time/CCT Total # of Minutes Spent Total Time Spent with Patient: Total time spent is greater than 50% in coordination of care (as documented) at patient's floor/unit and/or counseling patient: Coding Level of Care Code None Diagnoses Rectal carcinoma C20
--- NOTE | 2023-10-25 09:41 | Communication Note ---
Date of Service: October 25, 2023 Patient not seen on rounds that she was occupied. Pain appears to be well- controlled. Her ostomy is functioning. She did have a CT yesterday which sh owed progression of the necrotic tumor in her pelvis, possible developing SBO. She also had some blood from her rectum. Eliquis has been held. She did have a witnessed fall without loss of consciousness or significant trauma. She is considering palliative care and possibly hospice. No surgical intervention at this time. Continue current management with pain control.
--- NOTE | 2023-10-25 10:20 | XRay Report ---
XR hip LT min 2V, XR hip RT min 2V CLINICAL HISTORY: fall hip pain R>L TECHNIQUE: 2 views of the bilateral hips were obtained. Comparison: None available at the time of this dictation. FINDINGS: There is no evidence of an acute fracture. Joint spaces are well-preserved. Postsurgical changes are seen in the pelvis. Phleboliths are seen. IMPRESSION: No evidence of acute osseous injury. ACT 112: Negative or not required by law. Electronically signed by: Jose Tavera M.D. 10/25/2023 10:19 AM
[2023-10-25] MEDS: ACETAMINOPHEN 500 MG TAB PO SCH ×3 (10:26→21:14)
[2023-10-25] MEDS: DICLOFENAC SOD 1% GEL 100 GM TUBE EXT SCH ×5 (12:25→23:46)
--- NOTE | 2023-10-25 12:33 | Hospitalist Progress Note ---
Date of Service October 25, 2023 Assessment & Plan (1) Acute postoperative abdominal pain: Plan: Ms. Kyara Castillo is a 63 year old woman with history of locally advanced rectal cancer diagnosed July 2022, status post sigmoidectomy 07/30/2022, total neoadjuvant therapy (XRT and chemo, finished chemo December 17, 2022), which was briefly interrupted due to large bowel obstruction requiring a diverting loop colostomy, who then subsequently underwent a robotic assisted low anterior resection with diverting loop transverse colostomy in January 2023, followed by reversal of the colostomy on 09/03/2023, who then recently underwent a laparoscopic diverting loop transverse colostomy again on 10/12/2023 due to worsening pelvic pain and bright red blood per rectum [recently discharged from [facility] yesterday on 10/17] who is admitted due to increased pain and urinary retention. Patient's course complicated by progressive pain and concern for possible infection per CT imaging findings. It is felt that mass is suggestive of malignant process and surgical intervention/further management seems less likely feasible given functional status/frail state. Patient and seem to understand, but seem reluctant to state they prefer to opt for palliation completely. Patient's opioid requirement near 90mme with minimal improvement. It was discussed that should would need to be on oral regimen to get home, something that works for patient--however, there seemed to be additional concern about opioids and constipation--it was reassured that she will be transitioned to a medication that can help with opioid constipation. "Home" was mentioned as the goal--final discussion to help with decision making was around repeat imaging, this would help determine utility of antibiotics, degree of progression (though scan was nearly 1 week ago)--but may help and patient feel comfortable with next steps since "nothing is confirmed with biopsy. No fevers since cessation of antibiotics on 10/24. Fall overnight of 10/24 distressing for patient, luckily no LOC or trauma to head. Bilateral hip xray did not reveal fracture. Patient reportedly slipped/tripped on arevalo, thus prompting eagerness to remove arevalo as soon as possible. Discussed plan for void trial--will remove and follow PVR and bladder scans to determine if we need to replace arevalo. Encouraged patient to perform Kegels, giving her a way to focus on something while in her room seems to have calming effect--she attempted "practice" round, with hopes this may offer success. Day by day discussions with talk of "home." Will see how the day without a arevalo progresses and readdress discussion in the am with a hopefully uneventful evening. Pain regimen seems to be stable at this time--reduced doses subtle to prevent exacerbation of delirium #Acute urinary retention: - UA obtained, culture NGT s/p arevalo. Urology consulted and appreciate inputs to continue arevalo and to keep urology appointment on 10/27- Requesting void trial today -If void trial fails, will have Urology place arevalo per patient request--plan for urology follow up in 1-2 weeks to reassess #Delirium -Episodic confusion requiring reorientation -Encourage delirium precautions as able -Subtle reduction in benzo/opioids, has not seemed to cause noticeable effect in uncontrolled symptoms at this point -Fall precautions #Rectal bleeding -likely 2/2 progression ass/inflammation, has been chronic issue but notably worse last evening 10/24 per patient -Hold eliquis -Trend CBC (stable this am) #Acute postoperative abdominal pain #Acute on chronic cancer pain #Large rectal mass concerning for rectal carcinoma given history Follows with Dr. Polk at Cancer center, and with Dr. Lakhani with colorectal surgery Ct abd/pelvis with contrast after prep with prednisone showing increased rectal mass to 6.6cm from 5.7cm on Oct 06. An underlying contained perforation/developing abscess within this rectal mass is considered less likely but not entirely excluded. Possible developing partial SBO.Superimposed colitis Discussion with Dr. Lakhani at [facility] on 10/19 per prior hospitalist: continue abx, no change in management prompting transfer Pain management on consult: -Continue fentanyl 25mcg every 72 hours; discontinued oxycodone 5 mg p.o. -Reduced po dialudid 2 mg q3h and discontinued IV 0.5 q 5h--will adjusted as needed - Continue of Cymbalta 30 mg p.o. qam, and Robaxin for spasm control. - Schedule miralax and colace, schedule Relistor q2d - Continue gabapentin at current dosing. - Heme/Onc on consult: -Optimize pain management -Possible meeting next week if still admitted (atively Thursday with Dr Polk) -TSH and cortisol wnl Palliative on consult: -Not accepting hospice/comfort measures at this time, though seemingly more pursuing QoL measures -Ativan BID (reduced to 0.75mg bid prn) #Severe protein calorie malnutrition -BMI 18, iso malignancy and poor po intake -Encourage PO as able, nutrition supplements #Possible colitis/abscess? one of the blood cultures positive for coag negative stap, low suspicion for pathogenic as patient has been on zosyn and not directed coverage for CONS bacteremia Blood cultures negative, No change in mass/fluid collection size despite nearly 1 week abx. -Discontinue abx and reassess daily #Hypotension *resolved gave gentle fluids because of systolic chf improved with fluids. currently stopped fluids. #Chronic HFrEF Nonischemic cardiomyopathy with an EF of 25 to 29% from echocardiogram from 07/23/2023 reviewed on outpatient epic results Seems Declined BiVICD previously, at her most recent stay at [facility] approximately 1 week ago was offered second opinion by [facility] EP regarding this however patient declined at that time LBBB is chronic, Seems had history of symptomatic hypotension on outpatient records Close monitor. will d/c fluids DVT ppx: teds, scds, eliquis 2.5 mg po bid. Admission and Anticipated Discharge Date Admission Date: October 18, 2023 Subjective Patient understandably upset over fall--discussed events surrounding fall--patient slipped/tripped over arevalo while attempting to wipe self from increased rectal bleeding noted overnight. The increased bleeding and fall have been emotionally distressing. Discussed holding Eliquis with patient given increased bleeding Discussed how comfortable patient is with trial of void--she requests to have it done today and discussed contingency planning (prefers Uro place arevalo) Discussed that xray did not reveal any signs of fracture, which seemed to help patient calm somewhat Patient redirected to concerns of work and "home" after discharge--continued to reassure and discuss options/steps that need to be had prior to home. Patient brings up intermittently "palliative" but still not quite there to say that is her next step, seems to understand the direction with the newly increased bleeding. Patient easy to redirect and calm with clear focused goals/directives set for the day and redirection from perseverating "future" outcomes/prognosis discu ssions Review of Systems Review of Systems: All systems reviewed & are unremarkable except as noted in Subjective Physical Exam Constitutional: tearful initially, calms with discussion Respiratory: normal respiratory effort, lungs clear to auscultation Gastrointestinal (Abdomen): stool in ostomy more soft/liquid Results & Data Results & Data Vital Signs (Past 12 Hours) Vital Signs Temp Pulse Pulse Resp BP BP Pulse Ox 10/25/23 12:23 36.6 C 94 H 20 115/72 96 10/25/23 07:46 91 H 10/25/23 07:13 36.7 C 86 20 125/64 96 10/25/23 02:45 36.7 C 103 H 16 132/82 97 O2 Del Method 10/25/23 12:23 Room Air 10/25/23 07:46 10/25/23 07:13 Room Air 10/25/23 02:45 Room Air Laboratory Results Short CBC 10/25/23 Range/Units 06:30 WBC 11.75 H (4.8-10.8) K/ul Hgb 8.7 L (12.0-16.0) g/dl Hct 25.6 L (37.0-47.0) % Plt Count 396 (130-400) K/uL BMP 10/25/23 06:30 Sodium 134 L Potassium 3.4 L Chloride 99 Carbon Dioxide 32 BUN 14 Creatinine 0.44 L Glucose 112 H Calcium 8.9 Medications Administered Home Medications Medication Instructions Recorded Confirmed Last Taken alprazolam 0.5 mg tablet 0.25 - 0.5 mg PO HS PRN Sleep 10/06/23 10/18/23 Unknown cyclobenzaprine 5 mg tablet 5 mg PO TID PRN Muscle Spasm 10/06/23 10/18/23 Unknown oxycodone 5 mg tablet 5 mg PO TID PRN pain #14 tabs 10/06/23 10/18/23 Unknown acetaminophen 500 mg tablet 1,000 mg PO BID PRN Pain 10/18/23 10/18/23 Unknown apixaban 2.5 mg tablet (Eliquis) 2.5 mg PO BID 10/18/23 10/18/23 Unknown gabapentin 300 mg capsule 300 mg PO TID 10/18/23 10/18/23 Unknown Active Medications Generic Name Dose Route Start Last Admin Trade Name Freq PRN Reason Stop Dose Admin Acetaminophen 1,000 mg 10/25/23 09:30 10/25/23 10:26 Acetaminophen 500 Mg Tab PO 11/24/23 09:29 1,000 mg Q8 SHIRA Administration Alprazolam 0.5 mg 10/18/23 20:10 10/21/23 19:32 Alprazolam 0.5 Mg Tablet PO 11/17/23 20:09 0.5 mg HS PRN Administration Sleep Apixaban 2.5 mg 10/18/23 21:00 10/24/23 21:08 Apixaban 2.5 Mg Tab PO 11/17/23 20:59 2.5 mg BID SHIRA Administration Diclofenac Sodium 2 gm 10/25/23 09:30 10/25/23 12:25 Diclofenac Sod 1% Gel 100 Gm Tube EXT 11/24/23 09:29 2 gm Q4 SHIRA Administration Protocol Docusate Sodium 100 mg 10/21/23 21:00 10/25/23 07:52 Docusate Sodium 100 Mg Cap PO 11/20/23 20:59 100 mg BID SHIRA Administration Duloxetine HCl 30 mg 10/21/23 12:15 10/25/23 07:51 Duloxetine Hcl 30 Mg Cap PO 11/20/23 12:14 30 mg QAM SHIRA Administration Fentanyl 25 mcg 10/23/23 17:00 10/23/23 17:29 Fentanyl 25 Mcg/Hr Tdsy TD 11/06/23 16:59 25 mcg Q72H SHIRA Administration Gabapentin 300 mg 10/18/23 21:00 10/25/23 07:52 Gabapentin 300 Mg Cap PO 11/17/23 20:59 300 mg BID SHIRA Administration Heparin Sodium (Porcine) 5 ml 10/20/23 00:16 10/25/23 08:37 Heparin 100 Unit/Ml 5ml Flush FLUSH 11/19/23 00:15 5 ml PRN PRN Administration Flush Hydromorphone HCl 2 mg 10/25/23 07:46 10/25/23 09:16 Hydromorphone Hcl 2 Mg Tab PO 11/07/23 07:40 2 mg Q3H PRN Administration Pain Lorazepam 0.75 mg 10/25/23 07:48 10/25/23 08:05 Lorazepam 0.5 Mg Tab PO 11/24/23 07:47 0.75 mg BID PRN Administration Anxiety Methocarbamol 500 mg 10/21/23 12:01 10/25/23 02:23 Methocarbamol 500 Mg Tablet PO 11/20/23 12:00 500 mg TID PRN Administration spasm Methylnaltrexone Holt 8 mg 10/23/23 17:00 10/23/23 17:37 Methylnaltrexone Holt 12 Mg/0.6 Ml Vial SQ 11/22/23 16:59 8 mg Q2D SHIRA Administration Miscellaneous 1 each 10/21/23 16:00 10/25/23 07:52 Check Fentanyl Patch Placement N/A 11/20/23 15:59 1 each QS SHIRA Administration Miscellaneous 1 each 10/23/23 17:00 10/23/23 17:30 Fentanyl Patch Remove & Waste N/A 11/22/23 16:59 1 each Q72H SHIRA Administration Ondansetron HCl 4 mg 10/18/23 19:57 10/25/23 02:21 Ondansetron Inj 2 Mg/Ml 2 Ml Vial IV 11/17/23 19:56 4 mg Q4H PRN Administration Nausea And Vomiting Polyethylene Glycol 17 gm 10/22/23 14:30 10/25/23 07:53 Polyethylene (Miralax) 17 Gm Pack PO 11/21/23 14:29 17 gm TID SHIRA Administration Sennosides 17.2 mg 10/22/23 14:30 10/25/23 07:50 Senna 8.6 Mg Tab PO 11/21/23 14:29 17.2 mg QAM SHIRA Administration
[2023-10-25] MEDS: METHYLNALTREXONE BROMIDE 12 MG/0.6 ML VIAL SQ SCH (17:46)
[2023-10-25] MEDS ORDERED: HYDROCORTISONE HC 2.5% CRM 30GM TUBE EXT ONE (18:55)
[2023-10-25] MEDS ORDERED: HYDROCORTISONE HC 2.5% CRM 30GM TUBE EXT PRN (18:55)
[2023-10-25] MEDS ORDERED: LIDOCAINE 3.5% OPH GEL PER APPLICATION CHARGE OP ONE (19:40)
[2023-10-25] MEDS ORDERED: LIDOCAINE 2% JELLY 5 ML TUBE EXT STA (19:45)
[2023-10-25] MEDS: ANUSOL SUPP 1 EA PR SCH (20:35)
[2023-10-25] MEDS ORDERED: ALUMINUM/MAGNESIUM/SIMETH (MAALOX MAX) 30 ML UDC PO STA (21:31)
[2023-10-26] MEDS: HYDROmorphone HCL 2 MG TAB PO PRN ×2 (01:41→21:46)
[2023-10-26] MEDS: DICLOFENAC SOD 1% GEL 100 GM TUBE EXT SCH ×5 (04:33→21:37)
[2023-10-26] MEDS: ALPRAZolam 0.5 MG TABLET PO PRN (04:33)
[2023-10-26] MEDS: ACETAMINOPHEN 500 MG TAB PO SCH ×3 (05:34→21:52)
[2023-10-26] MEDS ORDERED: ALUMINUM/MAGNESIUM/SIMETH (MAALOX MAX) 30 ML UDC PO STA (05:34)
[2023-10-26 06:24] LABS: Hematocrit (blood only) 28.4 % (37.0-47.0); Hemoglobin 10.1 g/dl (12.0-16.0); Mean Corpuscular Hemoglobin 30.4 pg (25.0-34.0); Mean Corpuscular Hgb Conc 35.6 g/dL (32.0-36.0); Mean Corpuscular Volume 85.5 fL (80.0-100.0); Mean Platelet Volume 8.7 fL (9.4-12.4); Platelet Count 459 K/uL (130-400); RDW Coefficient of Variation 11.9 % (11.5-14.5); RDW Standard Deviation 36.6 fL (36.4-46.3); Red Blood Count 3.32 M/uL (4.20-5.40)
[2023-10-26 06:32] LABS: BUN Creatinine Ratio 22.6 (10-20); Calcium 9.1 mg/dl (8.6-10.3); Creatinine Clr Calc Pharmacy 85.2 ml/min; Est GFR (African American) 115.5 ml/min; Est GFR (Non-African American) 99.6 ml/min; Potassium 3.5 mmol/L (3.5-5.1)
[2023-10-26] MEDS: ONDANSETRON INJ 2 MG/ML 2 ML VIAL IV PRN (07:13)
--- NOTE | 2023-10-26 08:08 | Hospitalist Progress Note ---
Date of Service October 26, 2023 Assessment & Plan (1) Acute postoperative abdominal pain: Plan: Ms. Kyara Castillo is a 63 year old woman with history of locally advanced rectal cancer diagnosed July 2022, status post sigmoidectomy 07/30/2022, total neoadjuvant therapy (XRT and chemo, finished chemo December 17, 2022), which was briefly interrupted due to large bowel obstruction requiring a diverting loop colostomy, who then subsequently underwent a robotic assisted low anterior resection with diverting loop transverse colostomy in January 2023, followed by reversal of the colostomy on 09/03/2023, who then recently underwent a laparoscopic diverting loop transverse colostomy again on 10/12/2023 due to worsening pelvic pain and bright red blood per rectum [recently discharged from [facility] yesterday on 10/17] who is admitted due to increased pain and urinary retention. Patient's course complicated by progressive pain and concern for possible infection per CT imaging findings. It is felt that mass is suggestive of malignant process and surgical intervention/further management seems less likely feasible given functional status/frail state. Patient and seem to understand, but seem reluctant to state they prefer to opt for palliation completely. Patient's opioid requirement near 90mme with minimal improvement. It was discussed that should would need to be on oral regimen to get home, something that works for patient--however, there seemed to be additional concern about opioids and constipation--it was reassured that she will be transitioned to a medication that can help with opioid constipation. "Home" was mentioned as the goal--final discussion to help with decision making was around repeat imaging, this would help determine utility of antibiotics, degree of progression (though scan was nearly 1 week ago)--but may help and patient feel comfortable with next steps since "nothing is confirmed with biopsy. No fevers since cessation of antibiotics on 10/24. Fall overnight of 10/24 distressing for patient, luckily no LOC or trauma to head. Bilateral hip xray did not reveal fracture. Patient reportedly slipped/tripped on arevalo, thus prompting eagerness to remove arevalo as soon as possible. Discussed plan for void trial--will remove and follow PVR and bladder scans to determine if we need to replace arevalo. Encouraged patient to perform Kegels, giving her a way to focus on something while in her room seems to have calming effect--she attempted "practice" round, with hopes this may offer success. Day by day discussions with talk of "home"--trial of void unsuccessful 10/25 and discussed the likelihood of the arevalo staying at this time, at least another 1-2 weeks to discuss with urology. Concerned this will likely be an indefinite fixture given the CT findings and proximity of the mass in relation to structures to allow for successful unobstructed voiding. Regardless patient still eager to try and fixated on next steps. Pain regimen seems to be stable at this time--reduced doses subtly to prevent exacerbation of delirium Spoke with son the evening 10/25 who mentions growing concerns of patient returning home, given 's own declining health and inability to care for patient previously to extensive degree required. It seems reasonable to consider placement, but conversation should be reserved for Thursday when all parties (, son, patient, home care liaison) are able to bring up the options and the outcomes in a group manner. Patient and both seem to understand the situation to a very clear degree, but emotion hesitation prevents any definitive decision at this time for next steps in care plan. Discussion today, 10/26, was centered around safety at home--since that seemed to be the ideal choice and goal at this time. After analyzing the situation and that the patient's needs are increasing, pointed out the concern regarding 's safety (multiple comorbidities, could he handle medications, repositioning, delirium?) Both seemed to understand that though he historically handled post-operative care--this is going to be a progressive decline and demands will notably increase. Further discussions likely tomorrow with Palliative/ Dr Polk as family hold very high regard for his input and will be critical for next best steps in the patient's care. #Acute urinary retention: - UA obtained, culture NGT s/p arevalo. Urology consulted and appreciate inputs to continue arevalo and to keep urology appointment on 10/27- Requesting void trial today (10/25) -Replaced arevalo 10/25, will keep likely 1-2 weeks before further discussion of v oid trial and if it is reasonable at that time (Urology aware) #Delirium #Generalized weakness -Episodic confusion requiring reorientation -Encourage delirium precautions as able -Subtle reduction in benzo/opioids, has not seemed to cause noticeable effect in uncontrolled symptoms at this point -Fall precautions #Rectal bleeding, -likely 2/2 progression ass/inflammation, has been chronic issue but notably worse last evening 10/24 per patient -External exam revealed small hemorrhoid and skin tag and slight red streaks on ALEAH -Hemoglobin stable--appears like bright red staining on depends -Hold eliquis -Trend CBC (stable this am) -HC suppository and cream -Start PPI BID more for ppx #Acute postoperative abdominal pain #Acute on chronic cancer pain #Large rectal mass concerning for rectal carcinoma given history Follows with Dr. Polk at [facility], and with Dr. Lakhani with colorectal surgery Ct abd/pelvis with contrast after prep with prednisone showing increased rectal mass to 6.6cm from 5.7cm on Oct 06. An underlying contained perforation/developing abscess within this rectal mass is considered less likely but not entirely excluded. Possible developing partial SBO.Superimposed colitis Discussion with Dr. Lakhani at [facility] on 10/19 per prior hospitalist: continue abx, no change in management prompting transfer Pain management on consult: -Continue fentanyl 25mcg every 72 hours; discontinued oxycodone 5 mg p.o. -Reduced po dialudid 1 mg q3h and discontinued IV 0.5 q 5h--will adjusted as needed - Continue of Cymbalta 30 mg p.o. qam, and Robaxin for spasm control. - Continue miralax and colace, schedule Relistor q2d - Continue gabapentin at current dosing Heme/Onc on consult: -Optimize pain management -Possible meeting next week if still admitted (tenatively Thursday with Dr Polk) -TSH and cortisol wnl Palliative on consult: -Not accepting hospice/comfort measures at this time, though seemingly more pursuing QoL measures -Ativan BID (reduced to 0.75mg bid prn) #Severe protein calorie malnutrition -BMI 18, iso malignancy and poor po intake -Encourage PO as able, nutrition supplements #Possible colitis/abscess? one of the blood cultures positive for coag negative stap, low suspicion for pathogenic as patient has been on zosyn and not directed coverage for CONS bacteremia Blood cultures negative, No change in mass/fluid collection size despite nearly 1 week abx. -Discontinue abx and reassess daily #Hypotension *resolved gave gentle fluids because of systolic chf improved with fluids. currently stopped fluids. #Chronic HFrEF Nonischemic cardiomyopathy with an EF of 25 to 29% from echocardiogram from 07/23/2023 reviewed on outpatient epic results Seems Declined BiVICD previously, at her most recent stay at [facility] approximately 1 week ago was offered second opinion by Stephanie EP regarding this however patient declined at that time LBBB is chronic, Seems had history of symptomatic hypotension on outpatient records Close monitor. will d/c fluids DVT ppx: teds, scds Admission and Anticipated Discharge Date Admission Date: October 18, 2023 Subjective Yesterday evening, discussed the void trial and chance of potential failure given ongoing compression--she wished to trial regardless and eager to see if she can Patient unable to successfully void and prompted replacement overnight Discussed safety at home--not only of patient's but 's safety as well. Both acknowledged this as a concern and seemed to rodo over the idea of possible placement Concerns mostly revolved around delirium at this time, questioned if patient felt there was room to subtly reduce doses further of opioids/benzos, to which she stated she was agreeable to try Review of Systems Review of Systems: All systems reviewed & are unremarkable except as noted in Subjective Physical Exam Constitutional: tearful, shaky Respiratory: normal respiratory effort, lungs clear to auscultation Cardiovascular: tachycardic, regular Results & Data Results & Data Vital Signs (Past 12 Hours) Vital Signs Temp Pulse Pulse Resp BP Pulse Ox O2 Del Method 10/26/23 05:49 89 10/25/23 23:31 73 10/25/23 23:05 Room Air 10/25/23 22:00 36.6 C 76 18 144/87 H 95 Room Air Laboratory Results Short CBC 10/26/23 Range/Units 05:45 WBC 10.70 (4.8-10.8) K/ul Hgb 10.1 L (12.0-16.0) g/dl Hct 28.4 L (37.0-47.0) % Plt Count 459 H (130-400) K/uL BMP 10/26/23 05:45 Sodium 133 L Potassium 3.5 Chloride 94 L Carbon Dioxide 32 BUN 12 Creatinine 0.53 L Glucose 118 H Calcium 9.1 Medications Administered Home Medications Medication Instructions Recorded Confirmed Last Taken alprazolam 0.5 mg tablet 0.25 - 0.5 mg PO HS PRN Sleep 10/06/23 10/18/23 Unknown cyclobenzaprine 5 mg tablet 5 mg PO TID PRN Muscle Spasm 10/06/23 10/18/23 Unknown oxycodone 5 mg tablet 5 mg PO TID PRN pain #14 tabs 10/06/23 10/18/23 Unknown acetaminophen 500 mg tablet 1,000 mg PO BID PRN Pain 10/18/23 10/18/23 Unknown apixaban 2.5 mg tablet (Eliquis) 2.5 mg PO BID 10/18/23 10/18/23 Unknown gabapentin 300 mg capsule 300 mg PO TID 10/18/23 10/18/23 Unknown Active Medications Generic Name Dose Route Start Last Admin Trade Name Freq PRN Reason Stop Dose Admin Acetaminophen 1,000 mg 10/25/23 09:30 10/26/23 05:34 Acetaminophen 500 Mg Tab PO 11/24/23 09:29 1,000 mg Q8 SHIRA Administration Alprazolam 0.5 mg 10/18/23 20:10 10/26/23 04:33 Alprazolam 0.5 Mg Tablet PO 11/17/23 20:09 0.5 mg HS PRN Administration Sleep Apixaban 2.5 mg 10/18/23 21:00 10/24/23 21:08 Apixaban 2.5 Mg Tab PO 11/17/23 20:59 2.5 mg BID SHIRA Administration Diclofenac Sodium 2 gm 10/25/23 09:30 10/26/23 04:33 Diclofenac Sod 1% Gel 100 Gm Tube EXT 11/24/23 09:29 2 gm Q4 SHIRA Administration Protocol Docusate Sodium 100 mg 10/21/23 21:00 10/25/23 20:35 Docusate Sodium 100 Mg Cap PO 11/20/23 20:59 100 mg BID SHIRA Administration Duloxetine HCl 30 mg 10/21/23 12:15 10/25/23 07:51 Duloxetine Hcl 30 Mg Cap PO 11/20/23 12:14 30 mg QAM SHIRA Administration Fentanyl 25 mcg 10/23/23 17:00 10/23/23 17:29 Fentanyl 25 Mcg/Hr Tdsy TD 11/06/23 16:59 25 mcg Q72H SHIRA Administration Gabapentin 300 mg 10/18/23 21:00 10/25/23 20:36 Gabapentin 300 Mg Cap PO 11/17/23 20:59 300 mg BID SHIRA Administration Heparin Sodium (Porcine) 5 ml 10/20/23 00:16 10/25/23 08:37 Heparin 100 Unit/Ml 5ml Flush FLUSH 11/19/23 00:15 5 ml PRN PRN Administration Flush Hydromorphone HCl 2 mg 10/25/23 07:46 10/26/23 01:41 Hydromorphone Hcl 2 Mg Tab PO 11/07/23 07:40 2 mg Q3H PRN Administration Pain Lorazepam 0.75 mg 10/25/23 07:48 10/25/23 20:42 Lorazepam 0.5 Mg Tab PO 11/24/23 07:47 0.75 mg BID PRN Administration Anxiety Methocarbamol 500 mg 10/21/23 12:01 10/25/23 02:23 Methocarbamol 500 Mg Tablet PO 11/20/23 12:00 500 mg TID PRN Administration spasm Methylnaltrexone [place] 8 mg 10/23/23 17:00 10/25/23 17:46 Methylnaltrexone [place] 12 Mg/0.6 Ml Vial SQ 11/22/23 16:59 8 mg Q2D SHIRA Administration Miscellaneous 1 each 10/21/23 16:00 10/25/23 23:46 Check Fentanyl Patch Placement N/A 11/20/23 15:59 1 each QS SHIRA Administration Miscellaneous 1 each 10/23/23 17:00 10/23/23 17:30 Fentanyl Patch Remove & Waste N/A 11/22/23 16:59 1 each Q72H SHIRA Administration Ondansetron HCl 4 mg 10/18/23 19:57 10/26/23 07:13 Ondansetron Inj 2 Mg/Ml 2 Ml Vial IV 11/17/23 19:56 4 mg Q4H PRN Administration Nausea And Vomiting Phenylephrine HCl 1 supp 10/25/23 21:00 10/25/23 20:35 Anusol Supp 1 Ea [place] 11/24/23 20:59 Not Given BID SHIRA Polyethylene Glycol 17 gm 10/22/23 14:30 10/25/23 20:36 Polyethylene (Miralax) 17 Gm Pack PO 11/21/23 14:29 17 gm TID SHIRA Administration Sennosides 17.2 mg 10/22/23 14:30 10/25/23 07:50 Senna 8.6 Mg Tab PO 11/21/23 14:29 17.2 mg QAM SHIRA Administration
[2023-10-26] MEDS: DOCUSATE SODIUM 100 MG CAP PO SCH (08:14)
[2023-10-26] MEDS: LORazepam 0.5 MG TAB PO PRN ×2 (08:14→21:52)
[2023-10-26] MEDS: DULoxetine HCL 30 MG CAP PO SCH (08:15)
[2023-10-26] MEDS: METHOCARBAMOL 500 MG TABLET PO PRN (08:15)
[2023-10-26] MEDS: SENNA 8.6 MG TAB PO SCH (08:15)
[2023-10-26] MEDS: GABAPENTIN 300 MG CAP PO SCH ×2 (08:16→21:53)
[2023-10-26] MEDS: POLYETHYLENE (MIRALAX) 17 GM PACK PO SCH ×2 (08:17→13:57)
[2023-10-26] MEDS: CHECK fentaNYL PATCH PLACEMENT SCH ×2 (08:17→16:19)
[2023-10-26] MEDS: ANUSOL SUPP 1 EA PR SCH ×2 (08:30→21:53)
--- NOTE | 2023-10-26 08:45 | Pain Management Progress Note ---
Date of Service October 26, 2023 Assessment & Plan (1) Rectal carcinoma: (2) Cancer related pain: (3) Anxiety about health: (4) Acute pelvic pain: Plan 1. Recommend continuation of current fentanyl and PO dilaudid without change. 2. Recommend continuation of Cymbalta, Robaxin, and Gabapentin without change. Titrate bowel regimen to balance diarrhea/constipation. 3. At this time, do not see a role for interventional pain management but, can consider superior hypogastric plexus block versus ganglion impar block in the future should this be warranted. 4. Will await outcome of family meeting tomorrow with oncology for guidance on next steps, but would be happy to assist patient in my office as an outpatient if desired by patient. Admission and Anticipated Discharge Date Admission Date: October 18, 2023 Subjective 63-year-old female with advanced rectal cancer initially diagnosed July 2022 now status post sigmoidectomy, XRT, chemo, diverting loop colostomy, robotic assisted low anterior resection with colostomy. She presented on 10/18/2023 after having been discharged from the [facility] on 10/17/2023 from her laparoscopic diverting loop transverse colostomy. She reports improvement in her typical pain with utilization of fentanyl 25mcg q72 patch and dilaudid 2mg PO q3 (4 doses last 24hrs). Pain currently ranging between 7-8 out of 10 deep cramping aching over her bilateral lower quadrants and some radiation to her right medial anterior thigh. She had a planned discussion with Dr. Klein her oncologist about future steps and palliative care again tomorrow. She reports improved sleep but continued overall generalized weakness. She admits to some tolerable mental sedation with her current opiate regimen. She acknowledges that ativan has been helpful for her anxiety. Physical Exam Constitutional: WD/WN, vitals as above Eyes: PERRL, conjunctivae normal, anicteric sclerae + dilated pupils ENMT: external ear and nose normal, oropharynx normal Neck: normal visual inspection Respiratory: normal respiratory effort; no respiratory distress Cardiovascular: Rate/Rhythm: regular rate and regular rhythm Gastrointestinal (Abdomen): Percussion/Palpation: + abdomen tender and abdomen soft; no guarding and abdomen not rigid Musculoskeletal: no cyanosis or clubbing, extremities motor strength 5/5 (grossly 5/5) Skin: no rashes, warm and dry Neurologic: CN's II-XI intact bilaterally Psychiatric: A+Ox3, euthymic affect (tearful at times)
[2023-10-26] MEDS: PANTOprazole 40 MG TAB PO SCH ×2 (08:50→21:54)
--- NOTE | 2023-10-26 11:36 | Urology Progress Note ---
Date of Service October 26, 2023 Assessment & Plan (1) Acute urinary retention: Plan: Urology reconsulted for urinary retention. Patient had a voiding trial yesterday which she unfortunately failed. Mcwilliams catheter was replaced by staff and is currently draining clear yellow urine. Plan to maintain Mcwilliams catheter for at least 7-10 days. Will arrange outpatient follow-up with our service for continued care and possible voiding trial. Urology will sign-off. Please contact us with any further questions/concerns. Admission and Anticipated Discharge Date Admission Date: October 18, 2023 Subjective Pt examined at bedside this AM. Asleep on arrival, awakened to name. No acute distress. Mcwilliams intact, draining clear yellow urine Review of Systems Constitutional: as per Subjective / HPI Genitourinary: as per Subjective / HPI Physical Exam Constitutional: no acute distress Respiratory: no respiratory distress and no labored breathing Neurologic: awake Psychiatric: Orientation: alert and cooperative Genitourinary: Mcwilliams catheter intact Results & Data Vital Signs (Past 12 Hours) Vital Signs Temp Pulse Pulse Resp BP Pulse Ox O2 Del Method 10/26/23 09:37 Room Air 10/26/23 08:13 36.5 C 86 18 145/86 H 97 Room Air 10/26/23 05:49 89 PG Care Time/CCT Total # of Minutes Spent Total Time Spent with Patient: Total time spent is greater than 50% in coordination of care (as documented) at patient's floor/unit and/or counseling patient: Coding Level of Care Code 24539 SUB INP/OBS CARE 1/25MIN Diagnoses Acute urinary retention R33.8
--- NOTE | 2023-10-26 13:15 | Surgery Progress Note ---
Date of Service October 26, 2023 Assessment & Plan (1) Acute postoperative abdominal pain: Plan: Assessment: Patient is a 63 years old female presented to ED with 4 to 5-week history lower pelvic area pain. Patient had the robotic assisted anterior resection 8 months ago. Patient had recently laparoscopy transverse colostomy last week at [facility]. There was a discharged home yesterday from [facility]. Plan: Based on review of patient history physical exam, the labs, no emergency surgical indication. Conservative treatment. control pain. Consult pain management. Consult urology for urinary retention. Patient will get a CT scan in the morning. We will follow. Patient agree with the plan. I Answered all questions. 10/18/2023 2:52 PM pt is stable, less abdominal pain, tolerated diet, pain manage consulted, conservative treatment. [place] colorectal surgeon recommend pt stay this hospital for conservative treatment. pt and her do not want any more surgery, will F/U, wildlife conservation officer surgeon will cover her tomorrow, Thanks. 10/23/2023 4:[address] Colón F/Alon pelvic pain, continue conservative treatment, manage pain. wildlife conservation officer surgeon will cover this weekend, Thanks. 10/26/2023 1;[address] Eldon Dietz/Alon pelvic pain, continue conservative treatment, manage pain. no surgical indication now, sign off, please call with questions , thanks. (2) Acute urinary retention: Plan avss no leukocytosis ostomy functioning, tolerating diet Plan: Continue medical management case management and PT/OT for discharge planning consider consulting Dr. Polk for further management options given recent ct scan findings Patient questioning about palliative measures but not sure if she is ready to make those decisions yet continue Mcwilliams catheter per urology okay from surgical standpoint for discharge if pain controlled, tolerating diet, and pt/ot has seen patient Discussed with Dr. Hughes who agrees with above. Admission and Anticipated Discharge Date Admission Date: October 18, 2023 Subjective pt is stable, some nausea, no fever. colostomy working well. normal WBC. Physical Exam Constitutional: WD/WN, vitals as above Eyes: PERRL, conjunctivae normal, anicteric sclerae Neck: trachea midline, no thyromegaly Respiratory: normal respiratory effort, lungs clear to auscultation Cardiovascular: RRR, no murmur, no edema Gastrointestinal (Abdomen): soft, mild tenderness at low abdomen, no rebound pain, no distend, colostomy working well, Musculoskeletal: no cyanosis or clubbing, extremities motor strength 5/5 Neurologic: patellar DTR's 2+ bilat, sensation intact Psychiatric: A+Ox3, euthymic affect Results & Data Vital Signs (Past 12 Hours) Vital Signs Temp Pulse Pulse Resp BP Pulse Ox O2 Del Method 10/26/23 12:12 36.5 C 83 16 161/92 H 97 Room Air 10/26/23 09:37 Room Air 10/26/23 08:13 36.5 C 86 18 145/86 H 97 Room Air 10/26/23 05:49 89 Laboratory Results Lab Results 10/18/23 10/18/23 10/19/23 Range/Units 15:23 Unknown 07:19 WBC 10.09 7.24 (4.8-10.8) K/ul RBC 3.31 L 2.92 L (4.20-5.40) M/uL Hgb 10.0 L 8.8 L (12.0-16.0) g/dl Hct 29.8 L 26.0 L (37.0-47.0) % MCV 90.0 89.0 (80.0-100.0) fL MCH 30.2 30.1 (25.0-34.0) pg MCHC 33.6 33.8 (32.0-36.0) g/dL RDW Std Deviation 39.7 40.0 (36.4-46.3) fL RDW Coeff of Luz 12.0 12.3 (11.5-14.5) % Plt Count 277 278 (130-400) K/uL MPV 8.9 L 8.9 L (9.4-12.4) fL Immature Gran % (Auto) 0.6 % Neut % (Auto) 85.2 % Lymph % (Auto) 3.7 % [place] % (Auto) 9.5 % Eos % (Auto) 0.9 % Baso % (Auto) 0.1 % Reticulocyte % (Auto) (0.5-2.0) % Neut # (Auto) 8.60 H (1.40-6.50) K/uL Lymph # (Auto) 0.37 L (1.20-3.40) K/uL [place] # (Auto) 0.96 H (0.11-0.59) K/uL Eos # (Auto) 0.09 (0.00-0.50) K/uL Baso # (Auto) 0.01 (0.00-0.20) K/uL Reticulocyte # (0.02-0.10) 10^6/uL Immature Gran # (Auto) 0.06 (0.01-0.20) K/uL Peripher Smr Path Cons PT 11.4 (9.0-12.0) Seconds INR 1.0 (0.9-1.1) APTT 31.5 H (21.0-31.0) Seconds PTT Ratio 1.1 Sodium 132 L 136 (136-145) mmol/L Potassium 3.9 4.1 (3.5-5.1) mmol/L Chloride 97 L 103 (98-107) mmol/L Carbon Dioxide 25 28 (21-32) mmol/L Anion Gap 10 5 (3-11) BUN 12 9 (6-23) mg/dl Creatinine 0.54 L 0.49 L (0.6-1.2) mg/dl Est Cr Clr Drug Dosing Not Reportable 90.7 Est GFR ( Amer) 114.8 118.5 ml/min Est GFR (Non-Af Amer) 99.0 102.2 ml/min BUN/Creatinine Ratio 22.2 H 18.4 (10-20) Glucose 126 H 128 H (70-99(Fasting)) mg/dl Lactate 1.0 (0.4-2.0) mmol/L Calcium 9.0 8.7 (8.6-10.3) mg/dl Phosphorus 3.3 (2.5-4.9) mg/dl Magnesium 1.9 2.1 (1.7-2.4) mg/dl Erythropoietin (2.6-18.5) mIU/mL Ferritin (8-388) ng/ml Total Bilirubin 0.5 0.5 (0.2-1.0) mg/dl AST 11 L 10 L (13-39) U/L ALT 13 11 (7-52) U/L Alkaline Phosphatase 94 75 (34-104) U/L Troponin I High Sens 9.3 (0-14) pg/ml Total Protein 6.4 5.6 L (6.0-8.3) gm/dl Albumin 3.4 3.0 L (3.4-5.0) gm/dl Globulin 3.0 2.6 (2.5-4.0) gm/dl Albumin/Globulin Ratio 1.1 1.2 (0.9-2) Vitamin B12 (180-914) pg/ml Folate (>5.38) ng/ml Procalcitonin < 0.05 (0-0.5) ng/ml TSH (0.300-4.500) uIu/ml Free T4 (0.61-1.60) ng/dl Cortisol AM Sample (6.2-22.6) mcg/dl Urine Color Yellow Urine Appearance Clear (Clear) Urine pH 6.5 (4.5-7.5) Ur Specific [place] 1.003 (1.000-1.030) Urine Protein Negative (Negative) Urine Glucose (UA) Negative (Negative) Urine Ketones 1+ H (Negative) Urine Blood Negative (Negative) Urine Nitrite Negative (Negative) Urine Bilirubin Negative (Negative) Urine Urobilinogen Negative (Negative) Ur Leukocyte Esterase Trace H (Negative) Urine WBC (Auto) 1-5 (0-5) /hpf Urine RBC (Auto) 0-4 (0-4) /hpf U Hyaline Cast (Auto) 0 (0-5) /lpf U Epithel Cells (Auto) 0-5 (0-5) /lpf Urine Bacteria (Auto) Negative (Negative) Staphylococcus sp PCR DETECTED A (NotDetected) mecA/C-Methicil Resis Gene Not Detected (NotDetected) Staph epidermidis (PCR) DETECTED A (NotDetected) Bld Cult ID Panel PCR See PCR Comment (NotDetected) 10/20/23 10/21/23 10/22/23 Range/Units 05:31 07:21 07:42 WBC 7.64 8.64 (4.8-10.8) K/ul RBC 2.73 L 3.11 L (4.20-5.40) M/uL Hgb 8.2 L 9.3 L (12.0-16.0) g/dl Hct 24.7 L 27.1 L (37.0-47.0) % MCV 90.5 87.1 (80.0-100.0) fL MCH 30.0 29.9 (25.0-34.0) pg MCHC 33.2 34.3 (32.0-36.0) g/dL RDW Std Deviation 40.3 38.6 (36.4-46.3) fL RDW Coeff of Luz 12.3 12.0 (11.5-14.5) % Plt Count 291 309 (130-400) K/uL MPV 9.2 L 8.7 L (9.4-12.4) fL Immature Gran % (Auto) 0.5 % Neut % (Auto) 84.9 % Lymph % (Auto) 4.1 % [place] % (Auto) 10.5 % Eos % (Auto) 0.0 % Baso % (Auto) 0.0 % Reticulocyte % (Auto) 1.5 (0.5-2.0) % Neut # (Auto) 6.49 (1.40-6.50) K/uL Lymph # (Auto) 0.31 L (1.20-3.40) K/uL [place] # (Auto) 0.80 H (0.11-0.59) K/uL Eos # (Auto) 0.00 (0.00-0.50) K/uL Baso # (Auto) 0.00 (0.00-0.20) K/uL Reticulocyte # 0.04 (0.02-0.10) 10^6/uL Immature Gran # (Auto) 0.04 (0.01-0.20) K/uL Peripher Smr Path Cons PT (9.0-12.0) Seconds INR (0.9-1.1) APTT (21.0-31.0) Seconds PTT Ratio Sodium 140 134 L (136-145) mmol/L Potassium 3.5 3.4 L (3.5-5.1) mmol/L Chloride 109 H 100 (98-107) mmol/L Carbon Dioxide 27 28 (21-32) mmol/L Anion Gap 4 6 (3-11) BUN 14 10 (6-23) mg/dl Creatinine 0.59 L 0.47 L (0.6-1.2) mg/dl Est Cr Clr Drug Dosing 75.3 99.8 Est GFR ( Amer) 111.5 120.1 ml/min Est GFR (Non-Af Amer) 96.2 103.7 ml/min BUN/Creatinine Ratio 23.7 H 21.3 H (10-20) Glucose 129 H 113 H (70-99(Fasting)) mg/dl Lactate (0.4-2.0) mmol/L Calcium 8.5 L 8.5 L (8.6-10.3) mg/dl Phosphorus 3.9 (2.5-4.9) mg/dl Magnesium 2.1 2.0 (1.7-2.4) mg/dl Erythropoietin 37.1 H (2.6-18.5) mIU/mL Ferritin 186.7 (8-388) ng/ml Total Bilirubin (0.2-1.0) mg/dl AST (13-39) U/L ALT (7-52) U/L Alkaline Phosphatase (34-104) U/L Troponin I High Sens (0-14) pg/ml Total Protein (6.0-8.3) gm/dl Albumin (3.4-5.0) gm/dl Globulin (2.5-4.0) gm/dl Albumin/Globulin Ratio (0.9-2) Vitamin B12 552 (180-914) pg/ml Folate 9.08 (>5.38) ng/ml Procalcitonin (0-0.5) ng/ml TSH 1.128 (0.300-4.500) uIu/ml Free T4 1.40 (0.61-1.60) ng/dl Cortisol AM Sample 19.62 (6.2-22.6) mcg/dl Urine Color Urine Appearance (Clear) Urine pH (4.5-7.5) Ur Specific [place] (1.000-1.030) Urine Protein (Negative) Urine Glucose (UA) (Negative) Urine Ketones (Negative) Urine Blood (Negative) Urine Nitrite (Negative) Urine Bilirubin (Negative) Urine Urobilinogen (Negative) Ur Leukocyte Esterase (Negative) Urine WBC (Auto) (0-5) /hpf Urine RBC (Auto) (0-4) /hpf U Hyaline Cast (Auto) (0-5) /lpf U Epithel Cells (Auto) (0-5) /lpf Urine Bacteria (Auto) (Negative) Staphylococcus sp PCR (NotDetected) mecA/C-Methicil Resis Gene (NotDetected) Staph epidermidis (PCR) (NotDetected) Bld Cult ID Panel PCR (NotDetected) 10/23/23 10/24/23 10/25/23 Range/Units 05:43 07:37 06:30 WBC 9.80 11.38 H 11.75 H (4.8-10.8) K/ul RBC 2.83 L 3.15 L 2.88 L (4.20-5.40) M/uL Hgb 8.8 L 9.3 L 8.7 L (12.0-16.0) g/dl Hct 25.4 L 28.0 L 25.6 L (37.0-47.0) % MCV 89.8 88.9 88.9 (80.0-100.0) fL MCH 31.1 29.5 30.2 (25.0-34.0) pg MCHC 34.6 33.2 34.0 (32.0-36.0) g/dL RDW Std Deviation 38.7 38.5 38.1 (36.4-46.3) fL RDW Coeff of Luz 11.9 12.0 11.9 (11.5-14.5) % Plt Count 311 406 H 396 (130-400) K/uL MPV 8.6 L 8.8 L 8.6 L (9.4-12.4) fL Immature Gran % (Auto) % Neut % (Auto) % Lymph % (Auto) % [place] % (Auto) % Eos % (Auto) % Baso % (Auto) % Reticulocyte % (Auto) (0.5-2.0) % Neut # (Auto) (1.40-6.50) K/uL Lymph # (Auto) (1.20-3.40) K/uL [place] # (Auto) (0.11-0.59) K/uL Eos # (Auto) (0.00-0.50) K/uL Baso # (Auto) (0.00-0.20) K/uL Reticulocyte # (0.02-0.10) 10^6/uL Immature Gran # (Auto) (0.01-0.20) K/uL Peripher Smr Path Cons PT (9.0-12.0) Seconds INR (0.9-1.1) APTT (21.0-31.0) Seconds PTT Ratio Sodium 131 L 131 L 134 L (136-145) mmol/L Potassium 3.8 3.9 3.4 L (3.5-5.1) mmol/L Chloride 97 L 95 L 99 (98-107) mmol/L Carbon Dioxide 29 29 32 (21-32) mmol/L Anion Gap 5 7 3 (3-11) BUN 12 13 14 (6-23) mg/dl Creatinine 0.45 L 0.43 L 0.44 L (0.6-1.2) mg/dl Est Cr Clr Drug Dosing 102.1 106.5 102.6 Est GFR ( Amer) 121.9 123.7 122.8 ml/min Est GFR (Non-Af Amer) 105.1 106.7 105.9 ml/min BUN/Creatinine Ratio 26.7 H 30.2 H 31.8 H (10-20) Glucose 112 H 194 H 112 H (70-99(Fasting)) mg/dl Lactate (0.4-2.0) mmol/L Calcium 8.3 L 8.9 8.9 (8.6-10.3) mg/dl Phosphorus 3.7 3.0 2.5 (2.5-4.9) mg/dl Magnesium 2.0 2.2 2.1 (1.7-2.4) mg/dl Erythropoietin 9.8 (2.6-18.5) mIU/mL Ferritin (8-388) ng/ml Total Bilirubin 0.4 (0.2-1.0) mg/dl AST 8 L (13-39) U/L ALT 14 (7-52) U/L Alkaline Phosphatase 67 (34-104) U/L Troponin I High Sens (0-14) pg/ml Total Protein 5.9 L (6.0-8.3) gm/dl Albumin 3.3 L (3.4-5.0) gm/dl Globulin 2.6 (2.5-4.0) gm/dl Albumin/Globulin Ratio 1.3 (0.9-2) Vitamin B12 (180-914) pg/ml Folate (>5.38) ng/ml Procalcitonin (0-0.5) ng/ml TSH (0.300-4.500) uIu/ml Free T4 (0.61-1.60) ng/dl Cortisol AM Sample (6.2-22.6) mcg/dl Urine Color Urine Appearance (Clear) Urine pH (4.5-7.5) Ur Specific [place] (1.000-1.030) Urine Protein (Negative) Urine Glucose (UA) (Negative) Urine Ketones (Negative) Urine Blood (Negative) Urine Nitrite (Negative) Urine Bilirubin (Negative) Urine Urobilinogen (Negative) Ur Leukocyte Esterase (Negative) Urine WBC (Auto) (0-5) /hpf Urine RBC (Auto) (0-4) /hpf U Hyaline Cast (Auto) (0-5) /lpf U Epithel Cells (Auto) (0-5) /lpf Urine Bacteria (Auto) (Negative) Staphylococcus sp PCR (NotDetected) mecA/C-Methicil Resis Gene (NotDetected) Staph epidermidis (PCR) (NotDetected) Bld Cult ID Panel PCR (NotDetected) 10/26/23 Range/Units 05:45 WBC 10.70 (4.8-10.8) K/ul RBC 3.32 L (4.20-5.40) M/uL Hgb 10.1 L (12.0-16.0) g/dl Hct 28.4 L (37.0-47.0) % MCV 85.5 (80.0-100.0) fL MCH 30.4 (25.0-34.0) pg MCHC 35.6 (32.0-36.0) g/dL RDW Std Deviation 36.6 (36.4-46.3) fL RDW Coeff of Luz 11.9 (11.5-14.5) % Plt Count 459 H (130-400) K/uL MPV 8.7 L (9.4-12.4) fL Immature Gran % (Auto) % Neut % (Auto) % Lymph % (Auto) % [place] % (Auto) % Eos % (Auto) % Baso % (Auto) % Reticulocyte % (Auto) (0.5-2.0) % Neut # (Auto) (1.40-6.50) K/uL Lymph # (Auto) (1.20-3.40) K/uL [place] # (Auto) (0.11-0.59) K/uL Eos # (Auto) (0.00-0.50) K/uL Baso # (Auto) (0.00-0.20) K/uL Reticulocyte # (0.02-0.10) 10^6/uL Immature Gran # (Auto) (0.01-0.20) K/uL Peripher Smr Path Cons PT (9.0-12.0) Seconds INR (0.9-1.1) APTT (21.0-31.0) Seconds PTT Ratio Sodium 133 L (136-145) mmol/L Potassium 3.5 (3.5-5.1) mmol/L Chloride 94 L (98-107) mmol/L Carbon Dioxide 32 (21-32) mmol/L Anion Gap 7 (3-11) BUN 12 (6-23) mg/dl Creatinine 0.53 L (0.6-1.2) mg/dl Est Cr Clr Drug Dosing 85.2 Est GFR ( Amer) 115.5 ml/min Est GFR (Non-Af Amer) 99.6 ml/min BUN/Creatinine Ratio 22.6 H (10-20) Glucose 118 H (70-99(Fasting)) mg/dl Lactate (0.4-2.0) mmol/L Calcium 9.1 (8.6-10.3) mg/dl Phosphorus (2.5-4.9) mg/dl Magnesium (1.7-2.4) mg/dl Erythropoietin (2.6-18.5) mIU/mL Ferritin (8-388) ng/ml Total Bilirubin (0.2-1.0) mg/dl AST (13-39) U/L ALT (7-52) U/L Alkaline Phosphatase (34-104) U/L Troponin I High Sens (0-14) pg/ml Total Protein (6.0-8.3) gm/dl Albumin (3.4-5.0) gm/dl Globulin (2.5-4.0) gm/dl Albumin/Globulin Ratio (0.9-2) Vitamin B12 (180-914) pg/ml Folate (>5.38) ng/ml Procalcitonin (0-0.5) ng/ml TSH (0.300-4.500) uIu/ml Free T4 (0.61-1.60) ng/dl Cortisol AM Sample (6.2-22.6) mcg/dl Urine Color Urine Appearance (Clear) Urine pH (4.5-7.5) Ur Specific [place] (1.000-1.030) Urine Protein (Negative) Urine Glucose (UA) (Negative) Urine Ketones (Negative) Urine Blood (Negative) Urine Nitrite (Negative) Urine Bilirubin (Negative) Urine Urobilinogen (Negative) Ur Leukocyte Esterase (Negative) Urine WBC (Auto) (0-5) /hpf Urine RBC (Auto) (0-4) /hpf U Hyaline Cast (Auto) (0-5) /lpf U Epithel Cells (Auto) (0-5) /lpf Urine Bacteria (Auto) (Negative) Staphylococcus sp PCR (NotDetected) mecA/C-Methicil Resis Gene (NotDetected) Staph epidermidis (PCR) (NotDetected) Bld Cult ID Panel PCR (NotDetected)
[2023-10-26] MEDS ORDERED: CALCIUM CARBONATE 500 MG CHEWABLE TAB PO STA (13:28)
[2023-10-26] MEDS ORDERED: PROCHLORPERAZINE 5 MG in SYRINGE 4 ML IV ONE (13:28)
[2023-10-26] MEDS: fentaNYL 25 MCG/HR TDSY TD SCH (16:19)
--- NOTE | 2023-10-26 17:41 | Electrocardiogram Report ---
Test Reason : Blood Pressure : / mmHG Vent. Rate : 087 BPM Atrial Rate : 087 BPM P-R Int : 182 ms QRS Dur : 154 ms QT Int : 398 ms P-R-T Axes : 000 -46 184 degrees QTc Int : 478 ms Poor data quality, interpretation may be adversely affected Probably Normal sinus rhythm with sinus arrhythmia Left bundle branch block Abnormal ECG Confirmed by Stepan Pompa ([id number] on 10/26/2023 5:40:53 PM Referred By: REFERRED SELF Confirmed By:Christian Pompa
[2023-10-26] MEDS: PROCHLORPERAZINE 5 MG in SYRINGE 4 ML IV PRN (22:10)
[2023-10-27] MEDS: CHECK fentaNYL PATCH PLACEMENT SCH ×3 (00:42→16:32)
[2023-10-27] MEDS: DICLOFENAC SOD 1% GEL 100 GM TUBE EXT SCH ×7 (00:42→23:20)
[2023-10-27] MEDS: ACETAMINOPHEN 500 MG TAB PO SCH ×3 (05:37→20:07)
[2023-10-27 07:32] LABS: Hematocrit (blood only) 27.5 % (37.0-47.0); Hemoglobin 9.5 g/dl (12.0-16.0); Mean Corpuscular Hemoglobin 30.1 pg (25.0-34.0); Mean Corpuscular Hgb Conc 34.5 g/dL (32.0-36.0); Mean Platelet Volume 8.6 fL (9.4-12.4); Platelet Count 436 K/uL (130-400); RDW Coefficient of Variation 11.8 % (11.5-14.5); RDW Standard Deviation 37.4 fL (36.4-46.3); Red Blood Count 3.16 M/uL (4.20-5.40); White Blood Count 10.45 K/ul (4.8-10.8)
[2023-10-27 07:56] LABS: BUN Creatinine Ratio 20.4 (10-20); Calcium 8.3 mg/dl (8.6-10.3); Creatinine Clr Calc Pharmacy 84.3 ml/min; Est GFR (African American) 114.8 ml/min; Potassium 3.4 mmol/L (3.5-5.1)
[2023-10-27] MEDS: DOCUSATE SODIUM 100 MG CAP PO SCH (09:20)
[2023-10-27] MEDS: LORazepam 0.5 MG TAB PO PRN (09:20)
[2023-10-27] MEDS: POLYETHYLENE (MIRALAX) 17 GM PACK PO SCH (09:23)
[2023-10-27] MEDS: DULoxetine HCL 30 MG CAP PO SCH (09:25)
[2023-10-27] MEDS: SENNA 8.6 MG TAB PO SCH (09:26)
[2023-10-27] MEDS: PANTOprazole 40 MG TAB PO SCH ×2 (09:27→20:07)
[2023-10-27] MEDS: ANUSOL SUPP 1 EA PR SCH ×2 (09:27→10:49)
[2023-10-27] MEDS: GABAPENTIN 300 MG CAP PO SCH ×2 (09:27→20:08)
[2023-10-27] MEDS ORDERED: LORazepam 0.25 MG in SYRINGE 0.125 ML IV STA ×2 (09:53→19:17)
--- NOTE | 2023-10-27 12:05 | Hospitalist Progress Note ---
Date of Service October 27, 2023 Assessment & Plan (1) Acute postoperative abdominal pain: Plan: Ms. Kyara Castillo is a 63 year old woman with history of locally advanced rectal cancer diagnosed July 2022, status post sigmoidectomy 07/30/2022, total neoadjuvant therapy (XRT and chemo, finished chemo December 17, 2022), which was briefly interrupted due to large bowel obstruction requiring a diverting loop colostomy, who then subsequently underwent a robotic assisted low anterior resection with diverting loop transverse colostomy in January 2023, followed by reversal of the colostomy on 09/03/2023, who then recently underwent a laparoscopic diverting loop transverse colostomy again on 10/12/2023 due to worsening pelvic pain and bright red blood per rectum [recently discharged from [facility] yesterday on 10/17] who is admitted due to increased pain and urinary retention. Patient's course complicated by progressive pain and concern for possible infection per CT imaging findings. It is felt that mass is suggestive of malignant process and surgical intervention/further management seems less likely feasible given functional status/frail state. Patient and seem to understand, but seem reluctant to state they prefer to opt for palliation completely. Patient's opioid requirement near 90mme with minimal improvement. It was discussed that should would need to be on oral regimen to get home, something that works for patient--however, there seemed to be additional concern about opioids and constipation--it was reassured that she will be transitioned to a medication that can help with opioid constipation. "Home" was mentioned as the goal--final discussion to help with decision making was around repeat imaging, this would help determine utility of antibiotics, degree of progression (though scan was nearly 1 week ago)--but may help and patient feel comfortable with next steps since "nothing is confirmed with biopsy. No fevers since cessation of antibiotics on 10/24. Fall overnight of 10/24 distressing for patient, luckily no LOC or trauma to head. Bilateral hip xray did not reveal fracture. Patient reportedly slipped/tripped on arevalo, thus prompting eagerness to remove arevalo as soon as possible. Discussed plan for void trial--will remove and follow PVR and bladder scans to determine if we need to replace arevalo. Encouraged patient to perform Kegels, giving her a way to focus on something while in her room seems to have calming effect--she attempted "practice" round, with hopes this may offer success. Day by day discussions with talk of "home"--trial of void unsuccessful 10/25 and discussed the likelihood of the arevalo staying at this time, at least another 1-2 weeks to discuss with urology. Concerned this will likely be an indefinite fixture given the CT findings and proximity of the mass in relation to structures to allow for successful unobstructed voiding. Regardless patient still eager to try and fixated on next steps. Pain regimen seems to be stable at this time--reduced doses subtly to prevent exacerbation of delirium Spoke with son the evening 10/25 who mentions growing concerns of patient returning home, given 's own declining health and inability to care for patient previously to extensive degree required. It seems reasonable to consider placement, but conversation should be reserved for Thursday when all parties (, son, patient, customer care voice consultant) are able to bring up the options and the outcomes in a group manner. Patient and both seem to understand the situation to a very clear degree, but emotion hesitation prevents any definitive decision at this time for next steps in care plan. Discussion 10/26, was centered around safety at home--since that seemed to be the ideal choice and goal at this time. After analyzing the situation and that the patient's needs are increasing, pointed out the concern regarding 's safety (multiple comorbidities, could he handle medications, repositioning, delirium?) Both seemed to understand that though he historically handled post- operative care--this is going to be a progressive decline and demands will notably increase. Today patient reporting understanding of "severity" of situation. Redirection of conversation focused on goals of symptom control in the moment--this included TUMS to aid reflux, topical lidocaine for anus discomfort. She feels comfortable with the pain regimen and noted that the adjustment in medication has resulted in less delirium overnight. Further discussions this evening with Palliative/ Dr Polk as family hold very high regard for his input and will be critical for next best steps in the patient's care. #Acute urinary retention: - UA obtained, culture NGT s/p arevalo. Urology consulted and appreciate inputs to continue arevalo and to keep urology appointment on 10/27- Requesting void trial today (10/25) -Replaced arevalo 10/25, will keep likely 1-2 weeks before further discussion of void trial and if it is reasonable at that time (Urology aware) #Delirium *improved #Generalized weakness -Episodic confusion requiring reorientation -Encourage delirium precautions as able -Fall precautions -Careful titration of pain regimen #Rectal bleeding #rectal/anus pain -likely 2/2 progression ass/inflammation, has been chronic issue but notably worse last evening 10/24 per patient -External exam revealed small hemorrhoid and skin tag and slight red streaks on ALEAH -Hemoglobin stable--appears like bright red staining on depends -Hold eliquis -Trend CBC (stable this am) -HC cream and lidocaine cream -Start PPI BID more for ppx #GERD -TUMS prn, PPI BID #Acute postoperative abdominal pain #Acute on chronic cancer pain #Large rectal mass concerning for rectal carcinoma given history Follows with Dr. Polk at [facility], and with Dr. Lakhani with colorectal surgery Ct abd/pelvis with contrast after prep with prednisone showing increased rectal mass to 6.6cm from 5.7cm on Oct 06. An underlying contained perforation/ developing abscess within this rectal mass is considered less likely but not entirely excluded. Possible developing partial SBO.Superimposed colitis Discussion with Dr. Lakhani at [facility] on 10/19 per prior hospitalist: continue abx, no change in management prompting transfer Pain management on consult: -Continue fentanyl 25mcg every 72 hours; discontinued oxycodone 5 mg p.o. -Reduced po dialudid 1 mg q3h and discontinued IV 0.5 q 5h--will adjusted as needed - Continue of Cymbalta 30 mg p.o. qam, and Robaxin for spasm control. - Continue miralax and colace, schedule Relistor q2d - Continue gabapentin at current dosing Heme/Onc on consult: -Optimize pain management -Possible meeting next week if still admitted (atively Thursday with Dr Polk) -TSH and cortisol wnl Palliative on consult: -Not accepting hospice/comfort measures at this time, though seemingly more pursuing QoL measures -Ativan BID (reduced to 0.5mg bid prn) #Severe protein calorie malnutrition -BMI 18, iso malignancy and poor po intake -Encourage PO as able, nutrition supplements #Possible colitis/abscess? one of the blood cultures positive for coag negative stap, low suspicion for pathogenic as patient has been on zosyn and not directed coverage for CONS bacteremia Blood cultures negative, No change in mass/fluid collection size despite nearly 1 week abx. -Discontinue abx and reassess daily -Remains afebrile at this time #Hypotension *resolved gave gentle fluids because of systolic chf improved with fluids. currently stopped fluids, will readdress contingent on intake #Chronic HFrEF Nonischemic cardiomyopathy with an EF of 25 to 29% from echocardiogram from 07/23/2023 reviewed on outpatient epic results Seems Declined BiVICD previously, at her most recent stay at [facility] approximately 1 week ago was offered second opinion by [facility] regarding this however patient declined at that time LBBB is chronic, Seems had history of symptomatic hypotension on outpatient records Close monitor. DVT ppx: teds, scds Admission and Anticipated Discharge Date Admission Date: October 18, 2023 Subjective Anxious this morning--notes that she is aware that this is "the end" and worried about "work, family" as well as other responsibilities/ Discussed more symptoms and redirected as able, addressing rectal/anus discomfort and gerd like symptoms Provided as much reassurance and comfort Patient anxious for meeting with Dr Polk this evening Physical Exam Constitutional: WD/WN, vitals as above tremulous, tearful, easy to calm, easily redirected to new subjects and focus point to ease anxiety Neck: trachea midline, no thyromegaly Cardiovascular: tachycardic Gastrointestinal (Abdomen): normal bowel sounds, soft, nontender, no hepatosplenomegaly soft liquid stool in osotomy, site with pink mucosa/moist Results & Data Results & Data Vital Signs (Past 12 Hours) Vital Signs Temp Pulse Pulse Resp BP Pulse Ox O2 Del Method 10/27/23 11:21 36.7 C 83 16 97/59 L 97 Room Air 10/27/23 08:01 82 10/27/23 08:00 36.8 C 84 16 89/59 L 94 Room Air 10/27/23 03:46 36.8 C 84 16 109/69 96 Room Air 10/27/23 00:00 99 H Laboratory Results Short CBC 10/27/23 Range/Units 06:52 WBC 10.45 (4.8-10.8) K/ul Hgb 9.5 L (12.0-16.0) g/dl Hct 27.5 L (37.0-47.0) % Plt Count 436 H (130-400) K/uL BMP 10/27/23 06:52 Sodium 132 L Potassium 3.4 L Chloride 95 L Carbon Dioxide 31 BUN 11 Creatinine 0.54 L Glucose 111 H Calcium 8.3 L Medications Administered Home Medications Medication Instructions Recorded Confirmed Last Taken alprazolam 0.5 mg tablet 0.25 - 0.5 mg PO HS PRN Sleep 10/06/23 10/18/23 Unknown cyclobenzaprine 5 mg tablet 5 mg PO TID PRN Muscle Spasm 10/06/23 10/18/23 Unknown oxycodone 5 mg tablet 5 mg PO TID PRN pain #14 tabs 10/06/23 10/18/23 Unknown acetaminophen 500 mg tablet 1,000 mg PO BID PRN Pain 10/18/23 10/18/23 Unknown apixaban 2.5 mg tablet (Eliquis) 2.5 mg PO BID 10/18/23 10/18/23 Unknown gabapentin 300 mg capsule 300 mg PO TID 10/18/23 10/18/23 Unknown Active Medications Generic Name Dose Route Start Last Admin Trade Name Brentonq PRN Reason Stop Dose Admin Acetaminophen 1,000 mg 10/25/23 09:30 10/27/23 05:37 Acetaminophen 500 Mg Tab PO 11/24/23 09:29 1,000 mg Q8 SHIRA Administration Apixaban 2.5 mg 10/18/23 21:00 10/24/23 21:08 Apixaban 2.5 Mg Tab PO 11/17/23 20:59 2.5 mg BID SHIRA Administration Diclofenac Sodium 2 gm 10/25/23 09:30 10/27/23 09:23 Diclofenac Sod 1% Gel 100 Gm Tube EXT 11/24/23 09:29 2 gm Q4 SHIRA Administration Protocol Docusate Sodium 100 mg 10/27/23 09:00 10/27/23 09:20 Docusate Sodium 100 Mg Cap PO 11/26/23 08:59 100 mg DAILY SHIRA Administration Duloxetine HCl 30 mg 10/21/23 12:15 10/27/23 09:25 Duloxetine Hcl 30 Mg Cap PO 11/20/23 12:14 30 mg QAM SHIRA Administration Fentanyl 25 mcg 10/23/23 17:00 10/26/23 16:19 Fentanyl 25 Mcg/Hr Tdsy TD 11/06/23 16:59 25 mcg Q72H SHIRA Administration Gabapentin 300 mg 10/18/23 21:00 10/27/23 09:27 Gabapentin 300 Mg Cap PO 11/17/23 20:59 300 mg BID SHIRA Administration Heparin Sodium (Porcine) 5 ml 10/20/23 00:16 10/25/23 08:37 Heparin 100 Unit/Ml 5ml Flush FLUSH 11/19/23 00:15 5 ml PRN PRN Administration Flush Hydromorphone HCl 1.5 mg 10/26/23 13:29 10/26/23 21:46 Hydromorphone Hcl 2 Mg Tab PO 11/07/23 07:40 1.5 mg Q3H PRN Administration Pain Prochlorperazine 5 mg/ Syringe 5 mls @ 5 mls/min 10/26/23 13:28 10/26/23 22:10 IV 11/25/23 13:27 5 mls/min Q6H PRN Administration Nausea And Vomiting Lorazepam 0.5 mg 10/26/23 13:29 10/27/23 09:20 Lorazepam 0.5 Mg Tab PO 11/24/23 07:47 0.5 mg BID PRN Administration Anxiety Methocarbamol 500 mg 10/21/23 12:01 10/26/23 08:15 Methocarbamol 500 Mg Tablet PO 11/20/23 12:00 500 mg TID PRN Administration spasm Methylnaltrexone [place] 8 mg 10/23/23 17:00 10/25/23 17:46 Methylnaltrexone [place] 12 Mg/0.6 Ml Vial SQ 11/22/23 16:59 8 mg Q2D SHIRA Administration Miscellaneous 1 each 10/21/23 16:00 10/27/23 09:23 Check Fentanyl Patch Placement N/A 11/20/23 15:59 1 each QS SHIRA Administration Miscellaneous 1 each 10/23/23 17:00 10/26/23 16:19 Fentanyl Patch Remove & Waste N/A 11/22/23 16:59 1 each Q72H SHIRA Administration Pantoprazole Sodium 40 mg 10/26/23 09:00 10/27/23 09:27 Pantoprazole 40 Mg Tab PO 10/30/23 08:59 40 mg BID SHIRA Administration Polyethylene Glycol 17 gm 10/27/23 09:00 10/27/23 09:23 Polyethylene (Miralax) 17 Gm Pack PO 11/26/23 08:59 17 gm DAILY SHIRA Administration Sennosides 17.2 mg 10/22/23 14:30 10/27/23 09:26 Senna 8.6 Mg Tab PO 11/21/23 14:29 17.2 mg QAM SHIRA Administration
[2023-10-27] MEDS: LIDOCAINE 4% CREAM 15 GM TUBE EXT SCH ×3 (12:26→20:06)
[2023-10-27] MEDS: METHYLNALTREXONE BROMIDE 12 MG/0.6 ML VIAL SQ SCH (16:30)
[2023-10-27] MEDS: HYDROmorphone HCL 2 MG TAB PO PRN ×3 (16:43→23:20)
[2023-10-28] MEDS: CHECK fentaNYL PATCH PLACEMENT SCH ×4 (01:17→23:55)
[2023-10-28] MEDS: ACETAMINOPHEN 500 MG TAB PO SCH ×3 (05:06→21:14)
[2023-10-28] MEDS: HYDROmorphone HCL 2 MG TAB PO PRN ×5 (05:07→20:14)
[2023-10-28] MEDS: DICLOFENAC SOD 1% GEL 100 GM TUBE EXT SCH ×6 (05:08→23:56)
--- NOTE | 2023-10-28 07:22 | Hospitalist Progress Note ---
Date of Service October 27, 2023 Assessment & Plan (1) Rectal carcinoma: Plan: Prior to the visit I communicated extensively with Dr. Lakhani her colorectal surgeon at [place]. Dr. Nunn indicates that on extensive review of her pathology, there is not a definitive identification of malignant cells though some atypical cells are felt to be very probably malignant. She does not feel that Kaitlynn is at all a candidate for any aggressive further surgical inter vention and concurs with our offering of a hospice approach. She, like we, feels very strongly that we are dealing with significant malignancy relapse even in the absence of the ability to unequivocally establish that on microscope slides I spoke at length with Kaitlynn and included her and son by speaker phone. We first discussed the diagnosis. They had spoken with Dr. Lakhani earlier in the day but I reinforced that we do not have a definitive pathology diagnosis available but that I have reviewed with our interventional radiology team who felt that it would be technically very difficult to get adequate specimens for diagnosis without exposing the patient to potentially significant risk. We discussed that another "negative" biopsy would not exclude malignancy. We reviewed that there may be some elements of concomitant infection of the necrotic areas of the cancer and that it is somewhat unusual to see a cancer relapse so aggressively over a short period of time but the compelling combination of the pelvic mass and necrotic regional adenopathy along with the at least atypical cells seen on biopsy and the lack of fever, leukocytosis, or dramatic response to empiric antibiotics all suggest that this is not a primary infectious or inflammatory process but rather is indeed malignancy. Kaitlynn and her family were quite content that we have sufficient overall clinical suggestion of malignancy to accept that as the working diagnosis even without definitive pathology. Working from there, we note that she has a performance status of 3/4 and the history of cardiomyopathy overall making her a poor candidate for further aggressive chemotherapy. We would also be concerned at the potential for limited if any response to chemotherapy given the rapid relapse after her initial chemoradiation combination. We note that there can be some noncytotoxic options on occasion but with her microsatellite stable status she would not be likely to respond to ICI nor is it clear that there are other non-cytotoxic's that are likely to have dramatic effect. As above, she is not felt to be a candidate for pelvic exenteration or further surgery, she has already had pelvic radiation. Unfortunately, we cannot foresee being able to offer any meaningfully effective oncologic specific intervention. We turned to a discussion of hospice noting that the focus there would be on s ymptom management particularly of her pain and any GI symptoms. We noted that the philosophy would be to maximize quality of life and there would be no effort to shorten her life artificially but neither would the care plan pin sorter and bagger the way of the natural evolution towards the end of life. Kaitlynn quickly embraced the concept as the only path that seems reasonable to her where she feels overwhelmed with any concept of any further aggressive interventions. Her and son were similarly understanding and accepting of the prognosis and the reason for recommending a hospice approach. There will be the technical issues of her 's own disability and his inability to fully care for her at home. We will probably need to seek hospice in a facility setting. She is under some distress currently in the shared room environment and I am hopeful that during the time we are working out those final hospice arrangements we can find a more calming situation for her in the hospital in a private room Plan We will seek hospice placement though given her 's own physical limitations that may need to be arranged in a facility based setting. As we are pursing those eventual plans, would be highly preferable for her to be transferred to a private room and begin to receive hospice like services even while she remains an inpatient Admission and Anticipated Discharge Date Admission Date: October 18, 2023 Subjective Kaitlynn continues to be minimally mobile with moderate but incomplete pain control. She still requires Mcwilliams catheterization, several attempts at spontaneous voiding have been unsuccessful. She is quite cogent currently, much less sleepy than the last time we spoke and seems to have full medical decision- making past. She repetitively indicates that she is "done" with any further aggressive oncologic interventions Physical Exam Physical Exam: Vital signs are stable. She is alert and appropriate in interaction with cognitive function intact currently. No gross changes on cardiac or lung exam and her abdomen seems nonacute. She continues with diffuse weakness somewhat more pronounced in the lower extremities Results & Data Results & Data Vital Signs (Past 12 Hours) Vital Signs Temp Pulse Pulse Resp BP Pulse Ox O2 Del Method 10/28/23 03:29 36.8 C 78 18 125/73 94 Room Air 10/27/23 23:16 37.0 C 77 18 122/70 95 Room Air 10/27/23 23:09 77 PG Care Time/CCT Total # of Minutes Spent Total Time Spent with Patient: Total time spent is greater than 50% in coordination of care (as documented) at patient's floor/unit and/or counseling patient: Coding Level of Care Code 11914 SUB INP/OBS CARE 2/35MIN History Problem Focused Medical Decision Making High Complexity Diagnoses Rectal carcinoma C20 Time Spent (min) 40
[2023-10-28] MEDS: LORazepam 0.5 MG TAB PO PRN ×2 (07:54→21:01)
[2023-10-28] MEDS: DULoxetine HCL 30 MG CAP PO SCH (08:45)
[2023-10-28] MEDS: SENNA 8.6 MG TAB PO SCH (08:45)
[2023-10-28] MEDS: DOCUSATE SODIUM 100 MG CAP PO SCH (08:45)
[2023-10-28] MEDS: METHOCARBAMOL 500 MG TABLET PO PRN (08:45)
[2023-10-28] MEDS: PANTOprazole 40 MG TAB PO SCH ×2 (08:45→21:13)
[2023-10-28] MEDS: GABAPENTIN 300 MG CAP PO SCH ×2 (08:45→21:13)
[2023-10-28] MEDS: POLYETHYLENE (MIRALAX) 17 GM PACK PO SCH (08:46)
[2023-10-28] MEDS: LIDOCAINE 4% CREAM 15 GM TUBE EXT SCH ×3 (09:30→21:02)
[2023-10-28] MEDS ORDERED: HYDROmorphone INJ 0.5 MG/0.5 ML SYR IV PRN (09:40)
--- NOTE | 2023-10-28 14:25 | Hospitalist Progress Note ---
Date of Service October 28, 2023 Assessment & Plan (1) Acute postoperative abdominal pain: Plan: #Acute postoperative abdominal pain #Acute on chronic cancer pain #Large rectal mass concerning for rectal carcinoma given history [facility], and with Dr. Lakhani with colorectal surgery Ct abd/pelvis with contrast after prep with prednisone showing increased rectal mass to 6.6cm from 5.7cm on Oct 06. An underlying contained perforation/developing abscess within this rectal mass is considered less likely but not entirely excluded. Possible developing partial SBO.Superimposed colitis Discussion with Dr. Lakhani at on 10/19 per prior hospitalist: continue abx, no change in management prompting transfer Pain management on consult: -Continue fentanyl 25mcg every 72 hours; discontinued oxycodone 5 mg p.o. -Reduced po dialudid 1 mg q3h and discontinued IV 0.5 q 5h--will adjusted as needed - Continue of Cymbalta 30 mg p.o. qam, and Robaxin for spasm control. - Continue miralax and colace, schedule Relistor q2d - Continue gabapentin at current dosing Heme/Onc on consult: -Optimize pain management -Possible meeting next week if still admitted (atively Thursday with Dr Polk) -TSH and cortisol wnl Palliative on consult: -Not accepting hospice/comfort measures at this time, though seemingly more pursuing QoL measures -Ativan BID (reduced to 0.5mg bid prn) 10/28 patient to transition to hospice Dilaudid 0.5 mg IV every hour as needed added audit manager to discuss patient regarding [facility] facility with hospice #Acute urinary retention: - UA obtained, culture NGT s/p arevalo. Urology consulted and appreciate inputs to continue arevalo and to keep urology appointment on 10/27- Requesting void trial today (10/25) -Replaced arevalo 10/25, will keep likely 1-2 weeks before further discussion of void trial and if it is reasonable at that time (Urology aware) 10/[address] #Delirium *improved #Generalized weakness -Episodic confusion requiring reorientation -Encourage delirium precautions as able -Fall precautions -Careful titration of pain regimen #Rectal bleeding #rectal/anus pain -likely 2/2 progression ass/inflammation, has been chronic issue but notably worse last evening 10/24 per patient -External exam revealed small hemorrhoid and skin tag and slight red streaks on ALEAH -Hemoglobin stable--appears like bright red staining on depends -Hold eliquis -Trend CBC (stable this am) -HC cream and lidocaine cream -Start PPI BID more for ppx #GERD -TUMS prn, PPI BID #Severe protein calorie malnutrition -BMI 18, iso malignancy and poor po intake -Encourage PO as able, nutrition supplements #Possible colitis/abscess? one of the blood cultures positive for coag negative stap, low suspicion for pathogenic as patient has been on zosyn and not directed coverage for CONS bacteremia Blood cultures negative, No change in mass/fluid collection size despite nearly 1 week abx. -Discontinue abx and reassess daily -No signs of active infection #Hypotension *resolved gave gentle fluids because of systolic chf improved with fluids. #Chronic HFrEF Nonischemic cardiomyopathy with an EF of 25 to 29% from echocardiogram from 07/23/2023 reviewed on outpatient epic results Seems Declined BiVICD previously, at her most recent stay at [facility] approximately 1 week ago was offered second opinion by [facility] EP regarding this however patient declined at that time LBBB is chronic, Seems had history of symptomatic hypotension on outpatient records Close monitor. DVT ppx: teds, scds Admission and Anticipated Discharge Date Admission Date: October 18, 2023 Subjective ff up for abdominal pain, rectal CA, etc seen resting in bed, not in distress reports having pain this morning PRN meds relieving no chest pain, dyspnea, palpitations, dizziness after discussion with Oncologist, patient has decided to transition to hospice care Review of Systems Review of Systems: all noted and negative except for above Physical Exam Physical Exam: General- oriented x 3, not in distress, speaks in sentences with no effort or accessory muscle use Eyes- anicteric Neck- no JVD Lungs- clear breath sounds bilaterally, no rales/wheezes Heart- normal rate, regular rhythm; no murmurs Abdomen- normal bowel sounds, nondistended, soft, nontender Extremities- no pretibial edema, no calf tenderness Neuro- alert, oriented x 3; no gross focal neurologic deficits Skin- warm & dry Results & Data Results & Data Vital Signs (Past 12 Hours) Vital Signs Temp Pulse Pulse Resp BP BP Pulse Ox 10/28/23 11:44 36.6 C 84 18 101/57 L 98 10/28/23 08:19 36.9 C 80 18 136/70 96 10/28/23 07:29 77 10/28/23 03:29 36.8 C 78 18 125/73 94 O2 Del Method 10/28/23 11:44 Room Air 10/28/23 08:19 Room Air 10/28/23 07:29 10/28/23 03:29 Room Air
[2023-10-28] MEDS ORDERED: diphenhydrAMINE Capsule 25 MG CAP PO PRN (22:09)
[2023-10-28] MEDS: HYDROmorphone INJ 1 MG/ML SYRINGE IV PRN (22:59)
[2023-10-28] MEDS: HEPARIN 100 UNIT/ML 5ML FLUSH FLUSH PRN (22:59)
[2023-10-29] MEDS: DICLOFENAC SOD 1% GEL 100 GM TUBE EXT SCH ×6 (04:16→23:55)
[2023-10-29] MEDS: HYDROmorphone INJ 1 MG/ML SYRINGE IV PRN ×3 (05:35→22:53)
[2023-10-29] MEDS: HEPARIN 100 UNIT/ML 5ML FLUSH FLUSH PRN ×3 (05:35→22:53)
[2023-10-29] MEDS: ACETAMINOPHEN 500 MG TAB PO SCH ×3 (05:39→21:32)
[2023-10-29] MEDS: LIDOCAINE 4% CREAM 15 GM TUBE EXT SCH ×3 (09:03→21:36)
[2023-10-29] MEDS: CHECK fentaNYL PATCH PLACEMENT SCH ×2 (09:06→16:48)
[2023-10-29] MEDS: LORazepam 0.5 MG TAB PO PRN ×2 (09:07→21:35)
[2023-10-29] MEDS: PANTOprazole 40 MG TAB PO SCH ×2 (09:08→21:35)
[2023-10-29] MEDS: DOCUSATE SODIUM 100 MG CAP PO SCH (09:08)
[2023-10-29] MEDS: GABAPENTIN 300 MG CAP PO SCH ×2 (09:08→21:35)
[2023-10-29] MEDS: POLYETHYLENE (MIRALAX) 17 GM PACK PO SCH (09:09)
[2023-10-29] MEDS: SENNA 8.6 MG TAB PO SCH (10:10)
[2023-10-29] MEDS: DULoxetine HCL 30 MG CAP PO SCH (10:10)
[2023-10-29] MEDS: HYDROmorphone HCL 2 MG TAB PO PRN (14:57)
[2023-10-29] MEDS: fentaNYL 25 MCG/HR TDSY TD SCH (16:44)
[2023-10-29] MEDS: METHYLNALTREXONE BROMIDE 12 MG/0.6 ML VIAL SQ SCH (16:51)
--- NOTE | 2023-10-29 18:04 | Hospitalist Progress Note ---
Date of Service October 29, 2023 Assessment & Plan (1) Acute postoperative abdominal pain: Plan: #Acute postoperative abdominal pain #Acute on chronic cancer pain #Large rectal mass concerning for rectal carcinoma given history Follows with Dr. Polk [facility], and with Dr. Lakhani with colorectal surgery Ct abd/pelvis with contrast after prep with prednisone showing increased rectal mass to 6.6cm from 5.7cm on Oct 06. An underlying contained perforation/developing abscess within this rectal mass is considered less likely but not entirely excluded. Possible developing partial SBO.Superimposed colitis Discussion with Dr. Lakhani at [facility] on 10/19 per prior hospitalist: continue abx, no change in management prompting transfer Pain management on consult: -Continue fentanyl 25mcg every 72 hours; discontinued oxycodone 5 mg p.o. -Reduced po dialudid 1 mg q3h and discontinued IV 0.5 q 5h--will adjusted as needed - Continue of Cymbalta 30 mg p.o. qam, and Robaxin for spasm control. 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 Urology consulted and appreciate inputs to continue arevalo and to keep urology appointment on 10/27- Requesting void trial today (10/25) -Replaced arevalo 10/25, will keep likely 1-2 weeks before further discussion of void trial and if it is reasonable at that time (Urology aware) 10/[address] #Delirium *improved #Generalized weakness -Episodic confusion requiring reorientation -Encourage delirium precautions as able -Fall precautions -Careful titration of pain regimen #Rectal bleeding #rectal/anus pain -likely 2/2 progression ass/inflammation, has been chronic issue but notably worse last evening 10/24 per patient -External exam revealed small hemorrhoid and skin tag and slight red streaks on ALEAH -Hemoglobin stable--appears like bright red staining on depends -Hold eliquis -Trend CBC (stable this am) -HC cream and lidocaine cream -Start PPI BID more for ppx #GERD -TUMS prn, PPI BID #Severe protein calorie malnutrition -BMI 18, iso malignancy and poor po intake -Encourage PO as able, nutrition supplements #Possible colitis/abscess? one of the blood cultures positive for coag negative stap, low suspicion for pathogenic as patient has been on zosyn and not directed coverage for CONS bacteremia Blood cultures negative, No change in mass/fluid collection size despite nearly 1 week abx. -Discontinue abx and reassess daily -No signs of active infection #Hypotension *resolved gave gentle fluids because of systolic chf improved with fluids. #Chronic HFrEF Nonischemic cardiomyopathy with an EF of 25 to 29% from echocardiogram from 07/23/2023 reviewed on outpatient epic results Seems Declined BiVICD previously, at her most recent stay at [place] approximately 1 week ago was offered second opinion by [place] EP regarding this however patient declined at that time LBBB is chronic, Seems had history of symptomatic hypotension on outpatient records Close monitor. DVT ppx: teds, scds Admission and Anticipated Discharge Date Admission Date: October 18, 2023 Subjective Follow-up for rectal cancer, generalized pain, etc. Seen resting in bed, comfortable, not in distress Patient's Jose at the bedside visiting Patient reports that she had a good night sleep, pain is well controlled under Dilaudid IV as needed Feels somewhat tired today but pain remains well controlled No other new symptoms Review of Systems Review of Systems: all noted and negative except for above Physical Exam Physical Exam: General- oriented x 3, not in distress, speaks in sentences with no effort or accessory muscle use Eyes- anicteric Neck- no JVD Lungs- clear breath sounds bilaterally, no crackles or wheezing Heart- normal rate, regular rhythm; no murmurs Abdomen- normal bowel sounds, nondistended, soft, nontender Extremities- no pretibial edema, no calf tenderness Neuro- alert, oriented x 3; no gross focal neurologic deficits Skin- warm & dry Results & Data Results & Data Vital Signs (Past 12 Hours) Vital Signs Temp Pulse Resp BP Pulse Ox O2 Del Method 10/29/23 08:16 36.8 C 88 16 108/67 97 Room Air all noted and reviewed including below
[2023-10-30] MEDS: CHECK fentaNYL PATCH PLACEMENT SCH ×3 (00:59→16:10)
[2023-10-30] MEDS: HYDROmorphone INJ 1 MG/ML SYRINGE IV PRN ×7 (03:44→22:09)
[2023-10-30] MEDS: HEPARIN 100 UNIT/ML 5ML FLUSH FLUSH PRN ×5 (03:46→22:10)
[2023-10-30] MEDS: DICLOFENAC SOD 1% GEL 100 GM TUBE EXT SCH ×5 (05:10→20:57)
[2023-10-30] MEDS: ACETAMINOPHEN 500 MG TAB PO SCH ×3 (06:20→22:09)
[2023-10-30] MEDS: HYDROmorphone HCL 2 MG TAB PO PRN (08:12)
[2023-10-30] MEDS: LIDOCAINE 4% CREAM 15 GM TUBE EXT SCH ×3 (08:14→21:00)
[2023-10-30] MEDS: GABAPENTIN 300 MG CAP PO SCH ×2 (08:15→21:01)
[2023-10-30] MEDS: SENNA 8.6 MG TAB PO SCH (08:16)
[2023-10-30] MEDS: DULoxetine HCL 30 MG CAP PO SCH (08:16)
[2023-10-30] MEDS: POLYETHYLENE (MIRALAX) 17 GM PACK PO SCH (08:19)
[2023-10-30] MEDS: DOCUSATE SODIUM 100 MG CAP PO SCH (08:19)
[2023-10-30] MEDS: LORazepam 0.5 MG TAB PO PRN ×2 (09:20→21:21)
[2023-10-30] MEDS ORDERED: HYDROmorphone HCL 2 MG TAB PO PRN (14:35)
[2023-10-30] MEDS: CALCIUM CARBONATE 500 MG CHEWABLE TAB PO PRN (16:45)
[2023-10-30] MEDS ORDERED: fentaNYL 12 MCG/HR TDSY TD SCH (17:00)
--- NOTE | 2023-10-30 17:02 | Hospitalist Progress Note ---
Date of Service October 30, 2023 Assessment & Plan (1) Acute postoperative abdominal pain: Plan: #Acute postoperative abdominal pain #Acute on chronic cancer pain #Large rectal mass concerning for rectal carcinoma given history Follows with Dr. Polk at Cancer center, and with Dr. Lakhani with colorectal surgery Ct abd/pelvis with contrast after prep with prednisone showing increased rectal mass to 6.6cm from 5.7cm on Oct 06. An underlying contained perforation/developing abscess within this rectal mass is considered less likely but not entirely excluded. Possible developing partial SBO.Superimposed colitis Discussion with Dr. Lakhani at [facility] on 10/19 per prior hospitalist: continue abx, no change in management prompting transfer Pain management on consult: -Continue fentanyl 25mcg every 72 hours; discontinued oxycodone 5 mg p.o. -Reduced po dialudid 1 mg q3h and discontinued IV 0.5 q 5h--will adjusted as needed - Continue of Cymbalta 30 mg p.o. qam, and Robaxin for spasm control. 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 Dilaudid to 2 mg p.o. daily Continue Dilaudid IV 1 mg as needed Discussed with patient and at the bedside, they are understanding and agreeable with the plan of care for better pain control We will monitor closely for side effects including delirium #Acute urinary retention: - UA obtained, culture NGT s/p arevalo. Urology consulted and appreciate inputs to continue arevalo and to keep urology appointment on 10/27- Requesting void trial today (10/25) -Replaced arevalo 10/25, will keep likely 1-2 weeks before further discussion of void trial and if it is reasonable at that time (Urology aware) 10/[address] #Delirium *improved #Generalized weakness -Episodic confusion requiring reorientation -Encourage delirium precautions as able -Fall precautions -Careful titration of pain regimen #Rectal bleeding #rectal/anus pain -likely 2/2 progression ass/inflammation, has been chronic issue but notably worse last evening 10/24 per patient -External exam revealed small hemorrhoid and skin tag and slight red streaks on ALEAH -Hemoglobin stable--appears like bright red staining on depends -Hold eliquis -Trend CBC (stable this am) -HC cream and lidocaine cream -Start PPI BID more for ppx #GERD -TUMS prn, PPI BID #Severe protein calorie malnutrition -BMI 18, iso malignancy and poor po intake -Encourage PO as able, nutrition supplements #Possible colitis/abscess? one of the blood cultures positive for coag negative stap, low suspicion for pathogenic as patient has been on zosyn and not directed coverage for CONS bacteremia Blood cultures negative, No change in mass/fluid collection size despite nearly 1 week abx. -Discontinue abx and reassess daily -No signs of active infection #Hypotension *resolved gave gentle fluids because of systolic chf improved with fluids. #Chronic HFrEF Nonischemic cardiomyopathy with an EF of 25 to 29% from echocardiogram from 07/23/2023 reviewed on outpatient epic results Seems Declined BiVICD previously, at her most recent stay at [place] approximately 1 week ago was offered second opinion by [place] EP regarding this however patient declined at that time LBBB is chronic, Seems had history of symptomatic hypotension on outpatient records Close monitor. DVT ppx: teds, scds Admission and Anticipated Discharge Date Admission Date: October 18, 2023 Subjective Follow-up for rectal cancer, etc. Seen resting in bed, comfortable, not in distress Patient's Jose at the bedside visiting Patient states she is having increased pain today, generalized Tearful at 1 point, was thinking her pain will not be controlled when she goes to hospice, extensive discussion held with patient regarding hospice care services including on pain control and symptom management Patient was reassured No other new symptom Review of Systems Review of Systems: all noted and negative except for above Physical Exam Physical Exam: General- oriented x 3, not in distress, speaks in sentences with no effort or accessory muscle use Eyes- anicteric Neck- no JVD Lungs- clear BS BL Heart- normal rate, regular rhythm; no murmurs Abdomen- normal bowel sounds, nondistended, soft, no tenderness Colostomy bag in place, brown soft stools present Extremities- no pretibial edema, no calf tenderness Neuro- alert, oriented x 3; no gross focal neurologic deficits Skin- warm & dry Results & Data Results & Data Vital Signs (Past 12 Hours) Vital Signs Temp Pulse Resp BP Pulse Ox O2 Del Method 10/30/23 08:06 36.5 C 90 16 138/78 97 Room Air all noted and reviewed including below
[2023-10-30] MEDS: PROCHLORPERAZINE 5 MG in SYRINGE 4 ML IV PRN (18:44)
[2023-10-30] MEDS ORDERED: FAMOTIDINE 20 MG in SYRINGE 3 ML IV ONE (23:45)
[2023-10-31] MEDS: DICLOFENAC SOD 1% GEL 100 GM TUBE EXT SCH ×6 (00:10→22:03)
[2023-10-31] MEDS: CHECK fentaNYL PATCH PLACEMENT SCH ×3 (00:11→17:49)
[2023-10-31] MEDS: HEPARIN 100 UNIT/ML 5ML FLUSH FLUSH PRN ×11 (00:12→23:19)
[2023-10-31] MEDS ORDERED: LORazepam 1 MG TAB PO PRN (01:08)
[2023-10-31] MEDS ORDERED: LORazepam 1 MG TAB PO STA (01:17)
[2023-10-31] MEDS: HYDROmorphone INJ 1 MG/ML SYRINGE IV PRN ×9 (01:36→23:19)
[2023-10-31] MEDS: ACETAMINOPHEN 500 MG TAB PO SCH ×3 (05:00→22:03)
[2023-10-31 08:05] VITALS: RESP 18; O2SAT 94
[2023-10-31] MEDS: LORazepam 1 MG TAB PO PRN ×4 (08:30→22:03)
[2023-10-31] MEDS: DULoxetine HCL 30 MG CAP PO SCH (08:32)
[2023-10-31] MEDS: GABAPENTIN 300 MG CAP PO SCH ×2 (08:32→22:03)
[2023-10-31] MEDS: DOCUSATE SODIUM 100 MG CAP PO SCH (08:34)
[2023-10-31] MEDS: LIDOCAINE 4% CREAM 15 GM TUBE EXT SCH ×3 (08:36→22:03)
[2023-10-31] MEDS: POLYETHYLENE (MIRALAX) 17 GM PACK PO SCH (08:36)
[2023-10-31] MEDS: SENNA 8.6 MG TAB PO SCH (08:36)
[2023-10-31] MEDS: CALCIUM CARBONATE 500 MG CHEWABLE TAB PO PRN (10:06)
[2023-10-31 11:20] LABS: BUN Creatinine Ratio 31.1 (10-20); Calcium 8.5 mg/dl (8.6-10.3); Creatinine Clr Calc Pharmacy 99.4 ml/min; Est GFR (African American) 121.9 ml/min; Est GFR (Non-African American) 105.1 ml/min; Magnesium 1.8 mg/dl (1.7-2.4); Potassium 3.6 mmol/L (3.5-5.1)
[2023-10-31] MEDS: METHYLNALTREXONE BROMIDE 12 MG/0.6 ML VIAL SQ SCH (17:55)
--- NOTE | 2023-10-31 19:04 | Hospitalist Progress Note ---
Date of Service October 31, 2023 Assessment & Plan (1) Acute postoperative abdominal pain: Plan: #Acute postoperative abdominal pain #Acute on chronic cancer pain #Large rectal mass concerning for rectal carcinoma given history Follows with Dr. Polk at [facility] center, and with Dr. Lakhani with colorectal surgery Ct abd/pelvis with contrast after prep with prednisone showing increased rectal mass to 6.6cm from 5.7cm on Oct 06. An underlying contained perforation/developing abscess within this rectal mass is considered less likely but not entirely excluded. Possible developing partial SBO.Superimposed colitis Discussion with Dr. Lakhani at [facility] on 10/19 per prior hospitalist: continue abx, no change in management prompting transfer Pain management on consult: -Continue fentanyl 25mcg every 72 hours; discontinued oxycodone 5 mg p.o. -Reduced po dialudid 1 mg q3h and discontinued IV 0.5 q 5h--will adjusted as needed - Continue of Cymbalta 30 mg p.o. qam, and Robaxin for spasm control. 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 Dilaudid to 2 mg p.o. daily Continue Dilaudid IV 1 mg as needed Discussed with patient and at the bedside, they are understanding and agreeable with the plan of care for better pain control We will monitor closely for side effects including delirium 10/31 continue pain medication regimen monitor #Acute urinary retention: - UA obtained, culture NGT s/p arevalo. Urology consulted and appreciate inputs to continue arevalo and to keep urology appointment on 10/27- Requesting void trial today (10/25) -Replaced arevalo 10/25, will keep likely 1-2 weeks before further discussion of void trial and if it is reasonable at that time (Urology aware) 10/[address] #Delirium *improved #Generalized weakness -Episodic confusion requiring reorientation -Encourage delirium precautions as able -Fall precautions -Careful titration of pain regimen #Rectal bleeding #rectal/anus pain -likely 2/2 progression ass/inflammation, has been chronic issue but notably worse last evening 10/24 per patient -External exam revealed small hemorrhoid and skin tag and slight red streaks on ALEAH -Hemoglobin stable--appears like bright red staining on depends -Hold eliquis -Trend CBC (stable this am) -HC cream and lidocaine cream -Start PPI BID more for ppx #GERD -TUMS prn, PPI BID #Severe protein calorie malnutrition -BMI 18, iso malignancy and poor po intake -Encourage PO as able, nutrition supplements #Possible colitis/abscess? one of the blood cultures positive for coag negative stap, low suspicion for pathogenic as patient has been on zosyn and not directed coverage for CONS bacteremia Blood cultures negative, No change in mass/fluid collection size despite nearly 1 week abx. -Discontinue abx and reassess daily -No signs of active infection #Hypotension *resolved gave gentle fluids because of systolic chf improved with fluids. #Chronic HFrEF Nonischemic cardiomyopathy with an EF of 25 to 29% from echocardiogram from 07/23/2023 reviewed on outpatient epic results Seems Declined BiVICD previously, at her most recent stay at [place] approximately 1 week ago was offered second opinion by [place] EP regarding this however patient declined at that time LBBB is chronic, Seems had history of symptomatic hypotension on outpatient records Close monitor. DVT ppx: teds, scds Admission and Anticipated Discharge Date Admission Date: October 18, 2023 Subjective ff up for rectal CA, pain, etc seen resting in bed, not in distress has severe pain, managed overall by pain meds no chest pain, dyspnea, palpitations, dizziness no other symptoms Review of Systems Review of Systems: all noted and negative except for above Physical Exam Physical Exam: General- oriented x 2, not in distress, speaks in sentences with no effort or accessory muscle use appears weak Eyes- anicteric Neck- no JVD Lungs- clear breath sounds bilaterally, no rales/wheezes Heart- normal rate, regular rhythm; no murmurs Abdomen- normal bowel sounds, nondistended, soft, nontender Extremities- no pretibial edema, no calf tenderness Neuro- alert, oriented x 2; no gross focal neurologic deficits Skin- warm & dry Results & Data Results & Data Vital Signs (Past 12 Hours) Vital Signs Temp Pulse Resp BP Pulse Ox O2 Del Method 10/31/23 08:02 36.5 C 87 18 113/71 94 Room Air all noted and reviewed including below
[2023-10-31 20:50] VITALS: BP 117/79; PULSE 91; TEMP 98.4
[2023-11-01] MEDS: CHECK fentaNYL PATCH PLACEMENT SCH ×3 (00:21→15:39)
[2023-11-01] MEDS: DICLOFENAC SOD 1% GEL 100 GM TUBE EXT SCH ×6 (01:06→20:47)
[2023-11-01] MEDS: LORazepam 1 MG TAB PO PRN ×4 (03:52→20:59)
[2023-11-01] MEDS: HYDROmorphone INJ 1 MG/ML SYRINGE IV PRN ×8 (04:12→23:30)
[2023-11-01] MEDS: ACETAMINOPHEN 500 MG TAB PO SCH ×4 (05:22→20:59)
[2023-11-01] MEDS: HEPARIN 100 UNIT/ML 5ML FLUSH FLUSH PRN ×7 (07:20→23:30)
[2023-11-01] MEDS: DOCUSATE SODIUM 100 MG CAP PO SCH (08:31)
[2023-11-01] MEDS: GABAPENTIN 300 MG CAP PO SCH ×2 (08:31→20:47)
[2023-11-01] MEDS: SENNA 8.6 MG TAB PO SCH (08:31)
[2023-11-01] MEDS: DULoxetine HCL 30 MG CAP PO SCH (08:31)
[2023-11-01] MEDS: LIDOCAINE 4% CREAM 15 GM TUBE EXT SCH ×3 (08:32→20:49)
[2023-11-01] MEDS: POLYETHYLENE (MIRALAX) 17 GM PACK PO SCH (08:32)
[2023-11-01] MEDS: CALCIUM CARBONATE 500 MG CHEWABLE TAB PO PRN (09:25)
[2023-11-01] MEDS ORDERED: fentaNYL 25 MCG/HR TDSY TD SCH (13:00)
[2023-11-01] MEDS: MoRPHine SULFATE CR 15 MG TABCR PO SCH (14:03)
--- NOTE | 2023-11-01 14:47 | Hospitalist Progress Note ---
Date of Service November 01, 2023 Assessment & Plan (1) Acute postoperative abdominal pain: Plan: #Acute postoperative abdominal pain #Acute on chronic cancer pain #Large rectal mass concerning for rectal carcinoma given history Follows with Dr. Polk at Cancer center, and with Dr. Lakhani with colorectal surgery Ct abd/pelvis with contrast after prep with prednisone showing increased rectal mass to 6.6cm from 5.7cm on Oct 06. An underlying contained perforation/developing abscess within this rectal mass is considered less likely but not entirely excluded. Possible developing partial SBO.Superimposed colitis Discussion with Dr. Lakhani at [facility] on 10/19 per prior hospitalist: continue abx, no change in management prompting transfer Pain management on consult: -Continue fentanyl 25mcg every 72 hours; discontinued oxycodone 5 mg p.o. -Reduced po dialudid 1 mg q3h and discontinued IV 0.5 q 5h--will adjusted as needed - Continue of Cymbalta 30 mg p.o. qam, and Robaxin for spasm control. - Continue miralax and colace, schedule Relistor q2d - Continue gabapentin at current dosing Heme/Onc on consult: -Optimize pain management -Possible meeting next week if still admitted (atively Thursday with Dr Polk) -TSH and cortisol wnl Palliative on consult: -Not accepting hospice/comfort measures at this time, though seemingly more pursuing QoL measures -Ativan BID (reduced to 0.5mg bid prn) 10/29 patient to transition to hospice Dilaudid 0.5 mg IV every hour as needed added Pain better controlled fire manager discussing with patient regarding [facility] facility with hospice 10/30 Pain increased today Will increase fentanyl to 37.5 mg daily Increase p.o. Dilaudid to 2 mg p.o. daily Continue Dilaudid IV 1 mg as needed Discussed with patient and at the bedside, they are understanding and agreeable with the plan of care for better pain control We will monitor closely for side effects including delirium 11/01 increase Fentanyl to 50mc daily trial of MS Contin #Acute urinary retention: - UA obtained, culture NGT s/p arevalo. Urology consulted and appreciate inputs to continue arevalo and to keep urology appointment on 10/27- Requesting void trial today (10/25) -Replaced arevalo 10/25, will keep likely 1-2 weeks before further discussion of void trial and if it is reasonable at that time (Urology aware) 11/[address] #Delirium *improved #Generalized weakness -Episodic confusion requiring reorientation -Encourage delirium precautions as able -Fall precautions -Careful titration of pain regimen #Rectal bleeding #rectal/anus pain -likely 2/2 progression ass/inflammation, has been chronic issue but notably worse last evening 10/24 per patient -External exam revealed small hemorrhoid and skin tag and slight red streaks on ALEAH -Hemoglobin stable--appears like bright red staining on depends -Hold eliquis -Trend CBC (stable this am) -HC cream and lidocaine cream -Start PPI BID more for ppx #GERD -TUMS prn, PPI BID #Severe protein calorie malnutrition -BMI 18, iso malignancy and poor po intake -Encourage PO as able, nutrition supplements #Possible colitis/abscess? one of the blood cultures positive for coag negative stap, low suspicion for pathogenic as patient has been on zosyn and not directed coverage for CONS bacteremia Blood cultures negative, No change in mass/fluid collection size despite nearly 1 week abx. -Discontinue abx and reassess daily -No signs of active infection #Hypotension *resolved gave gentle fluids because of systolic chf improved with fluids. #Chronic HFrEF Nonischemic cardiomyopathy with an EF of 25 to 29% from echocardiogram from 07/23/2023 reviewed on outpatient epic results Seems Declined BiVICD previously, at her most recent stay at [place] approximately 1 week ago was offered second opinion by [place] EP regarding this however patient declined at that time LBBB is chronic, Seems had history of symptomatic hypotension on outpatient records Close monitor. DVT ppx: teds, scds Admission and Anticipated Discharge Date Admission Date: October 18, 2023 Subjective ff up for rectal ca, etc seen resting in bed, not in distress still having pain discussed re: increasing fentanyl, and trial of MS Contin patient verbalized understanding and agreement Review of Systems Review of Systems: all noted and negative except for above Physical Exam Physical Exam: General- oriented x 3, not in distress, speaks in sentences with no effort or accessory muscle use Eyes- anicteric Neck- no JVD Lungs- clear BS BL Heart- normal rate, regular rhythm; no murmurs Abdomen- normal bowel sounds, nondistended, soft, nontender Extremities- no pretibial edema, no calf tenderness Neuro- alert, oriented x 3; no gross focal neurologic deficits Skin- warm & dry
[2023-11-01] MEDS: fentaNYL 25 MCG/HR TDSY TD SCH (15:39)
[2023-11-02] MEDS: CHECK fentaNYL PATCH PLACEMENT SCH ×2 (00:09→08:04)
[2023-11-02] MEDS: DICLOFENAC SOD 1% GEL 100 GM TUBE EXT SCH ×6 (00:09→19:59)
[2023-11-02] MEDS: MoRPHine SULFATE CR 15 MG TABCR PO SCH (01:50)
[2023-11-02] MEDS: HEPARIN 100 UNIT/ML 5ML FLUSH FLUSH PRN ×4 (04:35→10:15)
[2023-11-02] MEDS: HYDROmorphone INJ 1 MG/ML SYRINGE IV PRN ×3 (04:35→08:14)
[2023-11-02] MEDS: LORazepam 1 MG TAB PO PRN (04:35)
[2023-11-02] MEDS: ACETAMINOPHEN 500 MG TAB PO SCH ×3 (05:21→22:07)
[2023-11-02] MEDS: LIDOCAINE 4% CREAM 15 GM TUBE EXT SCH ×3 (08:06→19:59)
[2023-11-02] MEDS: SENNA 8.6 MG TAB PO SCH (08:06)
[2023-11-02] MEDS: GABAPENTIN 300 MG CAP PO SCH ×2 (08:07→19:59)
[2023-11-02] MEDS: DULoxetine HCL 30 MG CAP PO SCH (08:08)
[2023-11-02] MEDS: DOCUSATE SODIUM 100 MG CAP PO SCH (08:15)
[2023-11-02] MEDS: POLYETHYLENE (MIRALAX) 17 GM PACK PO SCH (08:15)
--- NOTE | 2023-11-02 09:44 | Palliative Care Progress Note ---
Date of Service November 02, 2023 Assessment & Plan (1) Cancer related pain: Plan: pt is requiring TDF 50mcg + MS Contin 30 mg PO + Dilaudid IV 1mg x 10 doses (total 10mg IV) for pain mgt without relief this is 300 OME or approx 20mg IV dilaudid equivalent/day 20mg IV DIlaudid/day = 0.8mg per hour adjusting for cross tolerance will begin dilaudid infusion 0.6mg per hour with 0.5mg STARS ANALYTICAL LEAD q15min prn Stop TDF Stop MS Contin Stop PO Dilaudid Get a GIP eval (2) Palliative care by specialist: (3) Dyspnea and respiratory abnormalities: (4) Weakness generalized: (5) Rectal carcinoma: Plan Begin [employer] ANALYTICAL LEAD Dilaudid on reassessment, appears more comfortable and was sleeping paged by hospitalist in evening that felt she was sedated and wanted opioid dose reduced. recc changes to make and reaffirmed she is on less than her equianalgesic conversion (see above) for very severe, uncontrolled terminal rectal cancer related pain. Sedation may be the side effect we accept for comfort. 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 THIS PT HAS TERMINAL RECTAL CANCER AND IS NOT A CANDIDATE FOR RECTAL TUBE/RECTAL OPIOID ADMINISTRATION. Thank you for allowing us to participate in the ongoing care of this patient. Please don't hesitate to call or page with any additional concerns. Dr. Drea Thompson DNP Director, Palliative Care Admission and Anticipated Discharge Date Admission Date: October 18, 2023 Subjective on CRYSTAL GROWING TECHNICIAN worsening very severe cancer bo multiple opioid dose escalations tdf doubled ms contin added iv dilaudid and po dilaudid no relief family cannot care for pt at home they have been unable to arrive at dispo plan Review of Systems Review of Systems: All systems reviewed & are unremarkable except as noted in Subjective Physical Exam Physical Exam: tired appearing, thin, frail grimacing and uncomfortable appearing Constitutional: + acute distress, + ill appearing, + cac hectic, + frail appearing and cooperative Eyes: PERRL, conjunctivae normal, anicteric sclerae ENMT: external ear and nose normal, oropharynx normal Neck: trachea midline, no thyromegaly Respiratory: Auscultation: lungs clear to auscultation bilaterally and + diminished lung sounds Cardiovascular: Rate/Rhythm: regular rate and regular rhythm Gastrointestinal (Abdomen): +ostomy, +TTP, BS diminished Musculoskeletal: gen weakness Skin: pale, cool Neurologic: PERRL, EOMI, accommodation nl, no face palsy, no dysarthria tired, sleepy Psychiatric: subdued PG Care Time/CCT Total # of Minutes Spent Total Time Spent: 90 Total Time Spent with Patient: Total time spent is greater than 50% in coordination of care (as documented) at patient's floor/unit and/or counseling patient: [place] [id number] SUB INP/OBS CARE 3/50MIN Patient Type Established Medical Decision Making High Complexity Diagnoses Cancer related pain G89.3 Palliative care by specialist Z51.5 Dyspnea and respiratory abnormalities R06.00; R06.89 Weakness generalized R53.1 Rectal carcinoma C20
[2023-11-02] MEDS ORDERED: NALOXONE HCL 0.4 MG/1 ML VIAL/CARP IV PRN (09:52)
[2023-11-02] MEDS: HYDROmorphone PCA 30 MG/30 ML IV PRN ×3 (12:05→18:59)
--- NOTE | 2023-11-02 17:58 | Hospitalist Progress Note ---
Date of Service November 02, 2023 Assessment & Plan (1) Acute postoperative abdominal pain: Plan: #Acute postoperative abdominal pain #Acute on chronic cancer pain #Large rectal mass concerning for rectal carcinoma given history Follows with Dr. [facility]k [facility], and with Dr. Lakhani with colorectal surgery Ct abd/pelvis with contrast after prep with prednisone showing increased rectal mass to 6.6cm from 5.7cm on Oct 06. An underlying contained perforation/developing abscess within this rectal mass is considered less likely but not entirely excluded. Possible developing partial SBO.Superimposed colitis Discussion with Dr. Lakhani at [facility] on 10/19 per prior hospitalist: continue abx, no change in management prompting transfer Pain management on consult: -Continue fentanyl 25mcg every 72 hours; discontinued oxycodone 5 mg p.o. -Reduced po dialudid 1 mg q3h and discontinued IV 0.5 q 5h--will adjusted as needed - Continue of Cymbalta 30 mg p.o. qam, and Robaxin for spasm control. - Continue miralax and colace, schedule Relistor q2d - Continue gabapentin at current dosing Heme/Onc on consult: -Optimize pain management -Possible meeting next week if still admitted (atively Thursday with Dr Polk) -TSH and cortisol wnl Palliative on consult: -Not accepting hospice/comfort measures at this time, though seemingly more pursuing QoL measures -Ativan BID (reduced to 0.5mg bid prn) 10/29 patient to transition to hospice Dilaudid 0.5 mg IV every hour as needed added Pain better controlled concession manager discussing with patient regarding snf facility with hospice 10/30 Pain increased today Will increase fentanyl to 37.5 mg daily Increase p.o. Dilaudid to 2 mg p.o. daily Continue Dilaudid IV 1 mg as needed Discussed with patient and at the bedside, they are understanding and agreeable with the plan of care for better pain control We will monitor closely for side effects including delirium 11/01 increase Fentanyl to 50mc daily trial of MS Contin 11/02 ID family meeting yesterday Discussed with palliative care service today We will transition to BALL MACHINE OPERATOR pump for better pain control Will need inpatient hospice care service #Acute urinary retention: - UA obtained, culture NGT s/p arevalo. Urology consulted and appreciate inputs to continue arevalo and to keep urology appointment on 10/27- Requesting void trial today (10/25) -Replaced arevalo 10/25, will keep likely 1-2 weeks before further discussion of void trial and if it is reasonable at that time (Urology aware) 11/[address] #Delirium *improved #Generalized weakness -Episodic confusion requiring reorientation -Encourage delirium precautions as able -Fall precautions -Careful titration of pain regimen #Rectal bleeding #rectal/anus pain -likely 2/2 progression ass/inflammation, has been chronic issue but notably worse last evening 10/24 per patient -External exam revealed small hemorrhoid and skin tag and slight red streaks on ALEAH -Hemoglobin stable--appears like bright red staining on depends -Hold eliquis -Trend CBC (stable this am) -HC cream and lidocaine cream -Start PPI BID more for ppx #GERD -TUMS prn, PPI BID #Severe protein calorie malnutrition -BMI 18, iso malignancy and poor po intake -Encourage PO as able, nutrition supplements #Possible colitis/abscess? one of the blood cultures positive for coag negative stap, low suspicion for pathogenic as patient has been on zosyn and not directed coverage for CONS bacteremia Blood cultures negative, No change in mass/fluid collection size despite nearly 1 week abx. -Discontinue abx and reassess daily -No signs of active infection #Hypotension *resolved gave gentle fluids because of systolic chf improved with fluids. #Chronic HFrEF Nonischemic cardiomyopathy with an EF of 25 to 29% from echocardiogram from 07/23/2023 reviewed on outpatient epic results Seems Declined BiVICD previously, at her most recent stay at [place] approximately 1 week ago was offered second opinion by [place] EP regarding this however patient declined at that time LBBB is chronic, Seems had history of symptomatic hypotension on outpatient records Close monitor. DVT ppx: teds, scds Admission and Anticipated Discharge Date Admission Date: October 18, 2023 Subjective Follow-up for rectal cancer, pain, etc. Seen resting in bed, not in distress, awake but somewhat drowsy Family at the bedside States she is still having pain, partially relieved by IV Dilaudid Appetite is poor No other new symptoms Review of Systems Review of Systems: all noted and negative except for above Physical Exam Physical Exam: General- oriented x 3, not in distress, speaks in sentences with no effort or accessory muscle use Eyes- anicteric Neck- no JVD Lungs- clear BS BL Heart- normal rate, regular rhythm; no murmurs Abdomen- normal bowel sounds, nondistended, soft, nontender Extremities- no pretibial edema, no calf tenderness Neuro- alert, oriented x 3; no gross focal neurologic deficits Skin- warm & dry
[2023-11-02] MEDS: METHYLNALTREXONE BROMIDE 12 MG/0.6 ML VIAL SQ SCH (18:13)
[2023-11-02] MEDS: LORazepam 1 MG in SYRINGE 0.5 ML IV PRN (19:54)
[2023-11-03] MEDS: DICLOFENAC SOD 1% GEL 100 GM TUBE EXT SCH ×5 (00:20→16:41)
[2023-11-03] MEDS: LORazepam 1 MG in SYRINGE 0.5 ML IV PRN ×2 (02:42→10:08)
[2023-11-03] MEDS: ACETAMINOPHEN 500 MG TAB PO SCH ×2 (05:25→14:59)
[2023-11-03] MEDS: HYDROmorphone PCA 30 MG/30 ML IV PRN ×2 (07:16→18:58)
[2023-11-03] MEDS: GABAPENTIN 300 MG CAP PO SCH (09:05)
[2023-11-03] MEDS: SENNA 8.6 MG TAB PO SCH (09:05)
[2023-11-03] MEDS: LIDOCAINE 4% CREAM 15 GM TUBE EXT SCH ×2 (09:06→14:59)
[2023-11-03] MEDS: DULoxetine HCL 30 MG CAP PO SCH (09:06)
[2023-11-03] MEDS: DOCUSATE SODIUM 100 MG CAP PO SCH (09:08)
[2023-11-03] MEDS: POLYETHYLENE (MIRALAX) 17 GM PACK PO SCH (09:08)
[2023-11-03] MEDS: CALCIUM CARBONATE 500 MG CHEWABLE TAB PO PRN (19:14)
--- NOTE | 2023-11-03 19:41 | Discharge Summary ---
Discharge Summary Date of Service November 03, 2023 Notes For Next Care Provider Medication Changes From Visit Per assessment and plan below Admission HPI Per Admitting Provider This is a 63-year-old female with PMHx of locally advanced rectal cancer diagnosed July 2022, status post total neoadjuvant therapy which was briefly interrupted due to large bowel obstruction requiring a diverting loop colostomy, who then subsequently underwent a robotic assisted low anterior resection with diverting loop transverse colostomy in January 2023, followed by reversal of the colostomy on 09/03/2023, who then recently underwent a laparoscopic diverting loop transverse colostomy again on 10/12/2023 due to worsening pelvic pain and bright red blood per rectum. Other past medical history includes nonischemic cardiomyopathy, most recent echo from 07/23/2023 shows left bundle branch block, LVEF of 25 to 29%, moderate mitral regurg, mild tricuspid regurg, depression, GERD, anxiety. Patient had follow up appointment with Dr. Lakhani at [facility] on 10/06, where for the past 2 weeks had been managed with intermittent Imodium and MiraLAX depending on her symptoms and had predominant constipation issues. There was new blood per rectum with increasing pain and spasm-like feeling within her pelvic floor muscles which was mildly alleviated by Flexeril. She also had acute urinary retention and was having severe bladder distention and suprapubic pain. She was evaluated here in the ER on 10/06 for urinary pretension however at that point time the patient refused Arevalo catheter placement, and 10/07 prepresented for similar symptoms including unable to urinate x12 hours as well as blood in bowel movements and small pellets of stool, increased rectal pain and was unable to sit in a chair. A Arevalo catheter was placed during that time and had immediate return of over 1200 mL out. Around that time she had stopped using Flexeril even though it helped with back and pelvic pain because she read that it could contribute to urinary symptoms, she also stopped taking oxybutynin that was prescribed outpatient for same reason. At that time she was agreeable to proceed with colostomy on 10/12/[address] Lakhani with colorectal surgery. The patient was discharged from [place] yesterday 10/17. Today the patient presents to the ER with multiple complaints of pain including the abdomen, pelvic region. She also has right upper leg pain which has been present for about 3-4 days even before discharge from [facility]. Pt did not eat or drink today due to pain. feels she is retaining urine again today. Pt states today she hasn't eaten or drank anything because of pain. Her ostomy outs are thick, no blood, no pain with outs. She uses oxycodone for pain relief, which is brief and only works for about 1 hour. Admission Exam Per Admitting Provider General- oriented x 3, not in distress, speaks in sentences with no effort or accessory muscle use Eyes- anicteric Neck- no JVD Lungs- clear BS BL Heart- normal rate, regular rhythm; no murmurs Abdomen- normal bowel sounds, nondistended, soft, nontender Extremities- no pretibial edema, no calf tenderness Neuro- alert, oriented x 3; no gross focal neurologic deficits Skin- warm & dry Principal Dx & Hospital Course #1 = Principal Diagnosis (1) Acute postoperative abdominal pain: #Acute postoperative abdominal pain #Acute on chronic cancer pain #Large rectal mass concerning for rectal carcinoma given history Follows with Dr. Polk at [facility], and with Dr. Lakhani with colorectal surgery Ct abd/pelvis with contrast after prep with prednisone showing increased rectal mass to 6.6cm from 5.7cm on Oct 06. An underlying contained perforation/developing abscess within this rectal mass is considered less likely but not entirely excluded. Possible developing partial SBO.Superimposed colitis Discussion with Dr. Lakhani at [facility] on 10/19 per prior hospitalist: continue abx, no change in management prompting transfer Pain management on consult: -Continue fentanyl 25mcg every 72 hours; discontinued oxycodone 5 mg p.o. -Reduced po dialudid 1 mg q3h and discontinued IV 0.5 q 5h--will adjusted as needed - Continue of Cymbalta 30 mg p.o. qam, and Robaxin for spasm control. - Continue miralax and colace, schedule Relistor q2d - Continue gabapentin at current dosing Heme/Onc on consult: -Optimize pain management -Possible meeting next week if still admitted (atively Thursday with Dr Polk) -TSH and cortisol wnl Palliative on consult: -Not accepting hospice/comfort measures at this time, though seemingly more pursuing QoL measures -Ativan BID (reduced to 0.5mg bid prn) 10/29 patient to transition to hospice Dilaudid 0.5 mg IV every hour as needed added Pain better controlled manager stars discussing with patient regarding halfway facility with hospice 10/30 Pain increased today Will increase fentanyl to 37.5 mg daily Increase p.o. Dilaudid to 2 mg p.o. daily Continue Dilaudid IV 1 mg as needed Discussed with patient and at the bedside, they are understanding and agreeable with the plan of care for better pain control We will monitor closely for side effects including delirium 11/01 increase Fentanyl to 50mc daily trial of MS Contin 11/02 ID family meeting yesterday Discussed with palliative care service today We will transition to WEATHER STRIP MECHANIC pump for better pain control Will need inpatient hospice care service 11/03 Patient somewhat confused, emotional Reassured Currently on WEATHER STRIP MECHANIC pump Transition to inpatient hospice #Acute urinary retention: - UA obtained, culture NGT s/p arevalo. Urology consulted and appreciate inputs to continue arevalo and to keep urology appointment on 10/27- Requesting void trial today (10/25) -Replaced arevalo 10/25, will keep likely 1-2 weeks before further discussion of void trial and if it is reasonable at that time (Urology aware) 11/[address] #Delirium *improved #Generalized weakness -Episodic confusion requiring reorientation -Encourage delirium precautions as able -Fall precautions -Careful titration of pain regimen #Rectal bleeding #rectal/anus pain -likely 2/2 progression ass/inflammation, has been chronic issue but notably worse last evening 10/24 per patient -External exam revealed small hemorrhoid and skin tag and slight red streaks on ALEAH -Hemoglobin stable--appears like bright red staining on depends -Hold eliquis -Trend CBC (stable this am) -HC cream and lidocaine cream -Start PPI BID more for ppx #GERD -TUMS prn, PPI BID #Severe protein calorie malnutrition -BMI 18, iso malignancy and poor po intake -Encourage PO as able, nutrition supplements #Possible colitis/abscess? one of the blood cultures positive for coag negative stap, low suspicion for pathogenic as patient has been on zosyn and not directed coverage for CONS bacteremia Blood cultures negative, No change in mass/fluid collection size despite nearly 1 week abx. -Discontinue abx and reassess daily -No signs of active infection #Hypotension *resolved gave gentle fluids because of systolic chf improved with fluids. #Chronic HFrEF Nonischemic cardiomyopathy with an EF of 25 to 29% from echocardiogram from 07/23/2023 reviewed on outpatient epic results Seems Declined BiVICD previously, at her most recent stay at [place] approximately 1 week ago was offered second opinion by [place] EP regarding this however patient declined at that time LBBB is chronic, Seems had history of symptomatic hypotension on outpatient records Close monitor. DVT ppx: teds, scds Discharge Exam General- oriented x1, not in distress, speaks in sentences with no effort or accessory muscle use Somewhat confused, weak Eyes- anicteric Neck- no JVD Lungs- clear breath sounds bilaterally Heart- normal rate, regular rhythm; no murmurs Abdomen- normal bowel sounds, nondistended, soft, nontender Extremities- no pretibial edema, no calf tenderness Neuro- alert, oriented x 1; no gross focal neurologic deficits Skin- warm & dry Updated Medication List Medication Instructions Recorded Confirmed Type alprazolam 0.5 mg tablet 0.25 - 0.5 mg PO HS PRN Sleep 10/06/23 10/18/23 History cyclobenzaprine 5 mg tablet 5 mg PO TID PRN Muscle Spasm 10/06/23 10/18/23 History oxycodone 5 mg tablet 5 mg PO TID PRN pain #14 tabs 10/06/23 10/18/23 Rx acetaminophen 500 mg tablet 1,000 mg PO BID PRN Pain 10/18/23 10/18/23 History apixaban 2.5 mg tablet (Eliquis) 2.5 mg PO BID 10/18/23 10/18/23 History gabapentin 300 mg capsule 300 mg PO TID 10/18/23 10/18/23 History Hospital Stay Data Consultations 10/18/23 18:23 ED Decision to Admit Stat 10/18/23 19:52 Consult Urology Routine 10/18/23 23:26 Consult General Surgery Routine 10/20/23 11:24 Consult Oncology Routine 10/21/23 07:51 Consult Palliative Care Routine 10/21/23 09:00 Consult Pain Management Routine 10/25/23 16:54 Consult Urology Routine Diagnostic Imagining Performed 10/18/23 19:47 CT abd pelvis IV con only Stat 10/23/23 16:04 CT Abd and Pelvis [CT abd pelvis IV con only] Routine Pending Results Patient Have Any Pending Studies at Discharge: No Discharge Instructions Given to Patient (Per Discharging Provider) Transition to inpatient hospice Total Time Total Time Spent Total Time Spent (In Minutes): >30 minutes
--- NOTE | 2023-11-04 07:03 | Hospitalist Progress Note ---
Date of Service November 03, 2023 Assessment & Plan (1) Rectal carcinoma: Plan: Patient is only marginally able to communicate and continues to indicate that she would like even more aggressive pain control. That being said, she certainly seems to fall asleep at time at least be peaceful during that sleep. She was not able to engage in meaningful extended conversation but her significant other was there we spoke at length about her unfortunate further decline and the lack of any options for intervention be on hospice like management. He has significant medical issues himself and does not have an extended friend or family base that would make home hospice practical. Just with the deterioration that we have seen in the last 5 days, she unfortunately is likely to see her life and while still in the hospital. Plan Will continue with aggressive hospice management, her significant other is very aware of the prognosis and overall plan of treatment Admission and Anticipated Discharge Date Admission Date: October 18, 2023 Subjective Patient is moribund. She alternates between being asleep and marginally awake repetitively expressing that she continues to have significant discomfort and just "cannot go on." Physical Exam Physical Exam: Patient is periodically asleep and somewhat peaceful but at times wakes up with restless discomfort. She does not seem to be in immediate respiratory distress PG Care Time/CCT Total # of Minutes Spent Total Time Spent with Patient: Total time spent is greater than 50% in coordination of care (as documented) at patient's floor/unit and/or counseling patient: Coding Level of Care Code 86954 SUB INP/OBS CARE 12/24MIN Diagnoses Rectal carcinoma C20
== END 2023-11-03 19:41 | disposition hospice, inpatient (51) | DRG 947 ==
LOC: ED 14:46 → SUATTDRO 19:52 → EDINP 19:52 → 2N 21:17 → 3N 10-28 14:01

== ENCOUNTER 2023-11-03 19:42 | Inpatient (IN) ==
--- NOTE | 2023-11-03 20:00 | History & Physical Report ---
Date of Service November 03, 2023 Assessment & Plan (1) Cancer related pain: Plan: (1) Acute postoperative abdominal pain: #Acute postoperative abdominal pain #Acute on chronic cancer pain #Large rectal mass concerning for rectal carcinoma given history per Dr. Moreno's notes with addendum: Follows with Dr. Polk at [facility], and with Dr. Lakhani with colorectal surgery Ct abd/pelvis with contrast after prep with prednisone showing increased rectal mass to 6.6cm from 5.7cm on Oct 06. An underlying contained perforation/developing abscess within this rectal mass is considered less likely but not entirely excluded. Possible developing partial SBO.Superimposed colitis Discussion with Dr. Lakhani at [facility] on 10/19 per prior hospitalist: continue abx, no change in management prompting transfer Pain management on consult: -Continue fentanyl 25mcg every 72 hours; discontinued oxycodone 5 mg p.o. -Reduced po dialudid 1 mg q3h and discontinued IV 0.5 q 5h--will adjusted as needed - Continue of Cymbalta 30 mg p.o. qam, and Robaxin for spasm control. - Continue miralax and colace, schedule Relistor q2d - Continue gabapentin at current dosing Heme/Onc on consult: -Optimize pain management -Possible meeting next week if still admitted (atively Thursday with Dr Polk) -TSH and cortisol wnl Palliative on consult: -Not accepting hospice/comfort measures at this time, though seemingly more pursuing QoL measures -Ativan BID (reduced to 0.5mg bid prn) 11/03 During admission, patient's pain progressively increased, pain management consulted as well as hematology oncology service. She also became weaker with very poor appetite and poor oral intake. Patient eventually placed on a CRATE TIER pump by palliative care service and eventually decision was made to transition her to inpatient hospice per family. #Acute urinary retention: - UA obtained, culture NGT s/p arevalo. Urology consulted and appreciate inputs to continue arevalo and to keep urology appointment on 10/27- Requesting void trial today (10/25) -Replaced arevalo 10/25, will keep likely 1-2 weeks before further discussion of void trial and if it is reasonable at that time (Urology aware) 11/[address] #Delirium *improved #Generalized weakness -Episodic confusion requiring reorientation -Encourage delirium precautions as able -Fall precautions -Careful titration of pain regimen #Rectal bleeding #rectal/anus pain -likely 2/2 progression ass/inflammation, has been chronic issue but notably worse last evening 10/24 per patient -External exam revealed small hemorrhoid and skin tag and slight red streaks on ALEAH -Hemoglobin stable--appears like bright red staining on depends -Hold eliquis -Trend CBC (stable this am) -HC cream and lidocaine cream PPI BID more for ppx #GERD -TUMS prn, PPI BID #Severe protein calorie malnutrition -BMI 18, iso malignancy and poor po intake -Encourage PO as able, nutrition supplements #Possible colitis/abscess? one of the blood cultures positive for coag negative stap, low suspicion for pathogenic as patient has been on zosyn and not directed coverage for CONS bacteremia Blood cultures negative, No change in mass/fluid collection size despite nearly 1 week abx. -Discontinue abx and reassess daily -No signs of active infection #Hypotension *resolved gave gentle fluids because of systolic chf improved with fluids. #Chronic HFrEF Nonischemic cardiomyopathy with an EF of 25 to 29% from echocardiogram from 07/23/2023 reviewed on outpatient epic results Seems Declined BiVICD previously, at her most recent stay at [place] approximately 1 week ago was offered second opinion by [place] EP regarding this however patient declined at that time LBBB is chronic, Seems had history of symptomatic hypotension on outpatient records Close monitor. DVT ppx: teds, scds Admission and Anticipated Discharge Date Admission Date: November 03, 2023 History of Present Illness Chief Complaint: Transition to inpatient hospice Primary Care Provider: Justin Collins MD Patient is a 63-year-old female with history of rectal cancer, who was admitted to [facility] for abdominal pain secondary to rectal cancer, diarrhea, possible melena. During admission, patient's pain progressively increased, pain management consulted as well as hematology oncology service. She also became weaker with very poor appetite and poor oral intake. Patient eventually placed on a CRATE TIER pump by palliative care service and eventually decision was made to transition her to inpatient hospice per family. Allergies Allergy/AdvReac Type Severity Reaction Status Date / Time Iodinated Contrast Media Allergy Intermediate SKIN Verified 10/18/23 16:41 REACTION WITH PEALING latex Allergy Mild Rash Verified 10/18/23 16:41 zolpidem AdvReac Severe "FELT Verified 10/18/23 16:41 CRAZY" hydrocodone AdvReac Mild Itching Verified 10/18/23 16:41 HEAD Home Medications Medication Instructions Recorded Confirmed Type alprazolam 0.5 mg tablet 0.25 - 0.5 mg PO HS PRN Sleep 10/06/23 10/18/23 History cyclobenzaprine 5 mg tablet 5 mg PO TID PRN Muscle Spasm 10/06/23 10/18/23 History oxycodone 5 mg tablet 5 mg PO TID PRN pain #14 tabs 10/06/23 10/18/23 Rx acetaminophen 500 mg tablet 1,000 mg PO BID PRN Pain 10/18/23 10/18/23 History gabapentin 300 mg capsule 300 mg PO TID 10/18/23 10/18/23 History Past Med/Surg History Medical History (Updated 10/22/23 @ 00:10 by Shraddha Oseguera) Colon cancer screening Cancer related pain Nonischemic cardiomyopathy -Nonischemic cardiomyopathy with an EF of 25-29% on recent echo- unchanged from prior serial echos. -Intolerant to GDMT in the past. Has been intolerant to goal directed medications. -NYHA class 1-2 -Declined BIV-ICD previously 1. Offered 2nd opinion at [facility] regarding Bi V ICD however patient again declined. Rectal tumor Colostomy in place Rectal carcinoma (04/11/22) RADIATION AND CHEMO, had a sigmoidectomy 07/30/2022 with colostomy r/t bowel obstruction>FINISHED CHEMO 12/17/22 Cardiomyopathy RECENT ECHO DONE AT [facility] History of TMJ disorder Depression History of migraine LBBB (left bundle branch block) Low left ventricular ejection fraction RECENT ECHO AT [facility] (CURRENTLY FOLLOWS WITH DR. HOFF) Hiatal hernia GERD (gastroesophageal reflux disease) History of alcohol abuse "significantly cut back" - currently drinks wine a few days a week. Anxiety Surgical History History of cardiac cath 2016>NO STENTS Port-A-Cath in place (08/25/22) Insertion Access Port into left Cephalic vein with Fluoroscopy(Left) - Melecio Rocha MD, FACS S/P trigger finger release bilateral S/P laparoscopic-assisted sigmoidectomy (07/30/22) Diagnostic laparoscopy, laparoscopic diverting loop sigmoid colostomy 07/30/[address] [place] [address] Criss Lakhani Hx of colonoscopy History of X 1 History of tonsillectomy History of bladder surgery as a child History of esophagogastroduodenoscopy (EGD) Family History Father Cancer lung cancer Brother Cancer lung cancer Mother Stroke Grandfather (Maternal) Diabetes Family/Other Colorectal cancer Other No family history of adverse response to anesthesia Social History Smoking Status: Never smoker Tobacco Type: Cigarettes Second Hand Exposure: Yes ( A CHILD); Do You Dip or Chew Tobacco: No; Hx Alcohol Use: No Hx Substance Use: No Preferred Language: Chinese Communication Ability: Effective Visual Impairment: No Limitations Hearing Ability: Normal Aml Analyst Required: No Beliefs That Will Affect Care: None marital status: Current Living Situation: Spouse current occupational status: employed current occupation: @ [employer] How many Children do You have: 1 Feels Safe at Home: Yes Diet: regular caffeine: Yes during the past year weight has: decreased > 10 lbs Dental Care, Regularly: Yes Assistive Devices: Walker Review of Systems Review of Systems: all noted and negative except for above Physical Exam Physical Exam: General- oriented x 3, not in distress, speaks in sentences with no effort or accessory muscle use Eyes- anicteric Neck- no JVD Lungs- clear BS BL Heart- normal rate, regular rhythm; no murmurs Abdomen- normal bowel sounds, nondistended, soft, nontender Extremities- no pretibial edema, no calf tenderness Neuro- alert, oriented x 3; no gross focal neurologic deficits Skin- warm & dry
[2023-11-03] MEDS ORDERED: NALOXONE HCL 0.4 MG/1 ML VIAL/CARP IV PRN ×2 (20:02→20:09)
[2023-11-03] MEDS: SODIUM CHLORIDE 0.9% 1,000 ML IV SCH (21:12)
[2023-11-03] MEDS: GABAPENTIN 300 MG CAP PO SCH (22:18)
[2023-11-04] MEDS: LORazepam 1 MG in SYRINGE 0.5 ML IV PRN ×3 (02:19→16:14)
[2023-11-04] MEDS: HYDROmorphone PCA 30 MG/30 ML IV PRN ×3 (07:06→19:05)
--- OUTSIDE RECORDS SUMMARY | 2023-11-04 08:21 | External Medical Summary | Continuity of Care Document ---
Author Name Unknown Organization [facility] Address [address] [place] [phone] Care Team Providers Care Aquatic Facility Manager Name Role Phone Dennis Justin Dietz Primary Care Physician [phone] [id number] Date(s): 10/09/23 - 10/17/[address] [id number] [phone] Encounter Diagnosis Personal history of rectal cancer(Discharge Diagnosis) - 10/09/23 Rectal cancer(Discharge Diagnosis) - 10/09/23 S/P colostomy(Discharge Diagnosis) - 10/16/23 Discharge Disposition: Home w/ Home Health Care Attending Physician: MD Lakhani Audrey Admitting Physician: MD Lahkani Audrey Referring Physician: MD Lakhani Audrey Allergies, Adverse Reactions, Alerts Substance Reaction Severity Status Ambien emotional Active Vicodin itchy scalp Active Latex 1 Unknown Active oral contrast dye 2 rash/itching Active 1Outside Source Comment: Pt sts gets rash at contact 2also IV dye Functional Status 10/17/23 Neurological Symptoms Numbness, Weakness ADLs Minimal assistance Facial Symmetry Symmetric Gait Steady Swallowing Difficulty None Level of Consciousness Neuro Alert Hallucinations Present None History of Fall in Last 3 Months Keen N o Presence of Secondary Diagnosis Keen No Use of Ambulatory Aid Keen Crutches/can e/walker IV/Heparin Lock Fall Risk Keen Yes Gait/Transferring Fall Risk Keen Weak Mental Status Fall Risk Keen Oriented t o own ability Keen Fall Risk Score 45 Keen Fall Risk Low Risk Speech Pattern Clear Medications acetaminophen 500 mg oral tablet Start: 10/14/23 9:24:00 EST, 2 tab, PO, q8h, PRN: pain - mild (1-3) Start Date: 10/14/23 Status: Ordered ALPRAZolam 0.25 mg oral tablet TAKE 1-2 TABLETS BY MOUTH AT NIGHT FOR ANXIETY Start Date: 02/16/23 Status: Ordered Eliquis 2.5 mg oral tablet Start: 10/16/23 8:01:00 EST, 1 tab, PO, bid, Disp# 56 tab, X 28 day, Refills: 0, Stop: 11/13/23 8:01:00 EST, [place] [facility] [place] Date: 10/16/23 Stop Date: 11/13/23 Status: Ordered Flexeril 5 mg oral tablet Start: 09/29/23 10:31:00 EDT, 1 tab, PO, tid, Disp# 30 tab, PRN: as needed for spasm, [id number] Start Date: 09/29/23 Status: Ordered gabapentin 300 mg oral capsule Start: 02/16/23 17:05:00 EDT, 1 cap, PO, tid Start Date: 02/16/23 Status: Ordered oxyBUTYnin 5 mg oral tablet Start: 10/02/23 14:33:00 EDT, 1 tab, PO, tid, Disp# 60 tab, PRN: as needed for urinary discomfort, [id number] Start Date: 10/02/23 Status: Ordered oxyCODONE 5 mg oral tablet Start: 10/16/23 9:04:00 EST, 1 tab, PO, q4h, Disp# 15 tab, Refills: 0, PRN: as needed for pain, Stop: 10/26/23 7:58:00 EST, Pharmacy[place] [facility] [place] Start Date: 10/16/23 Stop Date: 10/26/23 Status: Ordered Mental Status 10/12/23 Communication Barrier Present No 10/09/23 Primary Language Russian Problem List Condition Confirmation Course Effective Dates Status H ealth Status Informant Rectal adenocarcinoma Confirmed Active Left knee pain Confirmed Active BBB (bundle branch block) Confirmed Active Cardiomyopathy Confirmed Active Chronic HFrEF (heart failure with reduced ejection fraction) Confirmed Active History of ETOH abuse Confirmed Active Pre-op exam Confirmed Active Diagnosis Diagnosis Type Effective Dates Health Status Cl inical Service Informant Personal history of rectal cancer Discharge Diagnosis 10/09/23 Non-Specified Rectal cancer Discharge Diagnosis 10/09/23 Non-Specified S/P colostomy Discharge Diagnosis 10/16/23 Procedures Procedure Date Related Diagnosis Body Site [...] to obstructing rectal CA 3unknown details Results Laboratory List Name Date Complete Blood Count (CBC w Platelets) 1 12/17/22 Magnesium Level 10/17/23 Nephrology Panel 10/17/23 Complete Blood Count (CBC w Platelets) 1 12/16/22 Magnesium Level 10/16/23 Nephrology Panel 10/16/23 Complete Blood Count (CBC w Platelets) 1 12/15/22 Magnesium Level 10/15/23 Nephrology Panel 10/15/23 Carcinoembryonic Antigen (CEA) 10/12/23 Prothrombin Time w/ INR (PT/INR) 3 Transferrin 10/09/23 Prealbumin Level 10/09/23 Blood Type/Antibody Screen ( for possible transfusion) (Type and Screen (for possible transfusion)) 10/09/23 Most recent to oldest [Reference Range]: 1 2 3 ABO/Rh O POSITIVE (10/09/23 1:28 PM) Antibody Scr NEGATIVE (10/09/23 1:28 PM) Expires at 0600AM on 10/12/2023 (10/09/23 1:28 PM) # Units 0 (10/09/23 1:28 PM) R Number NRQ (10/09/23 1:28 PM) eGFR CKD-EPI [>60 mL/min/1.73 m2] >90 mL/min/1.73 m2 (10/17/23 5:13 AM) >90 mL/min/1.73 m2 (10/16/23 4:57 AM) CANCELLED BY MD/NURSING UNIT mL/min/1.73 m2 1 (10/15/23 5:00 AM) Estimated CrCl 89.47 mL/min (10/17/23 6:59 AM) 94.44 mL/min (10/16/23 6:45 AM) 96.23 mL/min (10/14/23 6:22 AM) MPV [9.0-12.2 fL] 9.4 fL (10/17/23 5:13 AM) 9.3 fL (10/16/23 4:57 AM) CANCELLED BY MD/NURSING UNIT fL 2 (10/15/23 5:00 AM) RDW [11.5-14.2 %] 12.4 % (10/17/23 5:13 AM) 12.4 % (10/16/23 4:57 AM) CANCELLED BY MD/NURSING UNIT % 3 (10/15/23 5:00 AM) Component RED CELLS (10/09/23 1:28 PM) Anion Gap [5-14 mmol/L] 10 mmol/L (10/17/23 5:13 AM) 9 mmol/L (10/16/23 4:57 AM) CANCELLED BY MD/NURSING UNIT mmol/L 4 (10/15/23 5:00 AM) Alb [3.5-5.2 g/dL] 2.9 g/dL *LOW* (10/17/23 5:13 AM) 2.9 g/dL *LOW* (10/16/23 4:57 AM) CANCELLED BY MD/NURSING UNIT g/dL 5 (10/15/23 5:00 AM) BUN [6-23 mg/dL] 13 mg/dL (10/17/23 5:13 AM) 10 mg/dL (10/16/23 4:57 AM) CANCELLED BY MD/NURSING UNIT mg/dL 6 (10/15/23 5:00 AM) Ca [8.4-10.2 mg/dL] 8.6 mg/dL (10/17/23 5:13 AM) 8.6 mg/dL (10/16/23 4:57 AM) CANCELLED BY MD/NURSING UNIT mg/dL 7 (10/15/23 5:00 AM) CEA [<4.8 ng/mL] 0.6 ng/mL 8 (10/12/23 2:27 PM) Cl- [98-107 mmol/L] 98 mmol/L (10/17/23 5:13 AM) 98 mmol/L (10/16/23 4:57 AM) CANCELLED BY MD/NURSING UNIT mmol/L 9 (10/15/23 5:00 AM) HCO3 [22-29 mmol/L] 27 mmol/L (10/17/23 5:13 AM) 26 mmol/L (10/16/23 4:57 AM) CANCELLED BY MD/NURSING UNIT mmol/L 10 (10/15/23 5:00 AM) Cret [0.60-1.00 mg/dL] 0.57 mg/dL *LOW* (10/17/23 5:13 AM) 0.54 mg/dL *LOW* (10/16/23 4:57 AM) CANCELLED BY MD/NURSING UNIT mg/dL 11 (10/15/23 5:00 AM) Glu [74-109 mg/dL] 102 mg/dL 12 (10/17/23 5:13 AM) 108 mg/dL 13 (10/16/23 4:57 AM) CANCELLED BY MD/NURSING UNIT mg/dL 14 (10/15/23 5:00 AM) Hct [35-44 %] 26.0 % *LOW* (10/17/23 5:13 AM) 25.9 % *LOW* (10/16/23 4:57 AM) CANCELLED BY MD/NURSING UNIT % 15 (10/15/23 5:00 AM) Hgb [11.7-15.0 g/dL] 8.8 g/dL *LOW* (10/17/23 5:13 AM) 8.7 g/dL *LOW* (10/16/23 4:57 AM) CANCELLED BY MD/NURSING UNIT g/dL 16 (10/15/23 5:00 AM) INR [0.9-1.1] 1.1 17 (10/09/23 1:28 PM) K [3.5-5.1 mmol/L] 4.1 mmol/L (10/17/23 5:13 AM) 4.2 mmol/L (10/16/23 4:57 AM) CANCELLED BY MD/NURSING UNIT mmol/L 18 (10/15/23 5:00 AM) MCH [28-33 pg] 30.6 pg (10/17/23 5:13 AM) 30.0 pg (10/16/23 4:57 AM) CANCELLED BY MD/NURSING UNIT pg 19 (10/15/23 5:00 AM) MCHC [32-36 g/dL] 33.8 g/dL (10/17/23 5:13 AM) 33.6 g/dL (10/16/23 4:57 AM) CANCELLED BY MD/NURSING UNIT g/dL 20 (10/15/23 5:00 AM) MCV [81-96 fL] 90.3 fL (10/17/23 5:13 AM) 89.3 fL (10/16/23 4:57 AM) CANCELLED BY MD/NURSING UNIT fL 21 (10/15/23 5:00 AM) Mg [1.6-2.6 mg/dL] 2.1 mg/dL (10/17/23 5:13 AM) 2.1 mg/dL (10/16/23 4:57 AM) CANCELLED BY MD/NURSING UNIT mg/dL 22 (10/15/23 5:00 AM) Na [136-145 mmol/L] 135 mmol/L *LOW* (10/17/23 5:13 AM) 133 mmol/L *LOW* (10/16/23 4:57 AM) CANCELLED BY MD/NURSING UNIT mmol/L 23 (10/15/23 5:00 AM) Pre-alb [20-40 mg/dL] 11 mg/dL *LOW* (10/09/23 1:28 PM) PO4 [2.5-4.5 mg/dL] 3.3 mg/dL (10/17/23 5:13 AM) 3.2 mg/dL (10/16/23 4:57 AM) CANCELLED BY MD/NURSING UNIT mg/dL 24 (10/15/23 5:00 AM) Plts [150-350 K/uL] 252 K/uL (10/17/23 5:13 AM) 236 K/uL (10/16/23 4:57 AM) CANCELLED BY MD/NURSING UNIT K/uL 25 (10/15/23 5:00 AM) PT [12.0-14.2 seconds] 14.0 seconds (10/09/23 1:28 PM) RBC [3.90-5.00 M/uL] 2.88 M/uL *LOW* (10/17/23 5:13 AM) 2.90 M/uL *LOW* (10/16/23 4:57 AM) CANCELLED BY MD/NURSING UNIT M/uL 26 (10/15/23 5:00 AM) Transferrin [200-360 mg/dL] 191 mg/dL *LOW* (10/09/23 1:28 PM) WBC [4.0-10.4 K/uL] 7.52 K/uL (10/17/23 5:13 AM) 6.54 K/uL (10/16/23 4:57 AM) CANCELLED BY MD/NURSING UNIT K/uL 27 (10/15/23 5:00 AM) 1Result Comment: PT REFUSED X2 2Result Comment: PT REFUSED 2X 3Result Comment: PT REFUSED 2X 4Result Comment: PT REFUSED X2 5Result Comment: PT REFUSED X2 6Result Comment: PT REFUSED X2 7Result Comment: PT REFUSED X2 8Result Comment: NON-SMOKERS (PAST/NEVER SMOKERS) 20-69 (YEARS) 3.8 NG/ML (95TH PERCENTILE) 40-69 (YEARS) 5.0 NG/ML (95TH PERCENTILE) SMOKERS (CURRENT) 20-69 (YEARS) 5.5 NG/ML (95TH PERCENTILE) 40-69 (YEARS) 6.5 NG/ML (95TH PERCENTILE) "Methodology: Dolores Elecsys CEA assay performed on the zoltan e 601/602 analyzerutilizing electrochemiluminescence immunoassay technology (ECLIA). Results obtained with different assay methods or kitscannot be used interchangeably." 9Result Comment: PT REFUSED X2 10Result Comment: PT REFUSED X2 11Result Comment: PT REFUSED X2 12Result Comment: ADA recommendation for FASTING Serum/Plasma Glucose: Normal: 70-100 mg/dL Prediabetes: 100-125 mg/dL Diabetes: 126 mg/dL or higher 13Result Comment: ADA recommendation for FASTING Serum/Plasma Glucose: Normal: 70-100 mg/dL Prediabetes: 100-125 mg/dL Diabetes: 126 mg/dL or higher 14Result Comment: PT REFUSED X2 15Result Comment: PT REFUSED 2X 16Result Comment: PT REFUSED 2X 17Result Comment: Suggested therapeutic range for low-intensity Coumadin therapy for venous thromboembolism is INR 2.0-3.0 (ex: atrial fibrillation, history of TIA/stroke). For high risk patients, the suggested therapeutic range is INR 2.5-3.5 (ex: mechanical prosthetic valves). 18Result Comment: PT REFUSED X2 19Result Comment: PT REFUSED 2X 20Result Comment: PT REFUSED 2X 21Result Comment: PT REFUSED 2X 22Result Comment: PT REFUSED X2 23Result Comment: PT REFUSED X2 24Result Comment: PT REFUSED X2 25Result Comment: PT REFUSED 2X 26Result Comment: PT REFUSED 2X 27Result Comment: PT REFUSED 2X Radiology Reports * Exam Date Time Procedure Performing Provider Status 10/15/23 3:36 PM VL Upper Ext Venous Duplex Right Angelica Howard; Final Notes: (VL Upper Ext Venous Duplex Right) Reason For Exam: RUE swelling in the post- operative setting VL Upper Ext Venous Duplex Right [facility] FINAL REPORT Name: KAITLYNN CASTILLO : 1960 Visit: [id number] Date: 15 Oct 2023 TYPE OF TEST: Peripheral Venous Testing REASON FOR TEST RUE swelling in the post-operative setting INTERPRETATION/FINDINGS Venous duplex exam of the right upper extremity reveals: 1. Acute, non occlusive superficial vein thrombosis identified in the cephalic vein at the forearm. 2. No evidence of deep or superficial venous thrombosis identified in the internal jugular, subclavian, axillary, brachial, radial, ulnar, cephalic (arm), and basilic veins. 3. No abnormality found in the contralateral subclavian vein. Tiffanie Aldridge PA-C notified of technologist's preliminary findings at 1:55 pm on 10/15/2023, read back and verified. No prior exam available for comparison. IMPRESSION/COMMENTS I have personally reviewed the data relevant to the interpretation of this study. TECHNOLOGIST: Angelica Peña RVT PHYSICIAN: Amador Sanchez MD Signed: 10/15/2023 06:58 PM Final Dictated by:MD Sanchez Aditya Dictated DT/TM:10/15/2023 6:59 Signed by:MD Sanchez Aditya Signed (Electronic Signature):10/15/2023 6:58 p Transcribed by: * Exam Date Time Procedure Performing Provider Status 10/09/23 11:42 PM MRI Pelvis w/ + w/o Contrast Reshma Gallo; Final Notes: (MRI Pelvis w/ + w/o Contrast) Reason For Exam: rectal cancer protocol MRI Pelvis w/ + w/o Contrast EXAMINATION: MRI Pelvis w/ + w/o Contrast CLINICAL HISTORY: rectal cancer protocol COMPARISON: Outside CT dated 10/06/2023 and priors TECHNIQUE: Unenhanced and contrast-enhanced MR the pelvis CONTRAST: Contrast Type: Gadavist Volume (ml): Contrast Type: Volume (ml): FINDINGS: Lower Abdomen: Distended colon PELVIS Bladder: Collapsed, with Arevalo catheter in place Reproductive organs: Likely right hydrosalpinx. No adnexal mass. Bowel and mesentery: Surgical suture in the mid rectum. Extraperitoneal, lymph nodes, vessels: Large oval presacral mass measuring 6.8 x 5.7 x 7.2 cm interposed between the sacrum and rectosigmoid, around the region of the rectal staple line. Mass is abuts the left piriformis musculature laterally in the left, mildly displaces the vagina anteriorly, andapproximates a small bowel loop at the superior right aspect of the mass. Mass demonstrates mild heterogenous enhancement following intravenous contrast. There is relative caliber change of the sigmoid colon secondary to the mass. Mass does not directly invade into the sacrum. Osseous and body wall: Normal bone marrow signal with thin preserved fat in the presacral space. IMPRESSION: Large oval mass filling the presacral space, with mass effect/invasion of the the rectosigmoid colon which is displaced anteriorly, with proximal sigmoid dilation. Lesion shows mild heterogenous enhancement, and abuts the left piriformis musculature with anterior displacement of the vagina. Small bowel loop approximates the superior right aspect of the mass, concerning for involvement. Findings most in keeping with local tumor recurrence, however the time course is unusual and very rapid, as there was a relatively recent unremarkable endoscopic evaluation. The appearance does not favor abscess or hematoma although there are likely blood products within the mass. [place] Act 112: This study does not meet the requirements of [place] Act 112. Workstation ID: [id number] Final Dictated by:MD Keita Nabeel I Dictated DT/TM:10/10/2023 9:55 Signed by:MD Keita Nabeel I Signed (Electronic Signature):10/10/2023 9:54 a * Exam Date Time Procedure Performing Provider Status 10/09/23 3:[address] Thorax w/o Contrast Blanche Arias; Final Notes: (CT Thorax w/o Contrast) Reason For Exam: rectal cancer workup CT Thorax w/o Contrast EXAMINATION: CT CHEST WITHOUT CONTRAST CLINICAL HISTORY: rectal cancer workup TECHNIQUE: Helical CT scan through the chest without contrast. Reconstructions in multiple planes. DOSE: Total Reported Dose Length Product (DLP) = 247.87 mGy.cm COMPARISON: Outside CT chest 05/21/2023, 01/05/2023 FINDINGS: Pleura and Lungs: Scattered 3 to 4 mm pulmonary nodules are stable (04/23/2022). New 5 mm left lowerlobe subpleural nodule (axial 65) with ill-defined/shaggy borders. No pleural effusion. No pneumothorax. Central airways: Patent. Lymph nodes: No lymphadenopathy. Thyroid and Mediastinum: Normal thyroid. Heart and Great vessels: Normal heart size. No pericardial effusion. Great vessels are normal. Leftchest wall Mediport with tip in the superior cavoatrial junction. Upper abdomen: Unremarkable. Chest wall: Multilevel degenerative changes of the spine. IMPRESSION: New 5 mm left lower lobe subpleural nodule. Favor inflammatory. Attention on follow-up. [place] Act 112: This study does not meet the requirements of [place] Act 112. Dr. Ernesto Guaman is the dictating resident. Finalized reports status indicates that the attending has reviewed the images and report, and agrees with the interpretation. Preliminary report status should be regarded as NOT interpreted by the attending radiologist. Workstation ID: [id number] Final Dictated by:DO Guaman Zachary Dictated DT/TM:10/09/2023 5:19 Resident:DO Guaman Zachary Signed by:DO Martinez Matthew D Signed (Electronic Signature):10/09/2023 5:17 p * Exam Date Time Procedure Performing Provider Status 10/09/23 12:52 PM XR Abdomen 1 View Joanne Mosley; Final Notes: (XR Abdomen 1 View) Reason For Exam: abd distension XR Abdomen 1 View EXAMINATION: XR Abdomen 1 View CLINICAL HISTORY: abd distension COMPARISON: 10/06/2023 FINDINGS: Single frontal view the abdomen reveals nonspecific bowel gas pattern with mild distention of the large and small bowel. Postoperative changes in the pelvis suggest prior sigmoidectomy. No evidence of pneumatosis or free air. No portal venous gas. Degenerative changes lower lumbar facets. IMPRESSION: Nonspecific bowel gas pattern Workstation ID: [id number] Final Dictated by:MD Min, James Collado Dictated DT/TM:10/09/2023 1:18 Signed by:MD Min, James Collado Signed (Electronic Signature):10/09/2023 1:17 p Vital Signs Most recent to oldest [Reference Range]: 1 2 3 Patient Weight 49.8 kg (10/13/23 5:19 AM) 57.6 kg (10/12/23 10:10 AM) Temperature [36.5-37.9 DegC] 36.6 DegC (10/17/23 1:18 PM) 36.5 DegC (10/17/23 5:56 AM) 36.3 DegC *LOW* (10/16/23 7:08 PM) Heart Rate 79 bpm (10/17/23 1:18 PM) 63 bpm (10/17/23 6:50 AM) 75 bpm (10/16/23 7:08 PM) Respiratory Rate 20 br/min (10/17/23 1:18 PM) 18 br/min (10/16/23 7:08 PM) 18 br/min (10/16/23 11:32 AM) Blood Pressure 108/48mmHg (10/17/23 1:18 PM) 93/51mmHg (10/17/23 6:50 AM) 94/43mmHg (10/17/23 5:56 AM) Mean Blood Pressure 59 mmHg (10/17/23 1:18 PM) 65 mmHg (10/17/23 6:50 AM) 55 mmHg (10/17/23 5:56 AM) Cuff Pulse Pressure 60 mmHg (10/17/23 1:18 PM) 42 mmHg (10/17/23 6:50 AM) 51 mmHg (10/17/23 5:56 AM) BP Location # 1 Right Arm (10/17/23 1:18 PM) Right Arm (10/17/23 5:56 AM) Right Arm (10/16/23 7:08 PM) Social History Social History Type Response Smoking Status Never smoked cigaret shoaib Sex Female Anes H&P * MD Driscoll Edward S: MODIFY MD Driscoll Edward S: MODIFY, PERFORM MD Driscoll Edward S: PERFORM, SIGN MD Driscoll Edward S: SIGN, VERIFY MD Driscoll Edward S: VERIFY, MODIFY Event Display: Anes H&P Authored Date: [id number] Patient: KAITLYNN CASTILLO Age: 63 years Sex: Female : 1960 Associated Diagnoses: None Author: MD Driscoll Edward S Preoperative Information Pre-Operative Diagnosis: . Anesthiesia Preop Info: Procedure: LAPAROSCOPIC DIVERTING LOOP COLOSTOMY Date: 10/12/23 14:30 Surgeons: MD Lakhani Audrey Diagnosis: . History of Present Illness 63 year old female (54kg) with hx of HTN, LBBB, moderate MR, non-ischemic cardiomyopathy (EF 25-29%per Echo in june 2023) and locally advanced rectal cancer s/p total neoadjuvant therapy, which was briefly interrupted due to large bowel obstruction requiring a diverting loop colostomy, who then subsequently underwent a robotic assisted low anterior resection with diverting loop transverse colostomy in January 2023, followed by reversal of the colostomy on 09/03/23 who presents to [facility] as a direct admit for worsening pelvic pain and BRBPR who presents for above procedure Per cardiology note from OSH Previous airways: Previous anesthesia complications: - none Labs: Most Recent Lab Results over the last 24 Hours: CBC: on 10/09/2023 13:28 Nephrology Panel: on 10/09/2023 13:28 10.9 137 100 12 7.0 238 96 32.8 4.5 28 0.62 Ca = 9.4 Infusion: mIVF IV access: - PIV 22G NPO:midnight except medications Medical History Medical Devices: Medical Devices: none . Health Status Allergies: Allergic Reactions (Selected) Severity Not Documented Ambien- Emotional. Latex- Unknown. Oral contrast dye- Rash/itching. Nonallergic Reactions (Selected) Severity Not Documented Vicodin- Itchy scalp.. Medications: Medication List (Selected) Prescriptions Prescribed Flagyl 500 mg oral tablet: See Instructions, one tab at 5PM, 6PM, 11PM evening before surgery, 3 tab Flexeril 5 mg oral tablet: 1 tab, PO, tid, PRN: as needed for spasm, 30 tab diphenhydrAMINE 50 mg oral tablet: See Instructions, Take 1 tab PO 1 hour prior to radiology study., 1 tab, 0 Refill(s) neomycin 500 mg oral tablet: See Instructions, 1 tab evening before surgery at 5PM, 6PM. 11 PM, 3 tab oxyBUTYnin 5 mg oral tablet: 1 tab, PO, tid, PRN: as needed for urinary discomfort, 60 tab oxyCODONE 5 mg oral tablet: 1 tab, PO, q4h, PRN: as needed for pain, 10 tab, 0 Refill(s) Documented Medications Documented ALPRAZolam 0.25 mg oral tablet: TAKE 1-2 TABLETS BY MOUTH AT NIGHT FOR ANXIETY Xanax 0.5 mg oral tablet: 1 Refill(s), Take 0.5-1 tablet by mouth at night as needed for anxiety gabapentin 300 mg oral capsule: 1 cap, PO, tid. Histories Procedure History: Colonoscopy ([id number]) on 02/10/2023 at 62 Years. Comments: 02/11/2023 17:12 EDT - ROSA Steele, Angle The sigmoid colon, descending colon, splenic flexure, transverse colon, hepatic flexure, ascendin colon and cecum are normal. No specimens collected. Repeat in 1 year Colostomy of sigmoid ([id number]) on 07/30/2022 at 62 Years. Comments: 08/05/2022 09:21 EDT - ROSA Steele, Angle Done secondary to obstructing rectal CA section ([id number]) in 1987 at 28 Years. Bladder ([id number]) in 1961 at 2 Years. Comments: 02/05/2023 14:31 EST - RDE Garrison Angie unknown details Port ([id number]). REMOVE TONSILS AND ADENOIDS ([id number]). Trigger finger bilateral ([id number]).. Social History: Cigarrette Smoker? Never smoked cigarettes Other Tobacco Use: Never used other tobacco products Alcohol: Recreational Drugs: . Physical Examination VS/Measurements: Vital Signs 10/09/2023 12:02 EST Temperature 36.4 DegC LOW Temperature Route Temporal Heart Rate 85 bpm Respiratory Rate 18 br/min Systolic Blood Pressure 125 mmHg Diastolic Blood Pressure 78 mmHg BP Location # 1 Left Arm BP Cuff Size Regular Mean Blood Pressure 90 mmHg Cuff Pulse Pressure 47 mmHg Oxygen Therapy Room air SpO2 98 % , Weight 54 kg. Airway: Mallampati classification: II (soft palate, fauces, uvula visible). Mouth: Within normal limits, Teeth ( Within normal limits ). Neck: Full range of motion. Respiratory: Lungs are clear to auscultation, Respirations are non-labored. Cardiovascular: Normal rate, Regular rhythm. Anesthesiologist Assessment and Plan Problems: No previous anesthetic complications, No a/w concerns. Disposition ASA Classification: Class III. Anesthetic Plan: Anesthetic technique discussed: General anesthesia. Risks discussed: Nausea-vomiting, Headache, Sore throat, Dental injury, Serious complications. Informed consent: Signed by patient. Notes: Patient made a decision to transition to DNR/DNI with regards to her code status yesterday 10/11/23. I had a discussion with the patient about the differences between intraoperative cardiac arrest vs in-hospital cardiac arrest vs [id number] cardiac arrest. She would like to continue theDNR status for the perioperative period. With regards to intubation, she is OK to rescind the DNI status for the perioperative period. I discussed with her that if an event were to occur where the endotracheal tube could not be removed, we can due a time-limited trial of intubation for 24-48h and if she could not be successfully liberated from the mechincal ventilator, her care could be transitioned to soley focusing on her comfort. This situation is unlikely in my opinion based on her history and current data, but the possibility is not zero percent.. History, Physical Exam, Assessment and Plan Completed: 10/09/2023 20:40:00, MD Kae, Daisa. Electronic Signature on File Electronically Reviewed/Signed by: Iker Driscoll MD Author Signature Dt/Tm:10/12/2023 10:57 AM Department of Anesthesia ESS * MD Muñoz Jennifer Ann: PERFORM, MODIFY, MODIFY MD Muñoz Jennifer Ann: MODIFY, MODIFY MD Muñoz Jennifer Ann: MODIFY, MODIFY MD Muñoz Jennifer Ann: MODIFY, MODIFY MD Muñoz Jennifer Ann: MODIFY MD Lesvia, Criss: MODIFY Event Display: H&P Authored Date: [id number] Name:KAITLYNN CASTILLO Patient Number:[id number] :1960 Date of Service:10/09/2023 Chief Complaint pelvic/rectal pain History of Present Illness Patient is a 63 year old female with hx locally advanced rectal cancer s/p total neoadjuvant therapy, which was briefly interrupted due to large bowel obstruction requiring a diverting loop colostomy, who then subsequently underwent a robotic assisted low anterior resection with diverting loop trans verse colostomy in January 2023, followed by reversal of the colostomy on 09/03/23 who presents to [facility] a direct admit for worsening pelvic pain and BRBPR.At the time of patient's reversal on lexible sigmoidoscopy was performed, which did not show any evidence of luminal narrowing or recurrent disease at that time, and surveillance scans performed prior to reversal did not show evidence of local or distant recurrence.She had resumption of bowel function on postop day 1, with initiallya small amount of blood per rectum but this subsequently resolved. She then had ongoing bowel function for some time but then started having issues with constipation. This was treated with MiraLAX which then gave her diarrhea and episodes of incontinence. Patient had follow up appointment with Dr. Lakhani on 10/06.For the past 2 weeks, she has been managed with intermittent Imodium and MiraLAX depending upon her symptoms,which last week were constipation predominant.She was also complaining of new blood per rectum with increasing pain and spasm-like feelings within her pelvic floor muscles, which is mildly alleviated by flexeril.Furthermoreshe was in acute urinary retention and was having dribbling with severe bladder distension and suprapubic pain. She was sent from the officevisit [facility] the ED[facility]. They did not place acatheter and patient went home. She returned to the ED on 10/07 with worsening discomfort in her rectum and pelvic andultimately had arevalo catheter placed and CT scanof her abdomen and pelvis. Patient called the office after returning home from ED 10/07 stating she washaving only blood in her BM's and only small pellets of stool.She was also having worsened pelvic pain and rectal pain, unable to sit in a chair. We do not have records from [facility] ED other than CT scan. Patient denies fevers, chills, N/V. She denies SOB or chest pain. She stopped using the flexeril even though it was helping with her back and pelvic pain because she read that this can contribute to the urinary symptoms she was having. She also stopped taking the oxybutynin that was prescribed outpatient for this reason. On evaluation patient is afebrile, hemodynamically stable. WBC 7.9, Hgb 10.9. Arevalo catheter in place. She is in mild distress due to pain. OO CT uploaded to pacs awaiting read. KUB shows moderatebowel dilation. Review of Systems She denies chest pain, shortness of breath, nausea, vomiting, fevers, chills, night sweats, and changes in bowel habits.The remainder of the 14 point review of systems is negative. Physical Exam Vitals & Measurements T:36.4C HR:85(Monitored) RR:18 BP:125/78 SpO2:98% Oxygen Therapy:Room air General:no acute distress HEENT:moist mucous membranes, anicteric sclera, extraocular movements intact Neck:trachea midline Cardiac:regular rate Lungs:non-labored breathing, symmetric chest rise bilateral Abdomen:soft, tender to palpation of suprapubic region, non-distended ALEAH: no nodularity or resistance met on ALEAH, smooth rectum and no tension on pelvic floor muscle palpation, no blood per rectum on exam Genitourinary: arevalo catheter in place draining clear yellow urine Extremities:no peripheral edema Neurological:alert and oriented, no focal deficits Skin:warm and well perfused Assessment/Plan Patient is a 63 year old female with hx locally advanced rectal cancer s/p neoadjuvant chemo w/ good response and robotic lower abdominal resection with diverting loop colostomy s/p reversal january 2023 who now presents to [facility] as a direct admit to CRSwith BRBPR, constipation, urinary retention s/pfoley placement at outside ED, and worsening pelvic/rectal pain. CT scan from OSH shows mass in rectum with proximally dilated colon. KUB shows dilated loops of bowel as well. CT thorax shows new 5 mm lung nodule.No leukocytosis, Hgb stable. Exam including DREbenign.Patient is afebrile, HDS. MRI pelvis pending. DIAGNOSES: Anthro:BMI of19.9 with an NIH weight category of beingNormal (18.5 - 24.9) Neuro/Psych:No active issues. CV:No acute issues; Rhythm:No significant arrhythmia. Heme/Onc:Chronic anemia with Hgb <13gm/dL in men / 12gm/dL in women Pulm:No acute issues, on room air.No Chronic Problems. Electrolytes:Abnormalities seen this admission, none; will replete as necessary Nutrition:No malnutritionwith documentedNo physical exam findings GI:Rectal cancers/p LARand DLCsp reversal01/2023 nowconcerning forrecurrence :Normal kidney function, no acute issues.No UTI present Endo:Non-Diabetic.No acute issues ID:No acute issues MSK:No Ulcer related issues Other Comorbidities:N/A Plan -Diet/GI: NPO, mIVF, electrolytes replete as necessary -Pain: dilaudid PRN, tylenol scheduled, gabapentin prn, flexeril prn -: maintain arevalo catheter, oxybutynin prn for bladder spasm -qAM labs -Patient booked for Friday 10/[address] Lakhani for laparoscopic diverting loop colostomy -consent signed, ppv in chart -DVT ppx: SCD's Attestation I have personally seen, evaluated and examined the patient at 2:30 pm on 10/09/23. I agree with thehistory, review of systems, and physical exam for this patient. I have reviewed the existing laboratory results and radiographic images. I also agree with the assessment and plan from the advanced practice provider/resident's note, with any additions or deletions noted below. Criss Lakhani MD Colorectal Surgery Problem List/Past Medical History Ongoing BBB (bundle branch block) Cardiomyopathy Chronic HFrEF (heart failure with reduced ejection fraction) History of ETOH abuse Left knee pain Pre-op exam Rectal adenocarcinoma Procedure/Surgical History Colonoscopy (02/10/2023)Colostomy of sigmoid (07/30/2022) section (1987)Bladder(1961)Trigger finger bilateralREMOVE TONSILS AND ADENOIDSPort Medications Inpatient acetaminophen(Ofirmev), 1000 mg= 100 mL, IV, q8h ALPRAZolam, 0.25 mg= 1 tab, PO, qhs, PRN cyclobenzaprine(Flexeril), 5 mg= 1 tab, PO, tid, PRN gabapentin, 300 mg= 1 cap, PO, tid HYDROmorphone, 0.2 mg= 1 mL, IV Push, q4h, PRN HYDROmorphone, 0.4 mg= 2 mL, IV Push, q4h, PRN Lactated Ringers Injection 1,000 mL(LR 1,000 mL), 1000 mL, IV Fluid lidocaine topical(LMX 4 topical cream), 1 appl, topical, Pre Event, PRN oxyBUTYnin, 5 mg= 1 tab, PO, tid, PRN Home ALPRAZolam(Xanax 0.5 mg oral tablet) ALPRAZolam(ALPRAZolam 0.25 mg oral tablet) cyclobenzaprine(Flexeril 5 mg oral tablet), 5 mg= 1 tab, PO, tid, PRN diphenhydrAMINE(diphenhydrAMINE 50 mg oral tablet), See Instructions gabapentin(gabapentin 300 mg oral capsule), 300 mg= 1 cap, PO, tid metroNIDAZOLE(Flagyl 500 mg oral tablet), See Instructions neomycin(neomycin 500 mg oral tablet), See Instructions oxyBUTYnin(oxyBUTYnin 5 mg oral tablet), 5 mg= 1 tab, PO, tid, PRN oxyCODONE(oxyCODONE 5 mg oral tablet), 5 mg= 1 tab, PO, q4h, PRN Allergies Ambienemotional LatexUnknown Vicodinitchy scalp oral contrast dyerash/itching Social History Smoking Status Never smoked cigarettes Family History Alzheimer disease: Sister and Brother. Colon cancer: Paternal. Lung cancer: Father and Brother. Stroke: Mother. Health Status Family Member(s) Family Member(s) Relationship: Mother, Age: Unknown Relationship: Father, Age: Unknown Electronic Signature on File Electronically Reviewed/Signed by: Goldie Muñoz MD Author Signature Dt/Tm:10/09/2023 04:12 PM Resident Department of Urology Electronically Reviewed/Signed by: Goldie Muñoz MD Cosigner Signature Dt/Tm: 10/09/2023 04:12PM Resident Department of Urology Electronically Reviewed/Signed by: Criss Lakhani MD Cosigner Signature Dt/Tm: 10/12/2023 10:27 AM Division of Colorectal Surgery TL Surgical operation note * MD Lakhani Audrey: PERFORM, MODIFY Event Display: .Operative Report Authored Date: [id number] OPERATIVE REPORT Name: KAITLYNN CASTILLO Patient Number: [id number] : 1960 Date of Service: 10/12/2023 PREOPERATIVE DIAGNOSIS: Large bowel obstruction, concern for pelvic recurrence. POSTOPERATIVE DIAGNOSIS: Large bowel obstruction, concern for pelvic recurrence. OPERATION PERFORMED: Flexible sigmoidoscopy with biopsies, laparoscopic diverting loop transverse colostomy. SURGEON: Criss Lakhani MD SHRUB GROWER: Buster Langley MD ANESTHESIA: General endotracheal anesthesia ESTIMATED BLOOD LOSS: 10 mL. DRAINS: None. FLUIDS: 720 mL Plasmalyte. URINE OUTPUT: 200 mL. SPECIMENS: None. FINDINGS: Thickening and mass-like obstruction in rectum with friability precluding clear visualization. Biopsies taken. INDICATIONS: 63-year-old female with history of severe cardiomyopathy with reduced ejection fraction and diagnosis of rectal cancer, who underwent total neoadjuvant therapy followed by a low anteriorresection and recent transverse colostomy reversal in early August. She developed new and escalating symptoms of large bowel obstruction and in clinic earlier this week was found to have a masslike obstruction in her pelvis concerning for disease recurrence. Due to the obstructive nature of the lesion, we discussed performing a diverting loop colostomy. After full explanation of the risks and benefits of the procedure, she agreed to proceed. PROCEDURE IN DETAIL: The patient was brought to the operating room and identified as Kaitlynn Castillo. She was transferred to the operating table in the supine position. General endotracheal anesthesiawas induced, and it was confirmed that she had received preoperative antibiotics as well as heparin. A surgical timeout was performed. She was placed in the frog-leg position and the flexible sigmoidoscopy performed with findings noted above. She was then repositioned in the lithotomy position and her abdomen was prepped and draped in the usual sterile fashion. The abdomen was entered in the infraumbilical region using the Arline technique and no injuries were noted after insufflation. Two additional trocars of 5 mm size were placed in the right lower quadrant and right upper quadrant region.The colon was noted to be quite dilated throughout, with significant redundancy in the transverse colon with visualization of our recent colostomy closure. There was less mobility in her descending colon, as this serves as the conduit to her pelvis. We therefore selected the prior transverse colostomy site as our new stoma, which easily reached the abdominal wall at the planned stoma site. Once adequate proximal and distal mobility had been assured, the stoma trephine was created and the fasciaincised longitudinally to accommodate more than 2 fingerbreadths. The muscles were divided bluntly,and the posterior peritoneum was entered under laparoscopic visualization using Bovie electrocautery. We then grasped the prior anastomosis with a Shruthi grasper, with the proximal limb medially, and exteriorized this. We then removed the trocars and closed the Key port site with a [id number] ht 0 Vicryl stitch. The skin of the trocars was closed with subcuticular 4-0 Monocryl and Dermabondwas applied. The colon was opened along the previous common staple line and matured in a double barrel fashion using 3-0 Vicryl Arcelia sutures. At the end of the case, all counts were correct. The patient tolerated the procedure well. I was present and scrubbed for the entire procedure. Her family was updated at the end of the case. Electronic Signature on File Electronically Reviewed/Signed by: Criss Lakhani MD Author Signature Dt/Tm:10/15/2023 11:59 AM Division of Colorectal Surgery [place] .D/C Summary * DO Luna Akshita: PERFORM Event Display: .D/C Summary Authored Date: [id number] [facility] For medical concerns, call: . Address: [address] [place] [address] [id number] (MOBILE) :1960 . Date of Admission:10/09/2023 Date of Discharge:10/17/2023 Physician:MD Lakhani Audrey Service:Colorectal Surgery Discharge Disposition: Primary Care Provider/Phone: MD COLLINS TIMOTHY F (BUSINESS) [phone] (FAX BUSINESS) Principal Diagnosis: S/P colostomy Other Diagnoses: Personal history of rectal cancer Rectal cancer Major Tests and Procedures: lap transverse colostomy 10/12/2023 Hospital Course: HPI: Ms. Castillo is a 63 year old female with hx locally advanced rectal cancer s/p total neoadjuvant therapy, which was briefly interrupted due to large bowel obstruction requiring a diverting loop colostomy, who then subsequently underwent a robotic assisted low anterior resection with diverting loop transverse colostomy in January 2023, followed by reversal of the colostomy on 09/03/23 who presents to [facility] as a direct admit for worsening pelvic pain and BRBPR.At the time of patient's reversal on lexible sigmoidoscopy was performed, which did not show any evidence of luminal narrowing or recurrent disease at that time, and surveillance scans performed prior to reversal did not show evidence of local or distant recurrence.She had resumption of bowel function on postop day 1, with initially a small amount of blood per rectum but this subsequently resolved. She then had ongoing bowel function for some time but then started having issues with constipation. This was treated with MiraLAX which then gave her diarrhea and episodes of incontinence. Patient had follow up appointment with Dr. Lakhani on 10/06.For the past 2 weeks, she has been managed with intermittent Imodium and MiraLAX depending upon her symptoms,which last week were constipation predominant.She was also complaining of new blood per rectum with increasing pain and spasm-like feelings within her pelvic floor muscles, which is mildly alleviated by flexeril.Furthermoreshe was in acute urinary retention and was having dribbling with severe bladder distension and suprapubic pain. She was sent from the officevisit to the EDat [facility]. They did not place acatheter and patient went home. She returned to the ED on 10/07 with worsening discomfort in her rectum and pelvic andultimately had arevalo catheter placed and CT scanof her abdomen and pelvis. Patient called the office after returning home from ED 10/07 stating she washaving only blood in her BM's and only small pellets of stool.She was also having worsened pelvic pain and rectal pain, unable to sit in a chair. We do not have records from [facility] ED other than CT scan. Patient denies fevers, chills, N/V. She denies SOB or chest pain. She stopped using the flexeril even though it was helping with her back and pelvic pain because she read that this can contribute to the urinary symptoms she was having. She also stopped taking the oxybutynin that was prescribed outpatient forthis reason. On evaluation patient is afebrile, hemodynamically stable. WBC 7.9, Hgb 10.9. Arevalo catheter in place. She is in mild distress due to pain. OO CT uploaded to pacs awaiting read. KUB shows moderate bowel dilation. HOSPITAL COURSE: Patient was admitted on 10/09 for Flexible sigmoidoscopy and diverting transverse loop colostomy, performed by Dr. Criss Lakhani on 10/12. There wereno apparent complications andthe patient was transferred to [facility] in stable condition withfoley catheter. A diet ofclears was started on10/12 and advanced to low residue on 10/14. Arevalo catheter was removed on10/13. Patient was unable to void, so arevalo catheter was replaced. PT/OT evaluated patient 10/15 and home health recommended.10/15 arevalo catheter was removed at midnight and patient unable to void. Arevalo was placed again 10/16 due to urinary retention. Ostomy began to function on10/12. Stoma appeared he althy and viable and output was appropriate. Patient was deemed stable for discharge on 10/17 and discharged to home with instructions for follow up care and appointments. PDMP was reviewed. 09/11/2023 09/11/2023 2 Alprazolam 0.5 Mg Tablet 30.00 30 Ti [id number] Pen (6962) 0 1.00 LME Private Pay [place] 09/06/2023 09/06/2023 2 Oxycodone Hcl (Ir) 5 Mg Tablet 10.00 1 Am Obi [id number] Pen (1462) 0 75.00 MME Private Pay [place] 08/06/2023 08/06/2023 2 Alprazolam 0.5 Mg Tablet 30.00 30 Ti [id number] Pen (2662) 0 1.00 LME Private Pay [place] Exam on Discharge: Vitals & Measurements: T:36.5C TMIN:36.3C TMAX:36.7C HR:63(Monitored) RR:18 BP:93/51SpO2:98% Oxygen Therapy:Room air Physical Exam: General:No acute distress HEENT:Normocephalic, mucous membranes moist CV:Regular rate and rhythm, no murmurs Pulm:Equal breath sounds bilaterally, no apparent respiratory distress Abd:Soft, nontender, nondistended Extremities:Warm, well-perfused Neuro:Moving all extremities, no focal deficits, alert and appropriate Skin:No rashes Discharge Medications: 1.Gabapentin (gabapentin 300 mg oral capsule) 300 mg (1 cap) by mouth 3 times daily. 2.ALPRAZolam (ALPRAZolam 0.25 mg oral tablet) . TAKE 1-2 TABLETS BY MOUTH AT NIGHT FOR ANXIETY. 3.Cyclobenzaprine (Flexeril 5 mg oral tablet) 5 mg (1 tab) by mouth 3 times daily, as needed for spasm. 4.OxyBUTYnin (oxyBUTYnin 5 mg oral tablet) 5 mg (1 tab) by mouth 3 times daily, as needed for urinary discomfort. 5.Acetaminophen (acetaminophen 500 mg oral tablet) 1,000 mg (2 tab) by mouth every 8 hours, as needed for pain - mild (1-3). 6.OxyCODONE (oxyCODONE 5 mg oral tablet) 5 mg (1 tab) by mouth every 4 hours, as needed for pain. 7.Apixaban (Eliquis 2.5 mg oral tablet) 2.5 mg (1 tab) by mouth 2 times daily. Allergies and Sensitivities: Ambienemotional LatexUnknown Vicodinitchy scalp oral contrast dyerash/itching Tests Pending: None Other [facility]ointments[facility]: phone: [phone]; fax#:[phone] Why: Home health: nursing home for colostomy and arevalo care/teaching. Home PT/OT. Start of care 10/18/23. Discharge Services: Service: Organization: Business Address: Phone Number: Home Care Physician Services [facility] Home Nursing Agency [address] [place] [address], [id number] Care Instructions: CARE INSTRUCTIONS: Managing pain:Pain medication may have been ordered for you to be comfortable during your recovery. Taper off of the prescription pain medication as pain decreases. If you have any questions regarding your pain management, please contact the colorectal office at [phone]. You may take prescribed pain medication. You may take over the counter Tylenol (acetaminophen) or NSAIDs (ibuprofen, aleve) as directed. Care of your incision:After washing your hands, cleanse surgical sites with mild soap and water. You may lightly cleanse your incision while bathing in shower. No tub baths or submerging incision. Do not apply any creams, lotions, ointments to surgical sites. It is normal to experience some numbness around the incision for some time after surgery. This may subside as the incision heals. If you have stephanie in your incision, you will have a follow up appointment for removal. If you have yhvce-ubvfvu-ydloy will come off naturally in about 7-10 days. If you have glue over surgical sites, it may take 2-3 weeks for this to peel off. Routine arevalo catheter care - considering emptying the arevalo bag at least twice a day Routine colostomy care If you have a new ostomy, you have received instructions regarding care of your stoma. If you have difficulty with maintaining a pouching system on your skin for at least 24 hours or developing any peristomal skin redness/rash, please notify the WOCN (Wound, Ostomy, Continence Nurse) team at [phone]. You will have a follow up colorectal clinic appointment. If you are not notified of this appointment in the next 3 days, please call the colorectal office at [phone], option 2. If you are discharged with a arevalo catheter in your bladder you will need a follow up appointment with: Dr. Ángel Kasper- Urologist in [address] , [place] [address] This appointment is on 10/27/2023 @ 9[address] with Dr Kasepr. DIET INSTRUCTIONS: You may not feel like eating regular portions right away. It is normal to have less of an appetite following surgery or hospitalization. In the beginning, try eating smaller meals several times per day. If you do not have much of an appetite, you can add protein and calories by drinking supplements such as Ensure, Boost, [place] Instant Breakfast, Special K, milkshakes, protein shakes Please follow a low residue diet (no fresh fruits, no fresh vegetables) or regular diet if indicated. Please drink lots of fluids (64 ounces per day) of clear liquids-water, sport drinks (Gatorade), lemonade, flavored water. This will help you keep hydrated and prevent constipation. Please limit caffeine. Do not drink alcohol or smoke tobacco products. ACTIVITY INSTRUCTIONS: You may resume your regular home activities as tolerated. If you had surgery: Do not expect your energy level to be the same as it was before surgery. Your body needs more energy to heal, and this may cause you to feel weak or need to take naps Please walk often, be out of bed and active daily. This will help prevent blood clots and pneumonia. You may climb stairs. No lifting greater than 10lbs for 6-8 weeks or until cleared in clinic. No driving until cleared in clinic or discussed with surgeon. . Advance Directive:None I personally spent 20 minutes in discharge planning. Electronic Signature on File Electronically Reviewed/Signed by: Fanny Luna DO Author Signature Dt/Tm:10/17/2023 10:24 AM Resident Division of General Surgery Electronically Reviewed/Signed by: Criss Lakhani MD Cosigner Signature Dt/Tm: 10/17/2023 04:28 PM Division of Colorectal Surgery AP Discharge instructions * EVERARDO Das Madhavi: MODIFY EVERARDO Das Madhavi: MODIFY, MODIFY Event Display: Patient Discharge Instructions Authored Date: [id number] YONGKAITLYNN REDDY :1960 Visit Date:10/09/2023 Patient Discharge Instructions [facility] For medical concerns, call: . Date of Admission:10/09/2023 Date of Discharge:10/17/2023 Physician:MD Lakhani Audrey Service:Colorectal Surgery Discharge Disposition: . Advance Directive:None Reason for Hospitalization S/P colostomy Your Diagnoses S/P colostomy Personal history of rectal cancer Rectal cancer My [employer] Patient Portal: [employer] makes it easy for you to manage your health information online. My [employer] is a free service that provides you instant, secure access to your medical information anytime, anywhere. Sign in or set up your account today at [email or web address]. Like a Man.[email or web address] Thank you for allowing us to assist you with your healthcare needs. If you need additional community resources, [employer] can help at https://www.pa211.org. 211 can assist you in connecting with social programs based on your unique needs and locations. 211 is an anonymous search that can help you locate resources for: Food, Housing, Transportation, Goods, Education and Healthcare. Medications Patient is enrolled in Rx-to-Go Program New medications will be delivered from [facility] to patient's room at discharge: Mon-Sun from 9AM-5 PM. Medications MUST be PICKED UP at [facility] if patient is discharged Mon-Sun after 5 PM or anytime on holidays. Please note, the [facility] closes at 8 PM on weekdays and 5:30 PM on Saturdays, Sundays, and holidays. What How Much When Instructions Next Dose New acetaminophen (acetaminophen 500 mg oral tablet) 2 tab(s) by mouth Every 8 hours as needed for pain - mild (1-3) 8 pm New apixaban (Eliquis 2.5 mg oral tablet) 1 tab(s) by mouth 2 times daily Duration: 28 Days Pickup at [facility] 8 pm Unchanged ALPRAZolam (ALPRAZolam 0.25 mg oral tablet) TAKE 1-2 TABLETS BY MOUTH AT NIGHT FOR ANXIETY 4:30 pm Unchanged cyclobenzaprine (Flexeril 5 mg oral tablet) 1 tab(s) by mouth 3 times daily as needed for as needed for spasm Per patient, not taking Unchanged gabapentin (gabapentin 300 mg oral capsule) 1 cap by mouth 3 times daily Per patient, not taking 3 pm Unchanged oxyBUTYnin (oxyBUTYnin 5 mg oral tablet) 1 tab(s) by mouth 3 times daily as needed for as needed for urinary discomfort Per patient, not taking 8 pm Unchanged oxyCODONE (oxyCODONE 5 mg oral tablet) 5 Milligram by mouth Every 4 hours as needed for as needed for pain Pickup at [facility] 5 pm Pharmacy Information [facility] [place]: [address] [place] [address] [facility] [place] [phone] What How Much When Why Comments Stop Taking diphenhydrAMINE (diphenhydrAMINE 50 mg oral tablet) See instructions Take 1 tab PO 1 hour prior to radiology study. Stop Taking metroNIDAZOLE (Flagyl 500 mg oral tablet) See instructions Rectal adenocarcinoma one tab at 5PM, 6PM, 11PM evening before surgery Stop Taking neomycin (neomycin 500 mg oral tablet) See instructions Rectal adenocarcinoma 1 tab evening before surgery at 5PM, 6PM. 11 PM Allergies Ambienemotional LatexUnknown Vicodinitchy scalp oral contrast dyerash/itching What to do next Instructions From Your Doctor CARE INSTRUCTIONS: Managing pain:Pain medication may have been ordered for you to be comfortable during your recovery. Taper off of the prescription pain medication as pain decreases. If you have any questions regarding your pain management, please contact the colorectal office at [phone]. You may take prescribed pain medication. You may take over the counter Tylenol (acetaminophen) or NSAIDs (ibuprofen, aleve) as directed. Care of your incision:After washing your hands, cleanse surgical sites with mild soap and water. You may lightly cleanse your incision while bathing in shower. No tub baths or submerging incision. Do not apply any creams, lotions, ointments to surgical sites. It is normal to experience some numbness around the incision for some time after surgery. This may subside as the incision heals. If you have stephanie in your incision, you will have a follow up appointment for removal. If you have wevid-vfitof-auyjy will come off naturally in about 7-10 days. If you have glue over surgical sites, it may take 2-3 weeks for this to peel off. Routine arevalo catheter care - considering emptying the arevalo bag at least twice a day Routine colostomy care If you have a new ostomy, you have received instructions regarding care of your stoma. If you have difficulty with maintaining a pouching system on your skin for at least 24 hours or developing any peristomal skin redness/rash, please notify the WOCN (Wound, Ostomy, Continence Nurse) team at [phone]. You will have a follow up colorectal clinic appointment. If you are not notified of this appointment in the next 3 days, please call the colorectal office at [phone], option 2. If you are discharged with a arevalo catheter in your bladder you will need a follow up appointment with: Dr. Ángel Kasper- Urologist in [address] , [place] [address] This appointment is on 10/27/2023 @ 9am with Dr Kasper. DIET INSTRUCTIONS: You may not feel like eating regular portions right away. It is normal to have less of an appetite following surgery or hospitalization. In the beginning, try eating smaller meals several times per day. If you do not have much of an appetite, you can add protein and calories by drinking supplements such as Ensure, Boost, [place]as Instant Breakfast, Special K, milkshakes, protein shakes Please follow a low residue diet (no fresh fruits, no fresh vegetables) or regular diet if indicated. Please drink lots of fluids (64 ounces per day) of clear liquids-water, sport drinks (Gatorade), lemonade, flavored water. This will help you keep hydrated and prevent constipation. Please limit caffeine. Do not drink alcohol or smoke tobacco products. ACTIVITY INSTRUCTIONS: You may resume your regular home activities as tolerated. If you had surgery: Do not expect your energy level to be the same as it was before surgery. Your body needs more energy to heal, and this may cause you to feel weak or need to take naps Please walk often, be out of bed and active daily. This will help prevent blood clots and pneumonia. You may climb stairs. No lifting greater than 10lbs for 6-8 weeks or until cleared in clinic. No driving until cleared in clinic or discussed with surgeon. If you notice the following symptoms Contact our Careline at . If unable to contact your physician and you feel it is an emergency, go to the nearest Emergency Room or call 911 Diet Instructions Activity Instructions Follow-Up Appointments You Need to Schedule the Following Appointments [facility]: phone: [phone]; fax#:[phone] Why: Home health: nursing home for colostomy and arevalo care/teaching. Home PT/OT. Start of care 10/18/23. Someone Will Contact You Regarding These Appointments Someone will contact you from Colorectal surgery to schedule a follow up with Dr. Lakhani in clinic. The Following Services Have Been Arranged for You Service: Organization: Business Address: Phone Number: Home Care Physician Services [facility] Home Nursing Agency [address] [place], [address] Tests Pending None Procedures Performed lap transverse colostomy 10/12/2023 Special Instructions Common Emergency Awareness Tips Call 911 immediately if: experiencing any of the warning signs and symptoms of stroke: B.E. F.A.S.T. Balance: is there trouble with walking or coordination Eyes: is there double vision or visual loss Face: Smile, do both sides of face move equally Arm: Raise arms, do both arms move equally Speech: Is speech slurred or inappropriate Time: Time is critical, call 911 immediately Heart Attack Signs Chest discomfort: Most heart attacks involve discomfort in the center of the chest and lasts more than a few minutes, or goes away and comes back. It can feel like uncomfortable pressure, squeezing, fullness or pain. Discomfort in upper body: Symptoms can include pain or discomfort in one or both arms, back, neck, jaw or stomach. Shortness of breath: With or without discomfort. Other signs: Breaking out in a cold sweat, nausea, or lightheaded. Remember, MINUTES DO MATTER. If you experience any of these heart attack warning signs, call 07-31- to get immediate medical attention! Education Materials Indwelling Urinary Catheter Care, Adult An indwelling urinary catheter is a thin, flexible tube that is placed into the bladder to help drain urine out of the body. The catheter is inserted into the urethra. The urethra is the part of the body that drains urine from the bladder. Urine drains from the catheter into a drainage bag outside of the body. Taking good care of your catheter will keep it working properly and help to prevent problems from developing. What are the risks? Bacteria may get into your bladder and cause a urinary tract infection. Urine flow can become blocked. This can happen if the catheter is not working correctly, or if you have sediment or a blood clot in your bladder or catheter. Tissue near the catheter may become irritated and may bleed. How to wear your catheter and your drainage bag Supplies needed Adhesive tape or a leg strap. Alcohol wipe or soap and water (if you use tape). A clean towel (if you use tape). Overnight drainage bag. Smaller drainage bag (leg bag). Wearing your catheter and bag Use adhesive tape or a leg strap to attach your catheter to your leg. Make sure the catheter is not pulled tight. If a leg strap gets wet, replace it with a dry one. If you use adhesive tape: 1. Use an alcohol wipe or soap and water to wash off any stickiness on your skin where you had tape before. 2. Use a clean towel to pat-dry the area. 3. Apply the new tape. You should have received a large overnight drainage bag and a smaller leg bag that fits underneath clothing. You may wear the overnight bag at any time, but you should not wear the leg bag at night. Make sure the overnight drainage bag is always lower than the level of your bladder, but do not letit touch the floor. Before you go to sleep, hang the bag inside a wastebasket that is covered by a clean plastic bag. Secure the leg bag according to signal supervisor's instructions. This may be above or below the knee, depending on the length of the tubing. Make sure that: The leg bag is below the bladder. The tubing does not have loops or too much tension. How to care for the skin around the catheter Supplies needed A clean washcloth. Water and mild soap. A clean towel. Caring for your skin and catheter Every day, use a clean washcloth and soapy water to clean the skin around your catheter. 1. Wash your hands with soap and water. 2. Wet a washcloth in warm water and mild soap. 3. Clean the skin around your urethra. If you are female: Use one hand to gently spread the folds of skin around your vagina (labia). With the washcloth in your other hand, wipe the inner side of your labia on each side. Do this in ocfpoi-vc-hvbm direction. If you are male: Use one hand to pull back any skin that covers the end of your penis (foreskin). With the washcloth in your other hand, wipe your penis in small circles. Start wiping at the tip ofyour penis, then move outward from the catheter. Move the foreskin back in place, if needed. 4. With your free hand, hold the catheter close to where it enters your body. Keep holding the catheter during cleaning so it does not get pulled out. 5. Use your other hand to clean the catheter with the washcloth. Only wipe downward on the catheter, toward the bag. Do not wipe upward toward your body, because that may push bacteria into your urethra and cause infection. 6. Use a clean towel to pat-dry the catheter and the skin around it. Make sure to wipe off all soap. 7. Wash your hands with soap and water. Shower every day. Do not take baths. Do not use cream, ointment, or lotion on the area where the catheter enters your body, unless your health care provider tells you to do that. Do not use powders, sprays, or lotions on your genital area. Check your skin around the catheter every day for signs of infection. Check for: Redness, swelling, or pain. Fluid or blood. Warmth. Pus or a bad smell. How to empty the drainage bag Supplies needed Rubbing alcohol. Gauze pad or cotton ball. Adhesive tape or a leg strap. Emptying the bag Empty your drainage bag (your overnight drainage bag or your leg bag) when it is full, or at least 23 times a day. Clean the drainage bag according to the signal supervisor's instructions or as told by your health care provider. 1. Wash your hands with soap and water. 2. Detach the drainage bag from your leg. 3. Hold the drainage bag over the toilet or a clean container. Make sure the drainage bag is lower than your hips and bladder. This stops urine from going back into the tubing and into your bladder. 4. Open the pour spout at the bottom of the bag. 5. Empty the urine into the toilet or container. Do not let the pour spout touch any surface. This precaution is important to prevent bacteria from getting in the bag and causing infection. 6. Apply rubbing alcohol to a gauze pad or cotton ball. 7. Use the gauze pad or cotton ball to clean the pour spout. 8. Close the pour spout. 9. Attach the bag to your leg with adhesive tape or a leg strap. 10. Wash your hands with soap and water. How to change the drainage bag Supplies needed: Alcohol wipes. A clean drainage bag. Adhesive tape or a leg strap. Changing the bag Replace your drainage bag with a clean bag if it leaks, starts to smell bad, or looks dirty. 1. Wash your hands with soap and water. 2. Detach the dirty drainage bag from your leg. 3. Pinch the catheter with your fingers so that urine does not spill out. 4. Disconnect the catheter tube from the drainage tube at the connection valve. Do not let the tubes touch any surface. 5. Clean the end of the catheter tube with an alcohol wipe. Use a different alcohol wipe to clean the end of the drainage tube. 6. Connect the catheter tube to the drainage tube of the clean bag. 7. Attach the clean bag to your leg with adhesive tape or a leg strap. Avoid attaching the new bag tootightly. 8. Wash your hands with soap and water. General instructions Never pull on your catheter or try to remove it. Pulling can damage your internal tissues. Always wash your hands before and after you handle your catheter or drainage bag. Use a mild, fragrance-free soap. If soap and water are not available, use hand buyer tobacco head. Always make sure there are no twists, bends, or kinks in the catheter tube. Always make sure there are no leaks in the catheter or drainage bag. Drink enough fluid to keep your urine pale yellow. Do not take baths, swim, or use a hot tub. If you are female, wipe from front to back after having a bowel movement. Contact a health care provider if: Your catheter gets clogged. Your catheter starts to leak. You have signs of infection at the catheter site, such as: Redness, swelling, or pain where the catheter enters your body. Fluid, blood, pus, or a bad smell coming from the area where the catheter enters your body. The area where the catheter enters your body feels warm to the touch. You have signs of a urinary tract infection, such as: Fever or chills. Urine smells unusually bad. Cloudy urine. Pain in your abdomen, legs, lower back, or bladder. Nausea or vomiting. Get help right away if: You see blood in the catheter. Your urine is pink or red. Your bladder feels full. Your urine is not draining into the bag. Your catheter gets pulled out. Summary An indwelling urinary catheter is a thin, flexible tube that is placed into the bladder to help drain urine out of the body. The catheter is inserted into the part of the body that drains urine from the bladder (urethra). Take good care of your catheter to keep it working properly and help prevent problems from developing. Always wash your hands before and after you handle your catheter or drainage bag. Never pull on your catheter or try to remove it. This information is not intended to replace advice given to you by your health care provider. Make sure you discuss any questions you have with your health care provider. Document Revised: 07/17/2022 Document Reviewed: 07/17/2022 [employer] Patient Education 2022 [employer]. Note * Mike Hutchins: PERFORM, MODIFY, MODIFY, MODIFY, MODIFY, MODIFY Event Display: Brief Operative Note Authored Date: [id number] BRIEF OPERATIVE NOTE Name: KAITLYNN CASTILLO Patient Number: [id number] : 1960 Date of Service: 10/12/2023 Pre-op Diagnosis: Locally advanced rectal cancer Post-op Diagnosis: Same Procedure: Flexible sigmoidoscopy and diverting transverse loop colostomy Surgeon: Dr. Criss Lakhani Assistants: Mike Luciano (MS3) Anesthesia: General Estimated Blood Loss: Minimal X Less than 50ml Drains: None Fluids: See anesthesia record Urinary Output: See anesthesia record Condition: Stable Complications: None apparent Specimen: Rectal biopsy _ None Findings: Large dilated colon. Transverse colostomy Check one _ Pharmacologic VTE prophylaxis not indicated X Standard VTE prophylactic regimen ordered _ Pharmacologic VTE prophylaxis contraindicated due to increased risk of intraoperative and / or postoperative bleeding Check one _ No antibiotics indicated X Standard prophylactic antibiotic regimen ordered _ Antibiotic regimen changed due to concern for infection Electronic Signature on File Electronically Reviewed/Signed by: Mike Hutchins Author Signature Dt/Tm:10/12/2023 02:32 PM Medical Student Electronically Reviewed/Signed by: Buster Langley MD Cosigner Signature Dt/Tm: 10/14/2023 05:49 PM Resident Division of General Surgery [facility] Patient Care team information Care Team Personnel Name: Javid Stokes Amy E Position: Pharmacist Member Role: Pharmacy - Lifetime Address: Address: [address] [address] [place] Name: MD Collins Timothy F Position: Referring DIRECT Member Role: Primary Care Provider Address: Address: [address] [place] [id number] [place] Name: Javid Romano Christine A Position: Pharmacist Member Role: Pharmacy - Lifetime Name: Javid Hodges Erika Position: Pharmacist Member Role: Pharmacy - Lifetime Name: Javid Ghosh Jason A Position: Pharmacist BCMA Member Role: Pharmacy - Lifetime Address: Address: [address] [place] [address] [place] Name: Javid Noonan Paula Position: Pharmacist Member Role: Pharmacy - Lifetime Address: Address: [address] Name: Javid Pal Brittani Position: Pharmacist Member Role: Pharmacy - Lifetime Care Team Related Persons Name: RUDI CATRINA H Address: [address], [place] [id number]
--- OUTSIDE RECORDS SUMMARY | 2023-11-04 08:21 | External Medical Summary | Summary of Care ---
Author Name Unknown Organization [facility] Address [address] [place] [address] Phone [phone] Care Team Providers Care Critical Care Technician Name Role Phone Justin Collins MD Primary Care Provider + Reason for Visit * Reason Onset Date Comments Emergency Department Follow-Up 10/07/2023 Encounter Details Date Type Department Care Team (Late st Contact Info) Description 10/07/2023 Telephone General Internal Medicine [facility] [address] [facility] [place] [address] Justin Collins MD [address] [facility], [place] [address] Emergency Department Follow-Up Allergies Active Allergy Reactions Criticality Noted Date Comments Iodinated Contrast Media Rash 02/20/2017 rash Latex 02/20/2017 Pt sts gets rash at contact Hydrocodone-Acetaminophen 09/18/2009 Zolpidem Tartrate 07/05/2013 documented as of this encounter (statuses as of 10/21/2023) Medications Medication Sig Dispensed Refills Start Date End Date Status Gabapentin 300 MG Oral Capsule (Neurontin) Take 1 Capsule by mouth in the morning and 1 Capsule before bedtime. 0 Active documented as of this encounter (statuses as of 10/21/2023) Active Problems Problem Noted Date Diagnosed Date Anxiety 11/14/2022 Colon adenocarcinoma 04/16/2022 HFrEF (heart failure with reduced ejection fract ion) 11/01/2021 NICM (nonischemic cardiomyopathy) 04/12/2021 Severe mitral regurgitation 04/12/2021 LBBB (left bundle branch block) 03/20/2017 HTN, goal below 140/90 12/07/2009 Adjustment disorder with depressed mood 12/07/19 Hemorrhoids, external without complications 06/2010 Sciatica 12/07/2009 documented as of this encounter (statuses as of 10/21/2023) Resolved Problems Problem Noted Date Diagnosed Date Resolved Date Urinary tract infection 03/18/201103/30 Overview: requent and recurrent, has abx on hand to take prn documented as of this encounter (statuses as of 10/21/2023) Immunizations Name Administration Dates Next Due COVID-19 mRNA, LNP-s, No Pre serve, 2-Dose Series (Womply) 09/18/2021,02/12/2021,01/22/2021 Covid-19, Mrna, Lnp-s, Pf, B ivalent, 30 Mcg, IM, 12 yrs and above (Womply) 06/15/2023 SEASONAL INFLUENZA, PF, 6 M & Above, IM , (FLULAVAL or FLUZONE) 11/01/2021,09/18/2020,11/24/2019,2018,12/11/2017,11/27/2014 Seasonal Influenza, Quadriva lent, No Preserve, IM 11/07/2016,12/19/2015 Seasonal Influenza, Split, I IV3, With Preserve, Inj 11/27/2014 Zoster Vaccine Recombinant (Shingrix) 12/06/2021 ,08/09/2021 documented as of this encounter Social History Tobacco Use Types Packs/Day Years Used Date Smoking Tobacco: Never Smokeless Tobacco: Never Alcohol Use Standard Drinks/Week Comments Not Currently 7 (1 standard drink = 0.6 oz pure alcohol) daily wine, per pt 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 Never true 05/07/20 23 Within the past 12 months, t he food you bought just didn't last and you didn't have money to get more. Never true 05/07/2023 Sex and Gender Information Value Date Recorded Sex Assigned at Female 04/08/2019 1:40 PM EDT Gender Identity Female 04/08/2019 1:40 PM EDT Sexual Orientation Straight 04/08/2019 1: 40 PM EDT Job Start Date Occupation Industry Not on file Not on file Not on file documented as of this encounter Miscellaneous Notes * Telephone Encounter - Carol Garrett LPN - 10/21/2023 2:57 PM EST Looks like pt was in [facility] and then went to [facility] on 10/18 Is currently inpatient at [facility] * Telephone Encounter - Leny Riddle LPN - 10/07/2023 2:08 PM EST Called, left message for patient to return call. * Telephone Encounter - Justin Collins MD - 10/07/2023 1:27 PM EST I strongly recommend she go to ER if didn't void at all, could have urinary obstruction and don't want to cause permanent damage. I am so sorry cancer back. We did send xanax on 09/11/23 for 1 month so would be due 10/10/23. Why asking early? Was she taking more? 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 Urinary retention Any new medications prescribed: Yes, New medications: oxycodone How is patient feeling today: she is overwhelmed. Her cancer is back. She started crying. Asking for xanax refill. She has had problems with constipation.She had to have a catheter placed in the Er. They wanted to keep the catheter in and she did not. They emptied her bladder of a huge amount of urine. Has not voided since she had the catheter in place. Having some rectal pain and abdominal cramping. She just had a colostomy reversal and home health is coming back tomorrow. She was told she needs a urology referral stat. She left the ER @ 9:30 p.m. Has not voided since. Called Dr. Dior office and spoke to Anand. Dr. Collins's recommendation is for the patient to go to the ER again. Patient informed. She is very hesitant to go there. Doesn't think she kteurah this physically or mentally right now. Will consider it. Does patient have concerns today: Yes, her cancer came back and she is asking for xanax Was patient scheduled for a follow up appointment: 10/09/23 @ 12 noon. documented in this encounter Plan of Treatment Upcoming Encounters Date Type Department Care Team (Late st Contact Info) Description 10/30/2023 2:30 PM EST Office Visit General Surgery, [facility] [address] [place] [address] Fred Hughes MD [address] [place] [address] 12/02/2023 10:20 AM EST Office Visit Dermatology [facility] [address] [facility] [place] [address] Opal Jiménez PA-C [address] [facility] [place] [id number] 12/18/2023 10:20 AM EST Office Visit General Internal Medicine [facility] [address] [facility] [place] [address] Justin Collins MD [address] [facility] [place] [address] Scheduled Procedures Name Priority Associated Diagnoses Date/Ti me COLONOSCOPY FLEXIBLE PROXIMAL DIAGNOSTIC Recall History of colon cancer Health Maintenance Due Date Last Done Comments Pneumococcal Vaccine: 65+ Years (1 - PCV) 1964 HIV Screening 1973 Hepatitis C Screening 1976 DTaP,Tdap,and Td Vaccines (1 - Tdap) 1977 Mammogram 04/30/2022 04/30/2021, 03/31, 06/04/2017, Additional history exists GFR 01/06/2023 01/06/2022, 03/31, 02/06/2017, Additional history exists DXA Scan 2023 01/27/2012 Influenza Vaccine (FLU shot) (#1) 2023 11/01/2021, 09/18/2020, 11/24/2019, Additional history exists COVID-19 Vaccine (2022- season) 2023 06/15/2023, 09/18/2021, 02/12/2021, Additional history exists COLONOSCOPY-ANNUAL AGES 18-100 02/11/2024 02/10/2023, 04/11/2022 Depression Screening 05/07/2024 05/07/2023 Albumin/Creatinine Ratio 05/02/2025 05/02/2022 Lipid Panel 01/06/2027 01/06/2022, 01/09/2017 Pap Smear Discontinued 05/27/2019, 03/01, 02/10/2012, Additional history exists Zoster Vaccines Completed 12/06/2021, 08/09/2021 Colonoscopy Discontinued 02/10/2023, 04/11/2022 Colorectal Cancer Screening Discontinued Cologuard Discontinued Fecal Occult Blood Test Discontinued GARDASIL-HPV IMMUNIZATION SERIES Aged Out No longer eligible based on patient's age to complete this topic Hepatitis B Aged Out No longer eligi ble based on patient's age to complete this topic MENINGOCOCCAL (MENACTRA/MENVEO) Aged Out No longer eligible based on patient's age to complete this topic Sigmoidoscopy Discontinued documented as of this encounter Medical Devices Not on filedocumented as of this encounter Care Teams Critical Care Technician Relationship Specialty Start Date End Date Justin Collins MD [address] [place] [address] PCP - General Internal Medicine 01/07/17 documented as of this encounter
[2023-11-04] MEDS ORDERED: POLYETHYLENE (MIRALAX) 17 GM PACK PO SCH (09:00)
[2023-11-04] MEDS ORDERED: DOCUSATE SODIUM SYRUP 100 MG/10 ML UDC PO SCH (09:00)
[2023-11-04] MEDS: DULoxetine HCL 30 MG CAP PO SCH (09:02)
[2023-11-04] MEDS: SENNA 8.6 MG TAB PO SCH (09:03)
[2023-11-04] MEDS: GABAPENTIN 300 MG CAP PO SCH ×2 (09:05→22:15)
[2023-11-04] MEDS ORDERED: DEXAMETHASONE SOD INJ 4 MG/ML VIAL IV SCH (11:45)
[2023-11-04] MEDS ORDERED: BACLOFEN 10 MG TAB PO PRN (11:48)
[2023-11-04] MEDS: dexAMETHasone 4 MG in SYRINGE 0 ML IV SCH (12:28)
--- NOTE | 2023-11-04 13:07 | Palliative Care Progress Note ---
Date of Service November 04, 2023 Assessment & Plan (1) Cancer related pain: (2) Palliative care by specialist: (3) Dyspnea and respiratory abnormalities: (4) Weakness generalized: (5) Rectal carcinoma: (6) HFrEF (heart failure with reduced ejection fraction): Plan * Very severe uncontrolled terminal rectal ca pain for this inpatient hospice care patient. Oncology requesting modification for pain mgt * Increased Dilaudid infusion from 0.3mg per hour to 0.5mg per hour and bolus dose from 0.3mg q15min prn to 0.5mg q10min prn. I have written new orders. * It should be noted that prior to initiation of her Dilaudid infusion, her baseline Dilaudid equivalent was equal to 0.8mg per hour. She is not opioid naive. She is having worsening pain from met terminal rectal ca. Thank you for allowing us to participate in the ongoing care of this patient. Please don't hesitate to call or page with any additional concerns. Dr. Drea Thompson DNP Director, Palliative Care Admission and Anticipated Discharge Date Admission Date: November 03, 2023 Subjective Patient is only marginally able to communicate and continues to indicate that she would like even more aggressive pain control. DIlaudid STATION GATEMAN infusion in progress but she is not well controlled Review of Systems Review of Systems: All systems reviewed & are unremarkable except as noted in Subjective Physical Exam Physical Exam: grimacing appears distressed intermittent confusion and lethargy inc resp effort w/use of accessory muscles PG Care Time/CCT Total # of Minutes Spent Total Time Spent: 55 Total Time Spent with Patient: Total time spent is greater than 50% in coordination of care (as documented) at patient's floor/unit and/or counseling patient: Coding [place] [address] SUB INP/OBS CARE 3/50MIN Patient Type Established Medical Decision Making High Complexity Diagnoses Cancer related pain G89.3 Palliative care by specialist Z51.5 Dyspnea and respiratory abnormalities R06.00; R06.89 Weakness generalized R53.1 Rectal carcinoma C20 HFrEF (heart failure with reduced ejection fraction) I50.20
--- NOTE | 2023-11-04 16:35 | Hospitalist Progress Note ---
Date of Service November 04, 2023 Assessment & Plan (1) Cancer related pain: Plan: (1) Acute postoperative abdominal pain: #Acute postoperative abdominal pain #Acute on chronic cancer pain #Large rectal mass concerning for rectal carcinoma given history Comfort care History of rectal cancer admitted with abdominal pain. During the hospitalization, patient's pain progressively increased. Patient became weaker with poor appetite and poor oral intake. Patient was evaluated by pain management and oncology. Currently admitted for general inpatient hospice Started on baclofen for intractable hiccups On FOREST LOGISTICS MANAGER pump Decadron ordered as per recommendation by general inpatient hospice Also on Ativan. Palliative care on board Continue comfort care measures Please note the above document was generated using voice recognition software. It may contain grammatical, syntax or spelling errors. Any formal questions or concerns about the content, text or information contained within the body of this dictation should be directly addressed to the provider for clarification Admission and Anticipated Discharge Date Admission Date: November 03, 2023 Subjective Patient seen and examined at bedside. She has intractable hiccups. Otherwise remains comfortable. Review of Systems Review of Systems: Unobtainable due to cognitive status
[2023-11-05] MEDS: HYDROmorphone PCA 30 MG/30 ML IV PRN ×3 (04:21→19:33)
[2023-11-05] MEDS: LORazepam 1 MG in SYRINGE 0.5 ML IV PRN ×2 (04:45→11:53)
[2023-11-05] MEDS: SENNA 8.6 MG TAB PO SCH (10:05)
[2023-11-05] MEDS: DULoxetine HCL 30 MG CAP PO SCH (10:05)
[2023-11-05] MEDS: GABAPENTIN 300 MG CAP PO SCH ×2 (10:05→20:13)
[2023-11-05] MEDS: dexAMETHasone 4 MG in SYRINGE 0 ML IV SCH (10:06)
--- NOTE | 2023-11-05 13:32 | Hospitalist Progress Note ---
Date of Service November 05, 2023 Assessment & Plan (1) Cancer related pain: Plan: (1) Acute postoperative abdominal pain: #Acute postoperative abdominal pain #Acute on chronic cancer pain #Large rectal mass concerning for rectal carcinoma given history Comfort care History of rectal cancer admitted with abdominal pain. During the hospitalization, patient's pain progressively increased. Patient became weaker with poor appetite and poor oral intake. Patient was evaluated by pain management and oncology. Currently admitted for general inpatient hospice On ARMOURED CAR ESCORT pump Decadron ordered as per recommendation by general inpatient hospice Continue on baclofen as needed for intractable hiccups Also on Ativan. Palliative care on board Continue comfort care measures Please note the above document was generated using voice recognition software. It may contain grammatical, syntax or spelling errors. Any formal questions or concerns about the content, text or information contained within the body of this dictation should be directly addressed to the provider for clarification Admission and Anticipated Discharge Date Admission Date: November 03, 2023 Subjective Patient seen and examined at bedside. She appears comfortable. She reports that she is not feeling herself. No complaint of pain or discomfort. Review of Systems Review of Systems: All systems reviewed & are unremarkable except as noted in Subjective Physical Exam Physical Exam: General- oriented x 3, appears to be tired Eyes- anicteric Neck- no JVD Lungs- clear BS BL Heart- normal rate, regular rhythm; no murmurs Abdomen- normal bowel sounds, nondistended, soft, nontender Extremities- no pretibial edema, no calf tenderness Neuro- alert, oriented x 3; no gross focal neurologic deficits Skin- warm & dry
[2023-11-05] MEDS: SODIUM CHLORIDE 0.9% 1,000 ML IV SCH ×2 (16:27→20:12)
[2023-11-06] MEDS: LORazepam 1 MG in SYRINGE 0.5 ML IV PRN ×3 (07:29→17:50)
[2023-11-06] MEDS: DULoxetine HCL 30 MG CAP PO SCH (10:12)
[2023-11-06] MEDS: SENNA 8.6 MG TAB PO SCH (10:13)
[2023-11-06] MEDS: GABAPENTIN 300 MG CAP PO SCH ×2 (10:13→20:00)
[2023-11-06] MEDS: dexAMETHasone 4 MG in SYRINGE 0 ML IV SCH (10:21)
--- NOTE | 2023-11-06 14:34 | Hospitalist Progress Note ---
Date of Service November 06, 2023 Assessment & Plan (1) Cancer related pain: Plan: (1) Acute postoperative abdominal pain: #Acute postoperative abdominal pain #Acute on chronic cancer pain #Large rectal mass concerning for rectal carcinoma given history Comfort care History of rectal cancer admitted with abdominal pain. During the hospitalization, patient's pain progressively increased. Patient became weaker with poor appetite and poor oral intake. Patient was evaluated by pain management and oncology. Currently admitted for general inpatient hospice On RN ENTEROSTOMAL pump Decadron ordered as per recommendation by general inpatient hospice Also on Ativan. Palliative care on board On baclofen as needed for intractable hiccups Continue comfort care measures Please note the above document was generated using voice recognition software. It may contain grammatical, syntax or spelling errors. Any formal questions or concerns about the content, text or information contained within the body of this dictation should be directly addressed to the provider for clarification Admission and Anticipated Discharge Date Admission Date: November 03, 2023 Subjective Patient was sleeping and resting comfortably. Did not appear to be in any distress. Review of Systems Review of Systems: Unobtainable due to reduced consciousness Physical Exam Physical Exam: General-sleeping and comfortable Eyes- anicteric Neck- no JVD Lungs- clear BS BL Heart- normal rate, regular rhythm; no murmurs Abdomen- normal bowel sounds, nondistended, Extremities- no pretibial edema, no calf tenderness Skin- warm & dry Results & Data Results & Data Vital Signs (Past 12 Hours) Vital Signs O2 Del Method 11/06/23 08:00 Room Air
[2023-11-06] MEDS: SODIUM CHLORIDE 0.9% 1,000 ML IV SCH (20:00)
[2023-11-07] MEDS: LORazepam 1 MG in SYRINGE 0.5 ML IV PRN ×2 (02:26→04:00)
[2023-11-07] MEDS: HYDROmorphone PCA 30 MG/30 ML IV PRN (02:38)
[2023-11-07] MEDS: DULoxetine HCL 30 MG CAP PO SCH (08:51)
[2023-11-07] MEDS: dexAMETHasone 4 MG in SYRINGE 0 ML IV SCH (08:51)
[2023-11-07] MEDS: SENNA 8.6 MG TAB PO SCH (08:52)
[2023-11-07] MEDS: GABAPENTIN 300 MG CAP PO SCH ×2 (08:52→20:20)
--- NOTE | 2023-11-07 14:38 | Hospitalist Progress Note ---
Date of Service November 07, 2023 Assessment & Plan (1) Cancer related pain: Plan: (1) Acute postoperative abdominal pain: #Acute postoperative abdominal pain #Acute on chronic cancer pain #Large rectal mass concerning for rectal carcinoma given history Comfort care History of rectal cancer admitted with abdominal pain. During the hospitalization, patient's pain progressively increased. Patient became weaker with poor appetite and poor oral intake. Patient was evaluated by pain management and oncology. Currently admitted for general inpatient hospice On TELEGRAPH INSPECTOR pump Decadron ordered as per recommendation by general inpatient hospice Scheduled Ativan ordered as per general inpatient hospice recommendation. Palliative care on board On baclofen as needed for intractable hiccups Continue comfort care measures Please note the above document was generated using voice recognition software. It may contain grammatical, syntax or spelling errors. Any formal questions or concerns about the content, text or information contained within the body of this dictation should be directly addressed to the provider for clarification Admission and Anticipated Discharge Date Admission Date: November 03, 2023 Subjective Patient seen at bedside. She is resting comfortably with her eyes closed. She does not appear to be in any distress. Review of Systems Review of Systems: All systems reviewed & are unremarkable except as noted in Subjective Physical Exam Physical Exam: General-sleeping and comfortable Eyes- anicteric Neck- no JVD Lungs- clear BS BL Heart- normal rate, regular rhythm; no murmurs Abdomen- normal bowel sounds, nondistended, Extremities- no pretibial edema, no calf tenderness Skin- warm & dry
[2023-11-07] MEDS: LORazepam 1 MG in SYRINGE 0.5 ML IV SCH ×2 (15:03→20:20)
[2023-11-07] MEDS: SODIUM CHLORIDE 0.9% 1,000 ML IV SCH (20:20)
[2023-11-08] MEDS: LORazepam 1 MG in SYRINGE 0.5 ML IV SCH ×4 (01:20→20:16)
[2023-11-08] MEDS: LORazepam 1 MG in SYRINGE 0.5 ML IV PRN (04:09)
[2023-11-08] MEDS: GABAPENTIN 300 MG CAP PO SCH ×2 (08:54→20:17)
[2023-11-08] MEDS: DULoxetine HCL 30 MG CAP PO SCH (08:54)
[2023-11-08] MEDS: SENNA 8.6 MG TAB PO SCH (08:55)
[2023-11-08] MEDS: dexAMETHasone 4 MG in SYRINGE 0 ML IV SCH (08:59)
[2023-11-08] MEDS ORDERED: HYDROmorphone INJ 0.5 MG/0.5 ML SYR IV PRN (09:00)
--- NOTE | 2023-11-08 10:38 | Hospitalist Progress Note ---
Date of Service November 08, 2023 Assessment & Plan (1) Cancer related pain: Plan: (1) Acute postoperative abdominal pain: #Acute postoperative abdominal pain #Acute on chronic cancer pain #Large rectal mass concerning for rectal carcinoma given history Comfort care History of rectal cancer admitted with abdominal pain. During the hospitalization, patient's pain progressively increased. Patient became weaker with poor appetite and poor oral intake. Patient was evaluated by pain management and oncology. Currently admitted for general inpatient hospice On BAKER PAINT pump Decadron ordered as per recommendation by general inpatient hospice Also started on IV Dilaudid as needed as patient has not been able to use BAKER PAINT pump as frequently; pain not well-controlled as per her. Scheduled Ativan ordered as per general inpatient hospice recommendation. Palliative care on board On baclofen as needed for intractable hiccups Continue comfort care measures Please note the above document was generated using voice recognition software. It may contain grammatical, syntax or spelling errors. Any formal questions or concerns about the content, text or information contained within the body of this dictation should be directly addressed to the provider for clarification Admission and Anticipated Discharge Date Admission Date: November 03, 2023 Subjective Seen and examined at bedside. She reports that she still has back pain. Review of Systems Review of Systems: All systems reviewed & are unremarkable except as noted in Subjective Physical Exam Physical Exam: General-comfortable, not in distress Eyes- anicteric Neck- no JVD Lungs- clear BS BL Heart- normal rate, regular rhythm; no murmurs Abdomen- normal bowel sounds, nondistended, Extremities- no pretibial edema, no calf tenderness Skin- warm & dry Results & Data Results & Data Vital Signs (Past 12 Hours) Vital Signs O2 Del Method 11/08/23 09:15 Room Air
[2023-11-08] MEDS: HYDROmorphone PCA 30 MG/30 ML IV PRN (19:19)
[2023-11-08] MEDS: SODIUM CHLORIDE 0.9% 1,000 ML IV SCH (20:16)
[2023-11-09] MEDS: LORazepam 1 MG in SYRINGE 0.5 ML IV SCH ×4 (01:52→20:17)
[2023-11-09] MEDS ORDERED: DEXAMETHASONE SOD INJ 4 MG/ML VIAL IV SCH (09:00)
[2023-11-09] MEDS: DULoxetine HCL 30 MG CAP PO SCH (09:18)
[2023-11-09] MEDS: GABAPENTIN 300 MG CAP PO SCH ×2 (09:18→20:00)
[2023-11-09] MEDS: SENNA 8.6 MG TAB PO SCH (09:18)
[2023-11-09] MEDS: dexAMETHasone 2 MG in SYRINGE 0 ML IV SCH (09:52)
--- NOTE | 2023-11-09 15:37 | Hospitalist Progress Note ---
Date of Service November 09, 2023 Assessment & Plan (1) Cancer related pain: Plan: (1) Acute postoperative abdominal pain: #Acute postoperative abdominal pain #Acute on chronic cancer pain #Large rectal mass concerning for rectal carcinoma given history Comfort care History of rectal cancer admitted with abdominal pain. During the hospitalization, patient's pain progressively increased. Patient became weaker with poor appetite and poor oral intake. Patient was evaluated by pain management and oncology. Currently admitted for general inpatient hospice On FITTING SUPERVISOR pump Decadron ordered as per recommendation by general inpatient hospice Also started on IV Dilaudid as needed as patient has not been able to use FITTING SUPERVISOR pump as frequently; pain not well-controlled as per her. Scheduled Ativan ordered as per general inpatient hospice recommendation. Palliative care on board On baclofen as needed for intractable hiccups Continue comfort care measures Discussed with the patient's and son at bedside. Please note the above document was generated using voice recognition software. It may contain grammatical, syntax or spelling errors. Any formal questions or concerns about the content, text or information contained within the body of t his dictation should be directly addressed to the provider for clarification Admission and Anticipated Discharge Date Admission Date: November 03, 2023 Subjective Patient seen and examined at bedside. She is lying in the bed comfortably; not in distress. Family is also at bedside. Review of Systems Review of Systems: All systems reviewed & are unremarkable except as noted in Subjective Physical Exam Physical Exam: General-comfortable, not in distress Eyes- anicteric Neck- no JVD Lungs- clear BS BL Heart- normal rate, regular rhythm; no murmurs Abdomen- normal bowel sounds, nondistended, Extremities- no pretibial edema, no calf tenderness Skin- warm & dry Results & Data Results & Data Vital Signs (Past 12 Hours) Vital Signs O2 Del Method 11/09/23 08:30 Room Air
[2023-11-09] MEDS: SODIUM CHLORIDE 0.9% 1,000 ML IV SCH (19:13)
[2023-11-10] MEDS: LORazepam 1 MG in SYRINGE 0.5 ML IV SCH ×4 (02:55→20:45)
[2023-11-10] MEDS: DULoxetine HCL 30 MG CAP PO SCH (08:07)
[2023-11-10] MEDS: GABAPENTIN 300 MG CAP PO SCH ×2 (08:07→20:38)
[2023-11-10] MEDS: SENNA 8.6 MG TAB PO SCH (08:08)
[2023-11-10] MEDS: dexAMETHasone 2 MG in SYRINGE 0 ML IV SCH (09:12)
--- NOTE | 2023-11-10 15:23 | Hospitalist Progress Note ---
Date of Service November 10, 2023 Assessment & Plan (1) Cancer related pain: Plan: (1) Acute postoperative abdominal pain: #Acute postoperative abdominal pain #Acute on chronic cancer pain #Large rectal mass concerning for rectal carcinoma given history Comfort care History of rectal cancer admitted with abdominal pain. During the hospitalization, patient's pain progressively increased. Patient became weaker with poor appetite and poor oral intake. Patient was evaluated by pain management and oncology. Currently admitted for general inpatient hospice On TICKET BROKER pump Decadron ordered as per recommendation by general inpatient hospice Also started on IV Dilaudid as needed as patient has not been able to use TICKET BROKER pump as frequently; Scheduled Ativan ordered as per general inpatient hospice recommendation. Palliative care on board On baclofen as needed for intractable hiccups Continue comfort care measures Please note the above document was generated using voice recognition software. It may contain grammatical, syntax or spelling errors. Any formal questions or concerns about the content, text or information contained within the body of this dictation should be directly addressed to the provider for clarification Admission and Anticipated Discharge Date Admission Date: November 03, 2023 Subjective Patient comfortable. Not in any pain or discomfort. Review of Systems Review of Systems: Unobtainable due to cognitive status Physical Exam Physical Exam: General-comfortable, not in distress Eyes- anicteric Neck- no JVD Lungs- clear BS BL Heart- normal rate, regular rhythm; no murmurs Abdomen- normal bowel sounds, nondistended, Extremities- no pretibial edema, no calf tenderness Skin- warm & dry Results & Data Results & Data Vital Signs (Past 12 Hours) Vital Signs O2 Del Method 11/10/23 10:49 Room Air
[2023-11-11] MEDS: LORazepam 1 MG in SYRINGE 0.5 ML IV SCH ×3 (02:16→14:54)
[2023-11-11] MEDS: SODIUM CHLORIDE 0.9% 1,000 ML IV SCH (03:36)
[2023-11-11] MEDS: HYDROmorphone PCA 30 MG/30 ML IV PRN (04:44)
[2023-11-11] MEDS: SENNA 8.6 MG TAB PO SCH (07:12)
[2023-11-11] MEDS: DULoxetine HCL 30 MG CAP PO SCH (07:13)
[2023-11-11] MEDS: GABAPENTIN 300 MG CAP PO SCH (07:13)
[2023-11-11] MEDS: dexAMETHasone 2 MG in SYRINGE 0 ML IV SCH (10:00)
[2023-11-11] MEDS ORDERED: ATROPINE SULFATE 1% OP SOLN 5 ML BTL SL PRN (14:32)
[2023-11-11] MEDS ORDERED: MoRPHine SULFATE 10 MG/0.5 ML UDP PO PRN (14:32)
[2023-11-11] MEDS ORDERED: ONDANSETRON 4 MG OD TAB SL PRN (14:32)
[2023-11-11] MEDS ORDERED: LORazepam 0.5 MG TAB PO PRN (14:32)
[2023-11-11] MEDS ORDERED: fentaNYL 50 MCG/HR TDSY TD SCH (15:30)
[2023-11-11] MEDS ORDERED: CHECK fentaNYL PATCH PLACEMENT SCH (16:00)
--- NOTE | 2023-11-11 16:12 | Communication Note ---
Date of Service: November 11, 2023 RN informed that patient ceased breathing. On Exam, Patient had no audible breath sounds or heart sounds. Pupils are dilated and non reactive. No response to sternal rub/Pain stimulus. Patient was pronounced to be at 1550 on 11/11/23. Tried to reach patient's multiple times, no answer.
--- NOTE | 2023-11-11 16:16 | Discharge Summary ---
Date of Service November 11, 2023 Admission HPI Per Admitting Provider Patient is a 63-year-old female with history of rectal cancer, who was admitted to [facility] for abdominal pain secondary to rectal cancer, diarrhea, possible melena. During admission, patient's pain progressively increased, pain management consulted as well as hematology oncology service. She also became weaker with very poor appetite and poor oral intake. Patient eventually placed on a DIRECTOR OF QUALITY pump by palliative care service and eventually decision was made to transition her to inpatient hospice per family. Discharge Data Allergies Allergy/AdvReac Type Severity Reaction Status Date / Time Iodinated Contrast Media Allergy Intermediate SKIN Verified 10/18/23 16:41 REACTION WITH PEALING latex Allergy Mild Rash Verified 10/18/23 16:41 zolpidem AdvReac Severe "FELT Verified 10/18/23 16:41 CRAZY" hydrocodone AdvReac Mild Itching Verified 10/18/23 16:41 HEAD Hospital Course (1) Cancer related pain: (1) Acute postoperative abdominal pain: #Acute postoperative abdominal pain #Acute on chronic cancer pain #Large rectal mass concerning for rectal carcinoma given history Comfort care History of rectal cancer admitted with abdominal pain. During the hospitalization, patient's pain progressively increased. Patient became weaker with poor appetite and poor oral intake. Patient was evaluated by pain management and oncology. Currently admitted for general inpatient hospice On DIRECTOR OF QUALITY pump Decadron ordered as per recommendation by general inpatient hospice Also started on IV Dilaudid as needed as patient has not been able to use DIRECTOR OF QUALITY pump as frequently; Scheduled Ativan ordered as per general inpatient hospice recommendation. Palliative care on board On baclofen as needed for intractable hiccups Continue comfort care measures Please note the above document was generated using voice recognition software. It may contain grammatical, syntax or spelling errors. Any formal questions or concerns about the content, text or information contained within the body of this dictation should be directly addressed to the provider for clarification Discharge Plan Discharge Items Patient Disposition: Other Date/Time: 11/11/23 15:50
--- NOTE | 2023-11-11 16:22 | Discharge Summary ---
Date of Service November 11, 2023 Admission HPI Per Admitting Provider Chief Complaint: Transition to inpatient hospice Primary Care Provider: Justin Collins MD Patient is a 63-year-old female with history of rectal cancer, who was admitted to [facility] for abdominal pain secondary to rectal cancer, diarrhea, possible melena. During admission, patient's pain progressively increased, pain management consulted as well as hematology oncology service. She also became weaker with very poor appetite and poor oral intake. Patient eventually placed on a CUSTOMER SERVICE ASSISTANT pump by palliative care service and eventually decision was made to transition her to inpatient hospice per family. Admission Exam Per Admitting Provider General- oriented x 3, not in distress, speaks in sentences with no effort or accessory muscle use Eyes- anicteric Neck- no JVD Lungs- clear BS BL Heart- normal rate, regular rhythm; no murmurs Abdomen- normal bowel sounds, nondistended, soft, nontender Extremities- no pretibial edema, no calf tenderness Neuro- alert, oriented x 3; no gross focal neurologic deficits Skin- warm & dry Principal Diagnosis Rectal carcinoma Discharge Data Allergies Allergy/AdvReac Type Severity Reaction Status Date / Time Iodinated Contrast Media Allergy Intermediate SKIN Verified 10/18/23 16:41 REACTION WITH PEALING latex Allergy Mild Rash Verified 10/18/23 16:41 zolpidem AdvReac Severe "FELT Verified 10/18/23 16:41 CRAZY" hydrocodone AdvReac Mild Itching Verified 10/18/23 16:41 HEAD Hospital Course (1) Cancer related pain: As per Prior Provider: (1) Acute postoperative abdominal pain: #Acute postoperative abdominal pain #Acute on chronic cancer pain #Large rectal mass concerning for rectal carcinoma given history Comfort care History of rectal cancer admitted with abdominal pain. During the hospitalization, patient's pain progressively increased. Patient became weaker with poor appetite and poor oral intake. Patient was evaluated by pain management and oncology. Currently admitted for general inpatient hospice On CUSTOMER SERVICE ASSISTANT pump Decadron ordered as per recommendation by general inpatient hospice Also started on IV Dilaudid as needed as patient has not been able to use CUSTOMER SERVICE ASSISTANT pump as frequently; Scheduled Ativan ordered as per general inpatient hospice recommendation. Palliative care on board On baclofen as needed for intractable hiccups Continue comfort care measures RN informed that patient ceased breathing. On Exam, Patient had no audible breath sounds or heart sounds. Pupils are dilated and non reactive. No response to sternal rub/Pain stimulus. Patient was pronounced to be at 1550 on 11/11/23. Tried to reach patient's multiple times, no answer. Updated Patient's Son Cornell Barba over the phone. (2) Comfort measures only status: Management as above Total Time Total Time Spent Total Time Spent (In Minutes): 55 minutes Discharge Plan Discharge Items Patient Disposition: Other Date/Time: 11/11/23 15:50
[2023-11-12] MEDS ORDERED: MoRPHine SULFATE 10 MG/0.5 ML UDP SL PRN (08:00)
== END 2023-11-11 21:00 | disposition expired | DRG 947 ==
LOC: SUATTDRO 19:42 → 3N 19:42